=== PATIENT | male | born 1965 | race Caucasian/White ===

== ENCOUNTER 2019-08-24 14:36 | Emergency (ER) | payer BC, OTHER ==
--- NOTE | 2019-08-24 15:11 | ED ---
Chest Pain HPI - General Chief Complaint: Chest Pain Stated Complaint: Chest soreness Source: patient Mode of arrival: ambulatory Limitations: no limitations - History of Present Illness Initial Comments: The patient is a 54-year-old male with past medical history of diabetes who presents to the emergency room with reported chest congestion. He states that he has had a cough with mild shortness of breath which started around 3 AM. He states the cough is nonproductive. No associated chest pain. Denies fevers or chills. No sick contacts. No ripping or tearing sensation to his back. Denies a previous history of cardiac disease. Denies any abdominal pain. No recent travel. No history of DVT or PE. Denies having cardiac evaluation. No unilateral numbness or weakness. He has not taken any medications [id number] for his symptoms. There are no other alleviating, precipitating or modifying factors - Related Data Previous Rx's Medication Instructions Recorded Ibuprofen [Motrin] 800 mg PO Q8HR #30 tab 02/20/14 Sulfamethox-Tmp 800-160Mg [Bactrim 2 each PO Q12HR #56 tab 02/20/14 DS 800-160 mg] Albuterol Nebulized [Ventolin 2.5 mg INHALATION Q4H PRN #25 nebu 08/24/19 Nebulized] Albuterol Sulfate [Proair Hfa] 1 - 2 puff INHALATION Q4HR PRN #1 08/24/19 inhaler guaiFENesin-Coden 100-10MG/5ML 5 ml PO Q6H PRN 3 Days #60 ml 08/24/19 [Robitussin AC] predniSONE [Deltasone] 20 mg PO BID #10 tab 08/24/19 predniSONE [Deltasone] 20 mg PO BID #10 tab 08/24/19 Allergies Allergy/AdvReac Type Severity Reaction Status Date / Time No Known Allergies Allergy Verified 08/24/19 14:40 Review of Systems ROS Statement: Those systems with pertinent positive or pertinent negative responses have been documented in the HPI. ROS Other: All systems not noted in ROS Statement are negative. EKG Findings - EKG Comments: EKG Findings:: EKG demonstrates a sinus tachycardia with a ventricular rate of 122. [place] interval 148. QRS 82. QTC 458. No acute ST segment depressions concerning for ischemic changes Past Medical History Past Medical History: Diabetes Mellitus History of Any Multi-Drug Resistant Organisms: None Reported Past Surgical History: Appendectomy Past Psychological History: No Psychological Hx Reported Smoking Status: Never smoker Past Alcohol Use History: None Reported Past Drug Use History: None Reported General Exam Limitations: no limitations General appearance: alert, in no apparent distress Head exam: Present: atraumatic, normocephalic, normal inspection Eye exam: Present: normal appearance, PERRL, EOMI. Absent: scleral icterus, conjunctival injection, periorbital swelling ENT exam: Present: normal exam, mucous membranes moist Neck exam: Present: normal inspection. Absent: tenderness, meningismus, lymphadenopathy Respiratory exam: Present: normal lung sounds bilaterally. Absent: respiratory distress, wheezes, rales, rhonchi, stridor Cardiovascular Exam: Present: regular rate, tachycardia, normal heart sounds. Absent: systolic murmur, diastolic murmur, rubs, gallop, clicks GI/Abdominal exam: Present: soft, normal bowel sounds. Absent: distended, tenderness, guarding, rebound, rigid Extremities exam: Present: normal inspection, full ROM, normal capillary refill. Absent: tenderness, pedal edema, joint swelling, calf tenderness Back exam: Present: normal inspection Neurological exam: Present: alert, oriented X3, CN II-XII intact Psychiatric exam: Present: normal affect, normal mood Skin exam: Present: warm, dry, intact, normal color. Absent: rash Course Vital Signs 08/24/19 08/24/19 08/24/19 14:39 16:19 18:03 Temperature 99.1 F 98.9 F Pulse Rate 127 H 115 H 114 H Respiratory 22 20 18 Rate Blood Pressure 189/91 170/75 O2 Sat by Pulse 99 96 97 Oximetry Chest Pain MDM - MDM Upon arrival the patient is placed in room 10. A thorough history and physical exam was performed. The patient is markedly tachycardic. A 12-lead EKG was performed which demonstrates sinus tachycardia without ST depression or elevation. The patient is denying any chest pain at this time. Reports that he is concerned about his cough is he does take care of his elderly parents. I did recommend laboratory studies and a chest x-ray. Laboratory studies symmetry and an elevated glucose of 289. Anion gap is closed at 10. Influenza AB are not detected. Troponin is 0.012. Chest x-ray demonstrates no focal consolidation. Peribronchial cuffing. I discussed results with the patient. His heart rate has improved to 110. 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 A inform him that I am concerned about the elevation in his heart rate however he denies any chest pain and is refusing further workup. At this time the patient will be given a prescription for Robitussin-AC, a pro-air inhaler and steroids. He was given 60 mg in the emergency department. He is to follow up with his primary care doctor within 2- 4 days. I do inform the patient that he should have a cardiac workup completed because of his age. Return to emergency room for any new or worsening symptoms. The patient was in agreement treatment plan he is discharged home in stable condition Disposition Clinical Impression: Cough, Sinus tachycardia Disposition: HOME SELF-CARE Condition: Stable Instructions (If sedation given, give patient instructions): Upper Respiratory Infection (ED) Additional Instructions: Please follow-up with your primary care doctor in 2-4 days. I did recommend a cardiac workup. Return to the ER for any new or worsening symptoms Prescriptions: predniSONE [Deltasone] 20 mg PO BID #10 tab predniSONE [Deltasone] 20 mg PO BID #10 tab Albuterol Sulfate [Proair Hfa] 1 - 2 puff INHALATION Q4HR PRN #1 inhaler PRN Reason: difficulty in breathing guaiFENesin-Coden 100-10MG/5ML [Robitussin AC] 5 ml PO Q6H PRN 3 Days #60 ml PRN Reason: Cough Albuterol Nebulized [Ventolin Nebulized] 2.5 mg INHALATION Q4H PRN #25 nebu PRN Reason: difficulty in breathing Is patient prescribed a controlled substance at d/c from ED?: Yes When asked, does pt state using other controlled substances?: No If prescribed controlled substance>3 days was MAPS reviewed?: Prescribed <3 Days If opioid is for acute pain is fill amount 7 days or less?: Yes If Rx opioid, was Start Talking consent form obtained?: Yes Referrals: Markell Bond MD [Primary Care Provider] - 1-2 days Time of Disposition: 16:59
[2019-08-24 15:16] LABS: Basophils % (A) 1 %; Eosinophils # (A) 0.1 k/uL (0-0.7); Eosinophils % (A) 2 %; HCT 43.1 % (39.0-53.0); HGB 14.6 gm/dL (13.0-17.5); Lymphocytes # (A) 0.8 k/uL (1.0-4.8); Lymphocytes % (A) 15 %; MCH 28.6 pg (25.0-35.0); MCHC 33.9 g/dL (31.0-37.0); MCV 84.3 fL (80.0-100.0); Mean Platelet Volume 7.3; Monocytes # (A) 0.5 k/uL (0-1.0); Monocytes % (A) 9 %; Neutrophils # (A) 3.8 k/uL (1.3-7.7); Neutrophils % (A) 70 %; Platelet Count 205 k/uL (150-450); RBC 5.11 m/uL (4.30-5.90); RDW 12.9 % (11.5-15.5); WBC 5.5 k/uL (3.8-10.6)
--- NOTE | 2019-08-24 15:16 | XR ---
EXAMINATION TYPE: XR chest 2V DATE OF EXAM: 08/24/2019 COMPARISON: NONE HISTORY: Cough, congestion, and chest pressure TECHNIQUE: Frontal and lateral views of the chest are obtained. FINDINGS: There is no focal air space opacity, pleural effusion, or pneumothorax seen. Peribronchia l cuffing is seen, particularly surrounding the bronchus intermedius. The cardiac silhouette size is within normal limits. The osseous structures are intact. IMPRESSION: No focal consolidation to suggest pneumonia. Peribronchial cuffing. Correlate for bronch itis.
[2019-08-24 15:26] LABS: ALT 34 U/L (4-49); AST 34 U/L (17-59); African American GFR (CKD) >90 (>60 ml/min/1.73 sqM); Albumin 4.4 g/dL (3.5-5.0); Alkaline Phosphatase 91 U/L (38-126); Anion Gap 10 mmol/L; Blood Urea Nitrogen 11 mg/dL (9-20); Calcium 9.4 mg/dL (8.4-10.2); Carbon Dioxide 24 mmol/L (22-30); Chloride 99 mmol/L (98-107); Glucose 289 mg/dL (74-99); Magnesium 2.1 mg/dL (1.6-2.3); Non-African American GFR(CKD) >90 (>60 ml/min/1.73 sqM); Potassium 4.5 mmol/L (3.5-5.1); Sodium 133 mmol/L (137-145); Total Bilirubin 0.7 mg/dL (0.2-1.3)
[2019-08-24 15:39] LABS: D-Dimer 0.46 mg/L FEU (<0.60); INR 0.9 (<1.2); Partial Thromboplastin Time 22.7 sec (22.0-30.0); Prothrombin Time 9.6 sec (9.0-12.0)
[2019-08-24 16:20] VITALS: BP 170/75
[2019-08-24] MEDS ORDERED: predniSONE 20 MG TAB PO STA (16:56)
[2019-08-24 18:04] VITALS: PULSE 114; RESP 18; TEMP 98.9
== END 2019-08-24 18:05 | disposition home or self-care (01) ==
LOC: EC 14:36
DX: R05 Cough (principal); R00.0 Tachycardia, unspecified; E11.65 Type 2 diabetes mellitus with hyperglycemia
CPT/HCPCS: 36415; 85379; 80053; 83735; 84484; 85025; 85610; 85730; 87502; 71046; 99285; J7512

== ENCOUNTER 2020-02-14 10:52 | Emergency (ER) | payer OTHER ==
[2020-02-14] MEDS ORDERED: SODIUM CHLORIDE 0.9% 1,000 ML IV STA (11:39)
[2020-02-14] MEDS ORDERED: ACETAMINOPHEN TAB 500 MG TAB PO STA (11:48)
--- NOTE | 2020-02-14 11:48 | ED ---
Skin/Abscess/FB HPI <Maxime Rand - Last Filed: 02/14/20 13:20> - General Source: patient Mode of arrival: ambulatory Limitations: no limitations <Dilma Jeffries - Last Filed: 02/14/20 13:40> - General Chief complaint: Skin/Abscess/Foreign Body Stated complaint: Cyst, Male Time Seen by Provider: 02/14/20 11:23 - History of Present Illness Initial comments: Patient is a 55-year-old male presenting to the emergency Department with complaints of an abscess near his rectum has been going on for about one week. Patient states he has had this problem before proximally 3 years ago. Patient states he was started on Keflex and Bactrim about 3 days ago but symptoms have worsened. Patient states he felt like he had a fever yesterday. He has not been able to eat or drink much today. He denies any nausea or vomiting, diarrhea. He denies any abdominal pain. He has any chest pain or shortness of breath, cough. He has no further complaints at this time. Upon arrival to the ER, patient's temperature is 100.4, pulse is 113, respiratory 18, 97% on room air, 101/63 BP. (Dilma Jeffries) - Related Data Previous Rx's Medication Instructions Recorded Ibuprofen [Motrin] 800 mg PO Q8HR #30 tab 02/20/14 Sulfamethox-Tmp 800-160Mg [Bactrim 2 each PO Q12HR #56 tab 02/20/14 DS 800-160 mg] Albuterol Nebulized [Ventolin 2.5 mg INHALATION Q4H PRN #25 nebu 08/24/19 Nebulized] Albuterol Sulfate [Proair Hfa] 1 - 2 puff INHALATION Q4HR PRN #1 08/24/19 inhaler guaiFENesin-Coden 100-10MG/5ML 5 ml PO Q6H PRN 3 Days #60 ml 08/24/19 [Robitussin AC] predniSONE [Deltasone] 20 mg PO BID #10 tab 08/24/19 predniSONE [Deltasone] 20 mg PO BID #10 tab 08/24/19 Allergies Allergy/AdvReac Type Severity Reaction Status Date / Time No Known Allergies Allergy Verified 02/14/20 11:19 Review of Systems ROS Other: All systems not noted in ROS Statement are negative. <Maxime Rand - Last Filed: 02/14/20 13:20> ROS Other: All systems not noted in ROS Statement are negative. <NeshaDilma Thomas - Last Filed: 02/14/20 13:40> ROS Statement: Those systems with pertinent positive or pertinent negative responses have been documented in the HPI. Past Medical History Past Medical History: Diabetes Mellitus History of Any Multi-Drug Resistant Organisms: None Reported Past Surgical History: Appendectomy Past Psychological History: No Psychological Hx Reported Smoking Status: Never smoker Past Alcohol Use History: None Reported Past Drug Use History: None Reported <Dilma Jeffries - Last Filed: 02/14/20 13:40> General Exam Limitations: no limitations <NeshaDilma L - Last Filed: 02/14/20 13:40> - General Exam Comments Initial Comments: GENERAL: Patient is well-developed and well-nourished. Patient is nontoxic and in no acute distress. HEAD: Atraumatic, normocephalic. EYES: Pupils equal round and reactive to light, extraocular movements intact, sclera anicteric, conjunctiva are normal. Eyelids were unremarkable. ENT: TMs normal, nares patent, oropharynx clear without exudates. Moist mucous membranes. NECK: Normal range of motion, supple without lymphadenopathy or JVD. LUNGS: Unlabored respirations. Breath sounds clear to auscultation bilaterally and equal. No wheezes rales or rhonchi. HEART: Regular rate and rhythm without murmurs, rubs or gallops. ABDOMEN: Soft, nontender, normoactive bowel sounds. No guarding, no rebound. No masses appreciated. : Deferred MUSCULOSKELETAL: Normal extremities with adequate strength and normal range of motion, no pitting or edema. No clubbing or cyanosis. NEUROLOGICAL: Patient is alert and oriented x 3. Motor and sensory are also intact. Cranial nerves II through XII grossly intact. Symmetrical smile. Normal speech, normal gait. PSYCH: Normal mood, normal affect. SKIN: Warm, Dry, normal turgor, no rashes or lesions noted. (Dilma Jeffries) Course Vital Signs 02/14/20 02/14/20 11:17 12:35 Temperature 100.4 F H Pulse Rate 113 H 114 H Respiratory 18 16 Rate Blood Pressure 101/63 131/83 O2 Sat by Pulse 97 96 Oximetry Medical Decision Making - Lab Data Result diagrams: 02/14/20 11:41 02/14/20 11:41 <Maxime Rand - Last Filed: 02/14/20 13:20> - Lab Data Result diagrams: 02/14/20 11:41 02/14/20 11:41 <Dilma Jeffries - Last Filed: 02/14/20 13:40> - Medical Decision Making 55-year-old male with recurrent perianal abscess, patient has had this in the remote past. He is on antibiotics currently including Keflex and Bactrim. This is approximately 1 cm on external exam, CT is performed which shows this 1 cm small superficial abscess, no significant fat stranding or adjacent signs of infection. Discussed the case with general surgery, Dr. Villalta who recommends I&D in the emergency department and follow-up as an outpatient. This is extremely superficial and can be lanced in the emergency department. Continue antibiotics, follow-up with strict return parameters. (Maxime Rand) - Lab Data Lab Results 02/14/20 02/14/20 02/14/20 Range/Units 11:41 11:41 11:41 WBC 9.4 (3.8-10.6) k/uL RBC 4.60 (4.30-5.90) m/uL Hgb 13.3 (13.0-17.5) gm/dL Hct 39.2 (39.0-53.0) % MCV 85.1 (80.0-100.0) fL MCH 29.0 (25.0-35.0) pg MCHC 34.0 (31.0-37.0) g/dL RDW 13.1 (11.5-15.5) % Plt Count 209 (150-450) k/uL Neutrophils % 84 % Lymphocytes % 4 % Monocytes % 5 % Eosinophils % 4 % Basophils % 0 % Neutrophils # 7.9 H (1.3-7.7) k/uL Lymphocytes # 0.4 L (1.0-4.8) k/uL Monocytes # 0.5 (0-1.0) k/uL Eosinophils # 0.4 (0-0.7) k/uL Basophils # 0.0 (0-0.2) k/uL Sodium 127 L (137-145) mmol/L Potassium 4.2 (3.5-5.1) mmol/L Chloride 95 L (98-107) mmol/L Carbon Dioxide 21 L (22-30) mmol/L Anion Gap 11 mmol/L BUN 16 (9-20) mg/dL Creatinine 0.91 (0.66-1.25) mg/dL Est GFR (CKD-EPI)AfAm >90 (>60 ml/min/1.73 sqM) Est GFR (CKD-EPI)NonAf >90 (>60 ml/min/1.73 sqM) Glucose 252 H (74-99) mg/dL Plasma Lactic Acid Jose E 1.3 (0.7-2.0) mmol/L Calcium 8.2 L (8.4-10.2) mg/dL Total Bilirubin 0.9 (0.2-1.3) mg/dL AST 22 (17-59) U/L ALT 17 (4-49) U/L Alkaline Phosphatase 60 (38-126) U/L Total Protein 6.1 L (6.3-8.2) g/dL Albumin 3.6 (3.5-5.0) g/dL Disposition <Maxime Rand N - Last Filed: 02/14/20 13:20> Is patient prescribed a controlled substance at d/c from ED?: No <Dilma Jeffries - Last Filed: 02/14/20 13:40> Clinical Impression: Perianal abscess Disposition: HOME SELF-CARE Condition: Stable Instructions (If sedation given, give patient instructions): Abscess (ED) Additional Instructions: Please return to the Emergency Department if symptoms worsen or any other concerns. Continue with already prescribed Keflex and Bactrim for infection. Follow-up with Dr. Villalta's office tomorrow. Continue taking Tylenol for further fevers. Referrals: Markell Bond MD [Primary Care Provider] - 1-2 days Ry Villalta MD [STAFF PHYSICIAN] - 1-2 days
[2020-02-14 11:55] LABS: Basophils % (A) 0 %; Eosinophils # (A) 0.4 k/uL (0-0.7); Eosinophils % (A) 4 %; HCT 39.2 % (39.0-53.0); HGB 13.3 gm/dL (13.0-17.5); Lymphocytes # (A) 0.4 k/uL (1.0-4.8); Lymphocytes % (A) 4 %; MCV 85.1 fL (80.0-100.0); Mean Platelet Volume 7.9; Monocytes # (A) 0.5 k/uL (0-1.0); Monocytes % (A) 5 %; Neutrophils # (A) 7.9 k/uL (1.3-7.7); Neutrophils % (A) 84 %; Platelet Count 209 k/uL (150-450); RDW 13.1 % (11.5-15.5); WBC 9.4 k/uL (3.8-10.6)
[2020-02-14 12:05] LABS: ALT 17 U/L (4-49); AST 22 U/L (17-59); African American GFR (CKD) >90 (>60 ml/min/1.73 sqM); Albumin 3.6 g/dL (3.5-5.0); Alkaline Phosphatase 60 U/L (38-126); Anion Gap 11 mmol/L; Blood Urea Nitrogen 16 mg/dL (9-20); Calcium 8.2 mg/dL (8.4-10.2); Carbon Dioxide 21 mmol/L (22-30); Chloride 95 mmol/L (98-107); Glucose 252 mg/dL (74-99); Non-African American GFR(CKD) >90 (>60 ml/min/1.73 sqM); Potassium 4.2 mmol/L (3.5-5.1); Sodium 127 mmol/L (137-145); Total Bilirubin 0.9 mg/dL (0.2-1.3); Total Protein 6.1 g/dL (6.3-8.2)
[2020-02-14 12:36] VITALS: RESP 16
--- NOTE | 2020-02-14 12:40 | CT ---
EXAMINATION TYPE: CT pelvis w con DATE OF EXAM: 02/14/2020 COMPARISON: None. HISTORY: Perirectal abscess/cyst. Focal pain and swelling rectal region. CT DLP: 904.1 mGycm Automated exposure control for dose reduction was used. CONTRAST: Performed with IV Contrast, patient injected with 100 mL of Isovue 300. FINDINGS: Spleen is slightly enlarged at 14.3 cm long axis axial image 1. No suspicious bowel dilatation. No concerning pelvic fluid collection. Both kidneys, and visualized p ortion of pancreas and both adrenal glands are unremarkable. Prostate gland is normal in size. Visual ized osseous structures are intact. The perirectal and perianal fat is fairly well-preserved. Inferiorly there is rim enhancing thin-wall ed 2.1 x 1.1 x 1.3 cm fluid collection left aspect consistent with subcutaneous tiny abscess given pa tient history. Finding best visualized on axial image 81. This abuts skin surface. IMPRESSION: Small left perianal subcutaneous abscess confirmed as detailed above.
[2020-02-14] MEDS ORDERED: LIDOCAINE 1% INJ 10MG/ML (20 ML MDV) SQ ONE (13:19)
[2020-02-14] MEDS ORDERED: cefTRIAXone IN SWFI 1,000 MG/10 ML SYRINGE IVP STA (13:38)
[2020-02-14 13:50] VITALS: BP 118/71; PULSE 106; TEMP 101.1
== END 2020-02-14 14:15 | disposition home or self-care (01) ==
LOC: EC 10:52
DX: K61.0 Anal abscess (principal)
CPT/HCPCS: 36415; 80053; 83605; 85025; 72193; 99284; 96374; 96361; J2001; J0696; Q9967

== ENCOUNTER 2020-09-25 17:32 | Emergency (ER) | payer OTHER ==
[2020-09-25 17:36] VITALS: BP 131/84; PULSE 107; TEMP 98.2
[2020-09-25] MEDS ORDERED: guaiFENesin-DM 600/30MG 1 EACH TAB.ER.12H PO STA (19:05)
--- NOTE | 2020-09-25 19:48 | ED ---
URI HPI - General Source: patient Mode of arrival: ambulatory Limitations: no limitations <Soila Monzon - Last Filed: 09/25/20 20:28> <Sirena Ayala - Last Filed: 09/26/20 11:47> - General Chief Complaint: Upper Respiratory Infection Stated Complaint: Chest tightness/no taste/congestion Time Seen by Provider: 09/25/20 18:58 - History of Present Illness Initial Comments: 55-year-old male patient presents to the emergency department today for evaluation of nasal congestion and chest tightness. Patient states symptoms started last evening. States he has been exposed to his father who is currently hospitalized for COVID-19. He does have a history of asthma has been using albuterol inhaler which seems to be helping. Denies any fevers or chills. States his been using [place] but denies other medication use. Denies any nausea or vomiting. Denies constipation or diarrhea. Denies any rash. States he did lose his taste today. Patient denies any recent chest pain, abdominal pain, back pain, numbness, tingling, dizziness, weakness, hematuria, dysuria, urinary urgency, urinary frequency, headache, visual changes, or any other complaints. (Soila Monzon) - Related Data Previous Rx's Medication Instructions Recorded Ibuprofen [Motrin] 800 mg PO Q8HR #30 tab 02/20/14 Sulfamethox-Tmp 800-160Mg [Bactrim 2 each PO Q12HR #56 tab 02/20/14 DS 800-160 mg] Albuterol Nebulized [Ventolin 2.5 mg INHALATION Q4H PRN #25 nebu 08/24/19 Nebulized] Albuterol Sulfate [Proair Hfa] 1 - 2 puff INHALATION Q4HR PRN #1 08/24/19 inhaler guaiFENesin-Coden 100-10MG/5ML 5 ml PO Q6H PRN 3 Days #60 ml 08/24/19 [Robitussin AC] predniSONE [Deltasone] 20 mg PO BID #10 tab 08/24/19 predniSONE [Deltasone] 20 mg PO BID #10 tab 08/24/19 Allergies Allergy/AdvReac Type Severity Reaction Status Date / Time No Known Allergies Allergy Verified 09/25/20 17:33 Review of Systems ROS Other: All systems not noted in ROS Statement are negative. <Soila Monzon - Last Filed: 09/25/20 20:28> ROS Other: All systems not noted in ROS Statement are negative. <Sirena Ayala - Last Filed: 09/26/20 11:47> ROS Statement: Those systems with pertinent positive or pertinent negative responses have been documented in the HPI. Past Medical History Past Medical History: Diabetes Mellitus History of Any Multi-Drug Resistant Organisms: None Reported Past Surgical History: Appendectomy Past Psychological History: No Psychological Hx Reported Smoking Status: Never smoker Past Alcohol Use History: None Reported Past Drug Use History: None Reported <Soila Monzon - Last Filed: 09/25/20 20:28> General Exam Limitations: no limitations General appearance: alert, in no apparent distress, other (This is a well- developed, well-nourished adult male patient in no acute distress. Vital signs upon presentation are temperature 98.2F, pulse 107, respirations 18, blood pressure 131/84, pulse ox 99% on room air.) Eye exam: Present: normal appearance, PERRL, EOMI. Absent: scleral icterus, conjunctival injection, periorbital swelling ENT exam: Present: normal exam, normal oropharynx, mucous membranes moist Respiratory exam: Present: normal lung sounds bilaterally. Absent: respiratory distress, wheezes, rales, rhonchi, stridor Cardiovascular Exam: Present: regular rate, normal rhythm, normal heart sounds. Absent: systolic murmur, diastolic murmur, rubs, gallop, clicks GI/Abdominal exam: Present: soft, normal bowel sounds. Absent: distended, tenderness, guarding, rebound, rigid Neurological exam: Present: alert, oriented X3, CN II-XII intact Psychiatric exam: Present: normal affect, normal mood Skin exam: Present: warm, dry, intact, normal color. Absent: rash <Soila Monzon - Last Filed: 09/25/20 20:28> Course Vital Signs 09/25/20 09/25/20 17:34 19:45 Temperature 98.2 F Pulse Rate 107 H Respiratory 18 20 Rate Blood Pressure 131/84 O2 Sat by Pulse 99 Oximetry Medical Decision Making - Radiology Data Radiology results: report reviewed, image reviewed <Soila Monzon - Last Filed: 09/25/20 20:28> <Sirena Ayala - Last Filed: 09/26/20 11:47> - Medical Decision Making 55-year-old male patient presents to the emergency department today for evaluation of chest tightness and nasal congestion. Physical examination did reveal clear equal lung sounds. Vital signs within normal ranges. Chest x-ray is negative. He did test positive for COVID-19. He'll be discharged follow up with his primary care physician for recheck in 1-2 days. Does have albuterol inhaler at home is instructed to use this as directed. He is instructed to obtain [id number] vitamin such as vitamin C and zinc. Return parameters were discussed in detail. He verbalizes understanding and agrees with this plan. Case discussed with my attending Dr. Ayala. (Soila Monzon) I was available for consultation in the emergency department. The history and physical exam were done by the midlevel provider. I was consulted for this patients care. I reviewed the case with the midlevel provider and based on their presentation of the patient, I agree with the assessment, medical decision making and plan of care as documented. Chart was dictated using [employer] dictation software. Attempts were made to correct any dictation errors however some typographical errors may persist. Patient was seen during a national state of emergency due to the Covid-19 pandemic. (Sirena Ayala) - Lab Data Lab Results 09/25/20 Range/Units 19:07 Coronavirus (PCR) Detected A (Not Detectd) - Radiology Data One view x-ray of the chest is obtained. Report reviewed in its entirety. Impression by Dr. Patton shows no acute process. (Soila Monzon) Disposition Is patient prescribed a controlled substance at d/c from ED?: No Time of Disposition: 20:24 <Soila Monzon - Last Filed: 09/25/20 20:28> <Sirena Ayala - Last Filed: 09/26/20 11:47> Clinical Impression: COVID-19 Disposition: HOME SELF-CARE Condition: Good Instructions (If sedation given, give patient instructions): Coronavirus Disease 2019 (COVID-19) Additional Instructions: Increase fluids. Rest. Use inhaler as needed. Consider using [id number]-lnlzrof vitamins such as vitamin C and zinc. Follow-up with your primary care physician for recheck in 1-2 days. Return to the emergency room for any new, worsening, or concerning symptoms. Referrals: Markell Bond MD [Primary Care Provider] - 1-2 days
--- NOTE | 2020-09-25 20:11 | XR ---
EXAMINATION TYPE: XR chest 1V DATE OF EXAM: 09/25/2020 COMPARISON: 08/24/2019. HISTORY: Cough. TECHNIQUE: Single frontal view of the chest is obtained. FINDINGS: There is no focal air space opacity, pleural effusion, or pneumothorax seen. The cardiac silhouette size is within normal limits. The osseous structures are intact. IMPRESSION: No acute process.
[2020-09-25 20:29] VITALS: RESP 20
== END 2020-09-25 20:38 | disposition home or self-care (01) ==
LOC: EC 17:32
DX: U07.1 COVID-19 (principal); E11.9 Type 2 diabetes mellitus without complications
CPT/HCPCS: 71045; 87635; 93005; 99285

== ENCOUNTER 2021-09-14 14:40 | Emergency (ER) | payer OTHER ==
[2021-09-14 14:51] VITALS: TEMP 98.4
[2021-09-14] MEDS ORDERED: SODIUM CHLORIDE 0.9% 2,000 ML IV STA (18:05)
[2021-09-14] MEDS ORDERED: LIDOCAINE URO-JET JELLY 2% 5 ML KIT URETHRAL ONE (18:17)
--- NOTE | 2021-09-14 18:33 | XR ---
EXAMINATION TYPE: XR KUB DATE OF EXAM: 09/14/2021 COMPARISON: NONE HISTORY: Constipation TECHNIQUE: 2 view FINDINGS: There is no sign of intestinal obstruction or pneumoperitoneum. Fecal pattern is normal. No evidence of a mass. There are no pathologic calcifications. IMPRESSION: Nonacute abdomen.
[2021-09-14 18:44] LABS: Basophils % (A) 0 %; Eosinophils # (A) 0.1 k/uL (0-0.7); Eosinophils % (A) 2 %; HCT 43.3 % (39.0-53.0); HGB 14.9 gm/dL (13.0-17.5); Lymphocytes # (A) 2.1 k/uL (1.0-4.8); Lymphocytes % (A) 24 %; MCHC 34.3 g/dL (31.0-37.0); MCV 87.4 fL (80.0-100.0); Mean Platelet Volume 7.9; Monocytes # (A) 0.6 k/uL (0-1.0); Monocytes % (A) 6 %; Neutrophils # (A) 5.9 k/uL (1.3-7.7); Neutrophils % (A) 66 %; Platelet Count 309 k/uL (150-450); RBC 4.95 m/uL (4.30-5.90); RDW 13.3 % (11.5-15.5); WBC 8.9 k/uL (3.8-10.6)
[2021-09-14 19:04] LABS: ALT 33 U/L (4-49); AST 27 U/L (17-59); African American GFR (CKD) >90 (>60 ml/min/1.73 sqM); Albumin 4.8 g/dL (3.5-5.0); Alkaline Phosphatase 85 U/L (38-126); Anion Gap 9 mmol/L; Blood Urea Nitrogen 19 mg/dL (9-20); Calcium 9.5 mg/dL (8.4-10.2); Carbon Dioxide 28 mmol/L (22-30); Chloride 100 mmol/L (98-107); Glucose 296 mg/dL (74-99); Lipase 82 U/L (23-300); Non-African American GFR(CKD) >90 (>60 ml/min/1.73 sqM); Potassium 4.3 mmol/L (3.5-5.1); Sodium 137 mmol/L (137-145); Total Bilirubin 0.9 mg/dL (0.2-1.3); Total Protein 7.8 g/dL (6.3-8.2)
[2021-09-14 20:16] VITALS: BP 131/72; PULSE 71; RESP 18
--- NOTE | 2021-09-14 20:38 | ED ---
General Adult HPI - General Chief complaint: Abdominal Pain Stated complaint: Possible Bowel blockage Time Seen by Provider: 09/14/21 17:54 Source: patient Mode of arrival: ambulatory Limitations: no limitations - History of Present Illness Initial comments: Patient is a 56-year-old male who presents to the emergency department with a chief complaint constipation. Patient states he has been experiencing constipation once or twice a week for a month but has self treated successfully with enemas and laxatives. Patient states he has not been able to have a bowel movement since Tuesday. He has attempted self disimpaction, laxatives, and enemas with no relief. Patient states he drinks an adequate amount of water per day. Patient states his brother's emergency medicine attending and would like PSA value to be drawn. Patient does not have urinary symptoms including burning with urination, increased frequency, increased urgency, or urinary retention. Patient has no other concerns at this time including fever, chills, headache, shortness of breath, cough, chest pain, abdominal pain, nausea, and vomiting. - Related Data Previous Rx's Medication Instructions Recorded Ibuprofen [Motrin] 800 mg PO Q8HR #30 tab 02/20/14 Sulfamethox-Tmp 800-160Mg [Bactrim 2 each PO Q12HR #56 tab 02/20/14 DS 800-160 mg] Albuterol Nebulized [Ventolin 2.5 mg INHALATION Q4H PRN #25 nebu 08/24/19 Nebulized] Albuterol Sulfate [Proair Hfa] 1 - 2 puff INHALATION Q4HR PRN #1 08/24/19 inhaler guaiFENesin-Coden 100-10MG/5ML 5 ml PO Q6H PRN 3 Days #60 ml 08/24/19 [Robitussin AC] predniSONE [Deltasone] 20 mg PO BID #10 tab 08/24/19 predniSONE [Deltasone] 20 mg PO BID #10 tab 08/24/19 Allergies Allergy/AdvReac Type Severity Reaction Status Date / Time No Known Allergies Allergy Verified 09/14/21 14:51 Review of Systems ROS Statement: Those systems with pertinent positive or pertinent negative responses have been documented in the HPI. ROS Other: All systems not noted in ROS Statement are negative. Past Medical History Past Medical History: Diabetes Mellitus History of Any Multi-Drug Resistant Organisms: None Reported Past Surgical History: Appendectomy Past Psychological History: No Psychological Hx Reported Smoking Status: Never smoker Past Alcohol Use History: None Reported Past Drug Use History: None Reported General Exam Limitations: no limitations General appearance: alert, in no apparent distress Head exam: Present: atraumatic, normocephalic, normal inspection Eye exam: Present: normal appearance, PERRL, EOMI. Absent: scleral icterus, c onjunctival injection, periorbital swelling ENT exam: Present: normal oropharynx, mucous membranes moist Neck exam: Present: normal inspection, full ROM Cardiovascular Exam: Present: regular rate, normal rhythm, normal heart sounds. Absent: systolic murmur, diastolic murmur, rubs, gallop, clicks GI/Abdominal exam: Present: soft, normal bowel sounds. Absent: distended, tenderness, guarding, rebound, rigid Neurological exam: Present: alert, oriented X3, CN II-XII intact Psychiatric exam: Present: normal affect, normal mood Skin exam: Present: warm, dry, intact, normal color. Absent: rash Course Vital Signs 09/14/21 09/14/21 14:49 20:14 Temperature 98.4 F Pulse Rate 107 H 71 Respiratory 20 18 Rate Blood Pressure 126/79 131/72 O2 Sat by Pulse 99 95 Oximetry Medical Decision Making - Medical Decision Making This is a 56-year-old male who presents with 3 days of constipation. Thorough history and examination were performed. Abdomen is soft and nontender. Glucose is 296. Other laboratory studies are unremarkable. PSA was ordered per request and is pending. KUB x-ray was obtained which shows constipation. Patient given fluid bolus and soap suds enema. Patient has a large bowel movem ent in the emergency department states that he feels much better. Patient states he does not take diabetes medication or check his blood sugar routinely. He denies recent steroid use. Repeat blood sugar is 234. Patient declined hyperglycemic medication at this time he states he will follow-up with his primary care provider. Patient will be discharged and is highly encouraged to follow up with his primary care provider for diabetes management. Return parameters discussed. Patient verbalizes understanding and is agreeable to plan. Dr. Cotter is my attending. - Lab Data Result diagrams: 09/14/21 18:30 09/14/21 18:30 Lab Results 03/28/22 03/28/22 03/28/22 Range/Units 18:30 18:30 21:04 WBC 8.9 (3.8-10.6) k/uL RBC 4.95 (4.30-5.90) m/uL Hgb 14.9 (13.0-17.5) gm/dL Hct 43.3 (39.0-53.0) % MCV 87.4 (80.0-100.0) fL MCH 30.0 (25.0-35.0) pg MCHC 34.3 (31.0-37.0) g/dL RDW 13.3 (11.5-15.5) % Plt Count 309 (150-450) k/uL MPV 7.9 Neutrophils % 66 % Lymphocytes % 24 % Monocytes % 6 % Eosinophils % 2 % Basophils % 0 % Neutrophils # 5.9 (1.3-7.7) k/uL Lymphocytes # 2.1 (1.0-4.8) k/uL Monocytes # 0.6 (0-1.0) k/uL Eosinophils # 0.1 (0-0.7) k/uL Basophils # 0.0 (0-0.2) k/uL Sodium 137 (137-145) mmol/L Potassium 4.3 (3.5-5.1) mmol/L Chloride 100 (98-107) mmol/L Carbon Dioxide 28 (22-30) mmol/L Anion Gap 9 mmol/L BUN 19 (9-20) mg/dL Creatinine 0.73 (0.66-1.25) mg/dL Est GFR (CKD-EPI)AfAm >90 (>60 ml/min/1.73 sqM) Est GFR (CKD-EPI)NonAf >90 (>60 ml/min/1.73 sqM) Glucose 296 H (74-99) mg/dL POC Glucose (mg/dL) 234 H (75-99) mg/dL POC Glu Jewelry Facer ID Inderjit Whitman Calcium 9.5 (8.4-10.2) mg/dL Total Bilirubin 0.9 (0.2-1.3) mg/dL AST 27 (17-59) U/L ALT 33 (4-49) U/L Alkaline Phosphatase 85 (38-126) U/L Total Protein 7.8 (6.3-8.2) g/dL Albumin 4.8 (3.5-5.0) g/dL Lipase 82 (23-300) U/L Disposition Clinical Impression: Constipation, Hyperglycemia Disposition: HOME SELF-CARE Condition: Good Instructions (If sedation given, give patient instructions): Type 2 Diabetes Management for Adults (ED), Constipation (ED) Additional Instructions: Please follow up with your primary care provider in one to 2 days for diabetes management. Imhn-yif-inhjtmr soap floyd enema should be available at your local pharmacy. Return to the emergency department if you experience new, concerning, or worsening symptoms. Is patient prescribed a controlled substance at d/c from ED?: No Referrals: Markell Bond MD [Primary Care Provider] - 1-2 days Time of Disposition: 21:24
[2021-09-14 21:07] LABS: Glucose,Whole Blood 234 mg/dL (75-99)
[2021-09-14] MEDS ORDERED: INSULIN ASPART (NovoLOG) 100 UNIT/ML VIAL SQ ONE ×2 (21:08→21:38)
== END 2021-09-14 21:57 | disposition home or self-care (01) ==
LOC: EC 14:40
DX: K59.00 Constipation, unspecified (principal); E11.65 Type 2 diabetes mellitus with hyperglycemia
CPT/HCPCS: 36415; 74018; 80053; 83690; 84153; 85025; 96360; 96361; 99283

== ENCOUNTER 2021-12-07 17:03 | Inpatient (IN) | payer OTHER ==
[2021-12-07 17:12] LABS: Glucose,Whole Blood 206 mg/dL (70-110)
[2021-12-07] MEDS ORDERED: SODIUM CHLORIDE 0.9% 2,000 ML IV ONE (17:27)
[2021-12-07] MEDS ORDERED: ONDANSETRON 4 MG/2 ML VIAL IVP STA (17:29)
--- NOTE | 2021-12-07 17:36 | ED ---
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 Patient comes in today stating that over the last 2 days been extremely dizzy and it occurs when he goes to s tand up. Patient states he thinks she's been getting enough fluid and her sugars been okay. Patient states today at about noon he started vomiting and having diarrhea and now he is extremely dizzy especially when sitting up or standing. Patient denies any abdominal pain patient denies chest pain patient shortness breath or difficulty breathing. Patient states she has a mild headache. There is no numbness or weakness. She denies any recent fever chills or cough - Related Data Home Medications Medication Instructions Recorded Confirmed Albuterol Sulfate [Proair Hfa] 2 puff INHALATION RT-Q4H PRN 12/07/21 12/07/21 Atomoxetine HCl [Strattera] 25 mg PO DAILY 12/07/21 12/07/21 EPINEPHrine (Auto Inject) [Epipen] 0.3 mg IM ONCE PRN 12/07/21 12/07/21 Famotidine 20 mg PO DAILY 12/07/21 12/07/21 Finasteride [Proscar] 5 mg PO DAILY 12/07/21 12/07/21 Fluticasone Propionate [Flovent 2 puff INHALATION RT-BID PRN 12/07/21 12/07/21 Hfa 220 mcg] Levothyroxine Sodium [Synthroid] 150 mcg PO DAILY 12/07/21 12/07/21 Ondansetron Odt [Zofran Odt] 8 mg PO Q6H PRN 12/07/21 12/07/21 Pantoprazole Sodium 40 mg PO BID 12/07/21 12/07/21 metFORMIN HCL 1,000 mg PO BID-W/MEALS 12/07/21 12/07/21 Allergies Allergy/AdvReac Type Severity Reaction Status Date / Time No Known Allergies Allergy Verified 12/07/21 19:34 Review of Systems ROS Statement: Those systems with pertinent positive or pertinent negative responses have been documented in the HPI. ROS Other: All systems not noted in ROS Statement are negative. Past Medical History Past Medical History: Asthma, Diabetes Mellitus History of Any Multi-Drug Resistant Organisms: None Reported Past Surgical History: Appendectomy Past Psychological History: No Psychological Hx Reported Smoking Status: Never smoker Past Alcohol Use History: None Reported Past Drug Use History: None Reported General Exam - General Exam Comments Initial Comments: GENERAL: Patient is well-developed and well-nourished. Patient is nontoxic and well-hydrated and is in mild distress. Patient becomes very lightheaded when I sit him up in bed. ENT: Neck is soft and supple. No significant lymphadenopathy is noted. Oropharynx is clear. Moist mucous membranes. Neck has full range of motion without eliciting any pain. EYES: The sclera were anicteric and conjunctiva were pink and moist. There is no nystagmus. Extraocular movements were intact and pupils were equal round and reactive to light. Eyelids were unremarkable. PULMONARY: Unlabored respirations. Good breath sounds bilaterally. No audible rales rhonchi or wheezing was noted. CARDIOVASCULAR: There is a regular rate and rhythm without any murmurs gallops or rubs. ABDOMEN: Soft and nontender with normal bowel sounds. SKIN: Skin is clear with no lesions or rashes and otherwise unremarkable. NEUROLOGIC: Patient is alert and oriented x3. Cranial nerves II through XII are grossly intact. Motor and sensory are also intact. Normal speech, volume and content. Symmetrical smile. Finger to nose testing is normal bilaterally MUSCULOSKELETAL: Normal extremities with adequate strength and full range of motion. LYMPHATICS: No significant lymphadenopathy is noted PSYCHIATRIC: Normal psychiatric evaluation. Course Vital Signs 12/07/21 12/07/21 12/07/21 17:08 18:21 20:00 Temperature 98.1 F 99.2 F Pulse Rate 114 H 115 H 112 H Respiratory 18 18 22 Rate Blood Pressure 99/71 98/66 116/74 O2 Sat by Pulse 100 100 99 Oximetry Medical Decision Making - Medical Decision Making EKG shows sinus rhythm at 90 bpm MN interval is 135 QRS 96 QT interval 348 QTC is 44 per patient's EKG shows no ST segment elevation however there is slight ST segment depression in V4 V5 and V6. Patient's pain is resolving gave the patient 2 g of magnesium sulfate. Patient received Zofran and 2 L of fluid in the emergency department. And she received Lomotil. I spoke with Dr. Ziegler and he agreed to admit the patient admitted the patient wrote admitting orders. - Lab Data Result diagrams: 12/07/21 17:46 12/07/21 20:22 Lab Results 12/07/21 12/07/21 12/07/21 Range/Units 17:11 17:46 20:22 WBC 8.7 (3.8-10.6) k/uL RBC 5.05 (4.30-5.90) m/uL Hgb 15.2 (13.0-17.5) gm/dL Hct 44.3 (39.0-53.0) % MCV 87.7 (80.0-100.0) fL MCH 30.1 (25.0-35.0) pg MCHC 34.3 (31.0-37.0) g/dL RDW 13.3 (11.5-15.5) % Plt Count 281 (150-450) k/uL MPV 8.6 Neutrophils % 86 % Lymphocytes % 6 % Monocytes % 6 % Eosinophils % 1 % Basophils % 0 % Neutrophils # 7.5 (1.3-7.7) k/uL Lymphocytes # 0.5 L (1.0-4.8) k/uL Monocytes # 0.5 (0-1.0) k/uL Eosinophils # 0.1 (0-0.7) k/uL Basophils # 0.0 (0-0.2) k/uL Manual Slide Review Performed RBC Morphology Normal Sodium 135 L (137-145) mmol/L Potassium 4.1 (3.5-5.1) mmol/L Chloride 108 H (98-107) mmol/L Carbon Dioxide 22 (22-30) mmol/L Anion Gap 5 mmol/L BUN 20 (9-20) mg/dL Creatinine 0.71 (0.66-1.25) mg/dL Est GFR (CKD-EPI)AfAm >90 (>60 ml/min/1.73 sqM) Est GFR (CKD-EPI)NonAf >90 (>60 ml/min/1.73 sqM) Glucose 175 H (74-99) mg/dL POC Glucose (mg/dL) 206 H (70-110) mg/dL POC Glu Commercial Cleaner Jon Amaro Calcium 7.8 L (8.4-10.2) mg/dL Magnesium 1.4 L (1.6-2.3) mg/dL Total Bilirubin 0.4 (0.2-1.3) mg/dL AST 16 L (17-59) U/L ALT 13 (4-49) U/L Alkaline Phosphatase 41 (38-126) U/L Troponin I (0.000-0.034) ng/mL Total Protein 5.3 L (6.3-8.2) g/dL Albumin 3.1 L (3.5-5.0) g/dL 12/07/21 Range/Units 20:22 WBC (3.8-10.6) k/uL RBC (4.30-5.90) m/uL Hgb (13.0-17.5) gm/dL Hct (39.0-53.0) % MCV (80.0-100.0) fL MCH (25.0-35.0) pg MCHC (31.0-37.0) g/dL RDW (11.5-15.5) % Plt Count (150-450) k/uL MPV Neutrophils % % Lymphocytes % % Monocytes % % Eosinophils % % Basophils % % Neutrophils # (1.3-7.7) k/uL Lymphocytes # (1.0-4.8) k/uL Monocytes # (0-1.0) k/uL Eosinophils # (0-0.7) k/uL Basophils # (0-0.2) k/uL Manual Slide Review RBC Morphology Sodium (137-145) mmol/L Potassium (3.5-5.1) mmol/L Chloride (98-107) mmol/L Carbon Dioxide (22-30) mmol/L Anion Gap mmol/L BUN (9-20) mg/dL Creatinine (0.66-1.25) mg/dL Est GFR (CKD-EPI)AfAm (>60 ml/min/1.73 sqM) Est GFR (CKD-EPI)NonAf (>60 ml/min/1.73 sqM) Glucose (74-99) mg/dL POC Glucose (mg/dL) (70-110) mg/dL POC Glu Commercial Cleaner ID Calcium (8.4-10.2) mg/dL Magnesium (1.6-2.3) mg/dL Total Bilirubin (0.2-1.3) mg/dL AST (17-59) U/L ALT (4-49) U/L Alkaline Phosphatase (38-126) U/L Troponin I <0.012 (0.000-0.034) ng/mL Total Protein (6.3-8.2) g/dL Albumin (3.5-5.0) g/dL Disposition Clinical Impression: Diarrhea, Acute vomiting, Lightheaded, Dehydration Disposition: ADMITTED IP TO THIS HOSP Referrals: Markell Bond MD [Primary Care Provider] - 1-2 days Time of Disposition: 21:07
--- NOTE | 2021-12-07 19:13 | XR ---
EXAMINATION TYPE: XR chest 2V DATE OF EXAM: 12/07/2021 COMPARISON: 09/25/2020 HISTORY: Difficulty breathing TECHNIQUE: FINDINGS: Heart is normal. Lungs are clear of infiltrate. No heart failure. There are chest leads. Co stophrenic angles are clear. Bony thorax is intact. IMPRESSION: No active cardiopulmonary disease. No change.
[2021-12-07 19:26] LABS: Basophils % (A) 0 %; Eosinophils # (A) 0.1 k/uL (0-0.7); Eosinophils % (A) 1 %; HCT 44.3 % (39.0-53.0); HGB 15.2 gm/dL (13.0-17.5); Lymphocytes # (A) 0.5 k/uL (1.0-4.8); Lymphocytes % (A) 6 %; MCH 30.1 pg (25.0-35.0); MCHC 34.3 g/dL (31.0-37.0); MCV 87.7 fL (80.0-100.0); Mean Platelet Volume 8.6; Monocytes # (A) 0.5 k/uL (0-1.0); Monocytes % (A) 6 %; Neutrophils # (A) 7.5 k/uL (1.3-7.7); Neutrophils % (A) 86 %; Platelet Count 281 k/uL (150-450); RBC 5.05 m/uL (4.30-5.90); RDW 13.3 % (11.5-15.5); WBC 8.7 k/uL (3.8-10.6)
[2021-12-07 19:46] LABS: RBC Morphology Normal
[2021-12-07] MEDS ORDERED: DIPHENOX-ATROP 2.5-0.025 MG 1 EACH TAB PO STA (19:50)
[2021-12-07 20:40] LABS: ALT 13 U/L (4-49); AST 16 U/L (17-59); African American GFR (CKD) >90 (>60 ml/min/1.73 sqM); Albumin 3.1 g/dL (3.5-5.0); Alkaline Phosphatase 41 U/L (38-126); Anion Gap 5 mmol/L; Blood Urea Nitrogen 20 mg/dL (9-20); Calcium 7.8 mg/dL (8.4-10.2); Carbon Dioxide 22 mmol/L (22-30); Chloride 108 mmol/L (98-107); Glucose 175 mg/dL (74-99); Magnesium 1.4 mg/dL (1.6-2.3); Non-African American GFR(CKD) >90 (>60 ml/min/1.73 sqM); Potassium 4.1 mmol/L (3.5-5.1); Sodium 135 mmol/L (137-145); Total Bilirubin 0.4 mg/dL (0.2-1.3); Total Protein 5.3 g/dL (6.3-8.2)
[2021-12-07] MEDS ORDERED: SODIUM CHLORIDE 0.9% 1,000 ML IV ONE ×2 (21:07)
[2021-12-07] MEDS ORDERED: ONDANSETRON 4 MG/2 ML VIAL IVP PRN (21:08)
[2021-12-07] MEDS: MAGNESIUM SULFATE-D5W PMX 1 GM in DEXTROSE/WATER 1 100ML.BAG IVPB SCH ×2 (21:49→23:47)
[2021-12-08] MEDS ORDERED: SODIUM CHLORIDE 0.9% 1,000 ML IV ONE (00:02)
[2021-12-08] MEDS ORDERED: MAGNESIUM SULFATE-D5W PMX 1 GM in DEXTROSE/WATER 1 100ML.BAG IVPB SCH (00:15)
[2021-12-08] MEDS ORDERED: LIDOCAINE URO-JET JELLY 2% 5 ML KIT URETHRAL ONE (01:00)
[2021-12-08 01:20] LABS: HCT 33.2 % (39.0-53.0); HGB 11.5 gm/dL (13.0-17.5); MCH 30.2 pg (25.0-35.0); MCHC 34.7 g/dL (31.0-37.0); Mean Platelet Volume 9.4; Platelet Count 215 k/uL (150-450); RBC 3.82 m/uL (4.30-5.90); RDW 13.5 % (11.5-15.5); WBC 6.9 k/uL (3.8-10.6)
[2021-12-08 01:40] LABS: Appearance,Urine Clear (Clear); Bacteria,Urine Rare /hpf; Bilirubin,Urine Negative (Negative); Blood,Urine Negative (Negative); Color,Urine Yellow; Glucose,Urine (UA) 3+ (Negative); Hyaline Casts,Urine 8 /lpf (0-2); Ketones,Urine 1+ (Negative); Leukocyte Esterase,Urine Negative (Negative); Mucus,Urine Moderate /hpf; Nitrite,Urine Negative (Negative); Protein,Urine 1+ (Negative); RBC,Urine 1 /hpf (0-5); Specific Gravity,Urine 1.017 (1.001-1.035); Squamous Epithelial Cell,Urine <1 /hpf (0-4); Urobilinogen,Urine <2.0 mg/dL (<2.0); WBC,Urine 3 /hpf (0-5)
[2021-12-08 01:58] LABS: ALT 13 U/L (4-49); AST 16 U/L (17-59); African American GFR (CKD) >90 (>60 ml/min/1.73 sqM); Albumin/Globulin Ratio 1.4; Alkaline Phosphatase 40 U/L (38-126); Anion Gap 10 mmol/L; Blood Urea Nitrogen 24 mg/dL (9-20); Carbon Dioxide 18 mmol/L (22-30); Chloride 112 mmol/L (98-107); Globulin 2.1 g/dL; Glucose 194 mg/dL (74-99); Non-African American GFR(CKD) >90 (>60 ml/min/1.73 sqM); Potassium 4.2 mmol/L (3.5-5.1); Sodium 140 mmol/L (137-145); Total Bilirubin 0.6 mg/dL (0.2-1.3); Total Protein 5.1 g/dL (6.3-8.2)
[2021-12-08 02:07] LABS: Band Neutrophils % 13 %; Eosinophils # (M) 0.14 k/uL (0-0.7); Lymphocytes # (M) 0.41 k/uL (1.0-4.8); Monocytes # (M) 0.97 k/uL (0-1.0); Neutrophils % (M) 65 %; Nucleated Red Blood Cells 0 /100 WBC (0-0); Total Cells Counted 100
[2021-12-08] MEDS: LACTATED RINGERS 1,000 ML IV SCH ×3 (03:12→21:50)
[2021-12-08] MEDS ORDERED: HYDROCORTISONE SUCCINATE 100 MG/2 ML VIAL IV STA (03:24)
--- NOTE | 2021-12-08 07:46 | US ---
EXAMINATION TYPE: US renals and bladder DATE OF EXAM: 12/08/2021 COMPARISON: NONE CLINICAL HISTORY: oliguria. low blood pressure EXAM MEASUREMENTS: Right Kidney: 11.3 x 5.8 x 4.5 cm Left Kidney: 12.3 x 5.4 x 5.3 cm Right Kidney: No hydronephrosis, nephrolithiasis or masses seen Left Kidney: No hydronephrosis, nephrolithiasis or masses seen Bladder: Nondiagnostic due to Teague catheter. Bilateral Jets seen: No IMPRESSION: No hydronephrosis or nephrolithiasis
[2021-12-08 08:26] LABS: HCT 34.1 % (39.0-53.0); HGB 11.7 gm/dL (13.0-17.5); MCH 30.4 pg (25.0-35.0); MCHC 34.3 g/dL (31.0-37.0); MCV 88.5 fL (80.0-100.0); Mean Platelet Volume 8.2; Platelet Count 220 k/uL (150-450); RBC 3.85 m/uL (4.30-5.90); RDW 13.6 % (11.5-15.5); WBC 8.8 k/uL (3.8-10.6)
[2021-12-08 08:28] LABS: ALT 13 U/L (4-49); AST 14 U/L (17-59); African American GFR (CKD) >90 (>60 ml/min/1.73 sqM); Alkaline Phosphatase 44 U/L (38-126); Anion Gap 5 mmol/L; Blood Urea Nitrogen 22 mg/dL (9-20); Calcium 7.6 mg/dL (8.4-10.2); Carbon Dioxide 25 mmol/L (22-30); Chloride 106 mmol/L (98-107); Glucose 203 mg/dL (74-99); Magnesium 1.8 mg/dL (1.6-2.3); Non-African American GFR(CKD) >90 (>60 ml/min/1.73 sqM); Potassium 4.5 mmol/L (3.5-5.1); Sodium 136 mmol/L (137-145); Total Bilirubin 0.4 mg/dL (0.2-1.3); Total Protein 5.2 g/dL (6.3-8.2)
[2021-12-08] MEDS ORDERED: FLUTICASONE 110 MCG INHALER INHALATION PRN (08:47)
[2021-12-08] MEDS ORDERED: ONDANSETRON ODT 8 MG TAB.RAPDIS PO PRN (08:47)
[2021-12-08 08:51] LABS: Band Neutrophils % 5 %; Lymphocytes # (M) 1.14 k/uL (1.0-4.8); Monocytes # (M) 0.44 k/uL (0-1.0); Neutrophils % (M) 77 %; Nucleated Red Blood Cells 0 /100 WBC (0-0); Total Cells Counted 100
[2021-12-08 08:52] LABS: RBC Morphology Normal
[2021-12-08] MEDS ORDERED: LEVOTHYROXINE 75 MCG TAB PO SCH (09:00)
[2021-12-08] MEDS: INSULIN ASPART (NovoLOG) 100 UNIT/ML VIAL SQ SCH ×4 (09:46→21:49)
[2021-12-08] MEDS: FAMOTIDINE 20 MG TAB PO SCH (09:47)
[2021-12-08] MEDS: HYDROCORTISONE SUCCINATE 100 MG/2 ML VIAL IV SCH ×2 (09:47→21:49)
[2021-12-08] MEDS: PANTOPRAZOLE SODIUM 40 MG GRANULE PKT PO SCH ×2 (09:48→23:34)
[2021-12-08 12:27] LABS: Glucose,Whole Blood 194 mg/dL (70-110)
--- NOTE | 2021-12-08 15:20 | CA ---
Transthoracic Echo Report Name: Pino Rae Age: 56 Gender: M : 1965 Exam Date: 12/08/2021 13:17 Exam Location: [facility] Ht (in): 68 Wt (lb): 175 Ordering Physician: Markell Bond MD Attending/Referring Phys: Varun IR[employer] Imelda Rodriguez RDCS Procedure CPT: Indications: hypotention unexplained Cardiac Hx: Technical Quality: Fair Contrast 1: Total Dose (mL): Contrast 2: Total Dose (mL): MEASUREMENTS (Male / Female) Normal Values 2D ECHO LV Diastolic Diameter PLAX 4.5 cm 4.2 - 5.9 / 3.9 - 5.3 cm LV Systolic Diameter PLAX 3.2 cm IVS Diastolic Thickness 1.2 cm 0.6 - 1.0 / 0.6 - 0.9 cm LVPW Diastolic Thickness 1.2 cm 0.6 - 1.0 / 0.6 - 0.9 cm LV Relative Wall Thickness 0.5 RV Internal Dim ED PLAX 3.7 cm LA Volume 56.0 cm??? 18 - 58 / 22 - 52 cm??? M-MODE Aortic Root Diameter MM 2.4 cm LA Systolic Diameter MM 3.8 cm LA Ao Ratio MM 1.6 AV Cusp Separation MM 1.8 cm DOPPLER AV Peak Velocity 143.9 cm/s AV Peak Gradient 8.3 mmHg LVOT Peak Velocity 87.1 cm/s LVOT Peak Gradient 3.0 mmHg MV Area PHT 5.2 cm??? Mitral E Point Velocity 103.9 cm/s Mitral A Point Velocity 108.2 cm/s Mitral E to A Ratio 1.0 MV Deceleration Time 146.2 ms MV E' Velocity 8.7 cm/s Mitral E to MV E' Ratio 12.0 TR Peak Velocity 242.0 cm/s TR Peak Gradient 23.4 mmHg Right Ventricular Systolic Press 28.4 mmHg FINDINGS Left Ventricle Mildly increased left ventricular wall thickness. Normal left ventricular systolic function with no obvious regional wall motion abnormalities. Normal left ventricular diastolic filling pattern. Left ventricular ejection fraction is estimated at 55-60 %. Right Ventricle Mild right ventricular dilatation. Right ventricular systolic pressure within normal limits. Right Atrium Normal right atrial size. Left Atrium Normal left atrial size. No evidence for an atrial septal defect. Mitral Valve Structurally normal mitral valve. No mitral stenosis, regurgitation or prolapse. Aortic Valve Trileaflet aortic valve. No aortic valve stenosis or regurgitation. Mild aortic valve sclerosis. Tricuspid Valve Structurally normal tricuspid valve. Mild tricuspid regurgitation. No evidence of pulmonary hypertension. Pulmonic Valve Structurally normal pulmonic valve. Trace pulmonic regurgitation. Pericardium No pericardial effusion. Aorta Normal size aortic root and proximal ascending aorta. CONCLUSIONS Normal LV size and function Previewed by: Dr. Pascual Dobbins MD (Electronically Signed) Final Date: 08 December 2021 15:19
[2021-12-08 17:50] LABS: Glucose,Whole Blood 169 mg/dL (70-110)
--- NOTE | 2021-12-08 19:26 | HP ---
HISTORY AND PHYSICAL CHIEF COMPLAINT: Weakness, falling and dehydration. HISTORY OF PRESENT ILLNESS: This is the first known admissions for this 56-year-old white male who has apparently been in good health. He does take metformin for diabetes. He presented to the emergency room later in the day after he suddenly developed intense and intractable nausea, vomiting and diarrhea. He came to the emergency room, where he was hypotensive and very dehydrated. He underwent fluid resuscitation and continued to remain dizzy and hypotensive. He denied any sore throat, cough, chest pain, sputum production, sinusitis, urinary symptoms, etc. During the night his blood pressure went as low as 70s systolically and then hovered around 90. REVIEW OF SYSTEMS: He only complains of dizziness and nausea. He has no change in vision or hearing, chest pain, abdominal pain, hematemesis, coffee-ground emesis, melena, hematochezia, jaundice, history of pancreatitis, dysuria, frequency, urgency, renal disease, etc. Past medical history, family history, and personal and social histories are essentially unremarkable otherwise. He does not or drink. PHYSICAL EXAMINATION: Blood pressure 88/40 with a pulse of 83 and regular. Respirations were 32 and he is afebrile. In general he appeared to be pale and weak. He was complaining of his legs feeling extremely weak. He has had no neurologic problems in the past and no sensorimotor symptoms in the past. Head, ears, eyes, nose, mouth and throat were normal. Neck was supple. Chest is clear. Cardiac exam demonstrated sinus rhythm. The abdomen was soft and nontender without visceromegaly or masses. Bowel sounds are present. Extremities are normal. Neurologically, other than being dizzy and slightly lethargic, he is intact. He is admitted to the hospital with diagnoses: 1. Intractable nausea, vomiting and diarrhea, probably due to gastroenteritis. 2. Dehydration. 3. History of type 2 [id number] diabetes mellitus. PLAN: 1. Bedrest. 2. IV fluids. 3. Monitor blood sugars. 4. Monitor blood pressure. MMODL / IJN: [id number] /
--- NOTE | 2021-12-08 19:29 | PN ---
PROGRESS NOTE CHIEF COMPLAINT: Intractable nausea, vomiting and diarrhea with dehydration and hypotension. HISTORY OF PRESENT ILLNESS: During the night this gentleman's blood pressure dropped down into the 70s. He stayed in sinus rhythm. He did not have any complaints of chest pain, shortness of breath, abdominal pain, etc. At the present time he is still feeling weak and somewhat lethargic. PHYSICAL EXAMINATION: He is pale. Hemoglobin has dropped to around 11. Chest is clear. The cardiac exam is normal. The abdomen is soft and nontender. Bowel sounds are present. Extremities are normal. IMPRESSION: 1. Intractable nausea, vomiting and diarrhea. 2. Dehydration. 3. Lethargy. PLAN: 1. Continue with IV fluids. 2. Morning cortisol and ACTH. 3. Free T4. 4. Fecal occult blood. 5. Echocardiogram. 6. MAURA. MMODL / IJN: [id number] /
[2021-12-08 20:20] LABS: Glucose,Whole Blood 135 mg/dL (70-110)
[2021-12-09 02:13] LABS: Glucose,Whole Blood 212 mg/dL (70-110)
[2021-12-09] MEDS: LACTATED RINGERS 1,000 ML IV SCH ×3 (04:59→19:43)
[2021-12-09 07:36] LABS: Glucose,Whole Blood 176 mg/dL (70-110)
[2021-12-09] MEDS: FAMOTIDINE 20 MG TAB PO SCH (09:08)
[2021-12-09] MEDS: INSULIN ASPART (NovoLOG) 100 UNIT/ML VIAL SQ SCH ×4 (09:08→20:47)
[2021-12-09] MEDS: HYDROCORTISONE SUCCINATE 100 MG/2 ML VIAL IV SCH (09:08)
[2021-12-09] MEDS: PANTOPRAZOLE SODIUM 40 MG GRANULE PKT PO SCH ×2 (09:08→18:01)
[2021-12-09 11:36] LABS: Glucose,Whole Blood 221 mg/dL (70-110)
--- NOTE | 2021-12-09 13:08 | P.CNNES ---
History of Present Illness Consult date: 12/09/21 Requesting physician: Markell Bond Reason for Consult: generalized weakness History of Present Illness: This is a 56-year-old with medical history of diabetes, peripheral neuropathy, COVID-19 in September 2020 who presented to the emergency department on 12/07/2021 feeling light-headedness, vomiting and diarrhea. Neurology is consulted for generalized weakness. According to the patient since this past Tuesday he's been having lightheadedness episodes and happens when he is standing up. Also he's been having repeated episode of nausea, vomiting and diarrhea since this past Tuesday. He felt like he has a very low-grade fever but denies any rash. Denies any focal weakness, any new numbness. Denies any visual disturbance. Patient denies any cough recently. Currently he's feeling better compared to his ini tial presentation and his mother's at bedside and she agrees that he's doing better compared to his initial presentation. Some of the workup in our facility consisted of a during this hospital visit: On initial presentation her systolic blood pressure is 99 on a got to 84 diastolic on initial presentation was 71 and a got as low as 55. CBC with differential is unremarkable TSH is 1.150. MAURA is negative Review of Systems Review of system: The 12 point system was reviewed and apparent positive and negative per HPI. Past Medical History Past Medical History: Asthma, Diabetes Mellitus History of Any Multi-Drug Resistant Organisms: None Reported Past Surgical History: Appendectomy Past Psychological History: No Psychological Hx Reported Smoking Status: Former smoker Past Alcohol Use History: None Reported Past Drug Use History: None Reported Medications and Allergies Home Medications Medication Instructions Recorded Confirmed Type Albuterol Sulfate [Proair Hfa] 2 puff INHALATION RT-Q4H PRN 12/07/21 12/07/21 History Atomoxetine HCl [Strattera] 25 mg PO DAILY 12/07/21 12/07/21 History EPINEPHrine (Auto Inject) [Epipen] 0.3 mg IM ONCE PRN 12/07/21 12/07/21 History Famotidine 20 mg PO DAILY 12/07/21 12/07/21 History Finasteride [Proscar] 5 mg PO DAILY 12/07/21 12/07/21 History Fluticasone Propionate [Flovent 2 puff INHALATION RT-BID PRN 12/07/21 12/07/21 History Hfa 220 mcg] Levothyroxine Sodium [Synthroid] 150 mcg PO DAILY 12/07/21 12/07/21 History Ondansetron Odt [Zofran Odt] 8 mg PO Q6H PRN 12/07/21 12/07/21 History Pantoprazole Sodium 40 mg PO BID 12/07/21 12/07/21 History metFORMIN HCL 1,000 mg PO BID-W/MEALS 12/07/21 12/07/21 History Allergies Allergy/AdvReac Type Severity Reaction Status Date / Time tree nut Allergy Swelling Verified 12/08/21 09:57 Physical Examination - Vital Signs Vital Signs: Vital Signs Temp Pulse Resp BP Pulse Ox 12/09/21 11:35 98.2 F 97 16 153/87 98 12/09/21 05:00 97.8 F 99 16 148/89 97 12/08/21 20:15 98.9 F 104 H 16 121/76 96 12/08/21 17:30 98.4 F 102 H 18 128/77 98 12/08/21 15:03 97.5 F L 105 H 16 126/82 98 Intake and Output 12/08/21 12/09/21 12/09/21 22:59 06:59 14:59 Intake Total 250 Output Total 1000 Balance 250 -1000 Intake: Intake, IV Titration 250 Amount Lactated Ringers 1,000 ml 250 @ 125 mls/hr IV .Q8H [facility] Rx#:[id number] Output: Urine 1000 Other: Voiding Method Indwelling Catheter Weight 77 kg GENERAL: The patient is lying in bed and is not in acute distress. CHEST: The heart rate is regular rate rhythm. No murmurs to auscultation. LUNG: Clear to auscultation bilaterally no wheezing noted throughout. Not labored breathing. ABDOMEN/GI: Bowel sounds present in all 4 quadrants. No tenderness to palpation throughout. NEUROLOGICAL: Higher mental function: The patient is awake, alert, oriented to self, place and time. Patient is following commands. No aphasia and no neglect. Cranial nerves: The pupils are round, equal and reactive to light and accommodation. Visual warner are full to confrontation throughout. Extraocular movement is intact no nystagmus is noted. Facial sensation is normal to touch throughout. The facial strength is normal throughout. Hearing is normal bilaterally to hand rub. Tongue is midline and moved [id number] without any difficulty. No dysarthria is noted. Shoulder shrug is normal bilaterally. Motor: The strength is 5 over 5 throughout. Normal tone and bulk. Cerebellum: Normal finger to nose bilaterally. Sensation: Sensation is normal to touch throughout. Reflexes (right/left): 2+ throughout except ankles are 1+. Plantars are mute bilaterally. Results - Laboratory Findings CBC and BMP: 12/08/21 07:59 12/08/21 07:59 Abnormal Lab Findings: Abnormal Labs 12/07/21 12/07/21 12/07/21 17:11 17:46 20:22 RBC Hgb Hct Lymphocytes # 0.5 L Lymphocytes # (Manual) D-Dimer Sodium 135 L Chloride 108 H Carbon Dioxide BUN Glucose 175 H POC Glucose (mg/dL) 206 H Hemoglobin A1c Calcium 7.8 L Magnesium 1.4 L AST 16 L C-Reactive Protein Total Protein 5.3 L Albumin 3.1 L Procalcitonin Urine Protein Urine Glucose (UA) Urine Ketones Urine Bacteria Hyaline Casts Urine Mucus 12/08/21 12/08/21 12/08/21 00:09 00:09 00:09 RBC 3.82 L Hgb 11.5 L D Hct 33.2 L Lymphocytes # Lymphocytes # (Manual) 0.41 L D-Dimer 1.02 H Sodium Chloride Carbon Dioxide BUN Glucose POC Glucose (mg/dL) Hemoglobin A1c Calcium Magnesium AST C-Reactive Protein 2.6 H Total Protein Albumin Procalcitonin Urine Protein Urine Glucose (UA) Urine Ketones Urine Bacteria Hyaline Casts Urine Mucus 12/08/21 12/08/21 12/08/21 00:09 00:10 00:49 RBC Hgb Hct Lymphocytes # Lymphocytes # (Manual) D-Dimer Sodium Chloride 112 H Carbon Dioxide 18 L BUN 24 H Glucose 194 H POC Glucose (mg/dL) Hemoglobin A1c Calcium 8.0 L Magnesium AST 16 L C-Reactive Protein Total Protein 5.1 L Albumin 3.0 L Procalcitonin 3.57 H Urine Protein 1+ H Urine Glucose (UA) 3+ H Urine Ketones 1+ H Urine Bacteria Rare H Hyaline Casts 8 H Urine Mucus Moderate H 12/08/21 12/08/21 12/08/21 07:59 07:59 12:26 RBC 3.85 L Hgb 11.7 L Hct 34.1 L Lymphocytes # Lymphocytes # (Manual) D-Dimer Sodium 136 L Chloride Carbon Dioxide BUN 22 H Glucose 203 H POC Glucose (mg/dL) 194 H Hemoglobin A1c Calcium 7.6 L Magnesium AST 14 L C-Reactive Protein Total Protein 5.2 L Albumin 3.0 L Procalcitonin Urine Protein Urine Glucose (UA) Urine Ketones Urine Bacteria Hyaline Casts Urine Mucus 12/08/21 12/08/21 12/08/21 12:58 17:48 20:18 RBC Hgb Hct Lymphocytes # Lymphocytes # (Manual) D-Dimer Sodium Chloride Carbon Dioxide BUN Glucose POC Glucose (mg/dL) 169 H 135 H Hemoglobin A1c 8.1 H Calcium Magnesium AST C-Reactive Protein Total Protein Albumin Procalcitonin Urine Protein Urine Glucose (UA) Urine Ketones Urine Bacteria Hyaline Casts Urine Mucus 12/09/21 12/09/21 12/09/21 02:11 07:35 11:35 RBC Hgb Hct Lymphocytes # Lymphocytes # (Manual) D-Dimer Sodium Chloride Carbon Dioxide BUN Glucose POC Glucose (mg/dL) 212 H 176 H 221 H Hemoglobin A1c Calcium Magnesium AST C-Reactive Protein Total Protein Albumin Procalcitonin Urine Protein Urine Glucose (UA) Urine Ketones Urine Bacteria Hyaline Casts Urine Mucus Assessment and Plan Assessment: Lightheadedness, nausea vomiting and diarrhea due to volume depletion likely due to underlying recent viral infection (stated had low grade fever). Neurological exam is nonfocal. Generalized weakness due to above Diabetes mellitus COVID-19 in September 2020 Plan: I ordered a CT of the head to rule out any central cause. If CT of the head is negative and the patient continues to have symptoms can pursue MRI of the brain to rule outs any posterior circulation ischemia which I feel unlikely. Ordered orthostatic vitals Every 4 hours neuro checks C. diff, ACTH, blood culture are pending. Will defer the rest of medical management to primary team. The plan is discussed with the patient's and his mother was at bedside as well as as nurse. Noé Garcia M.D. Neuro-Hospitalist. Time with Patient: Greater than 30
--- NOTE | 2021-12-09 13:56 | CT ---
EXAMINATION TYPE: CT brain wo con DATE OF EXAM: 12/09/2021 COMPARISON: None available HISTORY: dizziness CT DLP: 1081.6 mGycm Automated exposure control for dose reduction was used. TECHNIQUE: CT scan of the brain is performed without IV contrast administration. FINDINGS: Bilateral cerebral white matter hypodensities, likely representing chronic microvascular ischemic radha nges. No acute intracranial hemorrhage. No gross acute cortical infarct. No midline shift, herniation or ventriculomegaly. Unremarkable kelly-white matter differentiation, basal cisterns, sella and CP angles. No gross space-o ccupying lesion, vasogenic edema or mass effect. Unremarkable orbits. Clear visualized paranasal sinuses. Minimal opacification of the left posterior mastoid air cells. Unremarkable calvarial bones. IMPRESSION: No acute intracranial abnormality or gross space-occupying lesion by this nonenhanced CT scan. Incide ntal findings as described above.
--- NOTE | 2021-12-09 16:16 | PN ---
PROGRESS NOTE CHIEF COMPLAINT: Gastroenteritis with dehydration and hypotension. HISTORY OF PRESENT ILLNESS: This gentleman is feeling a lot better. His strength is improving. Neurology has not been able to find any significant pathology including a normal CT today. His echocardiogram was normal. He is feeling much better and his blood sugar and blood pressure are rising. PHYSICAL EXAMINATION: Chest is clear. Cardiac exam is normal. Abdomen is soft, nontender. IMPRESSION AND PLAN: 1. Viral gastroenteritis with profound dehydration, hypokalemia and hypotension. 2. Type 2 noninsulin dependent diabetes mellitus. 3. Stop steroids. 4. Order was put in yesterday to remove the catheter and it is still in. This will be removed today. MMODL / IJN: [id number] /
[2021-12-09 17:29] LABS: Glucose,Whole Blood 198 mg/dL (70-110)
[2021-12-09 20:36] LABS: Glucose,Whole Blood 220 mg/dL (70-110)
[2021-12-10] MEDS: LACTATED RINGERS 1,000 ML IV SCH ×2 (02:04→12:52)
[2021-12-10 02:08] LABS: Glucose,Whole Blood 155 mg/dL (70-110)
[2021-12-10 07:13] LABS: Glucose,Whole Blood 176 mg/dL (70-110)
[2021-12-10] MEDS: INSULIN ASPART (NovoLOG) 100 UNIT/ML VIAL SQ SCH ×2 (08:29→12:50)
[2021-12-10] MEDS: PANTOPRAZOLE SODIUM 40 MG GRANULE PKT PO SCH (08:30)
[2021-12-10] MEDS: FAMOTIDINE 20 MG TAB PO SCH (08:30)
[2021-12-10] MEDS ORDERED: CALCIUM CARBONATE 500 MG CHEWABLE PO PRN (10:45)
[2021-12-10 12:42] LABS: Glucose,Whole Blood 185 mg/dL (70-110)
[2021-12-10 13:05] VITALS: BP 157/85; PULSE 95; RESP 18; TEMP 98.3
--- NOTE | 2021-12-10 15:39 | P.PN ---
Subjective Progress Note Date: 12/10/21 The patient is seen at bedside and he stated he is feeling drastically better. Denies any further light-headedness, nausea, vomiting or diarrhea. He has been walking without any issues. Objective - Vital Signs Vital signs: Vital Signs Temp 98.3 F 12/10/21 13:00 Pulse 95 12/10/21 13:00 Resp 18 12/10/21 13:00 BP 157/85 12/10/21 13:00 Pulse Ox 98 12/10/21 13:00 FiO2 Intake & Output 12/09/21 12/10/21 12/10/21 18:59 06:59 18:59 Intake Total 1500 2000 236 Balance 1500 1999 236 Intake: Intake, IV Titration 1500 1500 Amount Lactated Ringers 1,000 ml 1500 1500 @ 125 mls/hr IV .Q8H [facility] Rx#:[id number] Oral 500 236 Other: Voiding Method Indwelling Catheter Toilet Toilet Urinal Urinal # Voids 5 1 - Exam GENERAL: The patient is lying in bed and is not in acute distress. NEUROLOGICAL: Higher mental function: The patient is awake, alert, oriented to self, place and time. Patient is following commands. No aphasia and no neglect. Cranial nerves: The pupils are round, equal and reactive to light and accommodation. Visual warner are full to confrontation throughout. Extraocular movement is intact no nystagmus is noted. Facial sensation is normal to touch throughout. The facial strength is normal throughout. Hearing is normal bilaterally to hand rub. Tongue is midline and moved [id number] without any difficulty. No dysarthria is noted. Shoulder shrug is normal bilaterally. Motor: The strength is 5 over 5 throughout. Normal tone and bulk. Cerebellum: Normal finger to nose bilaterally. Sensation: Sensation is normal to touch throughout. Reflexes (right/left): 2+ throughout except ankles are 1+. Plantars are mute bilaterally. Some of the workup in our facility consisted of a during this hospital visit: TSH is 1.150. MAURA is negative Hemoglobin A1c is 8.1 CT of the head is reported as no acute intracranial abnormality or gross space-occupying lesion by this non-had a computed tomography scan. I personally reviewed the CT of the head and I agree with the report. - Labs CBC & Chem 7: 12/08/21 07:59 12/08/21 07:59 Labs: Abnormal Lab Results - Last 24 Hours (Table) 12/09/21 12/09/21 12/10/21 Range/Units 17:10 20:34 02:07 POC Glucose (mg/dL) 198 H 220 H 155 H (70-110) mg/dL 12/10/21 12/10/21 Range/Units 07:12 12:40 POC Glucose (mg/dL) 176 H 185 H (70-110) mg/dL Microbiology - Last 24 Hours (Table) 12/08/21 00:09 Blood Culture - Preliminary Blood No Growth after 48 hours 12/08/21 00:14 Blood Culture - Preliminary Blood No Growth after 48 hours Assessment and Plan Assessment: Lightheadedness, nausea vomiting and diarrhea due to volume depletion likely due to underlying recent viral infection (stated had low grade fever). Neurological exam is nonfocal---symptoms resolved. Generalized weakness due to above Diabetes mellitus COVID-19 in September 2020 Plan: I There is no further neurological work-up since patient feels back to baseline. He feels his symptoms has resolved. I will not pursue MRI Brain. If he has reoccurrence of his symptoms consider obtaining MRI Brain to rule out any central cause which seems unlikely. Will defer the rest of medical management to primary team. Neurology will sign off. Please reconsult if needed. Noé Garcia M.D. Neuro-Hospitalist. Time with Patient: Less than 30
--- NOTE | 2021-12-10 23:08 | DS ---
DISCHARGE SUMMARY CHIEF COMPLAINT: Dizziness and dehydration. HISTORY OF PRESENT ILLNESS AND PHYSICAL EXAMINATION: Details of this man's history and physical can be found in the initial workup. LABORATORY STUDIES: While he was in the hospital, he had laboratory studies, details of which can be found in the laboratory section of his chart. COURSE IN THE HOSPITAL: After admission, he was placed on bedrest and underwent fluid resuscitation with 3-4 L over short period of time. His magnesium was elevated, but it came down. Potassium was low and this was also corrected. However, he remained hypotensive and extremely weak. He was started on IV steroids and his blood pressure did respond. He continued to improve and he was able to start to move about and eat without any difficulty. His blood pressure and blood sugars continued to climb and the steroids were stopped. He was doing well and laboratory studies were returned to normal and blood pressure and blood sugars are coming down. It was felt he could go home on his usual activity, diet and medications. He will follow up in the office in several days. FINAL DIAGNOSES: 1. 15% dehydration. 2. Hypovolemia. 3. Hypotension. 4. Type 2 NIDDM. OPERATIONS: None. CONSULTATIONS: None. MMTRISTINL / IJN: [id number] /
== END 2021-12-10 15:28 | disposition home or self-care (01) | DRG 641 ==
LOC: EC 17:03 → 5NMEDONC 21:07 → 3SCARD 12-08 02:48 → 5NMEDONC 12-08 12:08
PROVIDERS: ADMIT Family Medicine; ATTEND Family Medicine
DX: E86.0 Dehydration (principal); E11.42 Type 2 diabetes mellitus with diabetic polyneuropathy; I95.9 Hypotension, unspecified; A08.4 Viral intestinal infection, unspecified; E86.1 Hypovolemia; J45.909 Unspecified asthma, uncomplicated; Z28.310 Unvaccinated for COVID-19; Z86.16 Personal history of COVID-19; Z87.19 Personal history of other diseases of the digestive system; Z90.49 Acquired absence of other specified parts of digestive tract; Z87.891 Personal history of nicotine dependence; Z98.890 Other specified postprocedural states; W19.XXXA Unspecified fall, initial encounter; Z79.890 Hormone replacement therapy; Z79.84 Long term (current) use of oral hypoglycemic drugs; Z79.899 Other long term (current) drug therapy; Z91.018 Allergy to other foods
CPT/HCPCS: 36415; 70450; 71046; 76770; 80053; 81001; 82024; 82533; 83036; 83605; 83690; 83735; 84145; 84443; 84484; 85025; 85379; 86038; 86140; 86850; 86900; 86901; 87040; 93005; 93306; 96360; 96361; 96365; 96366; 96375; 96376; 99285

== ENCOUNTER 2021-12-16 14:07 | Inpatient (IN) | payer OTHER ==
[2021-12-16] MEDS ORDERED: ONDANSETRON 4 MG/2 ML VIAL IVP STA (14:59)
[2021-12-16] MEDS ORDERED: SODIUM CHLORIDE 0.9% 2,000 ML IV STA (14:59)
[2021-12-16] MEDS ORDERED: PANTOPRAZOLE 40 MG/10 ML VIAL IVP STA (15:11)
[2021-12-16] MEDS ORDERED: FAMOTIDINE 20 MG/2 ML VIAL IV STA (15:13)
--- NOTE | 2021-12-16 15:30 | ED ---
General Adult HPI - General Chief complaint: Nausea/Vomiting/Diarrhea Stated complaint: dehydration/dizziness/weakness Time Seen by Provider: 12/16/21 14:55 Source: patient Mode of arrival: wheelchair Limitations: no limitations - History of Present Illness Initial comments: Patient is a 56-year-old male with a past medical history of type 2 non-insulin- dependent diabetes who presents to the emergency department with a chief complaint of nausea, vomiting, and diarrhea. Patient states his symptoms started at 12 PM today. Patient states he has had 3-5 episodes of vomiting and diarrhea, nonbloody. Patient states he feels very weak, dehydrated, and lightheaded. States he feels pressure in the middle of his stomach with burning. Denies fever, chills, upper respiratory symptoms, shortness of breath, and chest pain. Patient presented in the emergency department on 12/07/21 for similar concerns. At this time he was admitted to the hospital. He continued to remain hypotensive during his stay then which he was given IV steroids. Cortisol, ACTH, and TSH were within normal limits. Neurology did see the patient for generalized weakness and brain MRI was negative for acute process. Echocardiogram showed normal LV size and function. Patient states he did feel better at discharge and at home up until today. - Related Data Home Medications Medication Instructions Recorded Confirmed Albuterol Sulfate [Proair Hfa] 2 puff INHALATION RT-Q4H PRN 12/07/21 12/07/21 EPINEPHrine (Auto Inject) [Epipen] 0.3 mg IM ONCE PRN 12/07/21 12/07/21 metFORMIN HCL 1,000 mg PO BID-W/MEALS 12/07/21 12/07/21 Allergies Allergy/AdvReac Type Severity Reaction Status Date / Time tree nut Allergy Swelling Verified 12/16/21 17:16 Review of Systems ROS Statement: Those systems with pertinent positive or pertinent negative responses have been documented in the HPI. ROS Other: All systems not noted in ROS Statement are negative. Past Medical History Past Medical History: Asthma, Diabetes Mellitus History of Any Multi-Drug Resistant Organisms: None Reported Past Surgical History: Appendectomy Past Psychological History: No Psychological Hx Reported Smoking Status: Former smoker Past Alcohol Use History: None Reported Past Drug Use History: None Reported General Exam Limitations: no limitations General appearance: alert, in no apparent distress Head exam: Present: atraumatic, normocephalic, normal inspection Eye exam: Present: normal appearance, PERRL, EOMI. Absent: scleral icterus, conjunctival injection, periorbital swelling Respiratory exam: Present: normal lung sounds bilaterally. Absent: respiratory distress, wheezes, rales, rhonchi, stridor Cardiovascular Exam: Present: regular rate, normal rhythm, normal heart sounds. Absent: systolic murmur, diastolic murmur, rubs, gallop, clicks GI/Abdominal exam: Present: soft, tenderness (periumblical ), normal bowel sounds. Absent: distended, guarding, rebound, rigid Neurological exam: Present: alert, oriented X3, CN II-XII intact Psychiatric exam: Present: normal affect, normal mood Skin exam: Present: warm, dry, intact, normal color. Absent: rash Course Vital Signs 12/16/21 12/16/21 12/16/21 14:18 15:20 16:00 Temperature 98.2 F 99.3 F 99.2 F Pulse Rate 106 H 113 H 112 H Respiratory 15 22 Rate Blood Pressure 76/49 115/69 129/80 O2 Sat by Pulse 98 97 97 Oximetry Medical Decision Making - Medical Decision Making This is a 56-year-old male who presents with nausea, vomiting, and diarrhea since 12 PM today. Thorough history and examination were performed. Patient is hypotensive at 76/49 which is much lower than his normal pressure. Patient presented on 12/07/21 with similar presentation and was hypotensive at this time as well. He does describe an abdominal pressure with burning in the periumbilical region. There is tenderness here. Patient has not had imaging of his abdomen. I will obtain this as well as laboratory studies. Laboratory studies significant for elevated white count of 17.8. CT of the abdomen and pelvis with contrast is negative for acute process. Patient given fluid bolus, Zofran, Pepcid, and Protonix. On reevaluation patient states his symptoms have improved significantly. His blood pressure responded at 129/80. With patient's hypotension, elevated white countm and symptoms is concern for infection. With today being patient's second visit for this presentation it is necessary that he stays in the hospital. Blood cultures pending. Rocephin initiated. Case discussed with Dr. Correia. Patient will be admitted to his service for further evaluation and management. Results discussed patient and his mother. I also spoke with patient's uncle on the phone who is an EM physician. He requested T4 is drawn as he states this was not tested with TSH last time the patient was here. This was ordered. Patient admitted in stable condition. Dr. Rand is my attending. - Lab Data Result diagrams: 12/16/21 15:25 12/16/21 15:25 Lab Results 12/16/21 12/16/21 12/16/21 Range/Units 15:25 15:25 15:25 WBC 17.8 H (3.8-10.6) k/uL RBC 4.70 (4.30-5.90) m/uL Hgb 13.7 (13.0-17.5) gm/dL Hct 40.5 (39.0-53.0) % MCV 86.1 (80.0-100.0) fL MCH 29.2 (25.0-35.0) pg MCHC 33.9 (31.0-37.0) g/dL RDW 13.7 (11.5-15.5) % Plt Count 315 (150-450) k/uL MPV 8.6 Neutrophils % 86 % Lymphocytes % 5 % Monocytes % 8 % Eosinophils % 1 % Basophils % 0 % Neutrophils # 15.2 H (1.3-7.7) k/uL Lymphocytes # 0.8 L (1.0-4.8) k/uL Monocytes # 1.4 H (0-1.0) k/uL Eosinophils # 0.2 (0-0.7) k/uL Basophils # 0.1 (0-0.2) k/uL Manual Slide Review Performed Sodium 136 L (137-145) mmol/L Potassium 3.7 (3.5-5.1) mmol/L Chloride 101 (98-107) mmol/L Carbon Dioxide 28 (22-30) mmol/L Anion Gap 7 mmol/L BUN 17 (9-20) mg/dL Creatinine 0.91 (0.66-1.25) mg/dL Est GFR (CKD-EPI)AfAm >90 (>60 ml/min/1.73 sqM) Est GFR (CKD-EPI)NonAf >90 (>60 ml/min/1.73 sqM) Glucose 199 H (74-99) mg/dL Plasma Lactic Acid Jose E 1.4 (0.7-2.0) mmol/L Calcium 8.8 (8.4-10.2) mg/dL Magnesium 1.5 L (1.6-2.3) mg/dL Total Bilirubin 0.5 (0.2-1.3) mg/dL AST 18 (17-59) U/L ALT 19 (4-49) U/L Alkaline Phosphatase 54 (38-126) U/L Total Protein 6.4 (6.3-8.2) g/dL Albumin 3.9 (3.5-5.0) g/dL Lipase 112 (23-300) U/L Coronavirus (PCR) (Not Detectd) Influenza Type A RNA (Not Detectd) Influenza Type B (PCR) (Not Detectd) 12/16/21 12/16/21 Range/Units 15:25 15:25 WBC (3.8-10.6) k/uL RBC (4.30-5.90) m/uL Hgb (13.0-17.5) gm/dL Hct (39.0-53.0) % MCV (80.0-100.0) fL MCH (25.0-35.0) pg MCHC (31.0-37.0) g/dL RDW (11.5-15.5) % Plt Count (150-450) k/uL MPV Neutrophils % % Lymphocytes % % Monocytes % % Eosinophils % % Basophils % % Neutrophils # (1.3-7.7) k/uL Lymphocytes # (1.0-4.8) k/uL Monocytes # (0-1.0) k/uL Eosinophils # (0-0.7) k/uL Basophils # (0-0.2) k/uL Manual Slide Review Sodium (137-145) mmol/L Potassium (3.5-5.1) mmol/L Chloride (98-107) mmol/L Carbon Dioxide (22-30) mmol/L Anion Gap mmol/L BUN (9-20) mg/dL Creatinine (0.66-1.25) mg/dL Est GFR (CKD-EPI)AfAm (>60 ml/min/1.73 sqM) Est GFR (CKD-EPI)NonAf (>60 ml/min/1.73 sqM) Glucose (74-99) mg/dL Plasma Lactic Acid Jose E (0.7-2.0) mmol/L Calcium (8.4-10.2) mg/dL Magnesium (1.6-2.3) mg/dL Total Bilirubin (0.2-1.3) mg/dL AST (17-59) U/L ALT (4-49) U/L Alkaline Phosphatase (38-126) U/L Total Protein (6.3-8.2) g/dL Albumin (3.5-5.0) g/dL Lipase (23-300) U/L Coronavirus (PCR) Not Detected (Not Detectd) Influenza Type A RNA Not Detected (Not Detectd) Influenza Type B (PCR) Not Detected (Not Detectd) Disposition Clinical Impression: Hypotension, Nausea and vomiting, Leukocytosis Disposition: ADMITTED IP TO THIS [facility] Condition: Good Referrals: Markell Bond MD [Primary Care Provider] - 1-2 days
[2021-12-16 16:02] LABS: ALT 19 U/L (4-49); AST 18 U/L (17-59); African American GFR (CKD) >90 (>60 ml/min/1.73 sqM); Albumin 3.9 g/dL (3.5-5.0); Alkaline Phosphatase 54 U/L (38-126); Anion Gap 7 mmol/L; Blood Urea Nitrogen 17 mg/dL (9-20); Calcium 8.8 mg/dL (8.4-10.2); Carbon Dioxide 28 mmol/L (22-30); Chloride 101 mmol/L (98-107); Glucose 199 mg/dL (74-99); Lipase 112 U/L (23-300); Magnesium 1.5 mg/dL (1.6-2.3); Non-African American GFR(CKD) >90 (>60 ml/min/1.73 sqM); Potassium 3.7 mmol/L (3.5-5.1); Sodium 136 mmol/L (137-145); Total Bilirubin 0.5 mg/dL (0.2-1.3); Total Protein 6.4 g/dL (6.3-8.2)
[2021-12-16 16:09] LABS: Basophils # (A) 0.1 k/uL (0-0.2); Basophils % (A) 0 %; Eosinophils # (A) 0.2 k/uL (0-0.7); Eosinophils % (A) 1 %; HCT 40.5 % (39.0-53.0); HGB 13.7 gm/dL (13.0-17.5); Lymphocytes # (A) 0.8 k/uL (1.0-4.8); Lymphocytes % (A) 5 %; MCH 29.2 pg (25.0-35.0); MCHC 33.9 g/dL (31.0-37.0); MCV 86.1 fL (80.0-100.0); Mean Platelet Volume 8.6; Monocytes # (A) 1.4 k/uL (0-1.0); Monocytes % (A) 8 %; Neutrophils # (A) 15.2 k/uL (1.3-7.7); Neutrophils % (A) 86 %; Platelet Count 315 k/uL (150-450); RDW 13.7 % (11.5-15.5); WBC 17.8 k/uL (3.8-10.6)
--- NOTE | 2021-12-16 16:54 | CT ---
EXAMINATION TYPE: CT abdomen pelvis w con DATE OF EXAM: 12/16/2021 COMPARISON: CT dated 02/14/2020 HISTORY: Generalized abdominal pain, nausea and vomiting. CT DLP: 1029.8 mGycm Automated exposure control for dose reduction was used. TECHNIQUE: Helical acquisition of images was performed from the lung bases through the pelvis. CONTRAST: Performed without Oral Contrast and with IV Contrast, patient injected with 100ml mL of Isovue 300. FINDINGS: LUNG BASES: No significant abnormality is appreciated. LIVER/GB: No significant abnormality is appreciated. PANCREAS: No significant abnormality is seen. SPLEEN: No significant abnormality is seen. ADRENALS: No significant abnormality is seen. KIDNEYS: No significant abnormality is seen. FREE AIR: No free air is visualized. RETROPERITONEAL ADENOPATHY: None visualized REPRODUCTIVE ORGANS: No significant abnormality is seen URINARY BLADDER: Not completely distended. PELVIC ADENOPATHY: No pathologically enlarged pelvic lymph nodes. OSSEOUS STRUCTURES: No aggressive bone lesion. BOWEL: Gastric distention with fluid. Unremarkable duodenum and small bowel with no evidence of daphne l obstruction. Scattered colonic diverticulosis. Segments of nonspecific colonic wall thickening. No convincing evidence of acute diverticulitis. OTHER: Scattered arterial atherosclerotic calcification. Common origin of the celiac trunk and superi or mesenteric artery. No sizable ascites. IMPRESSION: No definite acute abnormality seen in the abdomen or the pelvis. Incidental findings as described abo ve.
[2021-12-16] MEDS ORDERED: MAGNESIUM OXIDE 400 MG TAB PO STA (16:58)
[2021-12-16] MEDS ORDERED: ONDANSETRON 4 MG/2 ML VIAL IVP PRN (17:20)
[2021-12-16] MEDS: SODIUM CHLORIDE 0.9% 1,000 ML IV SCH (18:28)
--- NOTE | 2021-12-16 20:28 | HP ---
HISTORY AND PHYSICAL CHIEF COMPLAINT: Lightheadedness, dizziness, nausea, vomiting, diarrhea. HISTORY OF PRESENT ILLNESS: This is another admission for this 56-year-old white male with type 2 and IDDM. He was just in the hospital a week or so ago with dehydration after developing acute onset of nausea, vomiting and diarrhea. At that time, his blood pressure was also low. He received at least 4 L of fluid and his blood pressure still remained low. He was then started on cortisone. His blood pressure came up. There were no studies done prior to the administration of the steroid. He was doing well, went home and was still doing well when he was seen in the office. Suddenly on the day of his readmission, he was under some stress going into court regarding an episode with a son when he suddenly developed lightheadedness, nausea, vomiting, diarrhea, again. He came to the emergency room where his blood pressure was 76/49 with a pulse of 106. He has some mild crampy pain, but he had no hematemesis, melena, hematochezia, etc. Review of systems is otherwise unremarkable. Laboratory studies other than an elevated white count and blood sugar were essentially normal. Review of systems was otherwise unremarkable. He has had no chills, fever, etc. He did have COVID several months ago. He has been feeling fatigued since then. PHYSICAL EXAMINATION: Blood pressure is 115/69 with a pulse of 97, respirations of 18, and he is afebrile. Head, ears, eyes, nose, mouth and throat are normal. Chest is clear. Cardiac exam is normal. Abdomen is soft, nontender. Extremities are normal. Neurologically he is intact. IMPRESSION: He is admitted to the hospital with diagnoses: Second episode of nausea, vomiting and diarrhea associated with hypotension. PLAN: 1. Bedrest. 2. IV fluids. 3. Antiemetics. 4. Antidiarrheals. 5. A.m. and p.m. cortisol as well as ACTH. 6. Start 10 mg cortisone once a day, again to see if he responds. He may actually have adrenal insufficiency. MMODL / IJN: [id number] /
[2021-12-16 20:50] LABS: Glucose,Whole Blood 261 mg/dL (70-110)
[2021-12-16] MEDS: metFORMIN 500 MG TAB PO SCH (20:55)
[2021-12-16 21:53] LABS: Appearance,Urine Clear (Clear); Bilirubin,Urine Negative (Negative); Blood,Urine Trace (Negative); Color,Urine Yellow; Glucose,Urine (UA) 4+ (Negative); Hyaline Casts,Urine 23 /lpf (0-2); Ketones,Urine 1+ (Negative); Leukocyte Esterase,Urine Negative (Negative); Mucus,Urine Few /hpf; Nitrite,Urine Negative (Negative); PH, Urine 5.5 (5.0-8.0); Protein,Urine 1+ (Negative); RBC,Urine 13 /hpf (0-5); Specific Gravity,Urine 1.044 (1.001-1.035); Squamous Epithelial Cell,Urine <1 /hpf (0-4); Urobilinogen,Urine <2.0 mg/dL (<2.0); WBC,Urine 2 /hpf (0-5)
[2021-12-17] MEDS: SODIUM CHLORIDE 0.9% 1,000 ML IV SCH ×3 (01:41→15:32)
[2021-12-17] MEDS ORDERED: metFORMIN 500 MG TAB PO SCH (07:30)
[2021-12-17 07:41] LABS: Glucose,Whole Blood 170 mg/dL (70-110)
[2021-12-17] MEDS: HYDROCORTISONE 10 MG TAB PO SCH (08:28)
[2021-12-17] MEDS: metFORMIN 500 MG TAB PO SCH ×2 (08:28→17:37)
[2021-12-17 10:28] LABS: Basophils % (A) 0 %; Eosinophils # (A) 0.3 k/uL (0-0.7); Eosinophils % (A) 3 %; HCT 33.2 % (39.0-53.0); HGB 11.3 gm/dL (13.0-17.5); Lymphocytes # (A) 1.7 k/uL (1.0-4.8); Lymphocytes % (A) 22 %; MCH 30.2 pg (25.0-35.0); MCV 88.8 fL (80.0-100.0); Mean Platelet Volume 7.8; Monocytes # (A) 0.4 k/uL (0-1.0); Monocytes % (A) 5 %; Neutrophils # (A) 5.5 k/uL (1.3-7.7); Neutrophils % (A) 68 %; Platelet Count 245 k/uL (150-450); RBC 3.73 m/uL (4.30-5.90); RDW 13.4 % (11.5-15.5)
[2021-12-17 10:43] LABS: African American GFR (CKD) >90 (>60 ml/min/1.73 sqM); Anion Gap 6 mmol/L; Blood Urea Nitrogen 12 mg/dL (9-20); Calcium 7.5 mg/dL (8.4-10.2); Carbon Dioxide 27 mmol/L (22-30); Chloride 104 mmol/L (98-107); Glucose 190 mg/dL (74-99); Magnesium 1.6 mg/dL (1.6-2.3); Non-African American GFR(CKD) >90 (>60 ml/min/1.73 sqM); Potassium 3.5 mmol/L (3.5-5.1); Sodium 137 mmol/L (137-145)
[2021-12-17 12:24] LABS: Glucose,Whole Blood 170 mg/dL (70-110)
--- NOTE | 2021-12-17 13:19 | P.HPIM ---
History of Present Illness This is a pleasant 56 years old male with past medical history of asthma and diabetes mellitus Patient states that he was in the hospital about 3 days -12/10 for similar problem, that time he had nausea vomiting and diarrhea with periumbilical abdominal pain and he developed hypotension 79/60, he was treated with IV fluids and symptomatically without antibiotics and he did well and discharged on 12/10 he was well for a few days but then for the last 2-3 days his symptoms records similarly with recurrent nausea vomiting and diarrhea and periumbilical abdominal pain, nonradiating, nonspecific about 6/10 in severity associated with 5) bowel movement and last one was watery and also he has hypotension with systolic blood pressure was 76 taken to the hospital again This morning patient states that pain has gone and no more bowel movement or vomiting, he still feels weak and it was tender hospital. He denies chest pain or abdominal pain now. No dyspnea or coughing. No headache or weakness or numbness. No urinary symptoms. This morning is complaining of from pain in his right arm without history of trauma, no neck pain or shoulder pain. No tenderness. The pain got worse with bending the elbow. On admission patient is afebrile, is tachycardic with heart rate 105. Blood pressure is 125/75. Leukocytosis with 17.8. Trace of CBC Is Unremarkable. Sodium 136, so BMP Is Unremarkable. Glucose Mildly Elevated. Liver Enzymes Not Elevated. Urine Analysis Showed Glucosuria and Ketonuria. No Evidence of Infection. Coronavirus and Influenza Virus Are Not Detected CT of the Abdomen and Pelvis with Contrast showing no different acute abnormality seen in the abdomen or the pelvis Bowel showing gastric distention with fluid. Unremarkable duodenum and small bowel with no evidence of bowel obstruction. Scattered colonic diverticulosis segments of nonspecific colonic wall thickening. No convincing evidence of acute diverticulitis On admission patient received ceftriaxone, antiacids and Zofran as well as nor mal saline Review of Systems Review of systems CONSTITUTIONAL: No fever, no malaise, no fatigue. HEENT: No recent visual problems or hearing problems. Denied any sore throat. CARDIOVASCULAR: No orthopnea, PND, no palpitations, no syncope. PULMONARY: No shortness of breath, no cough, no hemoptysis. GASTROINTESTINAL: No constipation, no heart murmur NEUROLOGICAL: No headaches, no weakness, no numbness. HEMATOLOGICAL: Denies any bleeding or petechiae. GENITOURINARY: Denies any burning micturition, frequency, or urgency. MUSCULOSKELETAL/RHEUMATOLOGICAL: Denies any joint pain, swelling, or any muscle pain. ENDOCRINE: Denies any polyuria or polydipsia. Past Medical History Past Medical History: Asthma, Diabetes Mellitus Additional Past Medical History / Comment(s): DM type 2, COVID 08/25/2020-09/25/20 History of Any Multi-Drug Resistant Organisms: None Reported Past Surgical History: Appendectomy Additional Past Surgical History / Comment(s): appe removed 2007 Past Anesthesia/Blood Transfusion Reactions: No Reported Reaction Past Psychological History: No Psychological Hx Reported Smoking Status: Former smoker Past Alcohol Use History: None Reported Past Drug Use History: None Reported Medications and Allergies Home Medications Medication Instructions Recorded Confirmed Type Albuterol Sulfate [Proair Hfa] 2 puff INHALATION RT-Q4H PRN 12/07/21 12/16/21 History EPINEPHrine (Auto Inject) [Epipen] 0.3 mg IM ONCE PRN 12/07/21 12/16/21 History metFORMIN HCL 1,000 mg PO BID-W/MEALS 12/07/21 12/16/21 History Allergies Allergy/AdvReac Type Severity Reaction Status Date / Time tree nut Allergy Swelling Verified 12/16/21 17:16 Physical Exam Vitals: Vital Signs Temp Pulse Pulse Resp BP BP BP 12/17/21 07:40 98.2 F 85 16 123/74 12/17/21 02:48 98.0 F 86 16 121/75 12/16/21 20:50 98.7 F 99 17 110/66 12/16/21 20:00 18 12/16/21 18:37 105 H 18 125/75 12/16/21 16:00 99.2 F 112 H 22 129/80 12/16/21 15:20 99.3 F 113 H 22 115/69 12/16/21 14:18 98.2 F 106 H 15 76/49 Pulse Ox 12/17/21 07:40 98 12/17/21 02:48 98 12/16/21 20:50 96 12/16/21 20:00 12/16/21 18:37 98 12/16/21 16:00 97 12/16/21 15:20 97 12/16/21 14:18 98 Intake and Output 12/16/21 12/17/21 12/17/21 22:59 06:59 14:59 Other: # Voids 1 1 540 Weight 78.018 kg GENERAL: The patient is alert and oriented x3, not in any acute distress. Well developed, well nourished. HEENT: Pupils are round and equally reacting to light. EOMI. No scleral icterus. No conjunctival pallor. Normocephalic, atraumatic. No pharyngeal erythema. No thyromegaly. CARDIOVASCULAR: S1 and S2 present. No murmurs, rubs, or gallops. PULMONARY: Chest is clear to auscultation, no wheezing or crackles. ABDOMEN: Soft, nontender, nondistended, normoactive bowel sounds. No palpable organomegaly. MUSCULOSKELETAL: No joint swelling or deformity. EXTREMITIES: No cyanosis, clubbing, or pedal edema. NEUROLOGICAL: Gross neurological examination did not reveal any focal deficits. SKIN: No rashes. no petechiae. Results CBC & Chem 7: 12/17/21 10:05 12/17/21 10:05 Labs: Abnormal Lab Results - Last 24 Hours (Table) 12/16/21 12/16/21 12/16/21 Range/Units 15:25 15:25 15:25 WBC 17.8 H (3.8-10.6) k/uL RBC (4.30-5.90) m/uL Hgb (13.0-17.5) gm/dL Hct (39.0-53.0) % Neutrophils # 15.2 H (1.3-7.7) k/uL Lymphocytes # 0.8 L (1.0-4.8) k/uL Monocytes # 1.4 H (0-1.0) k/uL Sodium 136 L (137-145) mmol/L Glucose 199 H (74-99) mg/dL POC Glucose (mg/dL) (70-110) mg/dL Calcium (8.4-10.2) mg/dL Magnesium 1.5 L (1.6-2.3) mg/dL ACTH 504.00 H (0.00-45.99) pg/mL Ur Specific [place] (1.001-1.035) Urine Protein (Negative) Urine Glucose (UA) (Negative) Urine Ketones (Negative) Urine Blood (Negative) Urine RBC (0-5) /hpf Hyaline Casts (0-2) /lpf Urine Mucus (None) /hpf 12/16/21 12/16/21 12/17/21 Range/Units 20:48 21:20 07:40 WBC (3.8-10.6) k/uL RBC (4.30-5.90) m/uL Hgb (13.0-17.5) gm/dL Hct (39.0-53.0) % Neutrophils # (1.3-7.7) k/uL Lymphocytes # (1.0-4.8) k/uL Monocytes # (0-1.0) k/uL Sodium (137-145) mmol/L Glucose (74-99) mg/dL POC Glucose (mg/dL) 261 H 170 H (70-110) mg/dL Calcium (8.4-10.2) mg/dL Magnesium (1.6-2.3) mg/dL ACTH (0.00-45.99) pg/mL Ur Specific [place] 1.044 H (1.001-1.035) Urine Protein 1+ H (Negative) Urine Glucose (UA) 4+ H (Negative) Urine Ketones 1+ H (Negative) Urine Blood Trace H (Negative) Urine RBC 13 H (0-5) /hpf Hyaline Casts 23 H (0-2) /lpf Urine Mucus Few H (None) /hpf 12/17/21 12/17/21 12/17/21 Range/Units 10:05 10:05 12:23 WBC (3.8-10.6) k/uL RBC 3.73 L (4.30-5.90) m/uL Hgb 11.3 L (13.0-17.5) gm/dL Hct 33.2 L (39.0-53.0) % Neutrophils # (1.3-7.7) k/uL Lymphocytes # (1.0-4.8) k/uL Monocytes # (0-1.0) k/uL Sodium (137-145) mmol/L Glucose 190 H (74-99) mg/dL POC Glucose (mg/dL) 170 H (70-110) mg/dL Calcium 7.5 L (8.4-10.2) mg/dL Magnesium (1.6-2.3) mg/dL ACTH (0.00-45.99) pg/mL Ur Specific [place] (1.001-1.035) Urine Protein (Negative) Urine Glucose (UA) (Negative) Urine Ketones (Negative) Urine Blood (Negative) Urine RBC (0-5) /hpf Hyaline Casts (0-2) /lpf Urine Mucus (None) /hpf Thrombosis Risk Factor Assmnt - Choose All That Apply Any of the Below Risk Factors Present?: Yes Each Factor Represents 1 point: Age 41-60 years, Obesity (BMI >25) Other Risk Factors: No Other congenital or acquired thrombophilia - If yes, enter type in comment: No Thrombosis Risk Factor Assessment Total Risk Factor Score: 2 Thrombosis Risk Factor Assessment Level: Low Risk Assessment and Plan Assessment: -segments of nonspecific colonic wall thickening, suspicious for colitis -Dehydration and hypovolemia secondary to above -Nausea vomiting suspicious for acute gastroenteritis -Right arm pain -Asthma, not an active issue -Type 2 diabetes mellitus Plan: This is a pleasant 56 years old male who presents with acute gastroenteritis with leukocytosis Continue with IV fluid Continue with ceftriaxone and Flagyl check stool studies Check ultrasound of the right upper extremity There is no GI coverage in this facility. Labs and medication were reviewed.. Continue same treatment. Continue with symptomatic treatment. Resume home medication. Monitor lytes and vitals. DVT and GI prophylaxis. Further recommendations as per clinical course of the patient DVT prophylaxis: Subcutaneous heparin GI Prophylaxis: Pepcid PT/OT: Pending Prognosis is guarded
[2021-12-17] MEDS: metroNIDAZOLE 500 MG TAB PO SCH ×2 (15:32→22:29)
--- NOTE | 2021-12-17 15:42 | US ---
EXAMINATION TYPE: US venous doppler duplex UE RT DATE OF EXAM: 12/17/2021 Exam done portable COMPARISON: NONE CLINICAL HISTORY: arm pain. Right arm pain SIDE PERFORMED: Right Right Arm: Appears positive for DVT in axillary vein IMPRESSION: 1. Exam is positive for DVT axillary vein.
[2021-12-17 17:14] LABS: Glucose,Whole Blood 177 mg/dL (70-110)
[2021-12-17] MEDS ORDERED: HEPARIN SODIUM 1,000 UN/ML (10ML VL) IV PRN (19:22)
[2021-12-17 19:49] LABS: Basophils % (A) 0 %; Eosinophils # (A) 0.3 k/uL (0-0.7); Eosinophils % (A) 3 %; HCT 35.3 % (39.0-53.0); HGB 11.7 gm/dL (13.0-17.5); Lymphocytes # (A) 1.9 k/uL (1.0-4.8); Lymphocytes % (A) 24 %; MCH 29.2 pg (25.0-35.0); MCHC 33.3 g/dL (31.0-37.0); MCV 87.7 fL (80.0-100.0); Mean Platelet Volume 7.8; Monocytes # (A) 0.5 k/uL (0-1.0); Monocytes % (A) 6 %; Neutrophils # (A) 5.1 k/uL (1.3-7.7); Neutrophils % (A) 65 %; Platelet Count 254 k/uL (150-450); RBC 4.02 m/uL (4.30-5.90); RDW 13.4 % (11.5-15.5); WBC 7.8 k/uL (3.8-10.6)
[2021-12-17 20:02] LABS: Partial Thromboplastin Time 24.3 sec (22.0-30.0); Prothrombin Time 10.5 sec (9.0-12.0)
[2021-12-17] MEDS: HEPARIN SOD,PORK IN 0.45% NACL 25,000 UNIT in 0.45% NACL 1 250ML.BAG IV SCH (20:50)
[2021-12-17 21:13] LABS: Glucose,Whole Blood 168 mg/dL (70-110)
[2021-12-17] MEDS: FAMOTIDINE 20 MG/2 ML VIAL IV SCH (22:29)
[2021-12-18 04:32] LABS: Basophils % (A) 0 %; Eosinophils # (A) 0.3 k/uL (0-0.7); Eosinophils % (A) 3 %; HCT 33.1 % (39.0-53.0); HGB 11.2 gm/dL (13.0-17.5); Lymphocytes # (A) 2.1 k/uL (1.0-4.8); Lymphocytes % (A) 27 %; MCH 29.3 pg (25.0-35.0); MCHC 33.9 g/dL (31.0-37.0); MCV 86.5 fL (80.0-100.0); Mean Platelet Volume 7.3; Monocytes # (A) 0.5 k/uL (0-1.0); Monocytes % (A) 7 %; Neutrophils # (A) 4.8 k/uL (1.3-7.7); Neutrophils % (A) 61 %; Platelet Count 239 k/uL (150-450); RBC 3.83 m/uL (4.30-5.90); RDW 13.3 % (11.5-15.5); WBC 7.8 k/uL (3.8-10.6)
[2021-12-18 04:42] LABS: Partial Thromboplastin Time 28.3 sec (22.0-30.0); Prothrombin Time 10.6 sec (9.0-12.0)
[2021-12-18] MEDS ORDERED: ALBUTEROL NEBULIZED 2.5 MG/3 ML INHALATION PRN (06:37)
[2021-12-18] MEDS: SODIUM CHLORIDE 0.9% 1,000 ML IV SCH ×3 (07:18→20:57)
[2021-12-18 07:27] LABS: Glucose,Whole Blood 144 mg/dL (70-110)
[2021-12-18] MEDS: metFORMIN 500 MG TAB PO SCH ×2 (08:11→16:36)
[2021-12-18] MEDS: metroNIDAZOLE 500 MG TAB PO SCH ×3 (08:12→20:58)
[2021-12-18] MEDS: FAMOTIDINE 20 MG/2 ML VIAL IV SCH (08:12)
[2021-12-18] MEDS: HYDROCORTISONE 10 MG TAB PO SCH (08:12)
[2021-12-18] MEDS ORDERED: ENOXAPARIN 40 MG/0.4 ML SYRINGE SQ SCH (09:00)
[2021-12-18 12:02] LABS: Glucose,Whole Blood 176 mg/dL (70-110)
[2021-12-18] MEDS ORDERED: HEPARIN SODIUM 1,000 UN/ML (10ML VL) IV ONE (13:39)
--- NOTE | 2021-12-18 16:53 | US ---
EXAMINATION TYPE: US venous doppler duplex LE DATE OF EXAM: 12/18/2021 4:36 PM COMPARISON: NONE CLINICAL HISTORY: pain and SOB. Pain and SOB. Hx DVT in right arm. SIDE PERFORMED: Bilateral TECHNIQUE: The lower extremity deep venous system is examined utilizing real time linear array sonog bernard with graded compression, doppler sonography and color-flow sonography. VESSELS IMAGED: Common Femoral Vein Deep Femoral Vein Greater Saphenous Vein * Femoral Vein Popliteal Vein Small Saphenous Vein * Proximal Calf Veins (* superficial vessels) Right Leg: No evidence of DVT in veins imaged. Left Leg: No evidence of DVT in veins imaged. IMPRESSION: No evidence of deep vein thrombosis of either lower extremity.
[2021-12-18 17:02] LABS: Glucose,Whole Blood 173 mg/dL (70-110)
--- NOTE | 2021-12-18 17:12 | US ---
EXAMINATION TYPE: US venous doppler duplex UE LT DATE OF EXAM: 12/18/2021 COMPARISON: US Right arm CLINICAL HISTORY: pain. Pain within left arm. Patient is on Heparin. SIDE PERFORMED: Left Left Arm: Questionable hypoechoic tubular structure that does not appear to compress seen within the mid upper arm near brachial artery and two brachial veins. Possible variation in anatomy-unable to ru le out DVT if this resembles additional third brachial vein versus other. Two other brachial vessels do show color flow and compression. No evidence of DVT in remaining veins imaged. IMPRESSION: Noncompressible tubular structure within the mid upper arm felt to represent anatomic variant venous structure. Given noncompressibility underlying deep vein thrombosis remains in the differential.
[2021-12-18] MEDS: HEPARIN SOD,PORK IN 0.45% NACL 25,000 UNIT in 0.45% NACL 1 250ML.BAG IV SCH (18:07)
--- NOTE | 2021-12-18 18:34 | CT ---
EXAMINATION TYPE: CT angio chest CT DLP: 281 mGycm, Automated exposure control for dose reduction was used. DATE OF EXAM: 12/18/2021 5:55 PM COMPARISON: CT chest 12/07/2021. CLINICAL INDICATION:Male, 56 years old with history of SOB dizziness; SOB dizziness TECHNIQUE/CONTRAST: CTA scan of the thorax is performed with IV Contrast, patient injected with 100 mL of Isovue 370, pul monary embolism protocol. MIP images are created and reviewed. FINDINGS: Pulmonary Artery: There is no evidence for a filling defect within the pulmonary vasculature to sugge st acute pulmonary embolism. The pulmonary artery is of normal size. Lungs/Pleura: No evidence of focal consolidation, pleural effusion or pneumothorax. Right middle lobe 2 mm nodule., Axial image 6. Airway: Large airways are patent. Heart: Heart is within normal limits for size.. Vasculature: No evidence of aortic aneurysm. Mild scattered atherosclerosis of the arterial vasculatu re. Mediastinum: No gross evidence of adenopathy. Musculoskeletal: No acute osseous abnormalities. Mild multilevel disc degeneration changes. Soft Tissues: Unremarkable. Lower neck: No significant findings. Upper Abdomen: No significant findings. IMPRESSION: No evidence of pulmonary embolism.
--- NOTE | 2021-12-18 19:06 | P.CONS ---
History of Present Illness - Reason for Consult Consult date: 12/18/21 DVT RUE - History of Present Illness Mr Rae was recently admitted to hospital and discharged over a three day period. He now represented with pain in RUE, Shortness of breath, hypotension and tachycardia. He was originally admitted previously and this admission for nausea, vomiting, dizzyness, and hypotension. Review of Systems All systems: negative Constitutional: Reports as per HPI Past Medical History Past Medical History: Asthma, Diabetes Mellitus Additional Past Medical History / Comment(s): DM type 2, COVID 08/25/2020-09/25/20 History of Any Multi-Drug Resistant Organisms: None Reported Past Surgical History: Appendectomy Additional Past Surgical History / Comment(s): appe removed 2007 Past Anesthesia/Blood Transfusion Reactions: No Reported Reaction Past Psychological History: No Psychological Hx Reported Smoking Status: Former smoker Past Alcohol Use History: None Reported Past Drug Use History: None Reported Medications and Allergies Home Medications Medication Instructions Recorded Confirmed Type Albuterol Sulfate [Proair Hfa] 2 puff INHALATION RT-Q4H PRN 12/07/21 12/16/21 History EPINEPHrine (Auto Inject) [Epipen] 0.3 mg IM ONCE PRN 12/07/21 12/16/21 History metFORMIN HCL 1,000 mg PO BID-W/MEALS 12/07/21 12/16/21 History Allergies Allergy/AdvReac Type Severity Reaction Status Date / Time tree nut Allergy Swelling Verified 12/16/21 17:16 Physical Exam Vitals: Vital Signs Temp Pulse Pulse Pulse Pulse Resp BP 12/18/21 08:40 90 98 99 96 16 12/18/21 07:00 98.3 F 90 16 12/18/21 01:10 98.1 F 96 17 12/17/21 20:04 98.3 F 100 19 158/88 12/17/21 15:00 97.9 F 98 99 96 16 BP BP BP BP Pulse Ox 12/18/21 08:40 12/18/21 07:00 138/86 98 12/18/21 01:10 122/79 94 L 12/17/21 20:04 99 12/17/21 15:00 139/83 146/79 147/91 97 Intake and Output 12/17/21 12/18/21 12/18/21 22:59 06:59 14:59 Intake Total 118 81.137 Output Total 460 Balance -342 81.137 Intake: Intake, IV Titration 81.137 Amount Heparin Sod,Pork in 0.45% 81.137 NaCl 25,000 unit In 0.45 % NaCl 1 250ml.bag @ 12 UNITS/KG/HR 9.362 mls/hr IV .Q24H [facility] Rx#: [id number] Oral 118 Output: Urine 460 Other: # Voids 2 1 - Constitutional General appearance: cooperative, no acute distress - EENT Eyes: EOMI ENT: NA/AT - Neck Neck: normal ROM - Respiratory Respiratory: bilateral: diminished - Cardiovascular Rhythm: regularly irregular foot Peripheral Edema: bilateral: Other (BUE Edema) - Gastrointestinal General gastrointestinal: soft - Integumentary Integumentary: pale - Neurologic Neurologic: CNII-XII intact - Musculoskeletal Musculoskeletal: generalized weakness - Psychiatric Psychiatric: A&O x's 3 Results CBC & Chem 7: 12/18/21 04:00 12/17/21 10:05 Labs: Abnormal Lab Results - Last 24 Hours (Table) 12/17/21 12/17/21 12/17/21 Range/Units 17:13 19:38 21:12 RBC 4.02 L (4.30-5.90) m/uL Hgb 11.7 L (13.0-17.5) gm/dL Hct 35.3 L (39.0-53.0) % POC Glucose (mg/dL) 177 H 168 H (70-110) mg/dL 12/18/21 12/18/21 12/18/21 Range/Units 04:00 07:26 11:59 RBC 3.83 L (4.30-5.90) m/uL Hgb 11.2 L (13.0-17.5) gm/dL Hct 33.1 L (39.0-53.0) % POC Glucose (mg/dL) 144 H 176 H (70-110) mg/dL Microbiology - Last 24 Hours (Table) 12/16/21 18:15 Blood Culture - Preliminary Blood No Growth after 24 hours 12/16/21 18:00 Blood Culture - Preliminary Blood No Growth after [address] scan - chest: report reviewed Assessment and Plan (1) Deep vein thrombosis (DVT) of right upper extremity Narrative/Plan: Provked RUE CLot, with symptoms of hypotension, dizzyness on admission CTA is needed to confirm no PE, will change length of recommended therapy. Current Visit: Yes Status: Acute Code(s): I82.621 - ACUTE EMBOLISM AND THROMBOSIS OF DEEP VEINS OF R UP EXTREM SNOMED Code(s): 771435116 Plan: If no other thrombolic events found then for line associated provoked DVT RUE 3 months would be recommended, DOAC at discharge. If any concern of hypercoagulable risks that he has not mentioned or that are unaware of at this time a hypercoagulable work-up can be performed as outpatient, at this time await LUE doppler (new pain and swelling) and CTA for recs.
--- NOTE | 2021-12-18 19:50 | P.PN ---
Subjective This is a pleasant 56 years old male with past medical history of asthma and diabetes mellitus Patient states that he was in the hospital about 3 days -12/10 for similar problem, that time he had nausea vomiting and diarrhea with periumbilical abdominal pain and he developed hypotension 79/60, he was treated with IV fluids and symptomatically without antibiotics and he did well and discharged on 12/10 he was well for a few days but then for the last 2-3 days his symptoms records similarly with recurrent nausea vomiting and diarrhea and periumbilical abdominal pain, nonradiating, nonspecific about 6/10 in severity associated with 5) bowel movement and last one was watery and also he has hypotension with systolic blood pressure was 76 taken to the hospital again This morning patient states that pain has gone and no more bowel movement or vomiting, he still feels weak and it was tender hospital. He denies chest pain or abdominal pain now. No dyspnea or coughing. No headache or weakness or numbness. No urinary symptoms. This morning is complaining of from pain in his right arm without history of trauma, no neck pain or shoulder pain. No tenderness. The pain got worse with bending the elbow. On admission patient is afebrile, is tachycardic with heart rate 105. Blood pressure is 125/75. Leukocytosis with 17.8. Trace of CBC Is Unremarkable. Sodium 136, so BMP Is Unremarkable. Glucose Mildly Elevated. Liver Enzymes Not Elevated. Urine Analysis Showed Glucosuria and Ketonuria. No Evidence of Infection. Coronavirus and Influenza Virus Are Not Detected CT of the Abdomen and Pelvis with Contrast showing no different acute abnormality seen in the abdomen or the pelvis Bowel showing gastric distention with fluid. Unremarkable duodenum and small bowel with no evidence of bowel obstruction. Scattered colonic diverticulosis segments of nonspecific colonic wall thickening. No convincing evidence of acute diverticulitis On admission patient received ceftriaxone, antiacids and Zofran as well as normal saline 12/18/2021 Patient remains alert awake, no abdominal pain. No bowel movement or diarrhea today. He tolerates diet well. Right upper extremity pain is minimal today. Insurance Account Representative input is appreciated and they saw the patient today. Patient had more studies showing negative CTA of the chest for PE, negative bilateral venous Doppler for DVT. Repeat venous Doppler of the right upper extremity:noncompressible tubular structure within the mid upper arm felt to represent an anatomic variant venous structure. Given noncompressibility underlying deep vein thrombosis remains in the differential Patient remains on ceftriaxone, Flagyl and normal saline. Blood pressure is slightly elevated we'll keep monitoring and adjust medication accordingly. I called the patient brother who is a physician upon patient request at [phone], discussed the case with him and all questions answered upon patient request Objective - Vital Signs Vital signs: Vital Signs Temp 98.3 F 12/18/21 07:00 Pulse 90 12/18/21 08:40 Resp 16 12/18/21 08:40 BP 138/86 12/18/21 07:00 Pulse Ox 98 12/18/21 07:00 FiO2 Intake & Output 12/17/21 12/18/21 12/18/21 18:59 06:59 18:59 Intake Total 118 81.137 Output Total 460 Balance -342 81.137 Intake: Intake, IV Titration 81.137 Amount Heparin Sod,Pork in 0.45% 81.137 NaCl 25,000 unit In 0.45 % NaCl 1 250ml.bag @ 12 UNITS/KG/HR 9.362 mls/hr IV .Q24H [facility] Rx#: [id number] Oral 118 Output: Urine 460 Other: # Voids 540 1 - Exam GENERAL: The patient is alert and oriented x3, not in any acute distress. Well developed, well nourished. HEENT: Pupils are round and equally reacting to light. EOMI. No scleral icterus. No conjunctival pallor. Normocephalic, atraumatic. No pharyngeal erythema. No thyromegaly. CARDIOVASCULAR: S1 and S2 present. No murmurs, rubs, or gallops. PULMONARY: Chest is clear to auscultation, no wheezing or crackles. ABDOMEN: Soft, nontender, nondistended, normoactive bowel sounds. No palpable organomegaly. MUSCULOSKELETAL: No joint swelling or deformity. EXTREMITIES: No cyanosis, clubbing, or pedal edema. NEUROLOGICAL: Gross neurological examination did not reveal any focal deficits. SKIN: No rashes. no petechiae. - Labs CBC & Chem 7: 12/18/21 04:00 12/17/21 10:05 Labs: Abnormal Lab Results - Last 24 Hours (Table) 12/17/21 12/17/21 12/17/21 Range/Units 12:23 17:13 19:38 RBC 4.02 L (4.30-5.90) m/uL Hgb 11.7 L (13.0-17.5) gm/dL Hct 35.3 L (39.0-53.0) % POC Glucose (mg/dL) 170 H 177 H (70-110) mg/dL 12/17/21 12/18/21 12/18/21 Range/Units 21:12 04:00 07:26 RBC 3.83 L (4.30-5.90) m/uL Hgb 11.2 L (13.0-17.5) gm/dL Hct 33.1 L (39.0-53.0) % POC Glucose (mg/dL) 168 H 144 H (70-110) mg/dL 12/18/21 Range/Units 11:59 RBC (4.30-5.90) m/uL Hgb (13.0-17.5) gm/dL Hct (39.0-53.0) % POC Glucose (mg/dL) 176 H (70-110) mg/dL Microbiology - Last 24 Hours (Table) 12/16/21 18:15 Blood Culture - Preliminary Blood No Growth after 24 hours 12/16/21 18:00 Blood Culture - Preliminary Blood No Growth after 24 hours Assessment and Plan Assessment: -segments of nonspecific colonic wall thickening, suspicious for colitis -Dehydration and hypovolemia secondary to above -Nausea vomiting suspicious for acute gastroenteritis -Right arm pain -Asthma, not an active issue -Type 2 diabetes mellitus Plan: This is a pleasant 56 years old male who presents with acute gastroenteritis with leukocytosis Continue with IV fluid Continue with ceftriaxone and Flagyl check stool studies Insurance Account Representative team on the case, patient currently remains on IV heparin drip Patient wants to see echo so oncologist or surgeon for possible scope as he never had colonoscopy before. Upon patient request surgery team has been consulted There is no GI coverage in this facility. Labs and medication were reviewed.. Continue same treatment. Continue with symptomatic treatment. Resume home medication. Monitor lytes and vitals. DVT and GI prophylaxis. Further recommendations as per clinical course of the patient DVT prophylaxis: heparin GI Prophylaxis: Pepcid Prognosis is guarded
[2021-12-18 20:42] LABS: Glucose,Whole Blood 177 mg/dL (70-110)
[2021-12-18] MEDS: FAMOTIDINE 20 MG TAB PO SCH (20:59)
[2021-12-19 07:07] LABS: Glucose,Whole Blood 138 mg/dL (70-110)
[2021-12-19] MEDS: HYDROCORTISONE 10 MG TAB PO SCH (08:34)
[2021-12-19] MEDS: metFORMIN 500 MG TAB PO SCH ×2 (08:34→17:06)
[2021-12-19] MEDS: metroNIDAZOLE 500 MG TAB PO SCH ×3 (08:34→21:02)
[2021-12-19] MEDS: FAMOTIDINE 20 MG TAB PO SCH ×2 (08:34→21:02)
[2021-12-19] MEDS: HEPARIN SOD,PORK IN 0.45% NACL 25,000 UNIT in 0.45% NACL 1 250ML.BAG IV SCH (10:21)
--- NOTE | 2021-12-19 11:41 | P.GSCN ---
History of Present Illness Consult date: 12/19/21 Reason for Consult: Abdominal pain nausea History of present illness: This 56-year-old male was visualized hospital complaints of abdominal pain nausea. The patient CAT scan shows some nonspecific thickening of the colon. Patient has never had endoscopy. On exam Past Medical History Past Medical History: Asthma, Diabetes Mellitus Additional Past Medical History / Comment(s): DM type 2, COVID 08/25/2020-09/25/20 History of Any Multi-Drug Resistant Organisms: None Reported Past Surgical History: Appendectomy Additional Past Surgical History / Comment(s): appe removed 2007 Past Anesthesia/Blood Transfusion Reactions: No Reported Reaction Past Psychological History: No Psychological Hx Reported Smoking Status: Former smoker Past Alcohol Use History: None Reported Past Drug Use History: None Reported Medications and Allergies Home Medications Medication Instructions Recorded Confirmed Type Albuterol Sulfate [Proair Hfa] 2 puff INHALATION RT-Q4H PRN 12/07/21 12/16/21 History EPINEPHrine (Auto Inject) [Epipen] 0.3 mg IM ONCE PRN 12/07/21 12/16/21 History metFORMIN HCL 1,000 mg PO BID-W/MEALS 12/07/21 12/16/21 History Allergies Allergy/AdvReac Type Severity Reaction Status Date / Time tree nut Allergy Swelling Verified 12/16/21 17:16 Surgical - Exam Vital Signs Temp Pulse Resp BP Pulse Ox 98.2 F 106 H 15 76/49 98 12/16/21 14:18 12/16/21 14:18 12/16/21 14:18 12/16/21 14:18 12/16/21 14:18 - General well developed, well nourished, no distress - Eyes PERRL - ENT normal pinna - Neck no masses - Respiratory normal expansion - Cardiovascular Rhythm: regular - Abdomen Abdomen: soft, non tender Results - Labs 12/18/21 04:00 12/17/21 10:05 Abnormal Lab Results - Last 24 Hours (Table) 12/18/21 12/18/21 12/18/21 Range/Units 11:59 12:10 17:00 APTT (22.0-30.0) sec POC Glucose (mg/dL) 176 H 173 H (70-110) mg/dL Stool Lactoferrin POSITIVE A (NEGATIVE) 12/18/21 12/18/21 12/19/21 Range/Units 19:39 20:40 06:39 APTT 64.8 H 55.8 H (22.0-30.0) sec POC Glucose (mg/dL) 177 H (70-110) mg/dL Stool Lactoferrin (NEGATIVE) 12/19/21 Range/Units 07:05 APTT (22.0-30.0) sec POC Glucose (mg/dL) 138 H (70-110) mg/dL Stool Lactoferrin (NEGATIVE) Microbiology - Last 24 Hours (Table) 12/16/21 18:15 Blood Culture - Preliminary Blood No Growth after 48 hours 12/16/21 18:00 Blood Culture - Preliminary Blood No Growth after 48 hours 12/18/21 12:10 Stool Culture - Preliminary Stool Pituitary panel 12/16/21 Range/Units 15:25 Total T4 9.6 (4.5 - 10.9) ug/dL Assessment and Plan Assessment: History of nausea and abdominal pain. Patient will undergo upper and lower endoscopy when medically stable.
[2021-12-19 12:05] LABS: Glucose,Whole Blood 179 mg/dL (70-110)
--- NOTE | 2021-12-19 15:54 | P.PN ---
Subjective Progress Note Date: 12/19/21 Principal diagnosis: Nausea and vomiting and abdominal pain Tolerating blood thinner well. CT/PE negative. Objective - Vital Signs Vital signs: Vital Signs Temp 97.9 F 12/19/21 07:00 Pulse 83 12/19/21 07:00 Resp 16 12/19/21 07:00 BP 120/75 12/19/21 07:00 Pulse Ox 97 12/19/21 07:00 FiO2 Intake & Output 12/18/21 12/19/21 12/19/21 18:59 06:59 18:59 Intake Total 518.378 39.788 306.176 Output Total 1200 Balance -681.622 39.788 306.176 Intake: Intake, IV Titration 158.378 39.788 188.176 Amount Heparin Sod,Pork in 0.45% 158.378 39.788 188.176 NaCl 25,000 unit In 0.45 % NaCl 1 250ml.bag @ 12 UNITS/KG/HR 9.362 mls/hr IV .Q24H [facility] Rx#: [id number] Oral 360 118 Output: Urine 1200 Other: Voiding Method Urinal # Voids 2 - Exam Gen.: No acute distress. HEENT: No conjunctival pallor or scleral icterus. Mucosa moist. Neck: Supple Lungs: No respiratory distress. Heart: Regular rate. Abdomen: Soft. MSK: Appropriate strength in all 4 extremities. Neuro: Alert and oriented 3. Psych: Appropriate affect. Skin: No jaundice. - Labs CBC & Chem 7: 12/18/21 04:00 12/17/21 10:05 Labs: Abnormal Lab Results - Last 24 Hours (Table) 12/18/21 12/18/21 12/18/21 Range/Units 12:10 17:00 19:39 APTT 64.8 H (22.0-30.0) sec POC Glucose (mg/dL) 173 H (70-110) mg/dL Stool Lactoferrin POSITIVE A (NEGATIVE) 12/18/21 12/19/21 12/19/21 Range/Units 20:40 06:39 07:05 APTT 55.8 H (22.0-30.0) sec POC Glucose (mg/dL) 177 H 138 H (70-110) mg/dL Stool Lactoferrin (NEGATIVE) 12/19/21 Range/Units 12:03 APTT (22.0-30.0) sec POC Glucose (mg/dL) 179 H (70-110) mg/dL Stool Lactoferrin (NEGATIVE) Microbiology - Last 24 Hours (Table) 12/16/21 18:15 Blood Culture - Preliminary Blood No Growth after 48 hours 12/16/21 18:00 Blood Culture - Preliminary Blood No Growth after 48 hours 12/18/21 12:10 Stool Culture - Preliminary Stool Assessment and Plan Assessment: 1. Provoked RUE DVT 2. Nausea and vomiting 3. Abdominal pain 4. Dehydration 5. Normocytic anemia Plan: Mr. Rae is a very pleasant 56-year-old gentleman with multiple comorbidities and recent admission for nausea and vomiting and dizziness, who is here for recurrent symptoms. Noted to have right upper extremity swelling, Doppler consistent with a DVT in the right axillary vein. Left upper extremity Doppler and bilateral lower extremity Doppler was negative. CT/PE negative for PE. This seems to be a provoked DVT from recent hospitalization and likely IV line placement as well. Since his upper extremity DVT agree with anticoagulation for 3 months. No signs of PE. No further hypercoagulable workup indicated at this point. No objections to DOAC when patient's testing completed. He has never had a colonoscopy in the past and is having persistent nausea and vomiting causing dehydration and dizziness. Agree with EGD and colonoscopy when able. We'll also check iron panel, B12, and folate due to mild normocytic anemia and persistent vomiting. Discussed with patient is agreeable to the plan. All discussions were answered.
[2021-12-19] MEDS: SODIUM CHLORIDE 0.9% 1,000 ML IV SCH (15:56)
[2021-12-19 17:03] LABS: Glucose,Whole Blood 168 mg/dL (70-110)
--- NOTE | 2021-12-19 18:52 | P.PN ---
Subjective This is a pleasant 56 years old male with past medical history of asthma and diabetes mellitus Patient states that he was in the hospital about 3 days -12/10 for similar problem, that time he had nausea vomiting and diarrhea with periumbilical abdominal pain and he developed hypotension 79/60, he was treated with IV fluids and symptomatically without antibiotics and he did well and discharged on 12/10 he was well for a few days but then for the last 2-3 days his symptoms records similarly with recurrent nausea vomiting and diarrhea and periumbilical abdominal pain, nonradiating, nonspecific about 6/10 in severity associated with 5) bowel movement and last one was watery and also he has hypotension with systolic blood pressure was 76 taken to the hospital again This morning patient states that pain has gone and no more bowel movement or vomiting, he still feels weak and it was tender hospital. He denies chest pain or abdominal pain now. No dyspnea or coughing. No headache or weakness or numbness. No urinary symptoms. This morning is complaining of from pain in his right arm without history of trauma, no neck pain or shoulder pain. No tenderness. The pain got worse with bending the elbow. On admission patient is afebrile, is tachycardic with heart rate 105. Blood pressure is 125/75. Leukocytosis with 17.8. Trace of CBC Is Unremarkable. Sodium 136, so BMP Is Unremarkable. Glucose Mildly Elevated. Liver Enzymes Not Elevated. Urine Analysis Showed Glucosuria and Ketonuria. No Evidence of Infection. Coronavirus and Influenza Virus Are Not Detected CT of the Abdomen and Pelvis with Contrast showing no different acute abnormality seen in the abdomen or the pelvis Bowel showing gastric distention with fluid. Unremarkable duodenum and small bowel with no evidence of bowel obstruction. Scattered colonic diverticulosis segments of nonspecific colonic wall thickening. No convincing evidence of acute diverticulitis On admission patient received ceftriaxone, antiacids and Zofran as well as normal saline 12/18/2021 Patient remains alert awake, no abdominal pain. No bowel movement or diarrhea today. He tolerates diet well. Right upper extremity pain is minimal today. [employer] input is appreciated and they saw the patient today. Patient had more studies showing negative CTA of the chest for PE, negative bilateral venous Doppler for DVT. Repeat venous Doppler of the right upper extremity:noncompressible tubular structure within the mid upper arm felt to represent an anatomic variant venous structure. Given noncompressibility underlying deep vein thrombosis remains in the differential Patient remains on ceftriaxone, Flagyl and normal saline. Blood pressure is slightly elevated we'll keep monitoring and adjust medication accordingly. I called the patient brother who is a physician upon patient request at [phone], discussed the case with him and all questions answered upon patient request 12/19/2021 Patient is improving clinically with this abdominal pain, nausea vomiting. He tolerates diet. Right upper extremity. Improvement but not completely resolved. He is still on heparin drip with plan for anticoagulation for 3 months No need for further workup. Surgery and hematology input is appreciated Patient will need EGD/colonoscopy when stable Objective - Vital Signs Vital signs: Vital Signs Temp 97.9 F 12/19/21 07:00 Pulse 83 12/19/21 07:00 Resp 16 12/19/21 07:00 BP 120/75 12/19/21 07:00 Pulse Ox 97 12/19/21 07:00 FiO2 Intake & Output 12/18/21 12/19/21 12/19/21 18:59 06:59 18:59 Intake Total 518.378 39.788 306.176 Output Total 1200 Balance -681.622 39.788 306.176 Intake: Intake, IV Titration 158.378 39.788 188.176 Amount Heparin Sod,Pork in 0.45% 158.378 39.788 188.176 NaCl 25,000 unit In 0.45 % NaCl 1 250ml.bag @ 12 UNITS/KG/HR 9.362 mls/hr IV .Q24H [facility] Rx#: [id number] Oral 360 118 Output: Urine 1200 Other: Voiding Method Urinal # Voids 2 - Exam GENERAL: The patient is alert and oriented x3, not in any acute distress. Well developed, well nourished. HEENT: Pupils are round and equally reacting to light. EOMI. No scleral icterus. No conjunctival pallor. Normocephalic, atraumatic. No pharyngeal erythema. No thyromegaly. CARDIOVASCULAR: S1 and S2 present. No murmurs, rubs, or gallops. PULMONARY: Chest is clear to auscultation, no wheezing or crackles. ABDOMEN: Soft, nontender, nondistended, normoactive bowel sounds. No palpable organomegaly. MUSCULOSKELETAL: No joint swelling or deformity. EXTREMITIES: No cyanosis, clubbing, or pedal edema. NEUROLOGICAL: Gross neurological examination did not reveal any focal deficits. SKIN: No rashes. no petechiae. - Labs CBC & Chem 7: 12/18/21 04:00 12/17/21 10:05 Labs: Abnormal Lab Results - Last 24 Hours (Table) 12/18/21 12/18/21 12/18/21 Range/Units 12:10 17:00 19:39 APTT 64.8 H (22.0-30.0) sec POC Glucose (mg/dL) 173 H (70-110) mg/dL Stool Lactoferrin POSITIVE A (NEGATIVE) 12/18/21 12/19/21 12/19/21 Range/Units 20:40 06:39 07:05 APTT 55.8 H (22.0-30.0) sec POC Glucose (mg/dL) 177 H 138 H (70-110) mg/dL Stool Lactoferrin (NEGATIVE) 12/19/21 Range/Units 12:03 APTT (22.0-30.0) sec POC Glucose (mg/dL) 179 H (70-110) mg/dL Stool Lactoferrin (NEGATIVE) Microbiology - Last 24 Hours (Table) 12/16/21 18:15 Blood Culture - Preliminary Blood No Growth after 48 hours 12/16/21 18:00 Blood Culture - Preliminary Blood No Growth after 48 hours 12/18/21 12:10 Stool Culture - Preliminary Stool Assessment and Plan Assessment: -segments of nonspecific colonic wall thickening, suspicious for colitis -Dehydration and hypovolemia secondary to above -Nausea vomiting suspicious for acute gastroenteritis -Right arm pain -Asthma, not an active issue -Type 2 diabetes mellitus Plan: This is a pleasant 56 years old male who presents with acute gastroenteritis with leukocytosis Continue with IV fluid Continue with ceftriaxone and Flagyl check stool studies [employer] team on the case, patient currently remains on IV heparin drip, he can switch to oral anticoagulants when appropriate. Patient will need anticoagulation for 3 months surgery team has been consulted for EGD and colonoscopy when medically stable There is no GI coverage in this facility. Labs and medication were reviewed.. Continue same treatment. Continue with symptomatic treatment. Resume home medication. Monitor lytes and vitals. DVT and GI prophylaxis. Further recommendations as per clinical course of the patient DVT prophylaxis: heparin GI Prophylaxis: Pepcid Prognosis is guarded
[2021-12-19 20:14] LABS: Glucose,Whole Blood 142 mg/dL (70-110)
[2021-12-20] MEDS: SODIUM CHLORIDE 0.9% 1,000 ML IV SCH ×2 (02:04→13:27)
[2021-12-20] MEDS: HEPARIN SOD,PORK IN 0.45% NACL 25,000 UNIT in 0.45% NACL 1 250ML.BAG IV SCH ×2 (04:46→20:16)
[2021-12-20 06:54] LABS: Glucose,Whole Blood 126 mg/dL (70-110)
[2021-12-20] MEDS ORDERED: HEPARIN SODIUM 1,000 UN/ML (10ML VL) IVP ONE (07:06)
[2021-12-20] MEDS: HYDROCORTISONE 10 MG TAB PO SCH (07:39)
[2021-12-20] MEDS: metFORMIN 500 MG TAB PO SCH ×2 (07:40→16:37)
[2021-12-20] MEDS: metroNIDAZOLE 500 MG TAB PO SCH ×3 (07:40→21:45)
[2021-12-20] MEDS: FAMOTIDINE 20 MG TAB PO SCH ×2 (07:40→20:15)
[2021-12-20 10:08] LABS: Reticulocyte % 1.39 % (0.10-1.80)
--- NOTE | 2021-12-20 10:24 | P.PN ---
Progress Note - Text Progress Note Date: 12/20/21 Patient Alejandra stable. He states his abdominal pain is improved. On exam vital signs are stable. Abdomen soft. Patient be scheduled for upper and lower endoscopy when stable. This can be done during this hospitalization on Tuesday or he can be done as an outpatient
[2021-12-20 11:40] LABS: Glucose,Whole Blood 178 mg/dL (70-110)
[2021-12-20 11:56] LABS: % Iron Saturation 40.06 (15.00-50.00)
[2021-12-20 17:06] LABS: Glucose,Whole Blood 164 mg/dL (70-110)
[2021-12-20 20:14] LABS: Glucose,Whole Blood 164 mg/dL (70-110)
--- NOTE | 2021-12-21 00:10 | P.PN ---
Subjective This is a pleasant 56 years old male with past medical history of asthma and diabetes mellitus Patient states that he was in the hospital about 3 days -12/10 for similar problem, that time he had nausea vomiting and diarrhea with periumbilical abdominal pain and he developed hypotension 79/60, he was treated with IV fluids and symptomatically without antibiotics and he did well and discharged on 12/10 he was well for a few days but then for the last 2-3 days his symptoms records similarly with recurrent nausea vomiting and diarrhea and periumbilical abdominal pain, nonradiating, nonspecific about 6/10 in severity associated with 5) bowel movement and last one was watery and also he has hypotension with systolic blood pressure was 76 taken to the hospital again This morning patient states that pain has gone and no more bowel movement or vomiting, he still feels weak and it was tender hospital. He denies chest pain or abdominal pain now. No dyspnea or coughing. No headache or weakness or numbness. No urinary symptoms. This morning is complaining of from pain in his right arm without history of trauma, no neck pain or shoulder pain. No tenderness. The pain got worse with bending the elbow. On admission patient is afebrile, is tachycardic with heart rate 105. Blood pressure is 125/75. Leukocytosis with 17.8. Trace of CBC Is Unremarkable. Sodium 136, so BMP Is Unremarkable. Glucose Mildly Elevated. Liver Enzymes Not Elevated. Urine Analysis Showed Glucosuria and Ketonuria. No Evidence of Infection. Coronavirus and Influenza Virus Are Not Detected CT of the Abdomen and Pelvis with Contrast showing no different acute abnormality seen in the abdomen or the pelvis Bowel showing gastric distention with fluid. Unremarkable duodenum and small bowel with no evidence of bowel obstruction. Scattered colonic diverticulosis segments of nonspecific colonic wall thickening. No convincing evidence of acute diverticulitis On admission patient received ceftriaxone, antiacids and Zofran as well as normal saline 12/18/2021 Patient remains alert awake, no abdominal pain. No bowel movement or diarrhea today. He tolerates diet well. Right upper extremity pain is minimal today. [employer] input is appreciated and they saw the patient today. Patient had more studies showing negative CTA of the chest for PE, negative bilateral venous Doppler for DVT. Repeat venous Doppler of the right upper extremity:noncompressible tubular structure within the mid upper arm felt to represent an anatomic variant venous structure. Given noncompressibility underlying deep vein thrombosis remains in the differential Patient remains on ceftriaxone, Flagyl and normal saline. Blood pressure is slightly elevated we'll keep monitoring and adjust medication accordingly. I called the patient brother who is a physician upon patient request at [phone], discussed the case with him and all questions answered upon patient request 12/19/2021 Patient is improving clinically with this abdominal pain, nausea vomiting. He tolerates diet. Right upper extremity. Improvement but not completely resolved. He is still on heparin drip with plan for anticoagulation for 3 months No need for further workup. Surgery and hematology input is appreciated Patient will need EGD/colonoscopy when stable 12/20/2021 Patient has an episode of lightheadedness and abdominal pain while he was in the shower No vomiting. Tolerates diet well Arm pain improving Hemodynamically stable, actually he is developing high blood pressure 145/82 and 152/92, rather than was started on antihypertensive medication I would hold hydrocortisone we'll keep monitoring the patient closely. Also I will lower his normal saline to 50 mL per hour with a close monitoring Check labs tomorrow morning Objective - Vital Signs Vital signs: Vital Signs Temp 97.4 F L 12/20/21 07:00 Pulse 86 12/20/21 07:00 Resp 17 12/20/21 07:00 BP 128/73 12/20/21 07:00 Pulse Ox 99 12/20/21 07:00 FiO2 Intake & Output 12/19/21 12/20/21 12/20/21 18:59 06:59 18:59 Intake Total 824.176 280.192 320 Balance 824.176 280.192 320 Intake: Intake, IV Titration 188.176 280.192 Amount Heparin Sod,Pork in 0.45% 188.176 280.192 NaCl 25,000 unit In 0.45 % NaCl 1 250ml.bag @ 12 UNITS/KG/HR 9.362 mls/hr IV .Q24H [facility] Rx#: [id number] Oral 636 320 Other: Voiding Method Urinal Urinal # Voids 1 2 - Exam GENERAL: The patient is alert and oriented x3, not in any acute distress. Well developed, well nourished. HEENT: Pupils are round and equally reacting to light. EOMI. No scleral icterus. No conjunctival pallor. Normocephalic, atraumatic. No pharyngeal erythema. No thyromegaly. CARDIOVASCULAR: S1 and S2 present. No murmurs, rubs, or gallops. PULMONARY: Chest is clear to auscultation, no wheezing or crackles. ABDOMEN: Soft, nontender, nondistended, normoactive bowel sounds. No palpable organomegaly. MUSCULOSKELETAL: No joint swelling or deformity. EXTREMITIES: No cyanosis, clubbing, or pedal edema. NEUROLOGICAL: Gross neurological examination did not reveal any focal deficits. SKIN: No rashes. no petechiae. - Labs CBC & Chem 7: 12/18/21 04:00 12/17/21 10:05 Labs: Abnormal Lab Results - Last 24 Hours (Table) 12/19/21 12/19/21 12/19/21 Range/Units 12:03 17:01 20:13 APTT (22.0-30.0) sec POC Glucose (mg/dL) 179 H 168 H 142 H (70-110) mg/dL 12/20/21 12/20/21 Range/Units 06:11 06:52 APTT 42.1 H (22.0-30.0) sec POC Glucose (mg/dL) 126 H (70-110) mg/dL Microbiology - Last 24 Hours (Table) 12/16/21 18:15 Blood Culture - Preliminary Blood No Growth after 72 hours 12/16/21 18:00 Blood Culture - Preliminary Blood No Growth after 72 hours Assessment and Plan Assessment: -segments of nonspecific colonic wall thickening, suspicious for colitis -Dehydration and hypovolemia secondary to above -Nausea vomiting suspicious for acute gastroenteritis -Right arm pain -Asthma, not an active issue -Type 2 diabetes mellitus Plan: This is a pleasant 56 years old male who presents with acute gastroenteritis with leukocytosis Continue with IV fluid Continue with ceftriaxone and Flagyl Follow-up stool culture [employer] team on the case, patient currently remains on IV heparin drip, he can switch to oral anticoagulants when appropriate. Patient will need anticoagulation for 3 months, patient informed and he agrees surgery team has been consulted.. Patient will need EGD/colonoscopy, possibly later on this week or outpatient Hold hydrocortisone 10 mg while keeping monitoring blood pressure Labs and medication were reviewed.. Continue same treatment. Continue with symptomatic treatment. Resume home medication. Monitor lytes and vitals. DVT and GI prophylaxis. Further recommendations as per clinical course of the patient DVT prophylaxis: heparin GI Prophylaxis: Pepcid Prognosis is guarded
[2021-12-21] MEDS: SODIUM CHLORIDE 0.9% 1,000 ML IV SCH ×2 (01:01→20:31)
[2021-12-21 07:07] LABS: Glucose,Whole Blood 153 mg/dL (70-110)
[2021-12-21] MEDS: metFORMIN 500 MG TAB PO SCH ×2 (08:58→16:48)
[2021-12-21] MEDS: FAMOTIDINE 20 MG TAB PO SCH ×2 (08:59→20:32)
[2021-12-21] MEDS: metroNIDAZOLE 500 MG TAB PO SCH ×3 (09:05→21:56)
[2021-12-21 09:26] LABS: Basophils # (A) 0.04 X 10*3/uL (0.00-0.10); Basophils % (A) 0.6 %; Eosinophils # (A) 0.33 X 10*3/uL (0.04-0.35); Eosinophils % (A) 5.2 %; HCT 36.1 % (39.6-50.0); HGB 11.9 g/dL (13.0-17.0); Immature Grans, Automated 0.3 %; Lymphocytes % (A) 39.2 %; MCH 27.9 pg (27.0-32.0); MCV 84.5 fL (80.0-97.0); Mean Platelet Volume 10.9 fL (9.5-12.2); Monocytes # (A) 0.57 X 10*3/uL (0.20-1.00); Monocytes % (A) 8.9 %; NRBC Per 100 WBC 0 /100 WBCS (0.0-0.0); Neutrophils # (A) 2.92 X 10*3/uL (1.80-7.70); Neutrophils % (A) 45.8 %; Platelet Count 280 X 10*3/uL (140-440); RBC 4.27 X 10*6/uL (4.40-5.60); RDW 13.4 % (11.5-14.5); WBC 6.38 X 10*3/uL (4.50-10.00)
[2021-12-21 09:53] LABS: Magnesium 1.8 mg/dL (1.5-2.4)
--- NOTE | 2021-12-21 10:25 | P.PN ---
Progress Note - Text Progress Note Date: 12/21/21 Patient remains stable. We will plan for upper and lower endoscopy tomorrow.
[2021-12-21 10:26] LABS: ALT 28 U/L (10-49); AST 30 U/L (14-35); African American GFR (CKD) 131.2 (60.0-200.0); Albumin 3.6 g/dL (3.8-4.9); Alkaline Phosphatase 45 U/L (41-126); BUN/Creat Ratio 7.67 Ratio (12.00-20.00); Bilirubin, Conjugated <0.20 mg/dL (0.20-0.40); Blood Urea Nitrogen 4.6 mg/dL (9.0-27.0); Calcium 8.7 mg/dL (8.7-10.3); Carbon Dioxide 27.7 mmol/L (20.0-27.5); Chloride 104 mmol/L (96-109); Globulin 1.8 g/dL (1.6-3.3); Glucose 161 mg/dL (70-110); Non-African American GFR(CKD) 113.2 (60.0-200.0); Potassium 3.5 mmol/L (3.5-5.5); Sodium 140 mmol/L (135-145); Total Protein 5.4 g/dL (6.2-8.2)
[2021-12-21] MEDS ORDERED: PEG 3350-NA SULF,BICARB,CL/KCL 4,000 ML BOTTLE PO ONE (11:00)
[2021-12-21 12:30] LABS: Glucose,Whole Blood 179 mg/dL (70-110)
[2021-12-21] MEDS: HEPARIN SOD,PORK IN 0.45% NACL 25,000 UNIT in 0.45% NACL 1 250ML.BAG IV SCH (14:34)
[2021-12-21 17:12] LABS: Glucose,Whole Blood 176 mg/dL (70-110)
--- NOTE | 2021-12-21 18:18 | P.PN ---
Subjective This is a pleasant 56 years old male with past medical history of asthma and diabetes mellitus Patient states that he was in the hospital about 3 days -12/10 for similar problem, that time he had nausea vomiting and diarrhea with periumbilical abdominal pain and he developed hypotension 79/60, he was treated with IV fluids and symptomatically without antibiotics and he did well and discharged on 12/10 he was well for a few days but then for the last 2-3 days his symptoms records similarly with recurrent nausea vomiting and diarrhea and periumbilical abdominal pain, nonradiating, nonspecific about 6/10 in severity associated with 5) bowel movement and last one was watery and also he has hypotension with systolic blood pressure was 76 taken to the hospital again This morning patient states that pain has gone and no more bowel movement or vomiting, he still feels weak and it was tender hospital. He denies chest pain or abdominal pain now. No dyspnea or coughing. No headache or weakness or numbness. No urinary symptoms. This morning is complaining of from pain in his right arm without history of trauma, no neck pain or shoulder pain. No tenderness. The pain got worse with bending the elbow. On admission patient is afebrile, is tachycardic with heart rate 105. Blood pressure is 125/75. Leukocytosis with 17.8. Trace of CBC Is Unremarkable. Sodium 136, so BMP Is Unremarkable. Glucose Mildly Elevated. Liver Enzymes Not Elevated. Urine Analysis Showed Glucosuria and Ketonuria. No Evidence of Infection. Coronavirus and Influenza Virus Are Not Detected CT of the Abdomen and Pelvis with Contrast showing no different acute abnormality seen in the abdomen or the pelvis Bowel showing gastric distention with fluid. Unremarkable duodenum and small bowel with no evidence of bowel obstruction. Scattered colonic diverticulosis segments of nonspecific colonic wall thickening. No convincing evidence of acute diverticulitis On admission patient received ceftriaxone, antiacids and Zofran as well as normal saline 12/18/2021 Patient remains alert awake, no abdominal pain. No bowel movement or diarrhea today. He tolerates diet well. Right upper extremity pain is minimal today. Catal[employer] input is appreciated and they saw the patient today. Patient had more studies showing negative CTA of the chest for PE, negative bilateral venous Doppler for DVT. Repeat venous Doppler of the right upper extremity:noncompressible tubular structure within the mid upper arm felt to represent an anatomic variant venous structure. Given noncompressibility underlying deep vein thrombosis remains in the differential Patient remains on ceftriaxone, Flagyl and normal saline. Blood pressure is slightly elevated we'll keep monitoring and adjust medication accordingly. I called the patient brother who is a physician upon patient request at [phone], discussed the case with him and all questions answered upon patient request 12/19/2021 Patient is improving clinically with this abdominal pain, nausea vomiting. He tolerates diet. Right upper extremity. Improvement but not completely resolved. He is still on heparin drip with plan for anticoagulation for 3 months No need for further workup. Surgery and hematology input is appreciated Patient will need EGD/colonoscopy when stable 12/20/2021 Patient has an episode of lightheadedness and abdominal pain while he was in the shower No vomiting. Tolerates diet well Arm pain improving Hemodynamically stable, actually he is developing high blood pressure 145/82 and 152/92, rather than was started on antihypertensive medication I would hold hydrocortisone we'll keep monitoring the patient closely. Also I will lower his normal saline to 50 mL per hour with a close monitoring Check labs tomorrow morning 12/21/2021 Patient improving clinically He has minimal abdominal pain but he tolerates diet well No diarrhea. No nausea vomiting. His blood pressure is stable after we stopped his hydrocortisone. However we keep the patient on normal saline at 50 mL per hour he remains on Flagyl and ceftriaxone Plan for colonoscopy tomorrow with surgery team. Patient is eager to have colonoscopy done in the hospital Objective - Vital Signs Vital signs: Vital Signs Temp 97.6 F 12/21/21 07:00 Pulse 78 12/21/21 07:00 Resp 17 12/21/21 07:00 BP 116/74 12/21/21 07:00 Pulse Ox 99 12/21/21 07:00 FiO2 Intake & Output 12/20/21 12/21/21 12/21/21 18:59 06:59 18:59 Intake Total 412.844 275.151 118 Output Total 500 700 Balance -87.156 275.151 -582 Intake: Intake, IV Titration 92.844 275.151 Amount Heparin Sod,Pork in 0.45% 92.844 275.151 NaCl 25,000 unit In 0.45 % NaCl 1 250ml.bag @ 12 UNITS/KG/HR 9.362 mls/hr IV .Q24H [facility] Rx#: [id number] Oral 320 118 Output: Urine 500 700 Other: # Voids 1 1 - Exam GENERAL: The patient is alert and oriented x3, not in any acute distress. Well developed, well nourished. HEENT: Pupils are round and equally reacting to light. EOMI. No scleral icterus. No conjunctival pallor. Normocephalic, atraumatic. No pharyngeal erythema. No thyromegaly. CARDIOVASCULAR: S1 and S2 present. No murmurs, rubs, or gallops. PULMONARY: Chest is clear to auscultation, no wheezing or crackles. ABDOMEN: Soft, nontender, nondistended, normoactive bowel sounds. No palpable organomegaly. MUSCULOSKELETAL: No joint swelling or deformity. EXTREMITIES: No cyanosis, clubbing, or pedal edema. NEUROLOGICAL: Gross neurological examination did not reveal any focal deficits. SKIN: No rashes. no petechiae. - Labs CBC & Chem 7: 12/21/21 05:55 12/21/21 05:55 Labs: Abnormal Lab Results - Last 24 Hours (Table) 12/20/21 12/20/21 12/20/21 Range/Units 06:11 11:39 11:49 RBC (4.40-5.60) X 10*6/uL Hgb (13.0-17.0) g/dL Hct (39.6-50.0) % APTT 60.2 H (22.0-30.0) sec Carbon Dioxide (20.0-27.5) mmol/L Anion Gap (10.00-18.00) mmol/L BUN (9.0-27.0) mg/dL BUN/Creatinine Ratio (12.00-20.00) Ratio Glucose (70-110) mg/dL POC Glucose (mg/dL) 178 H (70-110) mg/dL Transferrin 189.0 L (204.0-354.0) mg/dL Total Bilirubin (0.30-1.20) mg/dL Conjugated Bilirubin (0.20-0.40) mg/dL Total Protein (6.2-8.2) g/dL Albumin (3.8-4.9) g/dL 12/20/21 12/20/21 12/21/21 Range/Units 17:05 20:12 05:55 RBC (4.40-5.60) X 10*6/uL Hgb (13.0-17.0) g/dL Hct (39.6-50.0) % APTT 54.3 H (22.0-30.0) sec Carbon Dioxide (20.0-27.5) mmol/L Anion Gap (10.00-18.00) mmol/L BUN (9.0-27.0) mg/dL BUN/Creatinine Ratio (12.00-20.00) Ratio Glucose (70-110) mg/dL POC Glucose (mg/dL) 164 H 164 H (70-110) mg/dL Transferrin (204.0-354.0) mg/dL Total Bilirubin (0.30-1.20) mg/dL Conjugated Bilirubin (0.20-0.40) mg/dL Total Protein (6.2-8.2) g/dL Albumin (3.8-4.9) g/dL 12/21/21 12/21/21 12/21/21 Range/Units 05:55 05:55 07:05 RBC 4.27 L (4.40-5.60) X 10*6/uL Hgb 11.9 L (13.0-17.0) g/dL Hct 36.1 L (39.6-50.0) % APTT (22.0-30.0) sec Carbon Dioxide 27.7 H (20.0-27.5) mmol/L Anion Gap 8.30 L (10.00-18.00) mmol/L BUN 4.6 L (9.0-27.0) mg/dL BUN/Creatinine Ratio 7.67 L (12.00-20.00) Ratio Glucose 161 H (70-110) mg/dL POC Glucose (mg/dL) 153 H (70-110) mg/dL Transferrin (204.0-354.0) mg/dL Total Bilirubin 0.20 L (0.30-1.20) mg/dL Conjugated Bilirubin <0.20 L (0.20-0.40) mg/dL Total Protein 5.4 L (6.2-8.2) g/dL Albumin 3.6 L (3.8-4.9) g/dL Microbiology - Last 24 Hours (Table) 12/16/21 18:15 Blood Culture - Preliminary Blood No Growth after 96 hours 12/16/21 18:00 Blood Culture - Preliminary Blood No Growth after 96 hours 12/18/21 12:10 Stool Culture - Preliminary Stool Assessment and Plan Assessment: -segments of nonspecific colonic wall thickening, suspicious for colitis -Dehydration and hypovolemia secondary to above -Nausea vomiting suspicious for acute gastroenteritis -Right arm pain -Asthma, not an active issue -Type 2 diabetes mellitus Plan: This is a pleasant 56 years old male who presents with acute gastroenteritis with leukocytosis Continue with IV fluid Continue with ceftriaxone and Flagyl Follow-up stool culture [employer] team on the case, patient currently remains on IV heparin drip, he can switch to oral anticoagulants when appropriate. Patient will need anticoagulation for 3 months, patient informed and he agrees surgery team has been consulted.. Patient will need colonoscopy tomorrow Hold hydrocortisone 10 mg while keeping monitoring blood pressure Labs and medication were reviewed.. Continue same treatment. Continue with symptomatic treatment. Resume home medication. Monitor lytes and vitals. DVT and GI prophylaxis. Further recommendations as per clinical course of the patient DVT prophylaxis: heparin GI Prophylaxis: Pepcid Prognosis is guarded Dr. Bond will resume the care of the patient,
[2021-12-21 20:14] LABS: Glucose,Whole Blood 142 mg/dL (70-110)
[2021-12-22 07:25] LABS: Glucose,Whole Blood 123 mg/dL (70-110)
[2021-12-22] MEDS: HEPARIN SOD,PORK IN 0.45% NACL 25,000 UNIT in 0.45% NACL 1 250ML.BAG IV SCH (07:38)
[2021-12-22] MEDS: FAMOTIDINE 20 MG TAB PO SCH ×2 (07:54→21:36)
[2021-12-22] MEDS: metroNIDAZOLE 500 MG TAB PO SCH ×3 (07:55→21:36)
[2021-12-22 11:53] LABS: Glucose,Whole Blood 125 mg/dL (70-110)
[2021-12-22] MEDS ORDERED: IV FLUID CONTINUATION 1,000 ML IV ONE (12:14)
[2021-12-22] MEDS ORDERED: LIDOCAINE 2% INJ 20 MG/ML (2 ML VIAL) ONE (12:15)
[2021-12-22] MEDS ORDERED: PROPOFOL 10 MG/ML 20 ML VIAL IV ONE (12:15)
[2021-12-22] MEDS: metFORMIN 500 MG TAB PO SCH ×2 (12:15→17:50)
--- NOTE | 2021-12-22 13:45 | P.PN ---
Objective - Vital Signs Vital signs: Vital Signs Temp 97.9 F 12/22/21 13:08 Pulse 91 12/22/21 13:08 Resp 18 12/22/21 13:08 BP 111/73 12/22/21 13:08 Pulse Ox 95 12/22/21 13:08 FiO2 Intake & Output 12/21/21 12/22/21 12/22/21 18:59 06:59 18:59 Intake Total 326.319 360.143 Output Total 700 Balance -373.681 360.143 Intake: IV 100 Intake, IV Titration 90.319 260.143 Amount Heparin Sod,Pork in 0.45% 90.319 260.143 NaCl 25,000 unit In 0.45 % NaCl 1 250ml.bag @ 12 UNITS/KG/HR 9.362 mls/hr IV .Q24H [facility] Rx#: [id number] Oral 236 Output: Urine 700 Other: Voiding Method Urinal # Voids 1 1 # Bowel Movements 4 - Exam Gen.: No acute distress. HEENT: No conjunctival pallor or scleral icterus. Mucosa moist. Neck: Supple Lungs: No respiratory distress. Heart: Regular rate. Abdomen: Soft. MSK: Appropriate strength in all 4 extremities. Neuro: Alert and oriented 3. Psych: Appropriate affect. Skin: No jaundice. - Labs CBC & Chem 7: 12/21/21 05:55 12/21/21 05:55 Labs: Abnormal Lab Results - Last 24 Hours (Table) 12/21/21 12/21/21 12/22/21 Range/Units 17:10 20:12 06:47 APTT 64.6 H (22.0-30.0) sec POC Glucose (mg/dL) 176 H 142 H (70-110) mg/dL 12/22/21 12/22/21 Range/Units 07:23 11:52 APTT (22.0-30.0) sec POC Glucose (mg/dL) 123 H 125 H (70-110) mg/dL Microbiology - Last 24 Hours (Table) 12/18/21 12:10 Stool Culture - Final Stool 12/16/21 18:15 Blood Culture - Preliminary Blood No Growth after 120 hours 12/16/21 18:00 Blood Culture - Preliminary Blood No Growth after 120 hours Assessment and Plan (1) Deep vein thrombosis (DVT) of right upper extremity Narrative/Plan: Provked RUE CLot, with symptoms of hypotension, dizzyness on admission CTA NEG Current Visit: Yes Status: Acute Code(s): I82.621 - ACUTE EMBOLISM AND THROM BOSIS OF DEEP VEINS OF R UP EXTREM SNOMED Code(s): 878634758 Plan: If no other thrombolic events found then for line associated provoked DVT RUE 3 months would be recommended, DOAC at discharge. If any concern of hypercoagulable risks that he has not mentioned or that are unaware of at this time a hypercoagulable work-up can be performed as outpatient, at this time await LUE doppler (new pain and swelling) and CTA for recs. OK to convert to therapeutic dosage of Anticoagulation PO on return from GI evaluation as long as no active bleeding, no further procedures planned, and GI cleared
[2021-12-22 16:51] LABS: Glucose,Whole Blood 123 mg/dL (70-110)
--- NOTE | 2021-12-22 17:36 | P.OP ---
Date of Procedure: 12/22/21 Preoperative Diagnosis: Nausea, vomiting, epigastric pain Screening colonoscopy Postoperative Diagnosis: Antral gastritis Normal colon Procedure(s) Performed: EGD Colonoscopy Anesthesia: MAC Surgeon: Ry Villalta Pathology: other (Antrum) Condition: stable Disposition: PACU Description of Procedure: Patient's placed on the endoscopy table in the lateral position. He received IV sedation. The gastroscope placed oropharynx passed in the esophagus and stomach. Scope then placed through the pylorus. The first and second portion of the duodenum appeared normal. Scope was then brought back the antrum and this appeared mildly inflamed. A biopsies performed. Scope was unretroflexed and remainder stomach appeared normal. The GE junction was at 40 cm. There is no significant hiatal hernia. The distal esophagus appeared normal. The proximal esophagus appeared normal. Scope withdrawn for patient. Next digital rectal exam was performed. This revealed no ebonized. The flexible colonoscope was then placed patient anus passed throughout the entire colon. The ileocecal valve was visually is. The cecum, ascending and transverse colon appeared normal. The descending; appeared normal. Scope withdrawn from patient the rectum was normal. Scope withdrawn.
[2021-12-22] MEDS: SODIUM CHLORIDE 0.9% 1,000 ML IV SCH (17:51)
[2021-12-22] MEDS ORDERED: HYDROCORTISONE 10 MG TAB PO SCH (18:30)
--- NOTE | 2021-12-22 19:07 | PN ---
PROGRESS NOTE DATE OF SERVICE: 12/21/2021. CHIEF COMPLAINT: Hypotension and abdominal discomfort. HISTORY OF PRESENT ILLNESS: This gentleman is doing fairly well. His ACTH has come back quite elevated. His cortisol was stopped over the weekend. He is going for endoscopies today. PHYSICAL EXAMINATION: His vital signs are normal. Chest is clear. Cardiac exam is normal. The abdomen is soft and nontender. Bowel sounds are present. IMPRESSION: 1. Adrenal insufficiency. 2. Hypotension. 3. Crampy abdominal pain. PLAN: 1. Endoscopies today. 2. Resume cortisol. 3. TSH with to free T4. MMODL / IJN: [id number] /
[2021-12-22 20:13] LABS: Glucose,Whole Blood 169 mg/dL (70-110)
[2021-12-23 06:55] LABS: Glucose,Whole Blood 138 mg/dL (70-110)
[2021-12-23] MEDS: SODIUM CHLORIDE 0.9% 1,000 ML IV SCH (07:24)
[2021-12-23] MEDS: metFORMIN 500 MG TAB PO SCH (07:42)
[2021-12-23] MEDS: FAMOTIDINE 20 MG TAB PO SCH (09:37)
[2021-12-23] MEDS: metroNIDAZOLE 500 MG TAB PO SCH ×2 (09:37→16:14)
[2021-12-23 11:28] LABS: Glucose,Whole Blood 160 mg/dL (70-110)
[2021-12-23] MEDS ORDERED: APIXABAN 5 MG TAB PO SCH (11:45)
[2021-12-23 12:04] LABS: Basophils % (A) 0 %; Eosinophils # (A) 0.3 k/uL (0-0.7); Eosinophils % (A) 5 %; HCT 37.1 % (39.0-53.0); HGB 12.7 gm/dL (13.0-17.5); Lymphocytes % (A) 34 %; MCH 29.8 pg (25.0-35.0); MCHC 34.2 g/dL (31.0-37.0); MCV 87.1 fL (80.0-100.0); Mean Platelet Volume 7.5; Monocytes # (A) 0.5 k/uL (0-1.0); Monocytes % (A) 8 %; Neutrophils % (A) 51 %; Platelet Count 276 k/uL (150-450); RBC 4.26 m/uL (4.30-5.90); RDW 13.8 % (11.5-15.5); WBC 5.9 k/uL (3.8-10.6)
[2021-12-23 12:20] LABS: ALT 47 U/L (4-49); AST 44 U/L (17-59); African American GFR (CKD) >90 (>60 ml/min/1.73 sqM); Albumin 3.6 g/dL (3.5-5.0); Albumin/Globulin Ratio 1.6; Alkaline Phosphatase 45 U/L (38-126); Anion Gap 6 mmol/L; Blood Urea Nitrogen 6 mg/dL (9-20); Calcium 8.5 mg/dL (8.4-10.2); Carbon Dioxide 29 mmol/L (22-30); Chloride 103 mmol/L (98-107); Globulin 2.3 g/dL; Glucose 168 mg/dL (74-99); Magnesium 1.7 mg/dL (1.6-2.3); Non-African American GFR(CKD) >90 (>60 ml/min/1.73 sqM); Potassium 3.8 mmol/L (3.5-5.1); Sodium 138 mmol/L (137-145); Total Bilirubin 0.3 mg/dL (0.2-1.3); Total Protein 5.9 g/dL (6.3-8.2)
--- NOTE | 2021-12-23 12:32 | P.PN ---
Subjective Progress Note Date: 12/23/21 CHIEF COMPLAINT: Nausea, vomiting and epigastric pain HISTORY OF PRESENT ILLNESS: Patient status post EGD and colonoscopy revealing antral gastritis and normal colon. Patient denies any abdominal pain. He is tolerating regular diet. Denies any further nausea and vomiting. Afebrile. WBC 5.9 hgb 12.7 platelets 276 Patient seen and examined with Dr. Villalta PHYSICAL EXAM: VITAL SIGNS: Reviewed. GENERAL: Well-developed in no acute distress. HEENT: No sclera icterus. Extraocular movements grossly intact. Moist buccal mucosa. Head is atraumatic, normocephalic. ABDOMEN: Soft. Nondistended. Nontender. NEUROLOGIC: Alert and oriented. Cranial nerves II through XII grossly intact. ASSESSMENT: 1. Status post EGD and colonoscopy revealing antral gastritis and normal colon PLAN: -Patient is stable from surgical standpoint for discharge -Continue PPI for gastritis Physician Voice Writing Reporter note has been reviewed by physician. Signing provider agrees with the documented findings, assessment, and plan of care. Objective - Vital Signs Vital signs: Vital Signs Temp 98 F 12/23/21 07:15 Pulse 81 12/23/21 07:15 Resp 18 12/23/21 07:15 BP 117/70 12/23/21 07:15 Pulse Ox 96 12/23/21 07:15 FiO2 Intake & Output 12/22/21 12/23/21 12/23/21 18:59 06:59 18:59 Intake Total 434.782 500 Balance 434.782 500 Intake: IV 100 Intake, IV Titration 334.782 Amount Heparin Sod,Pork in 0.45% 334.782 NaCl 25,000 unit In 0.45 % NaCl 1 250ml.bag @ 12 UNITS/KG/HR 9.362 mls/hr IV .Q24H [facility] Rx#: [id number] Oral 500 Other: Voiding Method Urinal # Voids 1 - Labs CBC & Chem 7: 12/23/21 11:46 12/23/21 11:46 Labs: Abnormal Lab Results - Last 24 Hours (Table) 12/22/21 12/22/21 12/23/21 Range/Units 16:49 20:12 06:53 RBC (4.30-5.90) m/uL Hgb (13.0-17.5) gm/dL Hct (39.0-53.0) % BUN (9-20) mg/dL Glucose (74-99) mg/dL POC Glucose (mg/dL) 123 H 169 H 138 H (70-110) mg/dL Total Protein (6.3-8.2) g/dL 12/23/21 12/23/21 12/23/21 Range/Units 11:28 11:46 11:46 RBC 4.26 L (4.30-5.90) m/uL Hgb 12.7 L (13.0-17.5) gm/dL Hct 37.1 L (39.0-53.0) % BUN 6 L (9-20) mg/dL Glucose 168 H (74-99) mg/dL POC Glucose (mg/dL) 160 H (70-110) mg/dL Total Protein 5.9 L (6.3-8.2) g/dL Microbiology - Last 24 Hours (Table) 12/16/21 18:15 Blood Culture - Final Blood No Growth after 144 hours 12/16/21 18:00 Blood Culture - Final Blood No Growth after 144 hours 12/18/21 12:10 Stool Culture - Final Stool
[2021-12-23 13:59] VITALS: BP 158/92; PULSE 90; RESP 16; TEMP 97.5
--- NOTE | 2021-12-23 16:17 | P.PN ---
Subjective Progress Note Date: 12/23/21 Spoke with nursing yesterday and plan to start PO DOAC when returns from colonoscopy as long as ok from surgery. Sebastián therapeutic dosage, therapeutic treatment 5mg BID x3 months for picc provoked upper extremity thrombus is the guideline for treatment and this is the recommendation. Primary team has decided against, will defer to them. Objective - Vital Signs Vital signs: Vital Signs Temp 98 F 12/23/21 07:15 Pulse 81 12/23/21 07:15 Resp 18 12/23/21 07:15 BP 117/70 12/23/21 07:15 Pulse Ox 96 12/23/21 07:15 FiO2 Intake & Output 12/22/21 12/23/21 12/23/21 18:59 06:59 18:59 Intake Total 434.782 500 Balance 434.782 500 Intake: IV 100 Intake, IV Titration 334.782 Amount Heparin Sod,Pork in 0.45% 334.782 NaCl 25,000 unit In 0.45 % NaCl 1 250ml.bag @ 12 UNITS/KG/HR 9.362 mls/hr IV .Q24H [facility] Rx#: [id number] Oral 500 Other: Voiding Method Urinal # Voids 1 - Exam Gen.: No acute distress. HEENT: No conjunctival pallor or scleral icterus. Mucosa moist. Neck: Supple Lungs: No respiratory distress. Heart: Regular rate. Abdomen: Soft. MSK: Appropriate strength in all 4 extremities. Neuro: Alert and oriented 3. Psych: Appropriate affect. Skin: No jaundice. - Labs CBC & Chem 7: 12/23/21 11:46 12/23/21 11:46 Labs: Abnormal Lab Results - Last 24 Hours (Table) 12/22/21 12/22/21 12/22/21 Range/Units 11:52 16:49 20:12 POC Glucose (mg/dL) 125 H 123 H 169 H (70-110) mg/dL 12/23/21 12/23/21 Range/Units 06:53 11:28 POC Glucose (mg/dL) 138 H 160 H (70-110) mg/dL Microbiology - Last 24 Hours (Table) 12/16/21 18:15 Blood Culture - Final Blood No Growth after 144 hours 12/16/21 18:00 Blood Culture - Final Blood No Growth after 144 hours 12/18/21 12:10 Stool Culture - Final Stool Assessment and Plan (1) Deep vein thrombosis (DVT) of right upper extremity Narrative/Plan: Provked RUE CLot, with symptoms of hypotension, dizzyness on admission CTA NEG Current Visit: Yes Status: Acute Code(s): I82.621 - ACUTE EMBOLISM AND THROMBOSIS OF DEEP VEINS OF R UP EXTREM SNOMED Code(s): 024695835 Plan: If no other thrombolic events found then for line associated provoked DVT RUE 3 months would be recommended, DOAC at discharge. If any concern of hypercoagulable risks that he has not mentioned or that are unaware of at this time a hypercoagulable work-up can be performed as outpatient, at this time await LUE doppler (new pain and swelling) and CTA for recs. THree months of therapeutic dosage for picc provoked upper extremity DVT is recommended per guidelines. Primary team has decided against at this time. Would ask them to reconsider and discussed with nursing.
--- NOTE | 2021-12-23 19:17 | DS ---
DISCHARGE SUMMARY CHIEF COMPLAINT: Uncontrolled nausea, vomiting, diarrhea, and hypotension. HISTORY OF PRESENT ILLNESS AND PHYSICAL EXAMINATION: Details of this man's history and physical can be found in the initial workup. LABORATORY STUDIES: While he was in the hospital, he had laboratory studies, details of which can be found in the laboratory section of chart. COURSE IN THE HOSPITAL: After admission, he was placed on bedrest, started intravenous fluids and he was rehydrated. While he was in the hospital, he developed some abdominal discomfort and then pain in the left arm and pain in the right arm. Ultrasound of the arms was ordered. The left arm is normal. Right arm suggests that he might have had an axillary clot. There was no D-dimer, however, and his symptoms were not typical for axillary vein obstruction. He was doing well. Vital signs were stable and it was felt that he could be discharged on the sixth. He will go home on his usual activity, diet, medication, and Cortisol 10 mg once a day will be order and he will go home on apixaban 10 mg twice a day for 10 days. The ultrasound of the axilla will be repeated in a week or so. At which time, his anticoagulant will probably be stopped. His symptoms and physical findings are not at all compatible with axillary venous obstruction and there would be no reason for the this to occur. He will subsequently undergo MRI of the pituitary gland because his ACTH is quite high while his cortisol levels have been normal. He has been having some headaches. FINAL DIAGNOSES: 1. Intractable nausea, vomiting, diarrhea. 2. Dehydration. 3. Leukocytosis. 4. Poorly controlled type 2 NIDDM. 5. Gastritis. 6. Possible right axillary venous thrombosis. 7. Unexplained elevated ACTH. 8. Hypotension. 9. Depression. OPERATIONS: Upper GI endoscopy. CONSULTATIONS: Gastroenterology. He is improved. MMODL / IJN: [id number] /
--- NOTE | 2021-12-25 19:34 | PN ---
PROGRESS NOTE DATE OF SERVICE: 12/22/2021 CHIEF COMPLAINT: Hypotension, dehydration and electrolyte imbalance. HISTORY OF PRESENT ILLNESS: This gentleman is feeling much better. We await the results of his ACTH and cortisol levels. Thyroid functions will also be ordered. He can probably go home in the next day or so. PHYSICAL EXAMINATION: Vital signs are normal. Chest is clear. Cardiac exam is normal. Abdomen is soft and non-tender and bowel sounds are normal. IMPRESSION: 1. Hypotension. 2. Intractable nausea and vomiting. 3. Adrenal insufficiency. PLAN: Await the balance of his laboratory studies and then probably discharge tomorrow. MMODL / IJN: [id number] /
== END 2021-12-23 17:32 | disposition home or self-care (01) | DRG 392 ==
LOC: EC 14:07 → 6NMEDSUR 17:06 → OBSVTOIN 12-22 09:03
PROVIDERS: ADMIT Family Medicine; ATTEND Family Medicine
PROC: 0DB78ZX Excision of Stomach, Pylorus, Via Natural or Artificial Opening Endoscopic, Diagnostic (ICD-10-PCS; principal; 2021-12-22 07:30)
PROC: 0DJD8ZZ Inspection of Lower Intestinal Tract, Via Natural or Artificial Opening Endoscopic (ICD-10-PCS; 2021-12-22 07:30)
DX: K52.9 Noninfective gastroenteritis and colitis, unspecified (principal); E27.40 Unspecified adrenocortical insufficiency; I82.A11 Acute embolism and thrombosis of right axillary vein; T82.868A Thrombosis due to vascular prosthetic devices, implants and grafts, initial encounter; E11.9 Type 2 diabetes mellitus without complications; F32.A Depression, unspecified; J45.909 Unspecified asthma, uncomplicated; E87.8 Other disorders of electrolyte and fluid balance, not elsewhere classified; I95.9 Hypotension, unspecified; D64.9 Anemia, unspecified; E86.0 Dehydration; K29.50 Unspecified chronic gastritis without bleeding; R00.0 Tachycardia, unspecified; R81 Glycosuria; R82.4 Acetonuria; R94.7 Abnormal results of other endocrine function studies; K57.30 Diverticulosis of large intestine without perforation or abscess without bleeding; E86.1 Hypovolemia; R03.0 Elevated blood-pressure reading, without diagnosis of hypertension; Y71.1 Therapeutic (nonsurgical) and rehabilitative cardiovascular devices associated with adverse incidents; Z20.822 Contact with and (suspected) exposure to COVID-19; Z79.84 Long term (current) use of oral hypoglycemic drugs; Z87.891 Personal history of nicotine dependence; Z90.89 Acquired absence of other organs; Z86.16 Personal history of COVID-19; Z91.018 Allergy to other foods
CPT/HCPCS: 36415; 43239; 71275; 74177; 80048; 80053; 80076; 81001; 82024; 82272; 82533; 82607; 82728; 82746; 83540; 83550; 83605; 83630; 83690; 83735; 84436; 84443; 85025; 85045; 85379; 85610; 85730; 87040; 87045; 87046; 87502; 87635; 88305; 93005; 93970

== ENCOUNTER 2021-12-28 04:57 | Emergency (ER) | payer OTHER ==
[2021-12-28] MEDS ORDERED: methylPREDNISolone SOD SUCCI 125 MG/2 ML VIAL IV STA (05:00)
[2021-12-28] MEDS ORDERED: SODIUM CHLORIDE 0.9% 1,000 ML IV STA ×2 (05:00)
[2021-12-28] MEDS ORDERED: ONDANSETRON 4 MG/2 ML VIAL IVP STA (05:00)
[2021-12-28] MEDS ORDERED: SODIUM CHLORIDE 0.9% 500 ML 500 ML IV STA (05:00)
[2021-12-28] MEDS ORDERED: PANTOPRAZOLE 40 MG/10 ML VIAL IVP STA (05:02)
--- NOTE | 2021-12-28 05:08 | ED ---
Nausea/Vomiting/Diarrhea HPI - General Chief complaint: Abdominal Pain Stated complaint: Hypotension Time Seen by Provider: 12/28/21 04:59 Source: patient, EMS, RN notes reviewed, old records reviewed Mode of arrival: EMS Limitations: no limitations - History of Present Illness Initial comments: This is a 57-year-old male to the emergency department for evaluation. Patient coming in for persistent nausea vomiting. Occasional diarrhea although that is slowed down. Family thinks he may be having some issues with his steroid hormones. He is without fever. Without other complaint. He gets nausea vomiting significant amount and more frequently recently even requiring hospitalization. MD complaint: nausea, vomiting -: days(s) Description of Vomiting: watery Description of Diarrhea: water, mucous Associated Abdominal Pain: Yes Location: diffuse Radiation: none Severity: moderate Severity scale (1-10): 7 Quality: cramping Consistency: constant Improves with: none Worsens with: none Context: other Associated Symptoms: denies other symptoms - Related Data Home Medications Medication Instructions Recorded Confirmed Albuterol Sulfate [Proair Hfa] 2 puff INHALATION RT-Q4H PRN 12/07/21 12/28/21 EPINEPHrine (Auto Inject) [Epipen] 0.3 mg IM ONCE PRN 12/07/21 12/28/21 metFORMIN HCL 1,000 mg PO BID-W/MEALS 12/07/21 12/28/21 Previous Rx's Medication Instructions Recorded Apixaban [Eliquis] 10 mg PO BID #14 tab 12/23/21 Famotidine [Pepcid] 20 mg PO BID #30 tab 12/23/21 Hydrocortisone [Cortef] 10 mg PO Q24H #30 tab 12/23/21 Allergies Allergy/AdvReac Type Severity Reaction Status Date / Time tree nut Allergy Swelling Verified 12/28/21 10:15 Review of Systems ROS Statement: Those systems with pertinent positive or pertinent negative responses have been documented in the HPI. ROS Other: All systems not noted in ROS Statement are negative. Past Medical History Past Medical History: Asthma, Diabetes Mellitus Additional Past Medical History / Comment(s): DM type 2, COVID 08/25/2020-09/25/20 History of Any Multi-Drug Resistant Organisms: None Reported Past Surgical History: Appendectomy Additional Past Surgical History / Comment(s): appe removed 2007 Past Anesthesia/Blood Transfusion Reactions: No Reported Reaction Past Psychological History: No Psychological Hx Reported Smoking Status: Former smoker Past Alcohol Use History: None Reported Past Drug Use History: None Reported General Exam Limitations: no limitations General appearance: alert, in no apparent distress Head exam: Present: atraumatic, normocephalic, normal inspection Eye exam: Present: normal appearance, PERRL, EOMI. Absent: scleral icterus, conjunctival injection, periorbital swelling ENT exam: Present: normal exam, mucous membranes moist Neck exam: Present: normal inspection. Absent: tenderness, meningismus, lymphadenopathy Respiratory exam: Present: normal lung sounds bilaterally. Absent: respiratory distress, wheezes, rales, rhonchi, stridor Cardiovascular Exam: Present: regular rate, normal rhythm, normal heart sounds. Absent: systolic murmur, diastolic murmur, rubs, gallop, clicks GI/Abdominal exam: Present: soft, normal bowel sounds. Absent: distended, tenderness, guarding, rebound, rigid Extremities exam: Present: normal inspection, full ROM, normal capillary refill. Absent: tenderness, pedal edema, joint swelling, calf tenderness Back exam: Present: normal inspection Neurological exam: Present: alert, oriented X3, CN II-XII intact Psychiatric exam: Present: normal affect, normal mood Skin exam: Present: warm, dry, intact, normal color. Absent: rash Course Vital Signs 12/28/21 12/28/21 12/28/21 05:00 05:36 06:33 Temperature 98 F Pulse Rate 113 H 78 104 H Respiratory 18 16 16 Rate Blood Pressure 142/84 133/91 138/80 O2 Sat by Pulse 99 100 98 Oximetry 12/28/21 12/28/21 12/28/21 07:54 08:53 10:35 Temperature 98.7 F Pulse Rate 100 98 67 Respiratory 16 16 18 Rate Blood Pressure 136/86 127/76 133/86 O2 Sat by Pulse 95 98 98 Oximetry - Reevaluation(s) Reevaluation #1: 12/28/21 06:28 medical record is reviewed Reevaluation #2: 12/28/21 Patient is feeling much improved here in the emergency department Reevaluation #3: 12/28/21 Spoke with patient who again continues to feel improved, informed results and he feels good for discharge home Medical Decision Making - Medical Decision Making 57 male to the emergency department for evaluation of nausea vomiting weakness and dehydration. No travel history or sick contacts. No other complaints. - Lab Data Result diagrams: 12/28/21 05:04 12/28/21 05:04 Lab Results 12/28/21 12/28/21 12/28/21 Range/Units 05:04 05:04 05:04 WBC 11.4 H (3.8-10.6) k/uL RBC 4.45 (4.30-5.90) m/uL Hgb 13.3 (13.0-17.5) gm/dL Hct 38.8 L (39.0-53.0) % MCV 87.3 (80.0-100.0) fL MCH 29.9 (25.0-35.0) pg MCHC 34.3 (31.0-37.0) g/dL RDW 14.6 (11.5-15.5) % Plt Count 321 (150-450) k/uL MPV 8.0 Neutrophils % (Manual) 54 % Band Neuts % (Manual) 17 % Lymphocytes % (Manual) 16 % Monocytes % (Manual) 12 % Eosinophils % (Manual) 1 % Neutrophils # (Manual) 8.00 H (1.3-7.7) k/uL Lymphocytes # (Manual) 1.82 (1.0-4.8) k/uL Monocytes # (Manual) 1.37 H (0-1.0) k/uL Eosinophils # (Manual) 0.11 (0-0.7) k/uL Nucleated RBCs 0 (0-0) /100 WBC Manual Slide Review Performed Toxic Granulation Present PT 10.6 (9.0-12.0) sec INR 1.0 (<1.2) APTT 24.9 (22.0-30.0) sec Sodium 134 L (137-145) mmol/L Potassium 3.6 (3.5-5.1) mmol/L Chloride 102 (98-107) mmol/L Carbon Dioxide 24 (22-30) mmol/L Anion Gap 8 mmol/L BUN 10 (9-20) mg/dL Creatinine 0.67 (0.66-1.25) mg/dL Est GFR (CKD-EPI)AfAm >90 (>60 ml/min/1.73 sqM) Est GFR (CKD-EPI)NonAf >90 (>60 ml/min/1.73 sqM) Glucose 194 H (74-99) mg/dL Lactic Ac Sepsis Rflx Plasma Lactic Acid Jose E (0.7-2.0) mmol/L Calcium 9.0 (8.4-10.2) mg/dL Phosphorus 3.0 (2.5-4.5) mg/dL Magnesium 1.5 L (1.6-2.3) mg/dL Total Bilirubin 0.5 (0.2-1.3) mg/dL AST 22 (17-59) U/L ALT 27 (4-49) U/L Alkaline Phosphatase 34 L (38-126) U/L Troponin I (0.000-0.034) ng/mL Total Protein 6.3 (6.3-8.2) g/dL Albumin 3.9 (3.5-5.0) g/dL Urine Color Urine Appearance (Clear) Urine pH (5.0-8.0) Ur Specific [place] (1.001-1.035) Urine Protein (Negative) Urine Glucose (UA) (Negative) Urine Ketones (Negative) Urine Blood (Negative) Urine Nitrite (Negative) Urine Bilirubin (Negative) Urine Urobilinogen (<2.0) mg/dL Ur Leukocyte Esterase (Negative) Urine RBC (0-5) /hpf Urine WBC (0-5) /hpf Hyaline Casts (0-2) /lpf Urine Mucus (None) /hpf 12/28/21 12/28/21 12/28/21 Range/Units 05:04 05:04 06:05 WBC (3.8-10.6) k/uL RBC (4.30-5.90) m/uL Hgb (13.0-17.5) gm/dL Hct (39.0-53.0) % MCV (80.0-100.0) fL MCH (25.0-35.0) pg MCHC (31.0-37.0) g/dL RDW (11.5-15.5) % Plt Count (150-450) k/uL MPV Neutrophils % (Manual) % Band Neuts % (Manual) % Lymphocytes % (Manual) % Monocytes % (Manual) % Eosinophils % (Manual) % Neutrophils # (Manual) (1.3-7.7) k/uL Lymphocytes # (Manual) (1.0-4.8) k/uL Monocytes # (Manual) (0-1.0) k/uL Eosinophils # (Manual) (0-0.7) k/uL Nucleated RBCs (0-0) /100 WBC Manual Slide Review Toxic Granulation PT (9.0-12.0) sec INR (<1.2) APTT (22.0-30.0) sec Sodium (137-145) mmol/L Potassium (3.5-5.1) mmol/L Chloride (98-107) mmol/L Carbon Dioxide (22-30) mmol/L Anion Gap mmol/L BUN (9-20) mg/dL Creatinine (0.66-1.25) mg/dL Est GFR (CKD-EPI)AfAm (>60 ml/min/1.73 sqM) Est GFR (CKD-EPI)NonAf (>60 ml/min/1.73 sqM) Glucose (74-99) mg/dL Lactic Ac Sepsis Rflx Y Plasma Lactic Acid Jose E 2.2 H* (0.7-2.0) mmol/L Calcium (8.4-10.2) mg/dL Phosphorus (2.5-4.5) mg/dL Magnesium (1.6-2.3) mg/dL Total Bilirubin (0.2-1.3) mg/dL AST (17-59) U/L ALT (4-49) U/L Alkaline Phosphatase (38-126) U/L Troponin I <0.012 (0.000-0.034) ng/mL Total Protein (6.3-8.2) g/dL Albumin (3.5-5.0) g/dL Urine Color Urine Appearance (Clear) Urine pH (5.0-8.0) Ur Specific [place] (1.001-1.035) Urine Protein (Negative) Urine Glucose (UA) (Negative) Urine Ketones (Negative) Urine Blood (Negative) Urine Nitrite (Negative) Urine Bilirubin (Negative) Urine Urobilinogen (<2.0) mg/dL Ur Leukocyte Esterase (Negative) Urine RBC (0-5) /hpf Urine WBC (0-5) /hpf Hyaline Casts (0-2) /lpf Urine Mucus (None) /hpf 12/28/21 12/28/21 Range/Units 09:05 09:05 WBC (3.8-10.6) k/uL RBC (4.30-5.90) m/uL Hgb (13.0-17.5) gm/dL Hct (39.0-53.0) % MCV (80.0-100.0) fL MCH (25.0-35.0) pg MCHC (31.0-37.0) g/dL RDW (11.5-15.5) % Plt Count (150-450) k/uL MPV Neutrophils % (Manual) % Band Neuts % (Manual) % Lymphocytes % (Manual) % Monocytes % (Manual) % Eosinophils % (Manual) % Neutrophils # (Manual) (1.3-7.7) k/uL Lymphocytes # (Manual) (1.0-4.8) k/uL Monocytes # (Manual) (0-1.0) k/uL Eosinophils # (Manual) (0-0.7) k/uL Nucleated RBCs (0-0) /100 WBC Manual Slide Review Toxic Granulation PT (9.0-12.0) sec INR (<1.2) APTT (22.0-30.0) sec Sodium (137-145) mmol/L Potassium (3.5-5.1) mmol/L Chloride (98-107) mmol/L Carbon Dioxide (22-30) mmol/L Anion Gap mmol/L BUN (9-20) mg/dL Creatinine (0.66-1.25) mg/dL Est GFR (CKD-EPI)AfAm (>60 ml/min/1.73 sqM) Est GFR (CKD-EPI)NonAf (>60 ml/min/1.73 sqM) Glucose (74-99) mg/dL Lactic Ac Sepsis Rflx Plasma Lactic Acid Jose E 1.0 (0.7-2.0) mmol/L Calcium (8.4-10.2) mg/dL Phosphorus (2.5-4.5) mg/dL Magnesium (1.6-2.3) mg/dL Total Bilirubin (0.2-1.3) mg/dL AST (17-59) U/L ALT (4-49) U/L Alkaline Phosphatase (38-126) U/L Troponin I (0.000-0.034) ng/mL Total Protein (6.3-8.2) g/dL Albumin (3.5-5.0) g/dL Urine Color Light Yellow Urine Appearance Cloudy (Clear) Urine pH 5.5 (5.0-8.0) Ur Specific [place] 1.009 (1.001-1.035) Urine Protein Trace H (Negative) Urine Glucose (UA) 4+ H (Negative) Urine Ketones 1+ H (Negative) Urine Blood Negative (Negative) Urine Nitrite Negative (Negative) Urine Bilirubin Negative (Negative) Urine Urobilinogen <2.0 (<2.0) mg/dL Ur Leukocyte Esterase Negative (Negative) Urine RBC <1 (0-5) /hpf Urine WBC 1 (0-5) /hpf Hyaline Casts 3 H (0-2) /lpf Urine Mucus Rare H (None) /hpf - EKG Data -: EKG Interpreted by Me (KJ shows atrial tachycardia 112, DE 232, QRS 104, QTc 4:30) Disposition Clinical Impression: Nausea and vomiting, Weakness, Dehydration Disposition: HOME SELF-CARE Condition: Fair Instructions (If sedation given, give patient instructions): Acute Nausea and Vomiting (ED) Is patient prescribed a controlled substance at d/c from ED?: No Referrals: Markell Bond MD [Primary Care Provider] - 1-2 days Time of Disposition: 06:50
[2021-12-28 05:21] LABS: HCT 38.8 % (39.0-53.0); HGB 13.3 gm/dL (13.0-17.5); MCH 29.9 pg (25.0-35.0); MCHC 34.3 g/dL (31.0-37.0); MCV 87.3 fL (80.0-100.0); Platelet Count 321 k/uL (150-450); RBC 4.45 m/uL (4.30-5.90); RDW 14.6 % (11.5-15.5); WBC 11.4 k/uL (3.8-10.6)
[2021-12-28 05:27] LABS: Partial Thromboplastin Time 24.9 sec (22.0-30.0); Prothrombin Time 10.6 sec (9.0-12.0)
[2021-12-28 05:41] LABS: Band Neutrophils % 17 %; Eosinophils # (M) 0.11 k/uL (0-0.7); Lymphocytes # (M) 1.82 k/uL (1.0-4.8); Monocytes # (M) 1.37 k/uL (0-1.0); Neutrophils % (M) 54 %; Nucleated Red Blood Cells 0 /100 WBC (0-0); Total Cells Counted 200
[2021-12-28 05:42] LABS: Toxic Granulation Present
[2021-12-28 05:59] LABS: ALT 27 U/L (4-49); African American GFR (CKD) >90 (>60 ml/min/1.73 sqM); Albumin 3.9 g/dL (3.5-5.0); Anion Gap 8 mmol/L; Blood Urea Nitrogen 10 mg/dL (9-20); Carbon Dioxide 24 mmol/L (22-30); Chloride 102 mmol/L (98-107); Glucose 194 mg/dL (74-99); Non-African American GFR(CKD) >90 (>60 ml/min/1.73 sqM); Sodium 134 mmol/L (137-145); Total Bilirubin 0.5 mg/dL (0.2-1.3); Total Protein 6.3 g/dL (6.3-8.2)
[2021-12-28 06:05] LABS: AST 22 U/L (17-59); Alkaline Phosphatase 34 U/L (38-126); Magnesium 1.5 mg/dL (1.6-2.3); Potassium 3.6 mmol/L (3.5-5.1)
[2021-12-28] MEDS ORDERED: HYDROCORTISONE SUCCINATE 100 MG/2 ML VIAL IV STA (06:17)
[2021-12-28] MEDS: MAGNESIUM SULFATE-D5W PMX 1 GM in DEXTROSE/WATER 1 100ML.BAG IVPB SCH ×2 (06:31→07:49)
[2021-12-28 10:03] LABS: Appearance,Urine Cloudy (Clear); Bilirubin,Urine Negative (Negative); Blood,Urine Negative (Negative); Color,Urine Light Yellow; Glucose,Urine (UA) 4+ (Negative); Hyaline Casts,Urine 3 /lpf (0-2); Ketones,Urine 1+ (Negative); Leukocyte Esterase,Urine Negative (Negative); Mucus,Urine Rare /hpf; Nitrite,Urine Negative (Negative); PH, Urine 5.5 (5.0-8.0); Protein,Urine Trace (Negative); RBC,Urine <1 /hpf (0-5); Specific Gravity,Urine 1.009 (1.001-1.035); Urobilinogen,Urine <2.0 mg/dL (<2.0); WBC,Urine 1 /hpf (0-5)
[2021-12-28 10:52] VITALS: BP 133/86; PULSE 67; RESP 18; TEMP 98.7
== END 2021-12-28 10:35 | disposition home or self-care (01) ==
LOC: EC 04:57
DX: R11.2 Nausea with vomiting, unspecified (principal); E86.0 Dehydration; R53.1 Weakness; J45.909 Unspecified asthma, uncomplicated; E11.9 Type 2 diabetes mellitus without complications; Z87.891 Personal history of nicotine dependence; Z91.09 Other allergy status, other than to drugs and biological substances; Z79.84 Long term (current) use of oral hypoglycemic drugs
CPT/HCPCS: 36415; 93005; 80053; 83605; 83735; 84100; 84484; 85025; 85610; 85730; 81001; 99284; 96365; 96366; 96375; 96361; J1720; J2930; J3360; J2405; J3475; C9113

== ENCOUNTER → 2021-12-28 | Outpatient (CLI) | payer OTHER ==
--- NOTE | 2021-12-28 11:38 | US ---
EXAMINATION TYPE: US venous doppler duplex UE RT DATE OF EXAM: 12/28/2021 COMPARISON: US right upper extremity December 17, 2021 CLINICAL HISTORY: I74.2 blot clot artery right upper arm. Follow up SIDE PERFORMED: Right Right Arm: Appears negative for DVT Grayscale, color doppler, spectral doppler imaging performed of the deep veins of the right upper ext remity. There is normal flow, compressibility and vascular waveforms on current study. Interval comp lete clearance of thrombus in the right axillary vein is noted. IMPRESSION: No ultrasound evidence for acute deep or superficial venous thrombosis in the right upper extremity.
== END | disposition home or self-care (01) ==
LOC: RADUSWWP 10:44
PROVIDERS: ATTEND Family Medicine
DX: I74.2 Embolism and thrombosis of arteries of the upper extremities (principal)

== ENCOUNTER → 2022-01-22 | Outpatient (CLI) | payer OTHER ==
--- NOTE | 2022-01-23 05:35 | MR ---
EXAMINATION TYPE: MR pituitary wo/w con DATE OF EXAM: 01/22/2022 COMPARISON: None HISTORY: ACTH elevation, adrenal insufficiency CONTRAST: Standard multiplanar, multisequence MRI departmental protocol images were obtained without contrast a nd with 8 mL intravenous Gadavist gadolinium contrast. Optic chiasm appears normal. There is no evidence of sellar mass. The pituitary stalk is in the midli ne. There is symmetric appearance of the pituitary gland. No evidence of a pituitary mass. There is n ormal symmetric enhancement of the pituitary gland. There is no evidence of orbital mass. Ventricles have normal size. No evidence of intracranial mass. There is normal enhancement of the venous sinuses . IMPRESSION: Normal MRI scan of the pituitary gland.
== END | disposition home or self-care (01) ==
LOC: RADMRIMAIN 17:35
PROVIDERS: ATTEND Family Medicine
DX: E27.0 Other adrenocortical overactivity (principal); E27.40 Unspecified adrenocortical insufficiency
CPT/HCPCS: 70553; A9585

== ENCOUNTER → 2022-11-03 | Outpatient (CLI) | payer OTHER ==
--- NOTE | 2022-11-05 12:46 | MR ---
EXAMINATION TYPE: MR lumbar spine wo con DATE OF EXAM: 11/03/2022 COMPARISON: NONE HISTORY: Lumbago, bilateral leg weakness for 2 years. TECHNIQUE: Multiplanar, multisequence imaging of the lumbar spine is performed without IV contrast. FINDINGS: Sagittal images of the lumbar spine show vertebral body heights and alignment to appear sat isfactory. Disc desiccation L4-L5 level otherwise the intervertebral discs demonstrate normal heights and hydration. The conus medullaris is normal in position and signal ending at L1-L2 disc space lev el. The bone marrow signal intensity is within normal limits. Axial images show mild facet arthropathy L4-L5 level and posterior increased signal consistent with a nnular tear. There is minimal effacement of the anterior thecal sac. No large lumbar disc herniation is seen. Spinal canal is grossly preserved. Bilateral neural foramina appear patent at all lumbar lev els. Paraspinal muscle bulk is maintained. IMPRESSION: Mild degenerative changes L4-L5 level.
== END | disposition home or self-care (01) ==
LOC: RADMRIMAIN 07:31
PROVIDERS: ATTEND Psychiatry & Neurology Neurology
DX: M47.816 Spondylosis without myelopathy or radiculopathy, lumbar region (principal); R53.1 Weakness
CPT/HCPCS: 72148

== ENCOUNTER 2022-12-15 11:07 | Inpatient (IN) | payer OTHER ==
--- NOTE | 2022-12-15 11:50 | ED ---
Dizziness HPI - General Chief Complaint: Dizziness Stated Complaint: Low BP Time Seen by Provider: 12/15/22 11:30 Source: patient, RN notes reviewed Mode of arrival: ambulatory - History of Present Illness Initial Comments: Patient is a 57 year old male presenting to the ER with a chief complaint of lightheadedness. 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 Patient states he usually wakes up lightheaded after standing but after he eats his breakfast he feels better. Today, after breakfast he continued to feel lightheaded more than normal. The patient checked his BP which he states was 86/60, prompting his ER visit. Patient states while laying down he does not feel lightheaded. Patient states his fludrocortisone dose was recently changed to twice daily but he states his symptoms were present before that change. He is trying to see an fish packer at [facility]. Denies headaches, visual changes, cough, congestion, chest pain, shortness of breath, abdominal pain, constipation/diarrhea, or peripheral edema. - Related Data Home Medications Medication Instructions Recorded Confirmed Albuterol Sulfate [Proair Hfa] 2 puff INHALATION RT-Q4H PRN 12/07/21 12/15/22 EPINEPHrine (Auto Inject) [Epipen] 0.3 mg IM ONCE PRN 12/07/21 12/15/22 metFORMIN HCL 1,000 mg PO BID 12/07/21 12/15/22 Atorvastatin Calcium [Lipitor] 40 mg PO DAILY 12/15/22 12/15/22 Dulaglutide [Trulicity] 3 mg SQ Q7D 12/15/22 12/15/22 Hydrocortisone [Cortef] 10 mg PO TID 12/15/22 12/15/22 Previous Rx's Medication Instructions Recorded Famotidine [Pepcid] 20 mg PO BID #30 tab 12/23/21 Allergies Allergy/AdvReac Type Severity Reaction Status Date / Time tree nut Allergy Swelling Verified 12/15/22 11:38 Review of Systems ROS Statement: Those systems with pertinent positive or pertinent negative responses have been documented in the HPI. ROS Other: All systems not noted in ROS Statement are negative. Past Medical History Past Medical History: Asthma, Diabetes Mellitus Additional Past Medical History / Comment(s): DM type 2, COVID 08/25/2020-09/25/20, addisons disease History of Any Multi-Drug Resistant Organisms: None Reported Past Surgical History: Appendectomy Additional Past Surgical History / Comment(s): appe removed 2007 Past Anesthesia/Blood Transfusion Reactions: No Reported Reaction Past Psychological History: No Psychological Hx Reported Smoking Status: Never smoker General Exam Limitations: no limitations General appearance: alert, in no apparent distress Head exam: Present: atraumatic, normocephalic, normal inspection ENT exam: Present: normal exam, mucous membranes moist Neck exam: Present: normal inspection, full ROM. Absent: tenderness, meningismus, lymphadenopathy Respiratory exam: Present: normal lung sounds bilaterally. Absent: respiratory distress, wheezes, rales, rhonchi, stridor Cardiovascular Exam: Present: regular rate, normal rhythm, normal heart sounds. Absent: systolic murmur, diastolic murmur, rubs, gallop, clicks GI/Abdominal exam: Present: soft, normal bowel sounds. Absent: distended, tenderness, guarding, rebound, rigid Neurological exam: Present: alert, oriented X3, CN II-XII intact Psychiatric exam: Present: normal affect, normal mood Skin exam: Present: warm, dry, intact, normal color. Absent: rash Course Vital Signs 12/15/22 12/15/22 12/15/22 11:12 11:30 11:53 Temperature 97.7 F Pulse Rate 100 98 Respiratory 16 18 Rate Blood Pressure 110/67 140/88 Blood Pressure 158/95 [Right Arm Sitting] Blood Pressure 155/92 [Right Arm Standing] Blood Pressure 163/98 [Right Arm Supine] O2 Sat by Pulse 99 99 Oximetry 12/15/22 12/15/22 12:00 12:30 Temperature Pulse Rate 92 100 Respiratory 18 5 L Rate Blood Pressure 155/92 165/99 Blood Pressure [Right Arm Sitting] Blood Pressure [Right Arm Standing] Blood Pressure [Right Arm Supine] O2 Sat by Pulse 99 99 Oximetry EKG Findings - EKG Comments: EKG Findings:: EKG performed at 11:49 sinus rhythm rate of 99 CA 150 QRS 106 QT/QTC 398/454 - EKG Results: EKG: interpreted by JIL Medical Decision Making - Medical Decision Making Was pt. sent in by a medical professional or institution (, PA, RESIDENT SERVICES DIRECTOR, urgent care, hospital, or fdc...) When possible be specific @ -None Did you speak to anyone other than the patient for history (EMS, parent, family, police, friend...)? What history was obtained from this source @ -No Did you review nursing and triage notes (agree or disagree)? Why? @ -I reviewed and agree with nursing and triage notes Were old charts reviewed (outside hosp., previous admission, EMS record, old EKG, old radiological studies, urgent care reports/EKG's, fdc records)? Report findings @ -No old charts were reviewed Differential Diagnosis (chest pain, altered mental status, abdominal pain women, abdominal pain men, vaginal bleeding, weakness, fever, dyspnea, syncope, headache, dizziness, GI bleed, back pain, seizure, CVA, palpatations, mental health, musculoskeletal)? @ -Differential Dizziness: Benign paroxysmal positional Vertigo, Menieres disease, otitis media, acoustic neuroma, vertebrobasilar insufficiency, cerebellar stroke, encephalitis, hypovolemic, arrhythmia, coronary artery syndrome, anemia, this is not meant to be an all-inclusive listle EKG interpreted by me (3pts min.). @ -As above X-rays interpreted by me (1pt min.). @ -None done CT interpreted by me (1pt min.). @ -None done U/S interpreted by me (1pt. min.). @ -None done What testing was considered but not performed or refused? (CT, X-rays, U/S, la bs)? Why? @ -None What meds were considered but not given or refused? Why? @ -None Did you discuss the management of the patient with other professionals (professionals i.e. , PA, RESIDENT SERVICES DIRECTOR, lab, RT, psych nurse, social media senior associate, door tender, teacher, light armored reconnaissance officer, returned case inspector)? Give summary @ -Dr. Bond for admission Was smoking cessation discussed for >3mins.? @ -No Was critical care preformed (if so, how long)? @ -35 minutes of critical care Were there social determinants of health that impacted care today? How? (Homelessness, low income, unemployed, alcoholism, drug addiction, transportation, low edu. Level, literacy, decrease access to med. care, penitentiary, rehab)? @ -No Was there de-escalation of care discussed even if they declined (Discuss DNR or withdrawal of care, Hospice)? DNR status @ -No What co-morbidities impacted this encounter? (DM, HTN, Smoking, COPD, CAD, Cancer, CVA, ARF, Chemo, Hep., AIDS, mental health diagnosis, sleep apnea, morbid obesity)? @ -Neo's Was patient admitted / discharged? Hospital course, mention meds given and route, prescriptions, significant lab abnormalities, going to OR and other pertinent info. @ -Admitted patient's found to have significant hypokalemia, hypomagnesemia. Patient started and replacement protocol. Patient's case discussed with Dr. Bond for admission. Undiagnosed new problem with uncertain prognosis? @ -No Drug Therapy requiring intensive monitoring for toxicity (Heparin, Nitro, Insulin, Cardizem)? @ -No Were any procedures done? @ -No Diagnosis/symptom? @ -Hypomagnesemia, hypokalemia Acute, or Chronic, or Acute on Chronic? @ -Acute Uncomplicated (without systemic symptoms) or Complicated (systemic symptoms)? @ -Complicated Side effects of treatment? @ -No Exacerbation, Progression, or Severe Exacerbation? @ -No Poses a threat to life or bodily function? How? (Chest pain, [place], [place], pneumonia, PE, COPD, DKA, ARF, appy, cholecystitis, CVA, Diverticulitis, Homicidal, Suic idal, threat to staff... and all critical care pts) @ -Yes patients at risk for cardiac dysrhythmia - Lab Data Result diagrams: 12/15/22 11:52 12/15/22 11:52 Lab Results 12/15/22 12/15/22 Range/Units 11:52 11:52 WBC 8.9 (3.8-10.6) k/uL RBC 4.33 (4.30-5.90) m/uL Hgb 12.8 L (13.0-17.5) gm/dL Hct 36.1 L (39.0-53.0) % MCV 83.4 (80.0-100.0) fL MCH 29.6 (25.0-35.0) pg MCHC 35.5 (31.0-37.0) g/dL RDW 13.5 (11.5-15.5) % Plt Count 226 (150-450) k/uL MPV 8.9 Neutrophils % 64 % Lymphocytes % 25 % Monocytes % 8 % Eosinophils % 2 % Basophils % 1 % Neutrophils # 5.7 (1.3-7.7) k/uL Lymphocytes # 2.2 (1.0-4.8) k/uL Monocytes # 0.7 (0-1.0) k/uL Eosinophils # 0.2 (0-0.7) k/uL Basophils # 0.1 (0-0.2) k/uL Sodium 140 (137-145) mmol/L Potassium 2.6 L* (3.5-5.1) mmol/L Chloride 95 L (98-107) mmol/L Carbon Dioxide 36 H (22-30) mmol/L Anion Gap 9 mmol/L BUN 13 (9-20) mg/dL Creatinine 0.65 L (0.66-1.25) mg/dL Est GFR (CKD-EPI)AfAm >90 (>60 ml/min/1.73 sqM) Est GFR (CKD-EPI)NonAf >90 (>60 ml/min/1.73 sqM) Glucose 192 H (74-99) mg/dL Calcium 8.6 (8.4-10.2) mg/dL Magnesium 1.2 L (1.6-2.3) mg/dL Total Bilirubin 0.7 (0.2-1.3) mg/dL AST 23 (17-59) U/L ALT 24 (4-49) U/L Alkaline Phosphatase 54 (38-126) U/L Total Protein 6.2 L (6.3-8.2) g/dL Albumin 3.8 (3.5-5.0) g/dL Disposition Clinical Impression: Hypokalemia, Hypomagnesemia, Lightheadedness Disposition: ADMITTED IP TO THIS HOSP Condition: Fair Referrals: Markell Bond MD [Primary Care Provider] - 1-2 days Time of Disposition: 13:16
[2022-12-15 12:19] LABS: Basophils # (A) 0.1 k/uL (0-0.2); Basophils % (A) 1 %; Eosinophils # (A) 0.2 k/uL (0-0.7); Eosinophils % (A) 2 %; HCT 36.1 % (39.0-53.0); HGB 12.8 gm/dL (13.0-17.5); Lymphocytes # (A) 2.2 k/uL (1.0-4.8); Lymphocytes % (A) 25 %; MCH 29.6 pg (25.0-35.0); MCHC 35.5 g/dL (31.0-37.0); MCV 83.4 fL (80.0-100.0); Mean Platelet Volume 8.9; Monocytes # (A) 0.7 k/uL (0-1.0); Monocytes % (A) 8 %; Neutrophils # (A) 5.7 k/uL (1.3-7.7); Neutrophils % (A) 64 %; Platelet Count 226 k/uL (150-450); RBC 4.33 m/uL (4.30-5.90); RDW 13.5 % (11.5-15.5); WBC 8.9 k/uL (3.8-10.6)
[2022-12-15 12:28] LABS: ALT 24 U/L (4-49); AST 23 U/L (17-59); African American GFR (CKD) >90 (>60 ml/min/1.73 sqM); Albumin 3.8 g/dL (3.5-5.0); Alkaline Phosphatase 54 U/L (38-126); Anion Gap 9 mmol/L; Blood Urea Nitrogen 13 mg/dL (9-20); Calcium 8.6 mg/dL (8.4-10.2); Carbon Dioxide 36 mmol/L (22-30); Chloride 95 mmol/L (98-107); Glucose 192 mg/dL (74-99); Magnesium 1.2 mg/dL (1.6-2.3); Non-African American GFR(CKD) >90 (>60 ml/min/1.73 sqM); Sodium 140 mmol/L (137-145); Total Bilirubin 0.7 mg/dL (0.2-1.3); Total Protein 6.2 g/dL (6.3-8.2)
[2022-12-15 12:33] LABS: Potassium 2.6 mmol/L (3.5-5.1)
[2022-12-15] MEDS ORDERED: Potassium Replacement Protocol 1 EACH MISC MISCELLANE PRN (13:13)
[2022-12-15] MEDS ORDERED: Magnesium Replacement Protocol 1 EACH MISC MISCELLANE PRN (13:15)
[2022-12-15] MEDS ORDERED: NALOXONE 0.4 MG/ML 1 ML VIAL IV PRN (13:17)
[2022-12-15] MEDS ORDERED: ALBUTEROL NEBULIZED 2.5 MG/3 ML INHALATION PRN (13:17)
[2022-12-15] MEDS ORDERED: ACETAMINOPHEN TAB 325 MG TAB PO PRN (13:17)
[2022-12-15] MEDS: POTASSIUM CHLORIDE ER 20 MEQ TAB.ER PO SCH ×3 (13:43→17:17)
[2022-12-15] MEDS: MAGNESIUM SULFATE-D5W PMX 1 GM in DEXTROSE/WATER 1 100ML.BAG IVPB SCH ×4 (13:45→18:09)
[2022-12-15] MEDS: POTASSIUM CHLORIDE 10 MEQ in WATER FOR INJECTION 1 100ML.BAG IVPB SCH ×6 (13:52→22:30)
[2022-12-15 16:45] LABS: Glucose,Whole Blood 143 mg/dL (70-110)
[2022-12-15] MEDS: metFORMIN 500 MG TAB PO SCH (17:17)
[2022-12-15] MEDS: HYDROCORTISONE 10 MG TAB PO SCH ×2 (17:17→21:33)
[2022-12-15] MEDS: FAMOTIDINE 20 MG TAB PO SCH (21:33)
[2022-12-16] MEDS ORDERED: POTASSIUM CHLORIDE ER 20 MEQ TAB.ER PO ONE (02:47)
[2022-12-16] MEDS ORDERED: Potassium Replacement Protocol 1 EACH MISC MISCELLANE PRN ×3 (02:47→16:16)
[2022-12-16] MEDS: POTASSIUM CHLORIDE 10 MEQ in WATER FOR INJECTION 1 100ML.BAG IVPB SCH ×2 (03:03→04:39)
[2022-12-16 06:50] LABS: Magnesium 1.8 mg/dL (1.6-2.3); Potassium 2.9 mmol/L (3.5-5.1)
[2022-12-16] MEDS: ATORVASTATIN 40 MG TAB PO SCH (07:33)
[2022-12-16] MEDS: metFORMIN 500 MG TAB PO SCH ×2 (07:33→21:31)
[2022-12-16] MEDS: FAMOTIDINE 20 MG TAB PO SCH ×2 (07:33→21:31)
[2022-12-16] MEDS ORDERED: NON FORMULARY DRUG (Dulaglutide [Trulicity] 3 MG/0.5 ML Each) SQ SCH (09:00)
[2022-12-16] MEDS: HYDROCORTISONE 10 MG TAB PO SCH ×3 (09:18→21:31)
[2022-12-16] MEDS: POTASSIUM CHLORIDE ER 20 MEQ TAB.ER PO SCH ×5 (09:18→18:43)
[2022-12-16 17:06] LABS: Glucose,Whole Blood 142 mg/dL (70-110)
[2022-12-16 21:08] LABS: Glucose,Whole Blood 184 mg/dL (70-110)
[2022-12-17 07:24] LABS: Glucose,Whole Blood 134 mg/dL (70-110)
[2022-12-17] MEDS: FAMOTIDINE 20 MG TAB PO SCH ×2 (09:43→22:06)
[2022-12-17] MEDS: ATORVASTATIN 40 MG TAB PO SCH (09:43)
[2022-12-17] MEDS: metFORMIN 500 MG TAB PO SCH ×2 (09:44→22:06)
[2022-12-17] MEDS: HYDROCORTISONE 10 MG TAB PO SCH ×3 (09:44→22:06)
--- NOTE | 2022-12-17 09:53 | P.CNNES ---
History of Present Illness Consult date: 12/16/22 Requesting physician: Markell Bond Reason for Consult: Muscle weakness, adrenal insufficiency History of Present Illness: Patient is a 57-year-old male with history of diabetes came to the hospital yesterday at 11:07 AM for dizziness and low blood pressure. Neurology was consulted for numbness and tingling and leg weakness. Patient states that he suffered from Covid on 09/25/2020. About a month after Covid, he started noticing feeling very tired, sleepy. One day he noticed that he was having difficulty getting out of bed. He notices ties were hurting. It never went away after that. His anterior thighs are always hurting. He also noticed that he developed numbness of the fingers of both hands including all 10 digits but not involving the palm. His strength is good however in the hands. He denies any numbness or tingling of the feet. Patient states that he has noticed that if he walks too long or when he is getting up, his legs and thighs hurt and he loses balance. His calves also hurt a little. His symptoms got particularly worse in the last 3 weeks when he cannot stand too long, cannot go to [employer], gets dizzy and has to sit down. He gets lightheaded and has to sit down. In the last 4 weeks he wakes up with lightheadedness. Patient states that if he stands too long, his blood pressure drops. He denies any neck or low back pain. He admits to decreased appetite, and does not taste or smell since he had Covid. Patient follows up with Dr. Alavrez, underwent EMG and nerve conductions of the arms. He is scheduled for EMG of lower extremities in 12/22/2022. Vital signs on arrival blood pressure 110/67, pulse rate 100, temperature 97.7. Blood test shows normal WBC, hemoglobin 12.8, sodium normal potassium 2.6, renal functions, hepatic panel normal. Magnesium 1.8. MAURA negative. Hemoglobin A1c 8.1. EKG shows sinus rhythm. Patient had a normal MRI of the pituitary gland previously on 01/23/2022. Patient's B12 was normal 456 on 12/20/2021, folate 12.7. TSH normal. Patient has history of diabetes since 2007, states that his diabetes is much better controlled in the last 3 months since he was started on Trulicity and now his last hemoglobin A1c is 6.9. Review of Systems Constitutional: Reports weight loss, Denies chills, Denies fever Eyes: denies blurred vision, denies decreased vision, denies pain Ears: deny: decreased hearing, ear discharge Ears, nose, mouth and throat: Reports headache, Denies sore throat, Denies vertigo Cardiovascular: Reports lightheadedness, Denies chest pain, Denies shortness of breath Respiratory: Denies cough, Denies excessive sputum Gastrointestinal: Reports diarrhea, Denies abdominal pain, Denies nausea, Denies vomiting Musculoskeletal: Reports myalgias, Denies fractures, Denies low back pain, Denies neck pain Integumentary: Denies pruritus, Denies rash Neurological: Reports as per HPI Psychiatric: Denies anxiety, Denies depression Endocrine: Reports weight change, Denies fatigue Hematologic/Lymphatic: Denies easy bleeding, Denies easy bruising Past Medical History Past Medical History: Asthma, Diabetes Mellitus Additional Past Medical History / Comment(s): DM type 2, COVID 08/25/2020-09/25/20, addisons disease History of Any Multi-Drug Resistant Organisms: None Reported Past Surgical History: Appendectomy Additional Past Surgical History / Comment(s): appe removed 2007 Past Anesthesia/Blood Transfusion Reactions: No Reported Reaction Past Psychological History: No Psychological Hx Reported Smoking Status: Never smoker Past Alcohol Use History: None Reported Past Drug Use History: None Reported Medications and Allergies Home Medications Medication Instructions Recorded Confirmed Type Albuterol Sulfate [Proair Hfa] 2 puff INHALATION RT-Q4H PRN 12/07/21 12/15/22 History EPINEPHrine (Auto Inject) [Epipen] 0.3 mg IM ONCE PRN 12/07/21 12/15/22 History metFORMIN HCL 1,000 mg PO BID 12/07/21 12/15/22 History Famotidine [Pepcid] 20 mg PO BID #30 tab 12/23/21 12/15/22 Rx Atorvastatin Calcium [Lipitor] 40 mg PO DAILY 12/15/22 12/15/22 History Dulaglutide [Trulicity] 3 mg SQ Q7D 12/15/22 12/15/22 History Hydrocortisone [Cortef] 10 mg PO TID 06/28/23 06/28/23 History Allergies Allergy/AdvReac Type Severity Reaction Status Date / Time tree nut Allergy Swelling Verified 12/15/22 11:38 Physical Examination - Vital Signs Vital Signs: Vital Signs Temp Pulse Pulse Resp BP BP BP 12/16/22 13:24 97.5 F L 99 18 174/94 12/16/22 08:40 89 16 12/16/22 07:06 98.5 F 89 16 135/78 12/16/22 02:00 98.2 F 90 16 150/83 12/15/22 20:49 97.3 F L 94 16 162/93 12/15/22 19:28 97.8 F 96 17 168/99 Pulse Ox 12/16/22 13:24 96 12/16/22 08:40 12/16/22 07:06 97 12/16/22 02:00 98 12/15/22 20:49 98 12/15/22 19:28 100 Intake and Output 12/16/22 12/16/22 12/16/22 06:59 14:59 22:59 Intake Total 590 Balance 590 Intake: Oral 590 Other: Voiding Method Toilet # Voids 2 Patient is a middle aged male, in no acute distress. Patient is alert awake oriented to time place and person. Speech and language functions are normal. Patient can name and repeat very well. No aphasia or dysarthria. Attention, concentration and fund of knowledge is adequate. On cranial nerve examination, pupils are equal, round and reacting to light, visual warner are full on confrontation, with no neglect on double simultaneous stimulation. Extraocular muscles are intact with no nystagmus. Face is sym metric, tongue protrudes to the midline. Palatal elevation and sensation normal, hearing and shoulder shrug normal, facial sensation normal. On muscle strength testing, there is no pronator drift and the strength is normal in arms including deltoid, biceps, triceps, failure analysis technician, but interossei are 4 on the right, 3+ left. In the lower limbs, his hip flexion is 4+5-bilaterally, and toe extension is 4-right, 4 left. Deep tendon reflexes are symmetric 1 at the biceps, trace brachioradialis, 1+ knee 0 ankles and plantars are downgoing bilaterally. Sensory to touch is equal with no neglect on double simultaneous stimulation. Cerebellar function showed no ataxia for [id number] testing. No d ysdiadochokinesia. No ataxia for [id number] testing on either side. Tone and bulk of muscles normal. Gait deferred.. On general examination, there is no carotid bruit or murmur, S1-S2 audible. Chest is clear on consultation. Abdomen is soft nontender. No organomegaly, bowel sounds present. Peripheral pulses are present. No edema. Results - Laboratory Findings CBC and BMP: 12/15/22 11:52 12/16/22 14:16 Abnormal Lab Findings: Abnormal Labs 12/15/22 12/15/22 12/15/22 11:52 11:52 16:43 Hgb 12.8 L Hct 36.1 L Potassium 2.6 L* Chloride 95 L Carbon Dioxide 36 H Creatinine 0.65 L Glucose 192 H POC Glucose (mg/dL) 143 H Magnesium 1.2 L Total Protein 6.2 L 12/15/22 12/16/22 12/16/22 18:19 01:47 06:13 Hgb Hct Potassium 2.4 L* 2.4 L* 2.9 L Chloride Carbon Dioxide Creatinine Glucose POC Glucose (mg/dL) Magnesium Total Protein 12/16/22 12/16/22 14:16 17:05 Hgb Hct Potassium 3.2 L Chloride Carbon Dioxide Creatinine Glucose POC Glucose (mg/dL) 142 H Magnesium Total Protein Assessment and Plan Assessment: * Probable diabetic neuropathy. Rule out CIDP, although somewhat less likely because of preserved reflexes. * Rule out other causes of neuropathy. * Worsening of symptoms may be related to hypokalemia, hypomagnesemia. * Asthma * Neo's disease * Dizziness, likely due to Neo's. Plan: * Detailed blood tests including MAURA, folate, hemoglobin A1c, immune fixation left are 46, quantitative immunoglobulins, MMA, serum protein electrophoresis, Sjogren's antibodies, B12, B6. * We will obtain EMG report from his outside neurologist office. * Patient may need lumbar puncture as an outpatient to evaluate for CSF proteins, rule out CIDP. * Treatment of adrenal insufficiency including hypokalemia and hypomagnesemia as per IM. * Neurology will follow. Thank you for the consult.
[2022-12-17 11:11] LABS: Basophils # (A) 0.04 X 10*3/uL (0.00-0.10); Basophils % (A) 0.6 %; Eosinophils # (A) 0.19 X 10*3/uL (0.04-0.35); Eosinophils % (A) 2.9 %; HCT 31.7 % (39.6-50.0); Lymphocytes # (A) 2.31 X 10*3/uL (0.90-5.00); Lymphocytes % (A) 35.3 %; MCH 29.2 pg (27.0-32.0); MCHC 34.7 d/dL (32.0-37.0); MCV 84.1 FL (80.0-97.0); Mean Platelet Volume 11.3 FL (9.5-12.2); Monocytes # (A) 0.59 X 10*3/uL (0.20-1.00); NRBC Per 100 WBC 0 X 10*3/uL (0.00-0.01); Platelet Count 221 X 10*3/uL (140-440); RBC 3.77 X 10*6/uL (4.40-5.60); RDW 13.4 % (11.5-14.5); WBC 6.54 X 10*3/uL (4.50-10.00)
[2022-12-17 11:19] LABS: ALT 19 U/L (10-49); AST 12 U/L (14-35); Albumin 3.6 d/dL (3.8-4.9); Albumin/Globulin Ratio 2.12 Ratio (1.60-3.17); Alkaline Phosphatase 52 U/L (41-126); Blood Urea Nitrogen 9.8 mg/dL (9.0-27.0); Calcium 8.8 mg/dL (8.7-10.3); Carbon Dioxide 32.4 mmol/L (21.6-31.8); Chloride 101 mmol/L (96-109); Globulin 1.7 d/dL (1.6-3.3); Glucose 138 mg/dL (70-110); Sodium 142 mmol/L (135-145); Total Bilirubin 0.4 mg/dL (0.3-1.2); Total Protein 5.3 d/dL (6.2-8.2)
[2022-12-17 12:02] LABS: Glucose,Whole Blood 142 mg/dL (70-110)
[2022-12-17] MEDS ORDERED: Potassium Replacement Protocol 1 EACH MISC MISCELLANE PRN (12:23)
[2022-12-17] MEDS ORDERED: POTASSIUM CHLORIDE ER 20 MEQ TAB.ER PO SCH (13:00)
[2022-12-17] MEDS ORDERED: HYDROcodone/APAP 5-325MG 1 EACH TAB PO PRN (14:28)
[2022-12-17 16:38] LABS: Immunoglobulin M 69.1 mg/dL (40.0-280.0)
[2022-12-17 17:19] LABS: Glucose,Whole Blood 158 mg/dL (70-110)
[2022-12-17] MEDS ORDERED: KETOROLAC 15 MG/ML 1 ML VIAL IVP STA (18:20)
[2022-12-17 20:17] LABS: Glucose,Whole Blood 158 mg/dL (70-110)
--- NOTE | 2022-12-17 21:12 | HP ---
HISTORY AND PHYSICAL CHIEF COMPLAINT: Weakness and electrolyte imbalance. HISTORY OF PRESENT ILLNESS: This is another admission for this 57-year-old white male, who has adrenal insufficiency. He also has type 2 diabetes. The morning of admission, he could not get out of bed. He describes this as weakness due to weakness in the legs. After he is up for a while, he seems to do better. He came to the emergency room, where he was hypotensive and dizzy. Potassium was 2.6, and magnesium was 1.2. REVIEW OF SYSTEMS: He has had no headaches, focal neurologic deficits, chest pain, fever, chills, abdominal pain, nausea, vomiting, diarrhea, urinary complaints, etc. Past medical history, family history, and personal and social histories are all otherwise unremarkable and unchanged from his recent admitting and discharge summaries. MEDICATIONS: He is on: 1. Hydrocortisone 10 mg 3 times a day. 2. Fludrocortisone 0.1 mg once a day. 3. Ventolin HFA for asthma. 4. Trulicity. 5. Metformin. 6. Lipitor. 7. Pepcid. 8. Vitamin D3. He does not smoke or drink. PHYSICAL EXAMINATION: VITAL SIGNS: Blood pressure was 80/50. HEAD, EARS, EYES, NOSE, MOUTH, AND THROAT: Normal. CHEST: Clear. CARDIAC: Normal sinus rhythm. ABDOMEN: Soft and nontender. EXTREMITIES: Normal. NEUROLOGIC: He is intact. He had no detectable weakness. IMPRESSION: 1. Hypotension. 2. Dehydration. 3. Hypokalemia. 4. Hypomagnesemia. 5. [place]'s disease. 6. Depression. PLAN: 1. Bed rest. 2. IV fluids. 3. Correct magnesium and potassium while rehydrating and restoring his blood pressure. MMODL / IJN: [id number] /
--- NOTE | 2022-12-17 21:50 | PN ---
PROGRESS NOTE DATE OF SERVICE: 12/17/2022 CHIEF COMPLAINT: Generalized weakness and electrolyte imbalance. HISTORY OF PRESENT ILLNESS: This gentleman has been doing fairly well, and he feels his legs were a little bit stronger. He is being evaluated by Neurology. He is complaining of some left scapular pain, but no shortness of breath. PHYSICAL EXAMINATION: CHEST: Clear. CARDIAC: Normal. ABDOMEN: Soft and nontender. IMPRESSION: 1. Weakness in the lower extremities. 2. Hypotension. 3. Electrolyte imbalance. 4. Atrial insufficiency. 5. Diabetes mellitus. 6. Left scapular pain. PLAN: Continue to try to increase activity and wait for any further neurologic recommendations. MMODL / IJN: [id number] /
[2022-12-17] MEDS: CYANOCOBALAMIN 1,000 MCG/ML 1 ML VIAL IM SCH (22:06)
[2022-12-18 07:49] LABS: Glucose,Whole Blood 107 mg/dL (70-110)
[2022-12-18] MEDS: CYANOCOBALAMIN 1,000 MCG/ML 1 ML VIAL IM SCH (10:23)
[2022-12-18] MEDS: HYDROCORTISONE 10 MG TAB PO SCH ×3 (10:24→20:12)
[2022-12-18] MEDS: ATORVASTATIN 40 MG TAB PO SCH (10:24)
[2022-12-18] MEDS: FAMOTIDINE 20 MG TAB PO SCH ×2 (10:24→20:12)
[2022-12-18] MEDS: metFORMIN 500 MG TAB PO SCH (10:24)
--- NOTE | 2022-12-18 10:24 | P.PN ---
Subjective Progress Note Date: 12/17/22 Patient was seen for a follow-up. Patient denies any changes in his condition. Patient is laying comfortably in the bed. Objective - Vital Signs Vital signs: Vital Signs Temp 97.6 F 12/17/22 14:33 Pulse 79 12/17/22 14:33 Resp 17 12/17/22 14:33 BP 164/90 12/17/22 14:33 Pulse Ox 96 12/17/22 14:33 FiO2 Intake & Output 12/17/22 12/17/22 12/18/22 06:59 18:59 06:59 Intake Total 180 Balance 180 Intake: Oral 180 Other: Voiding Method Toilet - Exam Examination remains unchanged. - Labs CBC & Chem 7: 12/17/22 06:51 12/17/22 06:51 Labs: Abnormal Lab Results - Last 24 Hours (Table) 12/16/22 12/17/22 12/17/22 Range/Units 21:07 06:51 06:51 RBC 3.77 L (4.40-5.60) X 10*6/uL Hgb 11.0 L (12.0-15.0) d/dL Hct 31.7 L (39.6-50.0) % Carbon Dioxide 32.4 H (21.6-31.8) mmol/L Glucose 138 H (70-110) mg/dL POC Glucose (mg/dL) 184 H (70-110) mg/dL Hemoglobin A1c (<=6.0) % AST 12 L (14-35) U/L Total Protein 5.3 L (6.2-8.2) d/dL Albumin 3.6 L (3.8-4.9) d/dL 12/17/22 12/17/22 12/17/22 Range/Units 07:22 10:11 12:01 RBC (4.40-5.60) X 10*6/uL Hgb (12.0-15.0) d/dL Hct (39.6-50.0) % Carbon Dioxide (21.6-31.8) mmol/L Glucose (70-110) mg/dL POC Glucose (mg/dL) 134 H 142 H (70-110) mg/dL Hemoglobin A1c 7.5 H (<=6.0) % AST (14-35) U/L Total Protein (6.2-8.2) d/dL Albumin (3.8-4.9) d/dL 12/17/22 Range/Units 17:17 RBC (4.40-5.60) X 10*6/uL Hgb (12.0-15.0) d/dL Hct (39.6-50.0) % Carbon Dioxide (21.6-31.8) mmol/L Glucose (70-110) mg/dL POC Glucose (mg/dL) 158 H (70-110) mg/dL Hemoglobin A1c (<=6.0) % AST (14-35) U/L Total Protein (6.2-8.2) d/dL Albumin (3.8-4.9) d/dL Assessment and Plan Assessment: * Probable diabetic neuropathy. Rule out CIDP, or nutritional deficiency. * Rule out other causes of neuropathy. * Worsening of symptoms may be related to hypokalemia, hypomagnesemia. * Asthma * [place]'s disease * Dizziness, likely due to [place]'s. * History of Covid September 2020 with subsequent loss of taste and smell sensation and decreased appetite. * Weight loss due to above. Plan: * MAURA negative, folate 11.6, hemoglobin A1c 7.5, quantitative immunoglobulins all normal. Sjogren's antibodies negative. Vitamin B12 is borderline 328. We will give vitamin B12 1000 g IM daily 2 doses. Thereafter he can take vitamin B12 1000 g sublingually daily. Immune fixation electrophoresis, SP EP, MMA, B6 still pending. * EMG report from his outside neurologist office unavailable at this time. * Patient may need lumbar puncture as an outpatient to evaluate for CSF proteins, rule out CIDP. * Treatment of adrenal insufficiency including hypokalemia and hypomagnesemia as per IM. * Neurologically otherwise clear for discharge to follow-up with his neurologist.
[2022-12-18 12:11] LABS: Glucose,Whole Blood 118 mg/dL (70-110)
[2022-12-18 13:06] LABS: Basophils % (A) 0 %; Eosinophils # (A) 0.3 k/uL (0-0.7); Eosinophils % (A) 3 %; HCT 35.6 % (39.0-53.0); HGB 12.4 gm/dL (13.0-17.5); Lymphocytes # (A) 2.2 k/uL (1.0-4.8); Lymphocytes % (A) 28 %; MCHC 34.7 g/dL (31.0-37.0); MCV 83.5 fL (80.0-100.0); Mean Platelet Volume 8.1; Monocytes # (A) 0.5 k/uL (0-1.0); Monocytes % (A) 6 %; Neutrophils # (A) 4.6 k/uL (1.3-7.7); Neutrophils % (A) 60 %; Platelet Count 229 k/uL (150-450); RBC 4.26 m/uL (4.30-5.90); RDW 13.9 % (11.5-15.5); WBC 7.8 k/uL (3.8-10.6)
[2022-12-18 13:11] LABS: ALT 22 U/L (4-49); AST 22 U/L (17-59); African American GFR (CKD) >90 (>60 ml/min/1.73 sqM); Albumin 3.6 g/dL (3.5-5.0); Albumin/Globulin Ratio 1.6; Alkaline Phosphatase 56 U/L (38-126); Anion Gap 3 mmol/L; Blood Urea Nitrogen 10 mg/dL (9-20); Calcium 8.8 mg/dL (8.4-10.2); Carbon Dioxide 34 mmol/L (22-30); Chloride 100 mmol/L (98-107); Globulin 2.3 g/dL; Glucose 118 mg/dL (74-99); Non-African American GFR(CKD) >90 (>60 ml/min/1.73 sqM); Potassium 4.3 mmol/L (3.5-5.1); Sodium 137 mmol/L (137-145); Total Bilirubin 0.7 mg/dL (0.2-1.3); Total Protein 5.9 g/dL (6.3-8.2)
[2022-12-18] MEDS: KETOROLAC 15 MG/ML 1 ML VIAL IVP SCH ×2 (13:44→20:12)
--- NOTE | 2022-12-18 14:30 | CT ---
EXAMINATION TYPE: CT chest angio for PE DATE OF EXAM: 12/18/2022 COMPARISON: 12/18/2021 HISTORY: Sharp pain in back and SOB CT DLP: 252.80 mGycm Automated exposure control for dose reduction was used. CONTRAST: CT Chest for pulmonary embolism performed with with IV Contrast, patient injected with 100 mL of Isov ue 370. 3-D postprocessing was performed FINDINGS: LUNGS: The lungs are grossly clear, there is no concerning parenchymal mass. There is no airspace con solidation or abnormal interstitial density. There is no pleural effusion or pneumothorax seen. The tracheobronchial tree is patent. MEDIASTINUM: There is satisfactory enhancement of the pulmonary artery and its branches, there is no CT evidence for pulmonary embolism. There are no greater than 1 cm hilar or mediastinal lymph nodes. No pericardial effusion is seen. OTHER: No additional significant abnormality is seen. IMPRESSION: 1. No evidence of pulmonary embolism. 2. No acute cardiopulmonary disease.
[2022-12-18] MEDS ORDERED: CYCLOBENZAPRINE 5 MG TAB PO PRN (14:50)
--- NOTE | 2022-12-18 14:51 | P.PN ---
Subjective Progress Note Date: 12/18/22 Patient is a 57-year-old male with history of diabetes came to the hospital yesterday at 11:07 AM for dizziness and low blood pressure. Neurology was consulted for numbness and tingling and leg weakness. Patient states that he suffered from Covid on 09/25/2020. About a month after Covid, he started noti cing feeling very tired, sleepy. One day he noticed that he was having difficulty getting out of bed. He notices ties were hurting. It never went away after that. His anterior thighs are always hurting. He also noticed that he developed numbness of the fingers of both hands including all 10 digits but not involving the palm. His strength is good however in the hands. He denies any numbness or tingling of the feet. Patient states that he has noticed that if he walks too long or when he is getting up, his legs and thighs hurt and he loses balance. His calves also hurt a little. His symptoms got particularly worse in the last 3 weeks when he cannot stand too long, cannot go to [employer], gets dizzy and has to sit down. He gets lightheaded and has to sit down. In the last 4 weeks he wakes up with lightheadedness. Patient states that if he stands too long, his blood pressure drops. He denies any neck or low back pain. He admits to decreased appetite, and does not taste or smell since he had Covid. Patient follows up with Dr. Alvarez, underwent EMG and nerve conductions of the arms. He is scheduled for EMG of lower extremities in 12/22/2022. Vital signs on arrival blood pressure 110/67, pulse rate 100, temperature 97.7. Blood test shows normal WBC, hemoglobin 12.8, sodium normal potassium 2.6, renal functions, hepatic panel normal. Magnesium 1.8. MAURA negative. Hemoglobin A1c 8.1. EKG shows sinus rhythm. Patient had a normal MRI of the pituitary gland previously on 01/23/2022. Patient's B12 was normal 456 on 12/20/2021, folate 12.7. TSH normal. 12/18. Patient seen and examined. Complaining of left-sided back pain, states it is aggravated by taking deep breaths REVIEW OF SYSTEMS: CONSTITUTIONAL: No fever, no malaise,. CARDIOVASCULAR: No chest pain, no palpitations, no syncope. PULMONARY: No shortness of breath, no cough, GASTROINTESTINAL: No diarrhea, no nausea, no vomiting, no abdominal pain. NEUROLOGICAL: No headaches, no weakness, PHYSICAL EXAMINATION: GENERAL: The patient is alert and oriented x3, not in any acute distress. Well developed, well nourished. HEENT: Pupils are round and equally reacting to light. EOMI. No scleral icterus. No conjunctival pallor. Normocephalic, atraumatic. No pharyngeal erythema. No thyromegaly. CARDIOVASCULAR: S1 and S2 present. No murmurs, rubs, or gallops. PULMONARY: Chest is clear to auscultation, no wheezing or crackles. ABDOMEN: Soft, nontender, nondistended, normoactive bowel sounds. No palpable organomegaly. MUSCULOSKELETAL: No joint swelling or deformity. EXTREMITIES: No cyanosis, clubbing, or pedal edema. NEUROLOGICAL: Gross neurological examination did not reveal any focal deficits. SKIN: No rashes. Assessment and plan Dizziness Diabetic neuropathy Hypokalemia Hypomagnesemia Asthma Armstrong disease Monitor vital signs Monitor CBC Monitor CMP Continue telemetry monitoring MAURA negative, folate 11.6, hemoglobin A1c 7.5, quantitative immunoglobulins all normal. Sjogren's antibodies negative. CT chest ordered to rule out PE Continue rest of treatment for now Objective - Vital Signs Vital signs: Vital Signs Temp 98.3 F 12/18/22 08:00 Pulse 94 12/18/22 08:00 Resp 16 12/18/22 08:00 BP 155/98 12/18/22 08:00 Pulse Ox 96 12/18/22 08:00 FiO2 Intake & Output 12/17/22 12/18/22 12/18/22 18:59 06:59 18:59 Intake Total 180 118 Balance 180 118 Intake: Oral 180 118 Other: Voiding Method Toilet # Voids 1 - Labs CBC & Chem 7: 12/18/22 12:38 12/18/22 12:38 Labs: Abnormal Lab Results - Last 24 Hours (Table) 12/17/22 12/17/22 12/17/22 Range/Units 06:51 06:51 10:11 RBC 3.77 L (4.40-5.60) X 10*6/uL Hgb 11.0 L (12.0-15.0) d/dL Hct 31.7 L (39.6-50.0) % Carbon Dioxide 32.4 H (21.6-31.8) mmol/L Glucose 138 H (70-110) mg/dL POC Glucose (mg/dL) (70-110) mg/dL Hemoglobin A1c 7.5 H (<=6.0) % AST 12 L (14-35) U/L Total Protein 5.3 L (6.2-8.2) d/dL Albumin 3.6 L (3.8-4.9) d/dL 12/17/22 12/17/22 12/17/22 Range/Units 12:01 17:17 20:15 RBC (4.40-5.60) X 10*6/uL Hgb (12.0-15.0) d/dL Hct (39.6-50.0) % Carbon Dioxide (21.6-31.8) mmol/L Glucose (70-110) mg/dL POC Glucose (mg/dL) 142 H 158 H 158 H (70-110) mg/dL Hemoglobin A1c (<=6.0) % AST (14-35) U/L Total Protein (6.2-8.2) d/dL Albumin (3.8-4.9) d/dL
[2022-12-18 17:31] LABS: Glucose,Whole Blood 162 mg/dL (70-110)
[2022-12-18 20:30] LABS: Glucose,Whole Blood 176 mg/dL (70-110)
--- NOTE | 2022-12-18 21:15 | P.PN ---
Subjective Progress Note Date: 12/18/22 Patient was seen for a follow-up. Patient denies any changes in his condition. Patient is sitting in the recliner. Patient's mother was also present today. I had spoken to patient's brother Dr. Melvin Rae yesterday, informed him about the results of the blood tests, and recommendations as per plan. Objective - Vital Signs Vital signs: Vital Signs Temp 98.3 F 12/18/22 14:00 Pulse 97 12/18/22 14:00 Resp 16 12/18/22 14:00 BP 149/88 12/18/22 14:00 Pulse Ox 98 12/18/22 14:00 FiO2 Intake & Output 12/18/22 12/18/22 12/19/22 06:59 18:59 06:59 Intake Total 236 Balance 236 Intake: Oral 236 Other: Voiding Method Toilet Toilet # Voids 1 5 - Exam Examination remains unchanged. - Labs CBC & Chem 7: 12/18/22 12:38 12/18/22 12:38 Labs: Abnormal Lab Results - Last 24 Hours (Table) 12/17/22 12/18/22 12/18/22 Range/Units 20:15 12:10 12:38 RBC 4.26 L (4.30-5.90) m/uL Hgb 12.4 L (13.0-17.5) gm/dL Hct 35.6 L (39.0-53.0) % Carbon Dioxide (22-30) mmol/L Creatinine (0.66-1.25) mg/dL Glucose (74-99) mg/dL POC Glucose (mg/dL) 158 H 118 H (70-110) mg/dL Total Protein (6.3-8.2) g/dL 12/18/22 12/18/22 Range/Units 12:38 17:29 RBC (4.30-5.90) m/uL Hgb (13.0-17.5) gm/dL Hct (39.0-53.0) % Carbon Dioxide 34 H (22-30) mmol/L Creatinine 0.61 L (0.66-1.25) mg/dL Glucose 118 H (74-99) mg/dL POC Glucose (mg/dL) 162 H (70-110) mg/dL Total Protein 5.9 L (6.3-8.2) g/dL Assessment and Plan Assessment: * Probable diabetic neuropathy. Rule out CIDP, or nutritional deficiency. * Rule out other causes of neuropathy. * Worsening of symptoms may be related to hypokalemia, hypomagnesemia. * Asthma * [place]'s disease * Dizziness, likely due to [place]'s. * History of Covid September 2020 with subsequent loss of taste and smell sensation and decreased appetite. * Weight loss due to above. Plan: * MAURA negative, folate 11.6, hemoglobin A1c 7.5, quantitative immunoglobulins all normal. Sjogren's antibodies negative. Vitamin B12 is borderline 328. We will give vitamin B12 1000 g IM daily 2 doses. Thereafter he can take vitamin B12 1000 g sublingually daily. Immune fixation electrophoresis, SPEP, MMA, B6 still pending. * EMG report from his outside neurologist office unavailable at this time. * MRI of the lumbar spine without contrast from 11/03/2022 showed mild degenerative changes L4-L5 level. * CTA chest 12/18/2022 negative for pulmonary embolism. No acute cardiopulmonary disease. * Patient may need lumbar puncture as an outpatient to evaluate for CSF proteins, rule out CIDP. * Treatment of adrenal insufficiency including hypokalemia and hypomagnesemia as per IM. * Neurologically otherwise clear for discharge to follow-up with his neurologist.
[2022-12-19] MEDS: KETOROLAC 15 MG/ML 1 ML VIAL IVP SCH ×2 (02:11→10:42)
[2022-12-19 07:24] LABS: Glucose,Whole Blood 141 mg/dL (70-110)
[2022-12-19] MEDS: CYANOCOBALAMIN 1,000 MCG/ML 1 ML VIAL IM SCH (10:42)
[2022-12-19] MEDS: FAMOTIDINE 20 MG TAB PO SCH (10:43)
[2022-12-19] MEDS: HYDROCORTISONE 10 MG TAB PO SCH (10:43)
[2022-12-19] MEDS: ATORVASTATIN 40 MG TAB PO SCH (10:43)
[2022-12-19 12:10] LABS: Glucose,Whole Blood 162 mg/dL (70-110)
--- NOTE | 2022-12-19 13:13 | P.DS ---
Providers Date of admission: 12/15/22 13:42 Expected date of discharge: 12/19/22 Attending physician: Markell Bond Consults: 12/16/22 11:34 Consult Physician Routine Consulting Provider: Noé Garcia Consult Reason/Comments: muscle weakness. Addrenal insuff. Do you want consulting provider notified?: Yes Primary care physician: Markell Bond Hospital Course: Discharge diagnoses; Dizziness resolved Diabetic neuropathy Hypokalemia resolved Hypomagnesemia resolved Asthma Neo disease Hospital course; Patient is a 57-year-old male with history of diabetes came to the hospital yesterday at 11:07 AM for dizziness and low blood pressure. Neurology was consulted for numbness and tingling and leg weakness. Patient states that he suffered from Covid on 09/25/2020. About a month after Covid, he started noticing feeling very tired, sleepy. One day he noticed that he was having difficulty getting out of bed. He notices ties were hurting. It never went away after that. His anterior thighs are always hurting. He also noticed that he developed numbness of the fingers of both hands including all 10 digits but not involving the palm. His strength is good however in the hands. He denies any numbness or tingling of the feet. Patient states that he has noticed that if he walks too long or when he is getting up, his legs and thighs hurt and he loses balance. His calves also hurt a little. His symptoms got particularly worse in the last 3 weeks when he cannot stand too long, cannot go to [employer], gets dizzy and has to sit down. He gets lightheaded and has to sit down. In the last 4 weeks he wakes up with lightheadedness. Patient states that if he stands too long, his blood pressure drops. He denies any neck or low back pain. He admits to decreased appetite, and does not taste or smell since he had Covid. Patient follows up with Dr. Alvarez, underwent EMG and nerve conductions of the arms. He is scheduled for EMG of lower extremities in 12/22/2022. Vital signs on arrival blood pressure 110/67, pulse rate 100, temperature 97.7. Blood test shows normal WBC, hemoglobin 12.8, sodium normal potassium 2.6, renal functions, hepatic panel normal. Magnesium 1.8. MAURA negative. Hemoglobin A1c 8.1. EKG shows sinus rhythm. Patient had a normal MRI of the pituitary gland previously on 01/23/2022. Patient's B12 was normal 456 on 12/20/2021, folate 12.7. TSH normal. 12/18. Patient seen and examined. Complaining of left-sided back pain, states it is aggravated by taking deep breaths 12/19. Patient seen and examined. Patient's CT chest with contrast done, negative for PE. States back pain improved with muscle relaxer. Being discharged to follow-up outpatient with PCP PHYSICAL EXAMINATION: GENERAL: The patient is alert and oriented x3, not in any acute distress. Well developed, well nourished. HEENT: Pupils are round and equally reacting to light. EOMI. No scleral icterus. No conjunctival pallor. Normocephalic, atraumatic. No pharyngeal erythema. No thyromegaly. CARDIOVASCULAR: S1 and S2 present. No murmurs, rubs, or gallops. PULMONARY: Chest is clear to auscultation, no wheezing or crackles. ABDOMEN: Soft, nontender, nondistended, normoactive bowel sounds. No palpable organomegaly. MUSCULOSKELETAL: No joint swelling or deformity. EXTREMITIES: No cyanosis, clubbing, or pedal edema. NEUROLOGICAL: Gross neurological examination did not reveal any focal deficits. SKIN: No rashes. Patient Condition at Discharge: Fair Plan - Discharge Summary New Discharge Prescriptions: New Cyclobenzaprine [Flexeril] 5 mg PO TID PRN #30 tab PRN Reason: Muscle Spasm Cyanocobalamin [Vitamin B-12 Injection] 1,000 mcg IM DAILY #30 each Continue metFORMIN HCL 1,000 mg PO BID EPINEPHrine (Auto Inject) [Epipen] 0.3 mg IM ONCE PRN PRN Reason: Anaphylaxis Famotidine [Pepcid] 20 mg PO BID #30 tab Atorvastatin Calcium [Lipitor] 40 mg PO DAILY Albuterol Sulfate [Proair Hfa] 2 puff INHALATION RT-Q4H PRN PRN Reason: Shortness Of Breath Hydrocortisone [Cortef] 10 mg PO TID Dulaglutide [Trulicity] 3 mg SQ Q7D Discharge Medication List Albuterol Sulfate [Proair Hfa] 2 puff INHALATION RT-Q4H PRN 12/07/21 [History] EPINEPHrine (Auto Inject) [Epipen] 0.3 mg IM ONCE PRN 12/07/21 [History] metFORMIN HCL 1,000 mg PO BID 12/07/21 [History] Famotidine [Pepcid] 20 mg PO BID #30 tab 12/23/21 [Rx] Atorvastatin Calcium [Lipitor] 40 mg PO DAILY 12/15/22 [History] Dulaglutide [Trulicity] 3 mg SQ Q7D 12/15/22 [History] Hydrocortisone [Cortef] 10 mg PO TID 12/15/22 [History] Cyanocobalamin [Vitamin B-12 Injection] 1,000 mcg IM DAILY #30 each 12/19/22 [Rx] Cyclobenzaprine [Flexeril] 5 mg PO TID PRN #30 tab 12/19/22 [Rx] Follow up Appointment(s)/Referral(s): Markell Bond MD [Primary Care Provider] - 1-2 days Activity/Diet/Wound Care/Special Instructions: Resume metformin from 12/21 as patient recently got IV contrast, needs to be off metformin for 48-72 hours
[2022-12-19 14:07] VITALS: BP 157/88; PULSE 91; RESP 18; TEMP 98.4
--- NOTE | 2022-12-20 07:39 | PN ---
PROGRESS NOTE CHIEF COMPLAINT: Weakness in the legs and adrenal insufficiency. HISTORY OF PRESENT ILLNESS: This gentleman is doing a little bit better, but he still has weakness in the legs. Electrolytes are being corrected. PHYSICAL EXAMINATION: CHEST: Clear. CARDIAC: Normal. IMPRESSION: 1. Generalized weakness. 2. Adrenal insufficiency. 3. Hypokalemia. 4. Hypomagnesemia. PLAN: 1. Progress activity. 2. Neurology consult. His case would not be typical, but myasthenia gravis is something that could be considered if he continues to have the muscle weakness. MMODL / IJN: [id number] /
[2022-12-20 08:56] LABS: Albumin 4.1 d/dL (3.8-4.9); Protein, Total 6.1 d/dL (6.2-8.2)
[2022-12-20 15:33] LABS: Gamma Globulin 0.68 d/dL (0.70-1.50)
== END 2022-12-19 16:06 | disposition home or self-care (01) | DRG 424 ==
LOC: EC 11:07 → 5NMEDONC 13:42
PROVIDERS: ADMIT Family Medicine; ATTEND Family Medicine
DX: E27.1 Primary adrenocortical insufficiency (principal); E11.40 Type 2 diabetes mellitus with diabetic neuropathy, unspecified; E83.42 Hypomagnesemia; E86.0 Dehydration; E86.1 Hypovolemia; F32.A Depression, unspecified; Z79.84 Long term (current) use of oral hypoglycemic drugs; Z79.899 Other long term (current) drug therapy; Z86.16 Personal history of COVID-19; Z28.310 Unvaccinated for COVID-19
CPT/HCPCS: 36415; 71275; 80053; 82607; 82746; 82784; 83036; 83735; 83921; 84132; 84165; 84207; 84484; 85025; 86038; 86235; 86334; 93005; 96365; 96366; 96367; 96368; 99285

== ENCOUNTER 2023-04-06 09:56 | Inpatient (IN) | payer OTHER ==
[2023-04-06] MEDS ORDERED: ACETAMINOPHEN TAB 325 MG TAB PO STA (10:18)
[2023-04-06] MEDS ORDERED: HYDROCORTISONE SUCCINATE 100 MG/2 ML VIAL IV STA (10:18)
[2023-04-06] MEDS ORDERED: IPRATROPIUM-ALBUTEROL 3 ML NEB INHALATION STA (10:18)
[2023-04-06 11:07] LABS: Basophils % (A) 0 %; Eosinophils # (A) 0.4 k/uL (0-0.7); Eosinophils % (A) 4 %; HCT 33.6 % (39.0-53.0); HGB 11.6 gm/dL (13.0-17.5); Lymphocytes # (A) 1.1 k/uL (1.0-4.8); Lymphocytes % (A) 11 %; MCH 30.7 pg (25.0-35.0); MCHC 34.5 g/dL (31.0-37.0); MCV 88.9 fL (80.0-100.0); Mean Platelet Volume 9.3; Monocytes # (A) 0.7 k/uL (0-1.0); Monocytes % (A) 7 %; Neutrophils % (A) 78 %; Platelet Count 185 k/uL (150-450); RBC 3.78 m/uL (4.30-5.90); RDW 13.5 % (11.5-15.5); WBC 10.4 k/uL (3.8-10.6)
[2023-04-06 11:15] LABS: Prothrombin Time 10.9 sec (10.0-12.5)
[2023-04-06 11:19] LABS: ALT 111 U/L (4-49); AST 65 U/L (17-59); African American GFR (CKD) >90 (>60 ml/min/1.73 sqM); Albumin 3.2 g/dL (3.5-5.0); Alkaline Phosphatase 90 U/L (38-126); Anion Gap 7 mmol/L; Blood Urea Nitrogen 14 mg/dL (9-20); Calcium 8.6 mg/dL (8.4-10.2); Carbon Dioxide 27 mmol/L (22-30); Chloride 100 mmol/L (98-107); Glucose 158 mg/dL (74-99); Magnesium 1.6 mg/dL (1.6-2.3); Non-African American GFR(CKD) >90 (>60 ml/min/1.73 sqM); Potassium 3.9 mmol/L (3.5-5.1); Sodium 134 mmol/L (137-145); Total Bilirubin 1.2 mg/dL (0.2-1.3); Total Protein 5.6 g/dL (6.3-8.2)
--- NOTE | 2023-04-06 11:30 | ED ---
General Adult HPI - General Chief complaint: Shortness of Breath Stated complaint: breathing issues Time Seen by Provider: 04/06/23 10:11 Source: patient, RN notes reviewed Mode of arrival: ambulatory Limitations: no limitations - History of Present Illness Initial comments: 58-year-old male presents emergency Department with chief complaint of shortness of breath. Patient states he has a history of asthma, [place]ag[place]'s disease. Patient states he is having increasing shortness of breath. Patient states he's been using his inhaler. Patient does admit to fever, chills. Patient denies any nausea vomiting no sick contacts. No recent Tylenol. Patient did not double up on his steroids. Patient denies any chest pain or palpitations. Denies complaints of neck pain or neck stiffness - Related Data Home Medications Medication Instructions Recorded Confirmed metFORMIN HCL 1,000 mg PO BID 12/07/21 04/06/23 Atorvastatin Calcium [Lipitor] 40 mg PO DAILY 12/15/22 04/06/23 Dulaglutide [Trulicity] 3 mg SQ TU 12/15/22 04/06/23 Hydrocortisone [Cortef] 10 mg PO TID 12/15/22 04/06/23 Albuterol Nebulized [Ventolin 2.5 mg INHALATION RT-QID PRN 04/06/23 04/06/23 Nebulized] Albuterol Sulfate [Ventolin HFA] 2 puff INHALATION RT-Q4H PRN 04/06/23 04/06/23 Cholecalciferol (Vitamin D3) 1,250 mcg PO Q28D 04/06/23 04/06/23 [Vitamin D3] Fludrocortisone [Florinef] 0.1 mg PO BID 04/06/23 04/06/23 Potassium Chloride ER [K-Dur 20] 20 meq PO BID 04/06/23 04/06/23 Sildenafil [Revatio] 20 - 100 mg PO DIRECTED PRN 04/06/23 04/06/23 Triamcinolone Acetonide [Nasacort] 1 spr EA NOSTRIL DAILY 04/06/23 04/06/23 Previous Rx's Medication Instructions Recorded Famotidine [Pepcid] 20 mg PO BID #30 tab 12/23/21 Cyclobenzaprine [Flexeril] 5 mg PO TID PRN #30 tab 12/19/22 Allergies Allergy/AdvReac Type Severity Reaction Status Date / Time tree nut Allergy Anaphylaxis Verified 04/06/23 14:31 Review of Systems ROS Statement: Those systems with pertinent positive or pertinent negative responses have been documented in the HPI. ROS Other: All systems not noted in ROS Statement are negative. Past Medical History Past Medical History: Asthma, Diabetes Mellitus Additional Past Medical History / Comment(s): DM type 2, COVID 08/25/2020-09/25/20, addisons disease History of Any Multi-Drug Resistant Organisms: None Reported Past Surgical History: Appendectomy Additional Past Surgical History / Comment(s): appe removed 2007 Past Anesthesia/Blood Transfusion Reactions: No Reported Reaction Past Psychological History: No Psychological Hx Reported Smoking Status: Never smoker Past Alcohol Use History: None Reported Past Drug Use History: None Reported General Exam Limitations: no limitations General appearance: alert, in no apparent distress Head exam: Present: atraumatic, normocephalic, normal inspection Eye exam: Present: normal appearance, PERRL, EOMI. Absent: scleral icterus, conjunctival injection, periorbital swelling ENT exam: Present: normal exam, mucous membranes moist Neck exam: Present: normal inspection, full ROM. Absent: tenderness, meningismus, lymphadenopathy Respiratory exam: Present: wheezes. Absent: normal lung sounds bilaterally, respiratory distress, rales, rhonchi, stridor Cardiovascular Exam: Present: normal rhythm, tachycardia, normal heart sounds. Absent: systolic murmur, diastolic murmur, rubs, gallop, clicks GI/Abdominal exam: Present: soft, normal bowel sounds. Absent: distended, tenderness, guarding, rebound, rigid Course Vital Signs 04/06/23 04/06/23 04/06/23 09:58 10:52 10:59 Temperature 99.3 F Pulse Rate 115 H 115 H 109 H Respiratory 16 18 18 Rate Blood Pressure 159/97 O2 Sat by Pulse 89 L Oximetry EKG Findings - EKG Comments: EKG Findings:: EKG performed at 11:14 sinus tachycardia rate of 1:15 ID 136 QRS 97 QT/QTC 328/396 - EKG Results: EKG: interpreted by JIL Medical Decision Making - Medical Decision Making Was pt. sent in by a medical professional or institution (, PA, [employer], urgent care, hospital, or custodial...) When possible be specific @ -No Did you speak to anyone other than the patient for history (EMS, parent, family, police, friend...)? What history was obtained from this source @ -No Did you review nursing and triage notes (agree or disagree)? Why? @ -I reviewed and agree with nursing and triage notes Were old charts reviewed (outside hosp., previous admission, EMS record, old EKG, old radiological studies, urgent care reports/EKG's, custodial records)? Report findings @ -No old charts were reviewed Differential Diagnosis (chest pain, altered mental status, abdominal pain women, abdominal pain men, vaginal bleeding, weakness, fever, dyspnea, syncope, headache, dizziness, GI bleed, back pain, seizure, CVA, palpatations, mental health, musculoskeletal)? @ -Differential Dyspnea: Coronary syndrome, arrhythmia, tamponade, asthma, COPD, pulmonary embolism, pneumonia, pneumothorax, pulmonary effusion, anaphylaxis, diabetic ketoacidosis, flailed chest, pulmonary contusion, diaphragmatic rupture, anemia, neuromuscular, this is not meant to be an all-inclusive list. e EKG interpreted by me (3pts min.). @ -As above X-rays interpreted by me (1pt min.). @ -Chest x-ray shows mild edema changes CT interpreted by me (1pt min.). @ -CT PE shows no evidence of PE, pulmonary edema, possible infiltrate U/S interpreted by me (1pt. min.). @ -None done What testing was considered but not performed or refused? (CT, X-rays, U/S, labs)? Why? @ -None What meds were considered but not given or refused? Why? @ -None Did you discuss the management of the patient with other professionals (professionals i.e. , PA, [employer], lab, RT, psych nurse, 7th grade social studies teacher, inspector penetrant, teacher, mail officer, keycase assembler)? Give summary @ -Dr. Bond for admission secondary to alleged foreign, pulmonary edema Was smoking cessation discussed for >3mins.? @ -No Was critical care preformed (if so, how long)? @ -35 minutes Were there social determinants of health that impacted care today? How? (Homelessness, low income, unemployed, alcoholism, drug addiction, transportation, low edu. Level, literacy, decrease access to med. care, [place] [facility], rehab)? @ -No Was there de-escalation of care discussed even if they declined (Discuss DNR or withdrawal of care, Hospice)? DNR status @ -No What co-morbidities impacted this encounter? (DM, HTN, Smoking, COPD, CAD, Cancer, CVA, ARF, Chemo, Hep., AIDS, mental health diagnosis, sleep apnea, morbid obesity)? @ -Neo's Was patient admitted / discharged? Hospital course, mention meds given and route, prescriptions, significant lab abnormalities, going to OR and other pertinent info. @ -Admitted patient be admitted for NSTEMI, patient's troponin 0.899 with pulmonary edema changes. Patient was given Lasix, started on heparin, aspirin. Patient of course will infiltrate was given antibiotics. Patient will be admitted for further evaluation, echocardiogram, cardiology evaluation. Patient was given Solu-Cortef 100 mg secondary to history of [place]arrag[place]'s with possible Infection Undiagnosed new problem with uncertain prognosis? @ -No Drug Therapy requiring intensive monitoring for toxicity (Heparin, Nitro, Insulin, Cardizem)? @ -Heparin Were any procedures done? @ -No Diagnosis/symptom? @ -NSTEMI, CHF, pneumonia Acute, or Chronic, or Acute on Chronic? @ -Acute Uncomplicated (without systemic symptoms) or Complicated (systemic symptoms)? @ -complicated Side effects of treatment? @ -No Exacerbation, Progression, or Severe Exacerbation? @ -No Poses a threat to life or bodily function? How? (Chest pain, [place], [place], pneumonia, PE, COPD, DKA, ARF, appy, cholecystitis, CVA, Diverticulitis, Homicidal, Suicidal, threat to staff... and all critical care pts) @ -Yes ACS - Lab Data Result diagrams: 04/06/23 10:44 04/06/23 10:44 Lab Results 04/06/23 04/06/23 04/06/23 Range/Units 10:44 10:44 10:44 WBC 10.4 (3.8-10.6) k/uL RBC 3.78 L (4.30-5.90) m/uL Hgb 11.6 L (13.0-17.5) gm/dL Hct 33.6 L (39.0-53.0) % MCV 88.9 (80.0-100.0) fL MCH 30.7 (25.0-35.0) pg MCHC 34.5 (31.0-37.0) g/dL RDW 13.5 (11.5-15.5) % Plt Count 185 (150-450) k/uL MPV 9.3 Neutrophils % 78 % Lymphocytes % 11 % Monocytes % 7 % Eosinophils % 4 % Basophils % 0 % Neutrophils # 8.0 H (1.3-7.7) k/uL Lymphocytes # 1.1 (1.0-4.8) k/uL Monocytes # 0.7 (0-1.0) k/uL Eosinophils # 0.4 (0-0.7) k/uL Basophils # 0.0 (0-0.2) k/uL PT 10.9 (10.0-12.5) sec INR 1.0 (<1.2) APTT 24.0 (22.0-30.0) sec D-Dimer (<0.60) mg/L FEU Sodium 134 L (137-145) mmol/L Potassium 3.9 (3.5-5.1) mmol/L Chloride 100 (98-107) mmol/L Carbon Dioxide 27 (22-30) mmol/L Anion Gap 7 mmol/L BUN 14 (9-20) mg/dL Creatinine 0.61 L (0.66-1.25) mg/dL Est GFR (CKD-EPI)AfAm >90 (>60 ml/min/1.73 sqM) Est GFR (CKD-EPI)NonAf >90 (>60 ml/min/1.73 sqM) Glucose 158 H (74-99) mg/dL Plasma Lactic Acid Jos Ee (0.7-2.0) mmol/L Calcium 8.6 (8.4-10.2) mg/dL Magnesium 1.6 (1.6-2.3) mg/dL Total Bilirubin 1.2 (0.2-1.3) mg/dL AST 65 H (17-59) U/L ALT 111 H (4-49) U/L Alkaline Phosphatase 90 (38-126) U/L Troponin I (0.000-0.034) ng/mL NT-Pro-B Natriuret Pep pg/mL Total Protein 5.6 L (6.3-8.2) g/dL Albumin 3.2 L (3.5-5.0) g/dL Influenza Type A (PCR) (Not Detectd) Influenza Type B (PCR) (Not Detectd) RSV (PCR) (Not Detectd) SARS-CoV-2 (PCR) (Not Detectd) 04/06/23 04/06/23 04/06/23 Range/Units 10:44 10:44 10:44 WBC (3.8-10.6) k/uL RBC (4.30-5.90) m/uL Hgb (13.0-17.5) gm/dL Hct (39.0-53.0) % MCV (80.0-100.0) fL MCH (25.0-35.0) pg MCHC (31.0-37.0) g/dL RDW (11.5-15.5) % Plt Count (150-450) k/uL MPV Neutrophils % % Lymphocytes % % Monocytes % % Eosinophils % % Basophils % % Neutrophils # (1.3-7.7) k/uL Lymphocytes # (1.0-4.8) k/uL Monocytes # (0-1.0) k/uL Eosinophils # (0-0.7) k/uL Basophils # (0-0.2) k/uL PT (10.0-12.5) sec INR (<1.2) APTT (22.0-30.0) sec D-Dimer 0.86 H (<0.60) mg/L FEU Sodium (137-145) mmol/L Potassium (3.5-5.1) mmol/L Chloride (98-107) mmol/L Carbon Dioxide (22-30) mmol/L Anion Gap mmol/L BUN (9-20) mg/dL Creatinine (0.66-1.25) mg/dL Est GFR (CKD-EPI)AfAm (>60 ml/min/1.73 sqM) Est GFR (CKD-EPI)NonAf (>60 ml/min/1.73 sqM) Glucose (74-99) mg/dL Plasma Lactic Acid Jose E 1.2 (0.7-2.0) mmol/L Calcium (8.4-10.2) mg/dL Magnesium (1.6-2.3) mg/dL Total Bilirubin (0.2-1.3) mg/dL AST (17-59) U/L ALT (4-49) U/L Alkaline Phosphatase (38-126) U/L Troponin I 0.899 H* (0.000-0.034) ng/mL NT-Pro-B Natriuret Pep pg/mL Total Protein (6.3-8.2) g/dL Albumin (3.5-5.0) g/dL Influenza Type A (PCR) (Not Detectd) Influenza Type B (PCR) (Not Detectd) RSV (PCR) (Not Detectd) SARS-CoV-2 (PCR) (Not Detectd) 04/06/23 04/06/23 Range/Units 10:44 10:54 WBC (3.8-10.6) k/uL RBC (4.30-5.90) m/uL Hgb (13.0-17.5) gm/dL Hct (39.0-53.0) % MCV (80.0-100.0) fL MCH (25.0-35.0) pg MCHC (31.0-37.0) g/dL RDW (11.5-15.5) % Plt Count (150-450) k/uL MPV Neutrophils % % Lymphocytes % % Monocytes % % Eosinophils % % Basophils % % Neutrophils # (1.3-7.7) k/uL Lymphocytes # (1.0-4.8) k/uL Monocytes # (0-1.0) k/uL Eosinophils # (0-0.7) k/uL Basophils # (0-0.2) k/uL PT (10.0-12.5) sec INR (<1.2) APTT (22.0-30.0) sec D-Dimer (<0.60) mg/L FEU Sodium (137-145) mmol/L Potassium (3.5-5.1) mmol/L Chloride (98-107) mmol/L Carbon Dioxide (22-30) mmol/L Anion Gap mmol/L BUN (9-20) mg/dL Creatinine (0.66-1.25) mg/dL Est GFR (CKD-EPI)AfAm (>60 ml/min/1.73 sqM) Est GFR (CKD-EPI)NonAf (>60 ml/min/1.73 sqM) Glucose (74-99) mg/dL Plasma Lactic Acid Jose E (0.7-2.0) mmol/L Calcium (8.4-10.2) mg/dL Magnesium (1.6-2.3) mg/dL Total Bilirubin (0.2-1.3) mg/dL AST (17-59) U/L ALT (4-49) U/L Alkaline Phosphatase (38-126) U/L Troponin I (0.000-0.034) ng/mL NT-Pro-B Natriuret Pep 1460 pg/mL Total Protein (6.3-8.2) g/dL Albumin (3.5-5.0) g/dL Influenza Type A (PCR) Not Detected (Not Detectd) Influenza Type B (PCR) Not Detected (Not Detectd) RSV (PCR) Not Detected (Not Detectd) SARS-CoV-2 (PCR) Not Detected (Not Detectd) Critical Care Time Critical Care Time: Yes Total Critical Care Time: 35 Disposition Clinical Impression: NSTEMI (non-ST elevated myocardial infarction), CHF (congestive heart failure), Pneumonia Disposition: ADMITTED IP TO THIS HOSP Condition: Poor Referrals: Markell Bond MD [Primary Care Provider] - 1-2 days Time of Disposition: 14:28
--- NOTE | 2023-04-06 11:35 | XR ---
EXAMINATION TYPE: XR chest 2V DATE OF EXAM: 04/06/2023 HISTORY: Shortness of breath. COMPARISON: 12/07/2021 TECHNIQUE: Views of the chest is submitted. FINDINGS: Demonstrated are scattered senescent parenchymal change. Mixed interstitial and alveolar type infiltrates about the perihilar regions and lower lobes. There a re trace effusions suggested. The heart is stable. Hilar and mediastinal structures are within normal limits. Degenerative changes are seen of the dorsal spine. IMPRESSION: 1. Tiny nonspecific and could reflect underlying atypical pneumonia. Congestive failure is an additi onal possibility. Correlate with BNP
[2023-04-06] MEDS ORDERED: SODIUM CHLORIDE 0.9% 500 ML 500 ML IV ONE (12:36)
--- NOTE | 2023-04-06 13:13 | CT ---
EXAMINATION TYPE: CT chest angio for PE DATE OF EXAM: 04/06/2023 COMPARISON: 12/18/2022 HISTORY: 58-year-old male chest pressure, pain, shortness of breath TECHNIQUE: Contiguous axial scanning of the chest performed with IV Contrast, patient injected with 7 0 mL of Isovue 370. Coronal/sagittal MIP reconstructions performed. CT DLP: 372.8 mGycm Automated exposure control for dose reduction was used. FINDINGS: Marked generalized anasarca change, worsened from prior exam. Heart upper limits of normal in size. New trace pericardial effusion measuring 8 mm thick. No reflux of contrast into the hepatic veins. Aorta normal caliber with conventional arch vessel branching anatomy. Mediastinal lymph nodes measuring up to 8 mm. Subcarinal adenopathy measuring up to 1.8 cm is new, li rachana reactive. There is suboptimal contrast bolus left base. However, no definite pulmonary embolus is seen. There are small bilateral pleural effusions which appear to have increased from the very recent radio graph., Patchy bibasilar airspace disease Visualized upper abdomen shows borderline splenomegaly at 13.6 cm. Bones: No osseous destructive process. IMPRESSION: 1. CORRELATE FOR CHF WITH DEVELOPING PATCHY PULMONARY EDEMA GIVEN MARKED ANASARCA CHANGE, WORSENING S MALL BILATERAL PLEURAL EFFUSIONS, AND SEPTAL LINES THROUGHOUT THE LUNGS. 2. A FEW SCATTERED AREAS OF GROUNDGLASS AND MORE CONFLUENT PATCHY AIRSPACE DISEASE IN THE LOWER LUNGS PROBABLY AREAS OF DEVELOPING PULMONARY EDEMA. CORRELATE TO EXCLUDE PNEUMONIA. 3. SUBOPTIMAL CONTRAST BOLUS. FURTHER LIMITATION DUE TO BREATHING MOTION ARTIFACT. NO DEFINITE PULMON PHYLLIS EMBOLUS.
[2023-04-06] MEDS ORDERED: ASPIRIN 81 MG PO STA (13:23)
[2023-04-06] MEDS ORDERED: HEPARIN SODIUM 1,000 UN/ML (10ML VL) IV PRN (13:23)
[2023-04-06] MEDS ORDERED: NITROGLYCERIN SL TABS 0.4 MG TAB SUBLINGUAL PRN (13:23)
[2023-04-06] MEDS ORDERED: HEPARIN SODIUM 1,000 UN/ML (10ML VL) IV ONE (13:23)
[2023-04-06] MEDS ORDERED: AZITHROMYCIN 500 MG in SODIUM CHLORIDE 0.9% 250 ML IVPB STA (13:25)
[2023-04-06] MEDS ORDERED: FUROSEMIDE 10 MG/ML 4 ML VIAL IV STA (13:25)
[2023-04-06] MEDS: HEPARIN SOD,PORK IN 0.45% NACL 25,000 UNIT in 0.45% NACL 1 250ML.BAG IV SCH (14:03)
--- NOTE | 2023-04-06 15:32 | P.CRDCN ---
History of Present Illness History of present illness: HISTORY OF PRESENT ILLNESS: This is a 58-year-old male with a past medical history significant for asthma and [place]'s disease. Patient does not follow with a auto appraiser. We have been asked to see the patient in consultation for non-STEMI. Patient examined at the bedside in the emergency room. Patient states on Tuesday he began having shortness of breath. 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 He states that he used his inhaler and did not get any relief which is unusual for him. He states on Tuesday he called his PCP and was prescribed a nebulizer. He states he took for treatments but his shortness of breath persisted. He also reports he has been having a dry cough. He reports a fullness in his chest but denies chest pain. Patient was found to have an elevated troponin of 0.899 and he was started on IV heparin in the emergency room. * EKG reveals sinus tachycardia with nonspecific ST-T wave changes * Chest xray tiny nonspecific and could reflect underlying atypical pneumonia. Congestive heart failure as an additional possibility. * Current home cardiac medications include none * Most recent echocardiogram obtained in November 2021 revealing normal LV size and systolic function, mild tricuspid regurgitation * Cardiac catheterization history: Patient denies REVIEW OF SYSTEMS: At the time of my exam: CONSTITUTIONAL: Denies fever or chills. HEENT: Denies blurred vision, vision changes, or eye pain. Denies hemoptysis CARDIOVASCULAR: Denies chest pain. Denies orthopnea. Denies PND. Denies palpitations RESPIRATORY: Reports shortness of breath. GASTROINTESTINAL: Denies abdominal pain. Denies nausea or vomiting. HEMATOLOGIC: Denies bleeding disorders. GENITOURINARY: Denies any blood in urine. SKIN: Denies pruitis. Denies rash. PHYSICAL EXAM: VITAL SIGNS: Reviewed. GENERAL: Well-developed in no acute distress. HEENT: Head is normocephalic. Pupils are equal, round. Sclerae anicteric. Mucous membranes of the mouth are moist. Neck supple. No JVD or thyromegaly LUNGS: Respirations even and unlabored. Lungs essentially clear to auscultation bilaterally. HEART: Regular rate and rhythm. S1 and S2 heard. ABDOMEN: Soft. Nondistended. Nontender. EXTREMITIES: Normal range of motion. No clubbing or cyanosis. Peripheral pulses intact. 2+ bilateral lower extremity edema NEUROLOGIC: Awake and alert. Oriented x 3. ASSESSMENT: Shortness of breath Acute heart failure, patient previously with normal EF in 2021, repeat echo pend ing Abnormal troponin, may be secondary to oxygen supply and demand mismatch, cannot rule out non-STEMI History of asthma History of Neo's disease PLAN: Obtain 2-D echo to assess cardiac structure and function Continue IV heparin Begin IV Lasix 40 mg every 8 hours. Repeat kidney function in a.m. Trend troponins Begin aspirin 81 mg daily and metoprolol tartrate 12.5 mg twice a day Resume home dose of atorvastatin. Obtain lipid panel Nothing by mouth at midnight. Possible cardiac catheterization tomorrow pending trend of troponins and echocardiogram results Further recommendations pending patient's course Nurse practitioner note has been reviewed by physician. Signing provider agrees with the documented findings, assessment, and plan of care. Past Medical History Past Medical History: Asthma, Diabetes Mellitus Additional Past Medical History / Comment(s): DM type 2, COVID 08/25/2020-09/25/20, addisons disease History of Any Multi-Drug Resistant Organisms: None Reported Past Surgical History: Appendectomy Additional Past Surgical History / Comment(s): appe removed 2007 Past Anesthesia/Blood Transfusion Reactions: No Reported Reaction Past Psychological History: No Psychological Hx Reported Smoking Status: Never smoker Past Alcohol Use History: None Reported Past Drug Use History: None Reported Medications and Allergies Home Medications Medication Instructions Recorded Confirmed Type metFORMIN HCL 1,000 mg PO BID 12/07/21 04/06/23 History Famotidine [Pepcid] 20 mg PO BID #30 tab 12/23/21 04/06/23 Rx Atorvastatin Calcium [Lipitor] 40 mg PO DAILY 12/15/22 04/06/23 History Dulaglutide [Trulicity] 3 mg SQ TU 12/15/22 04/06/23 History Hydrocortisone [Cortef] 10 mg PO TID 12/15/22 04/06/23 History Cyclobenzaprine [Flexeril] 5 mg PO TID PRN #30 tab 12/19/22 04/06/23 Rx Albuterol Nebulized [Ventolin 2.5 mg INHALATION RT-QID PRN 04/06/23 04/06/23 History Nebulized] Albuterol Sulfate [Ventolin HFA] 2 puff INHALATION RT-Q4H PRN 04/06/23 04/06/23 History Cholecalciferol (Vitamin D3) 1,250 mcg PO Q28D 04/06/23 04/06/23 History [Vitamin D3] Fludrocortisone [Florinef] 0.1 mg PO BID 04/06/23 04/06/23 History Potassium Chloride ER [K-Dur 20] 20 meq PO BID 04/06/23 04/06/23 History Sildenafil [Revatio] 20 - 100 mg PO DIRECTED PRN 04/06/23 04/06/23 History Triamcinolone Acetonide [Nasacort] 1 spr EA NOSTRIL DAILY 04/06/23 04/06/23 History Allergies Allergy/AdvReac Type Severity Reaction Status Date / Time tree nut Allergy Anaphylaxis Verified 04/06/23 14:31 Physical Exam Vitals: Vital Signs Temp Pulse Resp BP Pulse Ox 04/06/23 10:59 109 H 18 04/06/23 10:52 115 H 18 04/06/23 09:58 99.3 F 115 H 16 159/97 89 L Intake and Output 04/06/23 04/06/23 04/06/23 06:59 14:59 22:59 Other: Weight 74.843 kg Results 04/06/23 10:44 04/06/23 10:44 Cardiac Enzymes 04/06/23 04/06/23 Range/Units 10:44 10:44 AST 65 H (17-59) U/L Troponin I 0.899 H* (0.000-0.034) ng/mL Coagulation 04/06/23 Range/Units 10:44 PT 10.9 (10.0-12.5) sec APTT 24.0 (22.0-30.0) sec CBC 04/06/23 Range/Units 10:44 WBC 10.4 (3.8-10.6) k/uL RBC 3.78 L (4.30-5.90) m/uL Hgb 11.6 L (13.0-17.5) gm/dL Hct 33.6 L (39.0-53.0) % Plt Count 185 (150-450) k/uL Comprehensive Metabolic Panel 10/18/23 Range/Units 10:44 Sodium 134 L (137-145) mmol/L Potassium 3.9 (3.5-5.1) mmol/L Chloride 100 (98-107) mmol/L Carbon Dioxide 27 (22-30) mmol/L BUN 14 (9-20) mg/dL Creatinine 0.61 L (0.66-1.25) mg/dL Glucose 158 H (74-99) mg/dL Calcium 8.6 (8.4-10.2) mg/dL AST 65 H (17-59) U/L ALT 111 H (4-49) U/L Alkaline Phosphatase 90 (38-126) U/L Total Protein 5.6 L (6.3-8.2) g/dL Albumin 3.2 L (3.5-5.0) g/dL Current Medications Generic Name Dose Route Start Last Admin Trade Name Freq PRN Reason Stop Dose Admin Aspirin 81 mg 04/07/23 09:00 Aspirin 81 Mg PO DAILY [facility] Atorvastatin Calcium 40 mg 04/07/23 09:00 Atorvastatin 40 Mg Tab PO DAILY [facility] Furosemide 40 mg 04/06/23 16:00 Furosemide 10 Mg/Ml 4 Ml Vial IV Q8HR [facility] Heparin Sodium (Porcine) 0 unit 04/06/23 13:23 Heparin Sodium 1,000 Un/Ml (10ml Vl) IV Q6HR PRN Low PTT Protocol Heparin Sodium/Sodium Chloride 250 mls @ 8.981 mls/hr 04/06/23 13:30 04/06/23 14:03 25,000 unit/ Sodium Chloride IV 12 units/kg/hr .Q24H [facility] 8.981 mls/hr Administration Protocol 12 UNITS/KG/HR Metoprolol Tartrate 12.5 mg 04/06/23 21:00 Metoprolol Tartrate 12.5 Mg Tab PO BID [facility] Nitroglycerin 0.4 mg 04/06/23 13:23 Nitroglycerin Sl Tabs 0.4 Mg Tab SUBLINGUAL Q5M PRN Chest Pain Intake and Output 04/06/23 04/06/23 04/06/23 06:59 14:59 22:59 Other: Weight 74.843 kg Patient Weight 04/07/23 06:59 Weight 74.843 kg 04/06/23 10:44 04/06/23 10:44
[2023-04-06] MEDS: FUROSEMIDE 10 MG/ML 4 ML VIAL IV SCH ×2 (15:41→21:35)
[2023-04-06] MEDS ORDERED: FUROSEMIDE 10 MG/ML 4 ML VIAL IV SCH (21:00)
[2023-04-06] MEDS: METOPROLOL TARTRATE 12.5 MG TAB PO SCH (21:35)
--- NOTE | 2023-04-07 05:39 | HP ---
HISTORY AND PHYSICAL CHIEF COMPLAINT: Shortness of breath and chest tightness for several days. HISTORY OF PRESENT ILLNESS: Another admission for this gentleman who has asthma, obese. Doing fairly well. He also has diabetes. Several days ago, he felt that he was having an asthma attack. He began to treat it, but became more and more short of breath. He came to the emergency room. He had been experiencing slight tightness in the chest as well. He had no fever, chills, hemoptysis, orthopnea, PND, etc. The patient never had heart trouble. In the emergency room, his troponin was elevated as was the D-dimer, but his CTA was negative. REVIEW OF SYSTEMS: He has no other symptoms. Does not have any radiation of discomfort in the arms or aching in the jaw. He had no diaphoresis. PHYSICAL EXAMINATION: VITAL SIGNS: Blood pressure is 116/68 with a pulse of 80, respirations 32, and he is afebrile. GENERAL: He appeared to be well developed, well nourished, no acute distress. SKIN: Color is normal. HEENT: Head, ears, eyes, nose, mouth, and throat were normal. CHEST: Clear. CARDIAC: Normal. ABDOMEN: Soft and nontender. EXTREMITIES: Normal. NEUROLOGIC: Intact. DIAGNOSES: He was admitted to the hospital with diagnoses: 1. Acute coronary syndrome. 2. Asthmatic bronchitis. 3. [place]'s disease. 4. Type 2 diabetes mellitus. PLAN: 1. Bed rest. 2. IV fluids. 3. Serial EKGs and enzymes. 4. Cardiology consult. MMODL / IJN: [id number] /
[2023-04-07] MEDS ORDERED: NITROGLYCERIN SL TABS 0.4 MG TAB SUBLINGUAL PRN ×2 (08:07→13:49)
[2023-04-07] MEDS ORDERED: ATORVASTATIN 80 MG TAB PO STA (08:07)
[2023-04-07] MEDS ORDERED: ALPRAZolam 0.5 MG TAB PO PRN (08:07)
[2023-04-07] MEDS ORDERED: ASPIRIN 325 MG TAB PO STA (08:07)
[2023-04-07 08:15] LABS: Mean Platelet Volume 9.7; Platelet Count 185 k/uL (150-450)
[2023-04-07] MEDS: ATORVASTATIN 40 MG TAB PO SCH (08:28)
[2023-04-07] MEDS: ASPIRIN 81 MG PO SCH (08:28)
[2023-04-07] MEDS ORDERED: DEXTROSE 50% SYRINGE 50 ML IVP PRN ×2 (08:42)
[2023-04-07] MEDS: FUROSEMIDE 10 MG/ML 4 ML VIAL IV SCH (08:43)
[2023-04-07] MEDS: HEPARIN SOD,PORK IN 0.45% NACL 25,000 UNIT in 0.45% NACL 1 250ML.BAG IV SCH (08:44)
[2023-04-07] MEDS: METOPROLOL TARTRATE 12.5 MG TAB PO SCH (08:44)
[2023-04-07] MEDS: SODIUM CHLORIDE 0.9% 1,000 ML in EMPTY BAG 1 BAG IV SCH ×2 (08:44→14:04)
[2023-04-07] MEDS ORDERED: ASPIRIN 325 MG TAB PO SCH (09:00)
--- NOTE | 2023-04-07 10:23 | P.PN ---
Subjective HISTORY OF PRESENT ILLNESS: This is a 58-year-old male with a past medical history significant for asthma and [place]'s disease. Patient does not follow with a presales senior specialist. We have been asked to see the patient in consultation for non-STEMI. Patient examined at the bedside in the emergency room. Patient states on Tuesday he began having shortness of breath. 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 He states that he used his inhaler and did not get any relief which is unusual for him. He states on Tuesday he called his PCP and was prescribed a nebulizer. He states he took for treatments but his shortness of breath persisted. He also reports he has been having a dry cough. He reports a fullness in his chest but denies chest pain. Patient was found to have an elevated troponin of 0.899 and he was started on IV heparin in the emergency room. * EKG reveals sinus tachycardia with nonspecific ST-T wave changes * Chest xray tiny nonspecific and could reflect underlying atypical pneumonia. Congestive heart failure as an additional possibility. * Current home cardiac medications include none * Most recent echocardiogram obtained in November 2021 revealing normal LV size and systolic function, mild tricuspid regurgitation * Cardiac catheterization history: Patient denies 04/07/2023 Patient examined this morning at the bedside. Patient continues to report shortness of breath and fullness in his chest. Troponins resulted 0.899 and 0.795. Preliminary echocardiogram obtained revealing reduced LV systolic function with segmental wall motion abnormalities. PHYSICAL EXAM: VITAL SIGNS: Reviewed. GENERAL: Well-developed in no acute distress. HEENT: Head is normocephalic. Pupils are equal, round. Sclerae anicteric. Mucous membranes of the mouth are moist. Neck supple. No JVD or thyromegaly LUNGS: Respirations even and unlabored. Lungs essentially clear to auscultation bilaterally. HEART: Regular rate and rhythm. S1 and S2 heard. ABDOMEN: Soft. Nondistended. Nontender. EXTREMITIES: Normal range of motion. No clubbing or cyanosis. Peripheral pulses intact. 2+ bilateral lower extremity edema NEUROLOGIC: Awake and alert. Oriented x 3. ASSESSMENT: Shortness of breath Acute heart failure with reduced ejection fraction Non-STEMI New onset cardiomyopathy, ischemic versus nonischemic History of asthma History of Neo's disease Diabetes PLAN: Continue current cardiac medications Continue IV Lasix 40 mg every 8 hours Daily weights, accurate I&O, monitoring of kidney function Increase metoprolol to 25 mg twice a day Repeat BMP in AM. Will likely add SHANNAN/ARB tomorrow. Patient to undergo cardiac catheterization today with Dr. Persaud Further recommendations pending patient's course Nurse practitioner note has been reviewed by physician. Signing provider agrees with the documented findings, assessment, and plan of care. Objective - Vital Signs Vital signs: Vital Signs Temp 98.1 F 04/07/23 08:00 Pulse 102 H 04/07/23 08:00 Resp 20 04/07/23 08:00 BP 154/92 04/07/23 08:00 Pulse Ox 91 L 04/07/23 08:00 FiO2 Intake & Output 04/06/23 04/07/23 04/07/23 18:59 06:59 18:59 Intake Total 521.394 159.069 Output Total 1725 850 Balance -1203.606 -690.931 Weight 74.843 kg 71.5 kg Intake: Intake, IV Titration 161.394 39.069 Amount Heparin Sod,Pork in 0.45% 161.394 39.069 NaCl 25,000 unit In 0.45 % NaCl 1 250ml.bag @ 12 UNITS/KG/HR 8.981 mls/hr IV .Q24H [facility] Rx#: [id number] Oral 360 120 Output: Urine 1725 850 Other: # Voids 1 - Labs CBC & Chem 7: 04/07/23 07:07 04/06/23 10:44 Labs: Abnormal Lab Results - Last 24 Hours (Table) 04/06/23 04/06/23 04/06/23 Range/Units 10:44 10:44 10:44 RBC 3.78 L (4.30-5.90) m/uL Hgb 11.6 L (13.0-17.5) gm/dL Hct 33.6 L (39.0-53.0) % Neutrophils # 8.0 H (1.3-7.7) k/uL APTT (22.0-30.0) sec D-Dimer (<0.60) mg/L FEU Sodium 134 L (137-145) mmol/L Creatinine 0.61 L (0.66-1.25) mg/dL Glucose 158 H (74-99) mg/dL AST 65 H (17-59) U/L ALT 111 H (4-49) U/L Troponin I 0.899 H* (0.000-0.034) ng/mL Total Protein 5.6 L (6.3-8.2) g/dL Albumin 3.2 L (3.5-5.0) g/dL 04/06/23 04/06/23 04/06/23 Range/Units 10:44 16:10 16:10 RBC (4.30-5.90) m/uL Hgb (13.0-17.5) gm/dL Hct (39.0-53.0) % Neutrophils # (1.3-7.7) k/uL APTT 32.6 H (22.0-30.0) sec D-Dimer 0.86 H (<0.60) mg/L FEU Sodium (137-145) mmol/L Creatinine (0.66-1.25) mg/dL Glucose (74-99) mg/dL AST (17-59) U/L ALT (4-49) U/L Troponin I 0.795 H* (0.000-0.034) ng/mL Total Protein (6.3-8.2) g/dL Albumin (3.5-5.0) g/dL 04/07/23 Range/Units 07:07 RBC (4.30-5.90) m/uL Hgb (13.0-17.5) gm/dL Hct (39.0-53.0) % Neutrophils # (1.3-7.7) k/uL APTT 30.4 H (22.0-30.0) sec D-Dimer (<0.60) mg/L FEU Sodium (137-145) mmol/L Creatinine (0.66-1.25) mg/dL Glucose (74-99) mg/dL AST (17-59) U/L ALT (4-49) U/L Troponin I (0.000-0.034) ng/mL Total Protein (6.3-8.2) g/dL Albumin (3.5-5.0) g/dL
[2023-04-07] MEDS ORDERED: HEPARIN SODIUM 1,000 UN/ML (10ML VL) ONE ×2 (11:06→12:21)
[2023-04-07] MEDS ORDERED: fentaNYL (PF) 50 MCG/ML 2 ML AMP ONE (11:06)
[2023-04-07] MEDS ORDERED: VERAPAMIL 2.5 MG/ML 2 ML AMP ONE (11:06)
[2023-04-07 11:12] LABS: Chol/HDL Ratio 2.28 Ratio; LDL Cholesterol,Calculated 45.1 mg/dL (0.0-131.0); VLDL Calculation 14.96 mg/dL (5.00-40.00)
[2023-04-07] MEDS ORDERED: SODIUM CHLORIDE 0.9% 1,000 ML IV ONE (11:24)
[2023-04-07] MEDS ORDERED: fentaNYL (PF) 50 MCG/ML 2 ML AMP IVP ONE (11:38)
[2023-04-07] MEDS ORDERED: MIDAZOLAM 2 MG/2 ML VIAL IVP ONE (11:41)
[2023-04-07] MEDS ORDERED: LIDOCAINE 1% INJ 10MG/ML (5 ML VIAL-PF) SQ ONE (11:41)
[2023-04-07] MEDS ORDERED: VERAPAMIL SYRINGE (5 MG/10 ML) INTRAARTER ONE (12:00)
[2023-04-07] MEDS: HEPARIN SODIUM 1,000 UN/ML (10ML VL) IVP ONE ×7 (12:02→13:22)
[2023-04-07] MEDS ORDERED: PRASUGREL 10 MG TAB ONE (12:11)
[2023-04-07] MEDS ORDERED: PRASUGREL 10 MG TAB PO ONE (12:13)
[2023-04-07] MEDS ORDERED: IOPAMIDOL-370 100ML BTL INJ ONE ×3 (12:20→13:38)
[2023-04-07] MEDS: NITROGLYCERIN 1000MCG/10ML SYRINGE INTRAARTER ONE ×2 (12:38→13:05)
[2023-04-07] MEDS ORDERED: ZOLPIDEM 5 MG TAB PO PRN (13:49)
[2023-04-07] MEDS ORDERED: MAG HYDROX/AL HYDROX/SIMETH 30 ML CUP PO PRN (13:49)
[2023-04-07] MEDS ORDERED: ATROPINE SULFATE 0.1 MG/ML 10ML SYRINGE IV PRN (13:49)
[2023-04-07] MEDS ORDERED: RX INFO: IV CONTRAST WAS GIVEN 1 EACH MISC MISCELLANE PRN (13:49)
--- NOTE | 2023-04-07 13:54 | CA ---
Transthoracic Echo Report Name: Pino Rae Age: 58 Gender: M : 1965 Exam Date: 04/07/2023 08:50 Exam Location: [facility] Ht (in): 68 Wt (lb): 165 Ordering Physician: Yaron Oliver Attending/Referring Phys: [id number], Melody Entry Clerk Michel Orr Procedure CPT: Indications: nstemi Cardiac Hx: Technical Quality: Fair Contrast 1: Total Dose (mL): Contrast 2: Total Dose (mL): MEASUREMENTS (Male / Female) Normal Values 2D ECHO LV Diastolic Diameter PLAX 5.1 cm 4.2 - 5.9 / 3.9 - 5.3 cm IVS Diastolic Thickness 1.2 cm 0.6 - 1.0 / 0.6 - 0.9 cm LVPW Diastolic Thickness 1.0 cm 0.6 - 1.0 / 0.6 - 0.9 cm LV Relative Wall Thickness 0.4 RV Internal Dim ED PLAX 2.9 cm LVOT Diameter 2.1 cm Aortic Root Diameter 2.9 cm LA Systolic Diameter LX 2.9 cm 3.0 - 4.0 / 2.7 - 3.8 cm LV Diastolic Volume MOD BP 112.9 cm??? 67 - 155 / 56 - 104 cm??? LV Systolic Volume MOD BP 70.3 cm??? - 58 / 19 - 49 cm??? LV Ejection Fraction MOD BP 37.8 % >= 55 % LV Cardiac Index MOD BP 2285.1 cm???/min???m??? LV Diastolic Volume MOD 4C 107.9 cm??? LV Systolic Volume MOD 4C 67.8 cm??? LV Ejection Fraction MOD 4C 37.2 % LV Cardiac Index MOD 4C 2149.9 cm???/min???m??? LV Diastolic Length 4C 7.5 cm LV Systolic Length 4C 6.7 cm LV Diastolic Volume MOD 2C 113.9 cm??? LV Systolic Volume MOD 2C 68.2 cm??? LV Ejection Fraction MOD 2C 40.1 % LV Cardiac Index MOD 2C 2447.3 cm???/min???m??? LV Diastolic Length 2C 7.8 cm LV Systolic Length 2C 7.2 cm LA Volume 63.8 cm??? 18 - 58 / 22 - 52 cm??? LA Volume Index 33.5 cm???/m??? 16 - 28 cm???/m??? Ascending Aorta Diameter 3.1 cm DOPPLER AV Peak Velocity 112.4 cm/s AV Peak Gradient 5.1 mmHg LVOT Peak Velocity 71.3 cm/s LVOT Peak Gradient 2.0 mmHg LVOT Velocity Time Integral 12.3 cm LVOT Stroke Volume 43.9 cm??? LVOT Stroke Volume Index 23.3 ml/m??? LVOT Cardiac Index 2350.4 cm???/min???m??? AV Area Cont Eq pk 2.3 cm??? MV Peak Velocity 121.5 cm/s MV Peak Gradient 5.9 mmHg MV Mean Velocity 60.3 cm/s MV Mean Gradient 2.0 mmHg MV Velocity Time Integral 25.3 cm MR Peak Velocity 425.3 cm/s MR Peak Gradient 72.4 mmHg Mitral E Point Velocity 102.6 cm/s Mitral A Point Velocity 26.0 cm/s Mitral E to A Ratio 3.9 MV Deceleration Time 212.3 ms MV E' Velocity 6.4 cm/s Mitral E to MV E' Ratio 16.1 TR Peak Velocity 225.0 cm/s TR Peak Gradient 20.3 mmHg Right Ventricular Systolic Press 25.3 mmHg FINDINGS Left Ventricle Normal LV size and wall thickness. Left ventricular ejection fraction is estimated at35-40 %. Right Ventricle Normal right ventricular size. Right Atrium Normal right atrial size. Left Atrium Mild left atrial dilatation. LA volume index= 34ml/m2 Mitral Valve Structurally normal mitral valve. Moderate MR. Aortic Valve Trileaflet aortic valve. Mild AV calcification/sclerosis. No aortic valve stenosis or regurgitation. Tricuspid Valve Structurally normal tricuspid valve. Trace TR. Pulmonic Valve Structurally normal pulmonic valve. No pulmonic regurgitation. Pericardium Normal pericardium. Aorta Normal size aortic root. CONCLUSIONS Reduced LV systolic function ejection fraction 35-40% with inferior and inferoseptal hypokinesis Previewed by: Dr. Pascual Dobbins MD (Electronically Signed) Final Date: 07 April 2023 13:54
[2023-04-07 13:57] LABS: Glucose,Whole Blood 119 mg/dL (70-110)
[2023-04-07] MEDS ORDERED: SODIUM CHLORIDE 0.9% 1,000 ML in EMPTY BAG 1 BAG IV SCH (14:00)
[2023-04-07] MEDS: INSULIN ASPART (NovoLOG) 100 UNIT/ML VIAL SQ SCH ×3 (14:04→20:06)
--- NOTE | 2023-04-07 14:07 | P.PN ---
Subjective Progress Note Date: 04/07/23 Cardiac Catheterization: The patient is a 58-year-old male with a history of hyperlipidemia, long-standing history of diabetes who presented with symptoms of dyspnea and chest fullness and evidence of non-STEMI and CHF. Recommendations were made regarding cardiac catheterization, the risks and the complications were discussed with the patient who is in full understanding and agreement. Procedure Description: Patient was brought to custodial laborer in fasting semi-sedated state after receiving Fentanyl and Benadryl achieiving moderate conscious sedated state. Using Xylocaine Anesthesia and modified Seldinger technique, a 6-Mongolian sheath was introduced in the right radial artery . Subsequently, selective coronary angiography was performed using a 5-Mongolian 3.5 bend Janna catheter. Multiple views of the coronary artery including hemiaxial views were obtained. The right Janna catheter was used to cross the aortic valve and LVEDP was calculated. PCI: After removing the catheters a 6-Mongolian EBU 3.75 guiding catheter was introduced and the system. After cannulating the left main a 0.014 BMW J-wire was advanced and positioned in the distal OM1. Subsequently a 2.5 x 12 mm NC Treck was advanced into inflation at 8 elmo were done. Subsequently a Ui Link kalispel eye IVUS catheter was introduced and imaging were obtained. After removing the catheter attempt to advance the 0.014 BMW J-wire into the mid left circumflex was unsuccessful, that wire was removed and a 0.014 whisper J-wire with the help of a fine cross catheter was positioned in the distal left circumflex subsequently the wire was exchanged through the fine cross to a 0.014 BMW J-wire and the fine cross was removed. A 2.0 x 12 mm Treck was advanced and multiple inflation at 8 elmo were done. Subsequently repeat IVUS imaging was performed. After removing the catheter he 3.0 x 18 mm Xience nunu point stent was deployed in the OM1, repeat intravascular ultrasound imaging was performed and a 3.0 x 15 mm NC Treck balloon was advanced and one inflation at 10 elmo was done. After removing the balloon a 2.5 x 38 mm Xience nunu point was positioned in the mid left circumflex and dilated at 16 elmo. Subsequently the wires were removed and images were obtained and revealed stable successful stenting. Following that an Omni wire was advanced into the LAD and IFR was measured at 0.83, a 2.5 x 12 mm NC Treck was advanced and inflation at 8 elmo were done. Intravascular ultrasound imaging was performed and subsequently a 2.75 x 38 mm Xience nunu point stent was deployed at 16 elmo. Repeat intravascular ultrasound imaging was performed and after that 3.5 x 20 mm NC Treck was advanced and dilatation of the midsegment of the stent was done at 10 elmo. The proximal segment of the stent was postdilated at 4.0 x 8 mm NC Treck balloon. After the last inflation images were obtained and revealed successful stenting. Following that, catheter and sheath were removed. Hemostasis was obtained with deployment of vascular band . There was no immediate complication. Patient was returned to room in stable condition. Of note, the patient received a total of 20,000 units of intravenous heparin as well as intra-arterial verapamil. His ACT was monitored. He received a loading dose of Effient. He had mild EKG changes with the LAD inflation but no significant chest discomfort. Findings: Left main: This is a large size vessel, bifurcating into LAD and left circumflex, left main has no obstructive disease LAD: This is a large size vessel, reaching to the apex giving rise to 2 diagonal branch. The mid LAD has diffuse intimal disease up to 70%. The distal LAD is small in caliber and has diffuse intimal disease up to 99%. Left circumflex: This is a nondominant large size vessel giving rise to a large first obtuse marginal branch that has a 90% stenosis in the proximal segment distally has diffuse intimal disease up to 99%. The mid left circumflex has diffuse intimal disease up to 95%. It has slow flow in the distal vessel. RCA: This is a dominant vessel moderate in caliber subtotally occluded distally at the bifurcation of the PDA and PLV. The flow in the PDA and PLB is slow and the vessel appears to be small in caliber. There is collaterals from the left consistent toward the right PDA Left Ventriculogram: Not performed Hemodynamics: There was no gradient across the aortic valve , LVEDP was 24-30 mmHg Conclusion: 1. Severe triple-vessel disease 2. Successful stenting of the OM1 with reduction of stenosis from 90 % to 0% with intravascular ultrasound imaging 3. Successful stenting of the mid left circumflex with reduction of stenosis 99-0% with intravascular ultrasound imaging 4. Successful stenting of the mid LAD with abnormal IFR with reduction of stenosis from 70% to 0% with intravascular ultrasound imaging 5. 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 Elevated LVEDP Recommendations: I have recommended to continue on aspirin and Effient for 1 year without any interruption. The patient will be monitored regarding the need to undergo revascularization of the RCA. The distal LAD will be treated medically because of diffuse pattern and small vessel size. Aggressive coronary risks modification will be continued and his LDL will be maintained less than 70 mg per distally.. The findings and the recommendations were discussed with the patient and the family and they were in full understanding and agreement. Duration of sedation is 117 minutes. Objective - Vital Signs Vital signs: Vital Signs Temp 98.1 F 04/07/23 08:00 Pulse 102 H 04/07/23 08:00 Resp 20 04/07/23 08:00 BP 154/92 04/07/23 08:00 Pulse Ox 91 L 04/07/23 08:00 FiO2 Intake & Output 04/06/23 04/07/23 04/07/23 18:59 06:59 18:59 Intake Total 521.394 609.069 Output Total 1725 850 Balance -1203.606 -240.931 Weight 74.843 kg 71.5 kg Intake: IV 450 Intake, IV Titration 161.394 39.069 Amount Heparin Sod,Pork in 0.45% 161.394 39.069 NaCl 25,000 unit In 0.45 % NaCl 1 250ml.bag @ 12 UNITS/KG/HR 8.981 mls/hr IV .Q24H [facility] Rx#: [id number] Oral 360 120 Output: Urine 1725 850 Other: # Voids 1 - Labs CBC & Chem 7: 04/07/23 07:07 04/06/23 10:44 Labs: Abnormal Lab Results - Last 24 Hours (Table) 04/06/23 04/06/23 04/07/23 Range/Units 16:10 16:10 07:07 APTT 32.6 H 30.4 H (22.0-30.0) sec Troponin I 0.795 H* (0.000-0.034) ng/mL
[2023-04-07] MEDS: HYDROCORTISONE 10 MG TAB PO SCH ×2 (15:54→20:06)
[2023-04-07] MEDS ORDERED: IPRATROPIUM-ALBUTEROL 3 ML NEB INHALATION STA (15:57)
[2023-04-07 16:48] LABS: Glucose,Whole Blood 185 mg/dL (70-110)
[2023-04-07 19:41] LABS: Glucose,Whole Blood 213 mg/dL (70-110)
[2023-04-07] MEDS: FUROSEMIDE 20 MG TAB PO SCH (20:05)
[2023-04-07] MEDS: FAMOTIDINE 20 MG TAB PO SCH (20:05)
[2023-04-07] MEDS: lisinopriL 5 MG TAB PO SCH (20:05)
[2023-04-07] MEDS: METOPROLOL TARTRATE 25 MG TAB PO SCH (20:06)
[2023-04-07] MEDS: FLUDROCORTISONE 0.1 MG TAB PO SCH (20:06)
[2023-04-07] MEDS ORDERED: POTASSIUM CHLORIDE ER 20 MEQ TAB.ER PO SCH (21:00)
[2023-04-07] MEDS: IPRATROPIUM-ALBUTEROL 3 ML NEB INHALATION PRN (21:32)
[2023-04-08 06:03] LABS: Glucose,Whole Blood 174 mg/dL (70-110)
[2023-04-08] MEDS: INSULIN ASPART (NovoLOG) 100 UNIT/ML VIAL SQ SCH ×4 (06:25→20:36)
[2023-04-08] MEDS ORDERED: HEPARIN SODIUM,PORCINE 10,000 UNIT in SODIUM CHLORIDE 0.9% 1,000 ML IRRIGATION PRN (07:00)
[2023-04-08] MEDS ORDERED: HEPARIN SODIUM,PORCINE (1 ML) 2,500 UNIT in SODIUM CHLORIDE 0.9% 250 ML IRRIGATION PRN (07:00)
[2023-04-08 07:53] LABS: Mean Platelet Volume 8.5; Platelet Count 212 k/uL (150-450)
[2023-04-08 08:03] LABS: African American GFR (CKD) >90 (>60 ml/min/1.73 sqM); Anion Gap 5 mmol/L; Blood Urea Nitrogen 13 mg/dL (9-20); Calcium 7.9 mg/dL (8.4-10.2); Carbon Dioxide 28 mmol/L (22-30); Chloride 103 mmol/L (98-107); Glucose 124 mg/dL (74-99); Non-African American GFR(CKD) >90 (>60 ml/min/1.73 sqM); Sodium 136 mmol/L (137-145)
[2023-04-08] MEDS: FUROSEMIDE 20 MG TAB PO SCH ×2 (08:36→20:36)
[2023-04-08] MEDS: ATORVASTATIN 40 MG TAB PO SCH (08:36)
[2023-04-08] MEDS: HYDROCORTISONE 10 MG TAB PO SCH ×3 (08:36→20:35)
[2023-04-08] MEDS: ASPIRIN 81 MG PO SCH (08:36)
[2023-04-08] MEDS: METOPROLOL TARTRATE 25 MG TAB PO SCH ×2 (08:37→20:35)
[2023-04-08] MEDS: FAMOTIDINE 20 MG TAB PO SCH ×2 (08:37→20:35)
[2023-04-08] MEDS: SPIRONOLACTONE 25 MG TAB PO SCH (08:37)
[2023-04-08] MEDS: CLOPIDOGREL 75 MG TAB PO SCH (08:37)
[2023-04-08] MEDS: FLUDROCORTISONE 0.1 MG TAB PO SCH ×2 (08:37→20:36)
[2023-04-08] MEDS: SODIUM CHLORIDE 0.9% 1,000 ML in EMPTY BAG 1 BAG IV SCH (09:00)
[2023-04-08] MEDS: lisinopriL 5 MG TAB PO SCH ×2 (10:29→20:35)
[2023-04-08] MEDS: POTASSIUM CHLORIDE ER 20 MEQ TAB.ER PO SCH ×3 (10:31→12:12)
--- NOTE | 2023-04-08 10:56 | P.PN ---
Subjective HISTORY OF PRESENT ILLNESS: This is a 58-year-old male with a past medical history significant for asthma and [place]'s disease. Patient does not follow with a community health education coordinator. We have been asked to see the patient in consultation for non-STEMI. Patient examined at the bedside in the emergency room. Patient states on Tuesday he began having shortness of breath. 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 He states that he used his inhaler and did not get any relief which is unusual for him. He states on Tuesday he called his PCP and was prescribed a nebulizer. He states he took for treatments but his shortness of breath persisted. He also reports he has been having a dry cough. He reports a fullness in his chest but denies chest pain. Patient was found to have an elevated troponin of 0.899 and he was started on IV heparin in the emergency room. * EKG reveals sinus tachycardia with nonspecific ST-T wave changes * Chest xray tiny nonspecific and could reflect underlying atypical pneumonia. Congestive heart failure as an additional possibility. * Current home cardiac medications include none * Most recent echocardiogram obtained in November 2021 revealing normal LV size and systolic function, mild tricuspid regurgitation * Cardiac catheterization history: Patient denies 04/07/2023 Patient examined this morning at the bedside. Patient continues to report shortness of breath and fullness in his chest. Troponins resulted 0.899 and 0.795. Preliminary echocardiogram obtained revealing reduced LV systolic function with segmental wall motion abnormalities. 04/08/2023 Patient is status post cardiac catheterization revealing severe triple vessel disease. Patient underwent stenting of the OM1, mid left circumflex, and mid LAD. Patient was also found to have chronic subtotal occlusion of the distal RCA and elevated LVEDP. Patient examined this morning at the bedside. Patient reports mild shortness of breath. He denies any chest pain or pressure. Vital signs are stable. Blood pressure 155/89. Echocardiogram completed revealing ejection fraction 35-40%, moderate MR, trace TR PHYSICAL EXAM: VITAL SIGNS: Reviewed. GENERAL: Well-developed in no acute distress. HEENT: Head is normocephalic. Pupils are equal, round. Sclerae anicteric. Mucous membranes of the mouth are moist. Neck supple. No JVD or thyromegaly LUNGS: Respirations even and unlabored. Lungs essentially clear to auscultation bilaterally. HEART: Regular rate and rhythm. S1 and S2 heard. ABDOMEN: Soft. Nondistended. Nontender. EXTREMITIES: Normal range of motion. No clubbing or cyanosis. Peripheral pulses intact. Minimal bilateral lower extremity edema NEUROLOGIC: Awake and alert. Oriented x 3. ASSESSMENT: Shortness of breath Acute heart failure with reduced ejection fraction Non-STEMI, s/p stenting as above Ischemic cardiomyopathy History of asthma History of Neo's disease Diabetes Moderate mitral regurgitation PLAN: Continue current cardiac medications Continue dual antiplatelet therapy with aspirin and Plavix Continue high-intensity statin Patient is stable for discharge home today from a cardiac standpoint He is to follow-up post discharge in the office in one week Nurse practitioner note has been reviewed by physician. Signing provider agrees with the documented findings, assessment, and plan of care. Objective - Vital Signs Vital signs: Vital Signs Temp 97.9 F 04/08/23 08:27 Pulse 91 04/08/23 10:24 Resp 18 04/08/23 10:24 BP 127/76 04/08/23 10:24 Pulse Ox 99 04/08/23 10:24 FiO2 Intake & Output 04/07/23 04/08/23 04/08/23 18:59 06:59 18:59 Intake Total 1306.470 3502 250 Output Total 1550 1825 Balance -340.931 -493 250 Weight 83.2 kg Intake: IV 450 10 Invasive Line 1 10 Intake, IV Titration 39.069 852 Amount Heparin Sod,Pork in 0.45% 39.069 NaCl 25,000 unit In 0.45 % NaCl 1 250ml.bag @ 12 UNITS/KG/HR 8.981 mls/hr IV .Q24H EDGARDO Rx#: [id number] Sodium Chloride 0.9% 1, 852 000 ml In Empty Bag 1 bag @ 1 ML/KG/HR 71.5 mls/hr IV .Q14H EDGARDO Rx#: [id number] Oral 720 480 240 Output: Urine 1550 1825 Other: Voiding Method Urinal Urinal # Voids 1 1 - Labs CBC & Chem 7: 04/08/23 07:13 04/08/23 07:13 Labs: Abnormal Lab Results - Last 24 Hours (Table) 04/07/23 04/07/2323 Range/Units 13:56 16:35 19:39 Sodium (137-145) mmol/L Potassium (3.5-5.1) mmol/L Creatinine (0.66-1.25) mg/dL Glucose (74-99) mg/dL POC Glucose (mg/dL) 119 H 185 H 213 H (70-110) mg/dL Calcium (8.4-10.2) mg/dL 04/08/23 04/08/23 Range/Units 06:01 07:13 Sodium 136 L (137-145) mmol/L Potassium 3.0 L (3.5-5.1) mmol/L Creatinine 0.59 L (0.66-1.25) mg/dL Glucose 124 H (74-99) mg/dL POC Glucose (mg/dL) 174 H (70-110) mg/dL Calcium 7.9 L (8.4-10.2) mg/dL Microbiology - Last 24 Hours (Table) 04/06/23 10:44 Blood Culture - Preliminary Blood 04/06/23 10:30 Blood Culture - Preliminary Blood
[2023-04-08 11:46] LABS: Glucose,Whole Blood 143 mg/dL (70-110)
[2023-04-08 11:50] VITALS: BMI 27.8
[2023-04-08] MEDS: ALPRAZolam 0.25 MG TAB PO PRN (12:12)
[2023-04-08] MEDS: IPRATROPIUM-ALBUTEROL 3 ML NEB INHALATION PRN ×4 (12:42→23:59)
[2023-04-08 16:56] LABS: Glucose,Whole Blood 163 mg/dL (70-110)
[2023-04-08 19:33] LABS: Glucose,Whole Blood 204 mg/dL (70-110)
[2023-04-09] MEDS: SODIUM CHLORIDE 0.9% 1,000 ML in EMPTY BAG 1 BAG IV SCH ×2 (03:39→12:22)
--- NOTE | 2023-04-09 03:41 | PN ---
PROGRESS NOTE DATE OF SERVICE: 04/07/2023 CHIEF COMPLAINT: Chest pain and shortness of breath. HISTORY OF PRESENT ILLNESS: This gentleman is going to the laboratory sample carrier today. He still has a tight feeling in his chest. PHYSICAL EXAMINATION: CARDIAC: Normal. CHEST: Quite clear. IMPRESSION: 1. Shortness of breath and chest pain. 2. Elevated troponin. 3. [place]'s disease. PLAN: Cardiac cath today. MMODL / IJN: [id number] /
--- NOTE | 2023-04-09 03:56 | PN ---
PROGRESS NOTE DATE OF SERVICE: 04/08/2023 CHIEF COMPLAINT: Chest pain and shortness of breath. HISTORY OF PRESENT ILLNESS: This gentleman is doing fairly well. Cardiac cath yesterday surprisingly revealed 3 significant lesions. I believe 1 was in the LAD, the other in the circumflex, then 1 in the RCA. He is still a little bit short of breath today and congested. PHYSICAL EXAMINATION: CHEST: Clear. CARDIAC: Demonstrates sinus rhythm. ABDOMEN: Soft, nontender. IMPRESSION: 1. Zax-JE-gbvbxwfta myocardial infarction. 2. Coronary artery disease. 3. Neo's disease. PLAN: Progress activity and follow with Cardiology. MMODL / IJN: [id number] /
[2023-04-09 06:08] LABS: Glucose,Whole Blood 179 mg/dL (70-110)
[2023-04-09] MEDS: INSULIN ASPART (NovoLOG) 100 UNIT/ML VIAL SQ SCH ×4 (06:24→21:24)
[2023-04-09] MEDS: SPIRONOLACTONE 25 MG TAB PO SCH (08:39)
[2023-04-09] MEDS: FLUDROCORTISONE 0.1 MG TAB PO SCH ×2 (08:39→21:23)
[2023-04-09] MEDS: METOPROLOL TARTRATE 25 MG TAB PO SCH ×2 (08:39→21:23)
[2023-04-09] MEDS: CLOPIDOGREL 75 MG TAB PO SCH (08:39)
[2023-04-09] MEDS: ASPIRIN 81 MG PO SCH (08:39)
[2023-04-09] MEDS: FUROSEMIDE 20 MG TAB PO SCH ×2 (08:39→16:51)
[2023-04-09] MEDS: ATORVASTATIN 40 MG TAB PO SCH (08:39)
[2023-04-09] MEDS: FAMOTIDINE 20 MG TAB PO SCH ×2 (08:39→21:23)
[2023-04-09] MEDS: HYDROCORTISONE 10 MG TAB PO SCH ×3 (08:39→21:23)
[2023-04-09] MEDS: lisinopriL 5 MG TAB PO SCH (08:39)
[2023-04-09] MEDS: IPRATROPIUM-ALBUTEROL 3 ML NEB INHALATION PRN ×4 (09:49→23:44)
[2023-04-09 10:46] LABS: Mean Platelet Volume 8.2; Platelet Count 243 k/uL (150-450)
[2023-04-09 10:49] LABS: HCT 30.2 % (39.0-53.0); MCH 30.2 pg (25.0-35.0); MCHC 33.2 g/dL (31.0-37.0); MCV 91.1 fL (80.0-100.0); Mean Platelet Volume 8.5; Platelet Count 248 k/uL (150-450); RBC 3.31 m/uL (4.30-5.90); RDW 13.4 % (11.5-15.5); WBC 5.1 k/uL (3.8-10.6)
[2023-04-09 11:27] LABS: Glucose,Whole Blood 193 mg/dL (70-110)
[2023-04-09 16:11] LABS: Glucose,Whole Blood 229 mg/dL (70-110)
[2023-04-09] MEDS ORDERED: DOCUSATE 100 MG CAP PO PRN (16:18)
[2023-04-09] MEDS ORDERED: SENNOSIDES 8.6 MG TAB PO PRN (16:18)
[2023-04-09] MEDS ORDERED: SENNOSIDES 8.6 MG TAB PO STA (16:18)
[2023-04-09] MEDS ORDERED: DOCUSATE 100 MG CAP PO STA (16:18)
--- NOTE | 2023-04-09 16:44 | P.PN ---
Subjective Progress Note Date: 04/09/23 SUBJECTIVE: History of type 2 diabetes asthma, Neo's disease not seen by java web application developer recently. He presented to the hospital with concerns of NSTEMI. Underwent cath yesterday with Dr. Persaud. Diffuse disease, PCI to LAD and mid LCx. Totally occluded RCA Right radial approach. Radial artery appears intact and healthy with no signs of hematoma or bleeding. Good distal pulses Hemodynamics stable, hemoglobin 10 Echo showed an EF of 35-40%, inferolateral hypokinesia PHYSICAL EXAMINATION Vital signs reviewed. Head: Normocephalic. Eyes: Sclerae nonicteric. Neck: Brisk carotid upstroke, no jugular venous distention. Lungs: Clear to auscultation. Heart: Regular rate and rhythm, S1-S2, no S3, no murmur or rub. Abdomen: Soft nontender, positive bowel sounds no organomegaly. Extremities: No edema, intact distal pulses. ASSESSMENT CAD status post PCI to LAD and LCx. 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 Start Entresto 24/26 mg 2 times daily from tomorrow Start Farxiga 10 mg daily Discontinue Aldactone due to prior history of Neo's disease Continue Lasix 20 mg twice a day today From tomorrow change it to torsemide 20 mg daily to go home with Objective - Vital Signs Vital signs: Vital Signs Temp 97.6 F 04/09/23 15:16 Pulse 83 04/09/23 15:16 Resp 18 04/09/23 15:16 BP 146/83 04/09/23 15:16 Pulse Ox 94 L 04/09/23 15:16 FiO2 Intake & Output 04/08/23 04/09/23 04/09/23 18:59 06:59 18:59 Intake Total 1214 360 368 Output Total 3373 684 0391 Balance -461 -390 -832 Weight 83.2 kg 83.4 kg Intake: IV 20 10 Invasive Line 1 20 10 Oral 1194 360 358 Output: Urine 0570 994 7238 Other: Voiding Method Urinal Toilet Toilet Urinal Urinal # Voids 2 1 - Labs CBC & Chem 7: 04/09/23 10:15 04/08/23 07:13 Labs: Abnormal Lab Results - Last 24 Hours (Table) 04/08/23 04/08/23 04/09/23 Range/Units 16:54 19:31 06:06 RBC (4.30-5.90) m/uL Hgb (13.0-17.5) gm/dL Hct (39.0-53.0) % POC Glucose (mg/dL) 163 H 204 H 179 H (70-110) mg/dL 04/09/23 04/09/23 04/09/23 Range/Units 10:15 11:26 16:09 RBC 3.31 L (4.30-5.90) m/uL Hgb 10.0 L D (13.0-17.5) gm/dL Hct 30.2 L (39.0-53.0) % POC Glucose (mg/dL) 193 H 229 H (70-110) mg/dL Microbiology - Last 24 Hours (Table) 04/06/23 10:44 Blood Culture - Preliminary Blood 04/06/23 10:30 Blood Culture - Preliminary Blood
[2023-04-09] MEDS: DAPAGLIFLOZIN PROPANEDIOL 10 MG TABLET PO SCH (17:18)
[2023-04-09 20:13] LABS: Glucose,Whole Blood 152 mg/dL (70-110)
[2023-04-09] MEDS: SYMBICORT 160-4.5 MCG INHALER INHALATION SCH (21:11)
[2023-04-09] MEDS: ALPRAZolam 0.25 MG TAB PO PRN (21:24)
[2023-04-10 05:44] LABS: Glucose,Whole Blood 141 mg/dL (70-110)
[2023-04-10] MEDS: INSULIN ASPART (NovoLOG) 100 UNIT/ML VIAL SQ SCH ×4 (05:46→21:57)
[2023-04-10] MEDS ORDERED: INSULIN DETEMIR (LEVEMIR) 100 UNIT/ML SYR SQ SCH (07:00)
[2023-04-10] MEDS: ASPIRIN 81 MG PO SCH (08:58)
[2023-04-10] MEDS: FLUDROCORTISONE 0.1 MG TAB PO SCH ×2 (08:59→22:07)
[2023-04-10] MEDS: FAMOTIDINE 20 MG TAB PO SCH ×2 (08:59→22:06)
[2023-04-10] MEDS: ATORVASTATIN 40 MG TAB PO SCH (08:59)
[2023-04-10] MEDS: FUROSEMIDE 20 MG TAB PO SCH (08:59)
[2023-04-10] MEDS: HYDROCORTISONE 10 MG TAB PO SCH ×3 (08:59→22:07)
[2023-04-10] MEDS: CLOPIDOGREL 75 MG TAB PO SCH (08:59)
[2023-04-10] MEDS: METOPROLOL TARTRATE 25 MG TAB PO SCH ×2 (08:59→22:06)
[2023-04-10] MEDS: DAPAGLIFLOZIN PROPANEDIOL 10 MG TABLET PO SCH (09:00)
[2023-04-10] MEDS ORDERED: SACUBITRIL/VALSARTAN 49 MG-51 MG TABLET PO SCH (09:00)
[2023-04-10] MEDS: IPRATROPIUM-ALBUTEROL 3 ML NEB INHALATION PRN ×2 (09:11→12:27)
[2023-04-10] MEDS: SYMBICORT 160-4.5 MCG INHALER INHALATION SCH ×2 (09:11→20:10)
[2023-04-10 11:52] LABS: Glucose,Whole Blood 165 mg/dL (70-110)
[2023-04-10] MEDS: IPRATROPIUM-ALBUTEROL 3 ML NEB INHALATION SCH ×2 (16:05→20:10)
[2023-04-10 17:01] LABS: Glucose,Whole Blood 170 mg/dL (70-110)
[2023-04-10] MEDS: bisacodyL 5 MG TABLET.DR PO PRN (18:49)
--- NOTE | 2023-04-10 19:58 | P.PN ---
Subjective Progress Note Date: 04/10/23 SUBJECTIVE: History of type 2 diabetes asthma, Neo's disease not seen by resistor winder recently. He presented to the hospital with concerns of NSTEMI. Underwent cath yesterday with Dr. Persaud. Diffuse disease, PCI to LAD and mid LCx. Totally occluded RCA Right radial approach. Radial artery appears intact and healthy with no signs of hematoma or bleeding. Good distal pulses Hemodynamics stable, hemoglobin 10 Echo showed an EF of 35-40%, inferolateral hypokinesia PHYSICAL EXAMINATION Vital signs reviewed. Head: Normocephalic. Eyes: Sclerae nonicteric. Neck: Brisk carotid upstroke, no jugular venous distention. Lungs: Clear to auscultation. Heart: Regular rate and rhythm, S1-S2, no S3, no murmur or rub. Abdomen: Soft nontender, positive bowel sounds no organomegaly. Extremities: No edema, intact distal pulses. ASSESSMENT CAD status post PCI to LAD and LCx. 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 Ischemic cardiac myopathy HFrEF 35-40%, mild exacerbation Essential hypertension Dyslipidemia Prior history of [place]'s disease Diabetes PLAN Continue dual antiplatelet therapy & high-intensity statin Continue Entresto 24/26 mg 2 times daily from tomorrow Continue Farxiga 10 mg daily Discontinue Aldactone due to prior history of [place]'s disease Start torsemide 20 mg daily from tomorrow Obtain orthostatic vital signs before going home If orthostatic vital signs are negative, okay to be discharged from Cardec standpoint Objective - Vital Signs Vital signs: Vital Signs Temp 97.3 F L 04/10/23 18:27 Pulse 98 04/10/23 18:27 Resp 16 04/10/23 18:27 BP 143/74 04/10/23 18:27 Pulse Ox 94 L 04/10/23 18:27 FiO2 Intake & Output 04/10/23 04/10/23 04/11/23 06:59 18:59 06:59 Intake Total 550 Output Total 1475 1500 Balance -1475 -950 Weight 84.4 kg Intake: IV 10 Invasive Line 1 10 Oral 540 Output: Urine 1475 1500 Other: Voiding Method Toilet Toilet Urinal Urinal # Voids 1 1 - Labs CBC & Chem 7: 04/09/23 10:15 04/08/23 07:13 Labs: Abnormal Lab Results - Last 24 Hours (Table) 04/09/23 04/10/23 04/10/23 Range/Units 20:11 05:43 11:51 POC Glucose (mg/dL) 152 H 141 H 165 H (70-110) mg/dL 04/10/23 Range/Units 16:57 POC Glucose (mg/dL) 170 H (70-110) mg/dL Microbiology - Last 24 Hours (Table) 04/06/23 10:44 Blood Culture - Preliminary Blood 04/06/23 10:30 Blood Culture - Preliminary Blood
[2023-04-10 20:51] LABS: Glucose,Whole Blood 144 mg/dL (70-110)
[2023-04-10] MEDS ORDERED: SACUBITRIL/VALSARTAN 24 MG-26 MG TABLET PO SCH (21:00)
[2023-04-10] MEDS: ATORVASTATIN 80 MG TAB PO SCH (22:06)
[2023-04-10] MEDS: SACUBITRIL/VALSARTAN 24 MG-26 MG TABLET PO SCH (22:07)
[2023-04-10] MEDS: INSULIN DETEMIR (LEVEMIR) 100 UNIT/ML SYR SQ SCH (22:08)
[2023-04-10] MEDS: ALPRAZolam 0.25 MG TAB PO PRN (23:30)
--- NOTE | 2023-04-11 01:41 | PN ---
PROGRESS NOTE DATE OF SERVICE: 04/10/2023 CHIEF COMPLAINT: Acute NSTEMI. HISTORY OF PRESENT ILLNESS: This gentleman is feeling a little bit better. His breathing is improved a little bit. He does not have as much tightness in his chest. Blood sugars are still slightly elevated and his Lantus will be increased. PHYSICAL EXAMINATION: VITAL SIGNS: Good. GENERAL: He is alert. He is a little less anxious than yesterday. CHEST: Clear. CARDIAC: Normal. IMPRESSION: 1. Ett-SP-lkwtyol elevation myocardial infarction. 2. [place]'s disease. 3. Elevated blood sugars. 4. Anxiety. PLAN: Increase activity and insulin. Hopefully, he can hopefully come in and go home tomorrow or soon. MMODL / IJN: [id number] /
--- NOTE | 2023-04-11 01:50 | PN ---
PROGRESS NOTE DATE OF SERVICE: 04/09/2023 CHIEF COMPLAINT: NSTEMI with anxiety. HISTORY OF PRESENT ILLNESS: This gentleman is quite anxious. He is still complaining of some discomfort in the anterior chest. He is still slightly wheezy with his aspirin. He is on updrafts. His blood sugar is slightly elevated and his blood pressures were adequate and not low. PHYSICAL EXAMINATION: CHEST: Less wheezy. There are fewer rales and less wheezing on inspiration and expiration. CARDIAC: Normal. ABDOMEN: Soft, nontender. IMPRESSION: 1. Acute wdk-VR-secgueo elevation myocardial infarction. 2. [place]'s disease. 3. Reactive airway disease. 4. Anxiety. PLAN: Continue with current medications and advised him to use Xanax that is ordered. MMODL / IJN: [id number] /
[2023-04-11 06:24] LABS: Glucose,Whole Blood 110 mg/dL (70-110)
[2023-04-11] MEDS: INSULIN ASPART (NovoLOG) 100 UNIT/ML VIAL SQ SCH ×4 (06:37→20:38)
[2023-04-11] MEDS: IPRATROPIUM-ALBUTEROL 3 ML NEB INHALATION SCH ×4 (08:14→21:48)
[2023-04-11] MEDS: SYMBICORT 160-4.5 MCG INHALER INHALATION SCH ×2 (08:14→21:48)
[2023-04-11] MEDS: DAPAGLIFLOZIN PROPANEDIOL 10 MG TABLET PO SCH (08:23)
[2023-04-11] MEDS: FLUDROCORTISONE 0.1 MG TAB PO SCH ×2 (08:23→20:40)
[2023-04-11] MEDS: HYDROCORTISONE 10 MG TAB PO SCH ×3 (08:23→20:41)
[2023-04-11] MEDS: METOPROLOL TARTRATE 25 MG TAB PO SCH ×2 (08:24→20:41)
[2023-04-11] MEDS: FAMOTIDINE 20 MG TAB PO SCH ×2 (08:24→20:40)
[2023-04-11] MEDS: SACUBITRIL/VALSARTAN 24 MG-26 MG TABLET PO SCH ×2 (08:24→20:42)
[2023-04-11] MEDS: TORSEMIDE 20 MG TAB PO SCH (08:24)
[2023-04-11] MEDS: CLOPIDOGREL 75 MG TAB PO SCH (08:24)
[2023-04-11] MEDS: ASPIRIN 81 MG PO SCH (08:24)
[2023-04-11 08:39] LABS: African American GFR (CKD) >90 (>60 ml/min/1.73 sqM); Anion Gap 5 mmol/L; Blood Urea Nitrogen 10 mg/dL (9-20); Calcium 8.7 mg/dL (8.4-10.2); Carbon Dioxide 29 mmol/L (22-30); Chloride 104 mmol/L (98-107); Glucose 101 mg/dL (74-99); Magnesium 2.2 mg/dL (1.6-2.3); Non-African American GFR(CKD) >90 (>60 ml/min/1.73 sqM); Potassium 3.8 mmol/L (3.5-5.1); Sodium 138 mmol/L (137-145)
[2023-04-11] MEDS: ALPRAZolam 0.25 MG TAB PO PRN ×2 (10:46→23:58)
[2023-04-11] MEDS: bisacodyL 5 MG TABLET.DR PO PRN (10:46)
[2023-04-11 11:27] LABS: Glucose,Whole Blood 157 mg/dL (70-110)
--- NOTE | 2023-04-11 14:10 | P.PN ---
Subjective Progress Note Date: 04/11/23 SUBJECTIVE: History of type 2 diabetes asthma, Neo's disease not seen by product marketing intern recently. He presented to the hospital with concerns of NSTEMI. Underwent cath yesterday with Dr. Persaud. Diffuse disease, PCI to LAD and mid LCx. Totally occluded RCA Right radial approach. Radial artery appears intact and healthy with no signs of hematoma or bleeding. Good distal pulses Hemodynamics stable, hemoglobin 10 Echo showed an EF of 35-40%, inferolateral hypokinesia 04/11 Patient is seen today in follow-up. He states his chest still feeling heavy which she thinks is related to asthma. He states is hard to take a deep breath he feels better after breathing treatment. Heart rate has been in the 70s to 90s, blood pressure 146/85. Orthostatic vital signs are negative. Pulse ox 94% on room air. Repeat blood work reveals sodium 138, potassium 3.8, creatinine 0.73. PHYSICAL EXAMINATION Vital signs reviewed. Head: Normocephalic. Eyes: Sclerae nonicteric. Neck: Brisk carotid upstroke, no jugular venous distention. Lungs: Clear to auscultation. Heart: Regular rate and rhythm, S1-S2, no S3, no murmur or rub. Abdomen: Soft nontender, positive bowel sounds no organomegaly. Extremities: No edema, intact distal pulses. ASSESSMENT CAD status post PCI to LAD and LCx. EXECUTIVE SALES ASSISTANT of RCA Ischemic cardiac myopathy HFrEF 35-40%, mild exacerbation Essential hypertension Dyslipidemia Prior history of [place]'s disease Diabetes PLAN Continue dual antiplatelet therapy & high-intensity statin Continue Entresto 24/26 mg 2 times daily from tomorrow Continue Farxiga 10 mg daily Discontinue Aldactone due to prior history of [place]'s disease Start torsemide 20 mg daily from tomorrow Obtain orthostatic vital signs before going home Patient is cleared for discharge home and may follow-up with Dr. Persaud in 1-2 weeks. Nurse practitioner note has been reviewed, I agree with the documented findings and plan of care. Patient was seen and examined. Objective - Vital Signs Vital signs: Vital Signs Temp 97.8 F 04/11/23 10:49 Pulse 99 04/11/23 10:49 Resp 14 04/11/23 10:49 BP 146/85 04/11/23 10:49 Pulse Ox 94 L 04/11/23 10:49 FiO2 Intake & Output 04/10/23 04/11/23 04/11/23 18:59 06:59 18:59 Intake Total 550 800 Output Total 1500 1475 1425 Balance -838 -0091 -670 Weight 83.5 kg Intake: IV 10 Invasive Line 1 10 Oral 540 800 Output: Urine 1500 1475 1425 Other: Voiding Method Toilet Toilet Toilet Urinal Urinal Urinal # Voids 1 1 - Labs CBC & Chem 7: 04/09/23 10:15 04/11/23 07:30 Labs: Abnormal Lab Results - Last 24 Hours (Table) 04/10/23 04/10/23 04/10/23 Range/Units 11:51 16:57 20:50 Glucose (74-99) mg/dL POC Glucose (mg/dL) 165 H 170 H 144 H (70-110) mg/dL 04/11/23 04/11/23 Range/Units 07:30 11:26 Glucose 101 H (74-99) mg/dL POC Glucose (mg/dL) 157 H (70-110) mg/dL
[2023-04-11 16:57] LABS: Glucose,Whole Blood 125 mg/dL (70-110)
[2023-04-11 20:15] LABS: Glucose,Whole Blood 156 mg/dL (70-110)
[2023-04-11] MEDS: INSULIN DETEMIR (LEVEMIR) 100 UNIT/ML SYR SQ SCH (20:38)
[2023-04-11] MEDS: ATORVASTATIN 80 MG TAB PO SCH (20:41)
[2023-04-12 04:00] VITALS: RESP 16
[2023-04-12 06:12] LABS: Glucose,Whole Blood 95 mg/dL (70-110)
[2023-04-12] MEDS: INSULIN ASPART (NovoLOG) 100 UNIT/ML VIAL SQ SCH ×2 (06:18→11:52)
[2023-04-12] MEDS: SYMBICORT 160-4.5 MCG INHALER INHALATION SCH (07:41)
[2023-04-12] MEDS: IPRATROPIUM-ALBUTEROL 3 ML NEB INHALATION SCH ×3 (07:41→15:54)
[2023-04-12] MEDS: CLOPIDOGREL 75 MG TAB PO SCH (09:06)
[2023-04-12] MEDS: FLUDROCORTISONE 0.1 MG TAB PO SCH (09:06)
[2023-04-12] MEDS: ASPIRIN 81 MG PO SCH (09:06)
[2023-04-12] MEDS: FAMOTIDINE 20 MG TAB PO SCH (09:06)
[2023-04-12] MEDS: TORSEMIDE 20 MG TAB PO SCH (09:07)
[2023-04-12] MEDS: DAPAGLIFLOZIN PROPANEDIOL 10 MG TABLET PO SCH (09:07)
[2023-04-12] MEDS: METOPROLOL TARTRATE 25 MG TAB PO SCH (09:07)
[2023-04-12] MEDS: SACUBITRIL/VALSARTAN 24 MG-26 MG TABLET PO SCH (09:07)
[2023-04-12] MEDS: HYDROCORTISONE 10 MG TAB PO SCH (09:08)
[2023-04-12 10:16] VITALS: TEMP 97.4
[2023-04-12 11:37] LABS: Glucose,Whole Blood 128 mg/dL (70-110)
[2023-04-12 11:57] VITALS: BP 151/83
--- NOTE | 2023-04-12 13:46 | P.PN ---
Subjective Progress Note Date: 04/12/23 SUBJECTIVE: History of type 2 diabetes asthma, Neo's disease not seen by field adjuster recently. He presented to the hospital with concerns of NSTEMI. Underwent cath yesterday with Dr. Persaud. Diffuse disease, PCI to LAD and mid LCx. Totally occluded RCA Right radial approach. Radial artery appears intact and healthy with no signs of hematoma or bleeding. Good distal pulses Hemodynamics stable, hemoglobin 10 Echo showed an EF of 35-40%, inferolateral hypokinesia 04/11 Patient is seen today in follow-up. He states his chest still feeling heavy which she thinks is related to asthma. He states is hard to take a deep breath he feels better after breathing treatment. Heart rate has been in the 70s to 90s, blood pressure 146/85. Orthostatic vital signs are negative. Pulse ox 94% on room air. Repeat blood work reveals sodium 138, potassium 3.8, creatinine 0.73. 04/12 The patient states that he had an episode where he was standing up and after about 15-20 minutes he was feeling lightheaded. His blood pressure was checked and he was concerned that his blood pressure was low. He is very concerned about starting new medications including Entresto. Systolic blood pressure running between 100 2451, heart rate is in the 90s. Pulse ox is 100% on room air. PHYSICAL EXAMINATION Vital signs reviewed. Head: Normocephalic. Eyes: Sclerae nonicteric. Neck: Brisk carotid upstroke, no jugular venous distention. Lungs: Clear to auscultation. Heart: Regular rate and rhythm, S1-S2, no S3, no murmur or rub. Abdomen: Soft nontender, positive bowel sounds no organomegaly. Extremities: No edema, intact distal pulses. ASSESSMENT CAD status post PCI to LAD and LCx. 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 Persaud in 1-2 weeks. Nurse practitioner note has been reviewed, I agree with the documented findings and plan of care. Patient was seen and examined. Objective - Vital Signs Vital signs: Vital Signs Temp 97.4 F L 04/12/23 07:50 Pulse 90 04/12/23 07:50 Resp 16 04/12/23 07:50 BP 124/68 04/12/23 07:50 Pulse Ox 95 04/12/23 07:50 FiO2 Intake & Output 04/11/23 04/12/23 04/12/23 18:59 06:59 18:59 Intake Total 1460 236 Output Total 2924 1974 1724 Balance -1464 Weight 79.5 kg Intake: Oral 1460 236 Output: Urine 2924 1974 1724 Other: Voiding Method Toilet Toilet Urinal Urinal # Voids 1 - Labs CBC & Chem 7: 04/09/23 10:15 04/11/23 07:30 Labs: Abnormal Lab Results - Last 24 Hours (Table) 04/10/23 04/11/23 04/11/23 Range/Units 18:55 16:55 20:13 POC Glucose (mg/dL) 125 H 156 H (70-110) mg/dL Lipoprotein (a) 109 H (0-30) mg/dL Microbiology - Last 24 Hours (Table) 04/06/23 10:44 Blood Culture - Final Blood 04/06/23 10:30 Blood Culture - Final Blood
[2023-04-12 16:01] VITALS: PULSE 88
--- NOTE | 2023-04-14 06:29 | PN ---
PROGRESS NOTE DATE OF SERVICE: 04/11/2023 CHIEF COMPLAINT: Acute NSTEMI and difficulty breathing. HISTORY OF PRESENT ILLNESS: This gentleman is doing fairly well, but is extremely anxious. He is still having slight anterior chest congestion, but he is doing slightly better with an addition of Symbicort. PHYSICAL EXAMINATION: CHEST: Less congested and less wheezy. CARDIAC: Normal. ABDOMEN: Soft, nontender. IMPRESSION: 1. Acute pss-PO-vfxqmdi elevation myocardial infarction. 2. Asthmatic bronchitis. PLAN: Increase activity and hopefully home soon. MMODL / IJN: [id number] /
--- NOTE | 2023-04-14 07:11 | DS ---
DISCHARGE SUMMARY CHIEF COMPLAINT: Chest pain and shortness of breath. HISTORY OF PRESENT ILLNESS AND PHYSICAL EXAM: Details of this man's history and physical can be found in the initial workup. LABORATORY STUDIES: While he is in a hospital he had laboratory studies, details of which can be found in the laboratory section of his chart. COURSE IN HOSPITAL: After admission, he was placed on bedrest and seen by Cardiology and taken for cardiac cath where he was identified as having critical coronary artery stenoses of the LAD, circumflex and RCA. These were stented. Postoperatively, he had a little trouble with shortness of breath, probably related to reactive airway disease. He was started on long-acting beta agonist with steroids and was doing better. It was felt that he could go home on the . While in the hospital, a lipoprotein level A was obtained and was elevated, which is likely related to this issues since he has no other risk factors or family history. FINAL DIAGNOSES: 1. Acute Yxz-AF-gpgniaspi myocardial infarction. 2. Asthmatic bronchitis. 3. [place] disease. 4. Type 2 diabetes mellitus. 5. Elevated lipoprotein level A. 6. Depression. OPERATIONS: Cardiac cath with stenting. CONSULTATIONS: Cardiology. He is improved. MMODL / IJN: [id number] /
== END 2023-04-12 16:54 | disposition home or self-care (01) | DRG 174 ==
LOC: EC 09:56 → 3SCARD 13:23
PROVIDERS: ADMIT Family Medicine; ATTEND Family Medicine
PROC: B2111ZZ Fluoroscopy of Multiple Coronary Arteries using Low Osmolar Contrast (ICD-10-PCS; principal; 2023-04-07 09:25)
PROC: 4A033BC Measurement of Arterial Pressure, Coronary, Percutaneous Approach (ICD-10-PCS; principal; 2023-04-07 09:25)
PROC: 4A023N7 Measurement of Cardiac Sampling and Pressure, Left Heart, Percutaneous Approach (ICD-10-PCS; principal; 2023-04-07 09:25)
PROC: 027236Z Dilation of Coronary Artery, Three Arteries with Three Drug-eluting Intraluminal Devices, Percutaneous Approach (ICD-10-PCS; principal; 2023-04-07 09:25)
DX: I21.4 Non-ST elevation (NSTEMI) myocardial infarction (principal); I50.21 Acute systolic (congestive) heart failure; E27.1 Primary adrenocortical insufficiency; I11.0 Hypertensive heart disease with heart failure; E11.9 Type 2 diabetes mellitus without complications; Z11.52 Encounter for screening for COVID-19; Z28.310 Unvaccinated for COVID-19; I25.10 Atherosclerotic heart disease of native coronary artery without angina pectoris; I25.5 Ischemic cardiomyopathy; I34.0 Nonrheumatic mitral (valve) insufficiency; J45.909 Unspecified asthma, uncomplicated; F41.9 Anxiety disorder, unspecified; E78.5 Hyperlipidemia, unspecified; Z79.84 Long term (current) use of oral hypoglycemic drugs; Z79.85 Long-term (current) use of injectable non-insulin antidiabetic drugs; Z79.52 Long term (current) use of systemic steroids; Z79.899 Other long term (current) drug therapy; Z86.16 Personal history of COVID-19
CPT/HCPCS: 36415; 71046; 71275; 80048; 80053; 80061; 83036; 83605; 83695; 83735; 83880; 84484; 85025; 85027; 85049; 85379; 85610; 85730; 87040; 87636; 92978; 92979; 93005; 93306; 93458; 93799; 94640; 94760; 96365; 96366; 96367; 96368; 96375; 99291

== ENCOUNTER → 2023-07-18 | Outpatient (CLI) | payer OTHER ==
--- NOTE | 2023-07-18 08:08 | US ---
EXAMINATION TYPE: US liver DATE OF EXAM: 07/18/2023 COMPARISON: NONE CLINICAL INDICATION: Male, 58 years old with history of R18.8 ASCITES; TECHNIQUE: Multiple sonographic images of the right upper quadrant are obtained. FINDINGS: EXAM MEASUREMENTS: Liver Length: 16.3 cm Gallbladder Wall: 0.15 cm CBD: 0.35 cm Right Kidney: 12.1 x 5.4 x 5.4 cm WINDOWS APPLICATION PACKAGER NOTES: Pancreas: wnl Liver: wnl Gallbladder: wnl Evidence for sonographic Abernathy's sign: No CBD: wnl Right Kidney: wnl IMPRESSION: No distinct abnormality seen.
== END | disposition home or self-care (01) ==
LOC: RADUSWWP 07:44
PROVIDERS: ATTEND Family Medicine
DX: R18.8 Other ascites (principal)
CPT/HCPCS: 76705

== ENCOUNTER → 2023-08-18 | Outpatient (CLI) | payer MEDICARE, OTHER ==
[2023-08-18 10:40] LABS: African American GFR (CKD) >90 (>60 ml/min/1.73 sqM); Blood Urea Nitrogen 19 mg/dL (9-20); Non-African American GFR(CKD) >90 (>60 ml/min/1.73 sqM)
--- NOTE | 2023-08-18 12:34 | CT ---
EXAMINATION TYPE: CT abdomen pelvis w con DATE OF EXAM: 08/18/2023 COMPARISON: 12/16/2021 INDICATION: Abnormal weight gain, fluid retention abdomen down through feet, diabetes. DLP: 1711 mGycm, Automated exposure control for dose reduction was used. CONTRAST: 100 mL of Isovue 300. Study performed with Oral Contrast TECHNIQUE: Axial images were obtained from above the diaphragm to the pubic rami in the axial plane a t 5 mm thick sections. Reconstructed images are reviewed on the computer in the coronal plane. FINDINGS: Limited CT sections are obtained the lung bases. The lung bases are clear. CT ABDOMEN: Liver: Normal Spleen: Normal Pancreas: Normal Adrenal glands: The adrenal glands are normal. Gallbladder: Normal Kidneys: No masses are evident. No hydronephrosis is present. No cysts are present. Delayed images were obtained through the kidneys, which remain unremarkable. Aorta: Normal Inferior vena cava: Normal. CT PELVIS: Loops of bowel within the abdomen and pelvis are normal. There are loops of bowel which are incom pletely distended or lack oral contrast limiting their evaluation. Appendix: Not identified. No dilated tubular structure or inflammatory changes are evident. Urinary bladder: Normal. Genitourinary structures: Prostate appears within normal limits Osseous structures: No suspicious lytic or sclerotic lesions. There appears to be diffuse edema throughout the visualized subcutaneous tissues. IMPRESSION: 1. Mild diffuse edema present 2. No acute intra-abdominal changes identified.
== END | disposition home or self-care (01) ==
LOC: RADCTMAIN 09:41
PROVIDERS: ATTEND Family Medicine
DX: R60.9 Edema, unspecified (principal); E11.65 Type 2 diabetes mellitus with hyperglycemia; R63.5 Abnormal weight gain
CPT/HCPCS: 82565; 84520; 74177; 36415; Q9967

== ENCOUNTER → 2023-12-12 | Outpatient (CLI) | payer MEDICARE ==
--- NOTE | 2023-12-12 16:01 | CA ---
Transthoracic Echo Report Name: Pino Rae Age: 58 Gender: M : 1965 Exam Date: 12/12/2023 14:04 Exam Location: [place] Echo Ht (in): 68 Wt (lb): 153 Ordering Physician: Markell Bond MD Attending/Referring Phys: Markell Bond MD Forest Economist Althea Wong, [facility] Procedure CPT: Indications: I95.9 HYPOTENSION, UNSPECIFIED Cardiac Hx: Technical Quality: Good Contrast 1: Total Dose (mL): Contrast 2: Total Dose (mL): MEASUREMENTS (Male / Female) Normal Values 2D ECHO LV Diastolic Diameter PLAX 4.4 cm 4.2 - 5.9 / 3.9 - 5.3 cm LV Systolic Diameter PLAX 3.5 cm IVS Diastolic Thickness 1.4 cm 0.6 - 1.0 / 0.6 - 0.9 cm LVPW Diastolic Thickness 1.4 cm 0.6 - 1.0 / 0.6 - 0.9 cm LV Relative Wall Thickness 0.6 RV Internal Dim ED PLAX 3.4 cm LA Systolic Diameter LX 3.7 cm 3.0 - 4.0 / 2.7 - 3.8 cm LV Diastolic Volume MOD BP 130.8 cm??? 67 - 155 / 56 - 104 cm??? LV Systolic Volume MOD BP 69.2 cm??? - 58 / 19 - 49 cm??? LV Ejection Fraction MOD BP 47.1 % >= 55 % LV Cardiac Index MOD BP 3029.3 cm???/min???m??? LV Diastolic Volume MOD 4C 143.4 cm??? LV Systolic Volume MOD 4C 77.1 cm??? LV Ejection Fraction MOD 4C 46.2 % LV Cardiac Index MOD 4C 3260.5 cm???/min???m??? LV Diastolic Length 4C 8.9 cm LV Systolic Length 4C 7.5 cm LV Diastolic Volume MOD 2C 117.6 cm??? LV Systolic Volume MOD 2C 69.5 cm??? LV Ejection Fraction MOD 2C 40.9 % LV Cardiac Index MOD 2C 2370.1 cm???/min???m??? LV Diastolic Length 2C 8.3 cm LV Systolic Length 2C 7.5 cm LA Volume 69.3 cm??? 18 - 58 / 22 - 52 cm??? LA Volume Index 37.9 cm???/m??? 16 - 28 cm???/m??? M-MODE Aortic Root Diameter MM 3.4 cm AV Cusp Separation MM 2.0 cm DOPPLER AV Peak Velocity 141.0 cm/s AV Peak Gradient 8.0 mmHg MV Area PHT 3.1 cm??? Mitral E Point Velocity 82.0 cm/s Mitral A Point Velocity 88.5 cm/s Mitral E to A Ratio 0.9 MV Deceleration Time 243.2 ms FINDINGS Left Ventricle Left ventricular ejection fraction is estimated at 45-50 %. Mildly decreased left ventricular ejection fraction. Left ventricular cavity size normal. Moderate concentric left ventricular hypertrophy. Right Ventricle Normal RV size. Unable to estimate the right ventricular systolic pressure. Right Atrium Normal right atrial size. No right atrial thrombus or mass seen. Left Atrium Mildly increased left atrial volume. No left atrial thrombus or mass present. Mitral Valve Mitral valve thickened. Mild mitral regurgitation. No evidence for mitral valve prolapse. No mitral stenosis. Aortic Valve Trileaflet aortic valve. Thickened aortic valve without stenosis. Tricuspid Valve Structurally normal tricuspid valve. No tricuspid stenosis, regurgitation or prolapse. Pulmonic Valve Structurally normal pulmonic valve. No pulmonic regurgitation. Pericardium No pericardial effusion. No pleural effusion. Aorta Normal size aortic root and proximal ascending aorta. CONCLUSIONS Left ventricular ejection fraction is estimated at 45-50 %. Mildly reduced LV systolic function No obvious regional wall motion abnormality Moderate concentric LVH No significant valvular dysfunction Mild left atrial dilatation Previewed by: Dr Kevin Levin (Electronically Signed) Final Date: 12 December 2023 16:00
== END | disposition home or self-care (01) ==
LOC: RADECHMAIN 13:35
PROVIDERS: ATTEND Family Medicine
DX: I51.7 Cardiomegaly (principal); I95.9 Hypotension, unspecified
CPT/HCPCS: 93306

== ENCOUNTER 2024-01-04 19:18 | Emergency (ER) | payer MEDICARE ==
[2024-01-04 19:31] VITALS: TEMP 97.9
--- NOTE | 2024-01-04 19:46 | ED ---
Nausea/Vomiting/Diarrhea HPI - General Source: patient, RN notes reviewed Mode of arrival: ambulatory Limitations: no limitations <Sofiya Newman - Last Filed: 01/04/24 19:47> - General Source: patient, RN notes reviewed, old records reviewed Mode of arrival: ambulatory Limitations: no limitations - History of Present Illness MD complaint: nausea, vomiting, abdominal pain -: days(s) Location: periumbilical Radiation: none Severity: moderate Severity scale (1-10): 5 Quality: stabbing Consistency: intermittent Improves with: none Worsens with: none Context: other (0) Associated Symptoms: loss of appetite, nausea/vomiting <Ramirez Pitts - Last Filed: 01/10/24 03:08> - General Chief complaint: Nausea/Vomiting/Diarrhea Stated complaint: vomiting Time Seen by Provider: 01/04/24 19:43 - History of Present Illness Initial comments: Quick [id number] male presenting with vomiting x 2 days. States he has been vomiting after every meal. He has had similar symptoms in the past however states this is worse than usual. Denies chest pain, shortness of breath, fevers, chills. (Sofiya Newman) This is a 59-year-old male with nausea vomiting for a few days no symptoms are worse with prior symptoms of similar pain reflux type pain with nausea vomiting (Ramirez Pitts) - Related Data Home Medications Medication Instructions Recorded Confirmed Dulaglutide [Trulicity] 3 mg SQ MO 12/15/22 01/05/24 Hydrocortisone [Cortef] 10 mg PO BID 12/15/22 01/05/24 Albuterol Sulfate [Ventolin HFA] 2 puff INHALATION RT-Q4H PRN 04/06/23 01/05/24 Cholecalciferol (Vitamin D3) 1,250 mcg PO QMONTHLY 04/06/23 01/05/24 [Vitamin D3 (1250 Mcg = 50,000 Iu)] Fludrocortisone [Florinef] 0.1 mg PO BID 04/06/23 01/05/24 Potassium Chloride ER [K-Dur 20] 20 meq PO BID 04/06/23 01/05/24 Triamcinolone Acetonide [Nasacort] 1 spr EA NOSTRIL HS 04/06/23 01/05/24 Bumetanide [BUMEX] 0.5 mg PO DAILY 01/05/24 01/05/24 Insulin Glargine [Lantus Vial] 10 unit SQ HS 01/05/24 01/05/24 Ondansetron Odt [Zofran Odt] 4 mg PO Q6H 01/05/24 01/05/24 metFORMIN HCL [Glucophage] 1,000 mg PO BID 01/05/24 01/05/24 Previous Rx's Medication Instructions Recorded Famotidine [Pepcid] 20 mg PO BID #30 tab 12/23/21 Cyclobenzaprine [Flexeril] 5 mg PO TID PRN #30 tab 12/19/22 Aspirin 81 mg PO DAILY #90 tab 04/08/23 Clopidogrel [Plavix] 75 mg PO DAILY #90 tab 04/08/23 Metoprolol Tartrate [Lopressor] 25 mg PO BID #180 tab 04/08/23 Nitroglycerin Sl Tabs [Nitrostat] 0.4 mg SUBLINGUAL Q5M PRN #100 tab 04/08/23 Atorvastatin [Lipitor] 80 mg PO HS #90 tab 04/11/23 Dapagliflozin Propanediol [Farxiga] 10 mg PO DAILY #30 tab 04/12/23 Allergies Allergy/AdvReac Type Severity Reaction Status Date / Time tree nut Allergy Anaphylaxis Verified 01/05/24 17:28 Review of Systems ROS Other: All systems not noted in ROS Statement are negative. <Sofiya Newman - Last Filed: 01/04/24 19:47> ROS Other: All systems not noted in ROS Statement are negative. <Ramirez Pitts - Last Filed: 01/10/24 03:08> ROS Statement: Those systems with pertinent positive or pertinent negative responses have been documented in the HPI. Past Medical History Past Medical History: Asthma, Diabetes Mellitus Additional Past Medical History / Comment(s): DM type 2, COVID 08/25/2020-09/25/20, addisons disease History of Any Multi-Drug Resistant Organisms: None Reported Past Surgical History: Appendectomy Additional Past Surgical History / Comment(s): appe removed 2007 Past Anesthesia/Blood Transfusion Reactions: No Reported Reaction Past Psychological History: No Psychological Hx Reported Smoking Status: Never smoker Past Alcohol Use History: None Reported Past Drug Use History: None Reported <Sofiya Newman - Last Filed: 01/04/24 19:47> General Exam Limitations: no limitations <Sofiya Newman - Last Filed: 01/04/24 19:47> General appearance: alert, in no apparent distress Head exam: Present: atraumatic, normocephalic, normal inspection Eye exam: Present: normal appearance, PERRL, EOMI. Absent: scleral icterus, conjunctival injection, periorbital swelling ENT exam: Present: normal exam, mucous membranes moist Neck exam: Present: normal inspection. Absent: tenderness, meningismus, lymphadenopathy Respiratory exam: Present: normal lung sounds bilaterally. Absent: respiratory distress, wheezes, rales, rhonchi, stridor Cardiovascular Exam: Present: regular rate, normal rhythm, normal heart sounds. Absent: systolic murmur, diastolic murmur, rubs, gallop, clicks GI/Abdominal exam: Present: soft, normal bowel sounds. Absent: distended, tenderness, guarding, rebound, rigid Extremities exam: Present: normal inspection, full ROM, normal capillary refill. Absent: tenderness, pedal edema, joint swelling, calf tenderness Back exam: Present: normal inspection Neurological exam: Present: alert, oriented X3, CN II-XII intact Psychiatric exam: Present: normal affect, normal mood Skin exam: Present: warm, dry, intact, normal color. Absent: rash <Ramirez Pitts - Last Filed: 01/10/24 03:08> - General Exam Comments Initial Comments: Visual Physical Exam Vital signs reviewed General: Well-appearing, nontoxic, no acute distress. Head: Normocephalic, atraumatic Eyes: PERRLA, EOMI ENT: Airway patent Chest: Nonlabored breathing Skin: No visual rash, normal skin tone Neuro: Alert and oriented 3 Musculoskeletal: No gross abnormalities (Isabel Newmanna) Course <Ramirez Pitts - Last Filed: 01/10/24 03:08> Vital Signs 01/04/24 01/04/24 01/04/24 19:28 19:56 22:08 Temperature 97.9 F Pulse Rate 96 90 98 Respiratory 18 17 18 Rate Blood Pressure 94/62 105/74 165/92 O2 Sat by Pulse 99 99 98 Oximetry - Reevaluation(s) Reevaluation #1: Medical records reviewed (Ramirez Pitts) Reevaluation #2: Patient symptoms improved (Ramirez Pitts) Reevaluation #3: Patient informed of results questions answered (Ramirez Pitts) Reevaluation #4: Was pt. sent in by a medical professional or institution ([facility], [facility]OL [facility]ER, urgent care, hospital, or group home...) When possible be specific @ -no Did you speak to anyone other than the patient for history (EMS, parent, family, police, friend...)? What history was obtained from this source @ -no Did you review nursing and triage notes (agree or disagree)? Why? @ -agree Are old charts reviewed (outside hosp., previous admission, EMS record, old EKG, old radiological studies, urgent care reports/EKG's, group home records)? Report findings @ -yes Differential Diagnosis (chest pain, altered mental status, abdominal pain women, abdominal pain men, vaginal bleeding, weakness, fever, dyspnea, syncope, headache, dizziness, GI bleed, back pain, seizure, CVA, palpatations, mental health, musculoskeletal)? @ -prior EKG interpreted by me (3pts min.). @ -no X-rays interpreted by me (1pt min.). @ -no CT interpreted by me (1pt min.). @ -no U/S interpreted by me (1pt. min.). @ -no What testing was considered but not performed or refused? (CT, X-rays, U/S, labs)? Why? @ -none What meds were considered but not given or refused? Why? @ -none Did you discuss the management of the patient with other professionals (professionals i.e. [facility], [facility] W[facility], lab, RT, psych nurse, delinquency prevention social worker, land acquisition manager, teacher, chief development officer, bottle caser)? Give summary @ -no Was smoking cessation discussed for >3mins.? @ -no Was critical care preformed (if so, how long)? @ -no Were there social determinants of health that impacted care today? How? (Ho melessness, low income, unemployed, alcoholism, drug addiction, transportation, low edu. Level, literacy, decrease access to med. care, mcc, rehab)? @ -none Was there de-escalation of care discussed even if they declined (Discuss DNR or withdrawal of care, Hospice)? DNR status @ -no What co-morbidities impacted this encounter? (DM, HTN, Smoking, COPD, CAD, Cancer, CVA, ARF, Chemo, Hep., AIDS, mental health diagnosis, sleep apnea, morbid obesity)? @ -none Was patient admitted / discharged? Hospital course, mention meds given and route, prescriptions, significant lab abnormalities, going to OR and other pertinent info. @ - 59 male with nausea vomiting no acute cause found here in the ER patient feels well can be discharged home Discharge Undiagnosed new problem with uncertain prognosis? @ -no Drug Therapy requiring intensive monitoring for toxicity (Heparin, Nitro, Insulin, Cardizem)? @ -no Were any procedures done? @ -no Diagnosis/symptom? @ -Vomiting Acute, or Chronic, or Acute on Chronic? @ -Acute Uncomplicated (without systemic symptoms) or Complicated (systemic symptoms)? @ -Complicated Side effects of treatment? @ -no Exacerbation, Progression, or Severe Exacerbation? @ -exacerbation Poses a threat to life or bodily function? How? (Chest pain, [place], [place], pneumonia, PE, COPD, DKA, ARF, appy, cholecystitis, CVA, Diverticulitis, Homicidal, Suicidal, threat to staff... and all critical care pts) @ -no (Ramirez Pitts) Reevaluation #5: Differential Abdominal Pain Men: Appendicitis, cholecystitis, diverticulosis, ischemic bowel, pancreatitis, hepatitis, UTI, gastroenteritis, AAA, incarcerated hernia, bowel obstruction, constipation, inflammatory bowel, hepatitis, peptic ulcer disease, splenic infarction, perforated viscus, testicular torsion, this is not meant to be an all-inclusive list (Ramirez Pitts) Medical Decision Making <Sofiya eNwman - Last Filed: 01/04/24 19:47> - Lab Data Result diagrams: 01/04/24 20:25 01/04/24 20:25 <Ramirez Pitts - Last Filed: 01/10/24 03:08> - Medical Decision Making I completed the quick note portion of this chart signed Sofiya Newman PA-C (Sofiya Newman) 59 male with nausea vomiting no acute cause found here in the ER patient feels well can be discharged home (Ramirez Pitts) - Lab Data Lab Results 01/04/24 01/04/24 01/04/24 Range/Units 20:25 20:25 20:25 WBC 7.3 (3.8-10.6) k/uL RBC 4.43 (4.30-5.90) m/uL Hgb 13.3 (13.0-17.5) gm/dL Hct 40.6 (39.0-53.0) % MCV 91.5 (80.0-100.0) fL MCH 29.9 (25.0-35.0) pg MCHC 32.7 (31.0-37.0) g/dL RDW 13.8 (11.5-15.5) % Plt Count 257 (150-450) k/uL MPV 8.0 Neutrophils % 61 % Lymphocytes % 23 % Monocytes % 7 % Eosinophils % 7 % Basophils % 1 % Neutrophils # 4.5 (1.3-7.7) k/uL Lymphocytes # 1.7 (1.0-4.8) k/uL Monocytes # 0.5 (0-1.0) k/uL Eosinophils # 0.5 (0-0.7) k/uL Basophils # 0.0 (0-0.2) k/uL Sodium 138 (137-145) mmol/L Potassium 4.7 (3.5-5.1) mmol/L Chloride 101 (98-107) mmol/L Carbon Dioxide 30 (22-30) mmol/L Anion Gap 7 mmol/L BUN 16 (9-20) mg/dL Creatinine 0.75 (0.66-1.25) mg/dL Est GFR (CKD-EPI)AfAm >90 (>60 ml/min/1.73 sqM) Est GFR (CKD-EPI)NonAf >90 (>60 ml/min/1.73 sqM) Glucose 102 H (74-99) mg/dL Plasma Lactic Acid Jose E (0.7-2.0) mmol/L Calcium 9.7 (8.4-10.2) mg/dL Phosphorus 3.9 (2.5-4.5) mg/dL Magnesium 1.9 (1.6-2.3) mg/dL Total Bilirubin 0.7 (0.2-1.3) mg/dL AST 28 (17-59) U/L ALT 28 (4-49) U/L Alkaline Phosphatase 64 (38-126) U/L Total Protein 7.2 (6.3-8.2) g/dL Albumin 4.7 (3.5-5.0) g/dL Lipase 136 (23-300) U/L Urine Color Colorless Urine Appearance Clear (Clear) Urine pH 6.0 (5.0-8.0) Ur Specific [place] 1.015 (1.001-1.035) Urine Protein 1+ H (Negative) Urine Glucose (UA) 4+ H (Negative) Urine Ketones Negative (Negative) Urine Blood Negative (Negative) Urine Nitrite Negative (Negative) Urine Bilirubin Negative (Negative) Urine Urobilinogen <2.0 (<2.0) mg/dL Ur Leukocyte Esterase Negative (Negative) Urine RBC 3 (0-5) /hpf Urine WBC <1 (0-5) /hpf Hyaline Casts 3 H (0-2) /lpf Urine Mucus Occasional H (None) /hpf 01/04/24 Range/Units 20:25 WBC (3.8-10.6) k/uL RBC (4.30-5.90) m/uL Hgb (13.0-17.5) gm/dL Hct (39.0-53.0) % MCV (80.0-100.0) fL MCH (25.0-35.0) pg MCHC (31.0-37.0) g/dL RDW (11.5-15.5) % Plt Count (150-450) k/uL MPV Neutrophils % % Lymphocytes % % Monocytes % % Eosinophils % % Basophils % % Neutrophils # (1.3-7.7) k/uL Lymphocytes # (1.0-4.8) k/uL Monocytes # (0-1.0) k/uL Eosinophils # (0-0.7) k/uL Basophils # (0-0.2) k/uL Sodium (137-145) mmol/L Potassium (3.5-5.1) mmol/L Chloride (98-107) mmol/L Carbon Dioxide (22-30) mmol/L Anion Gap mmol/L BUN (9-20) mg/dL Creatinine (0.66-1.25) mg/dL Est GFR (CKD-EPI)AfAm (>60 ml/min/1.73 sqM) Est GFR (CKD-EPI)NonAf (>60 ml/min/1.73 sqM) Glucose (74-99) mg/dL Plasma Lactic Acid Jose E 1.4 (0.7-2.0) mmol/L Calcium (8.4-10.2) mg/dL Phosphorus (2.5-4.5) mg/dL Magnesium (1.6-2.3) mg/dL Total Bilirubin (0.2-1.3) mg/dL AST (17-59) U/L ALT (4-49) U/L Alkaline Phosphatase (38-126) U/L Total Protein (6.3-8.2) g/dL Albumin (3.5-5.0) g/dL Lipase (23-300) U/L Urine Color Urine Appearance (Clear) Urine pH (5.0-8.0) Ur Specific [place] (1.001-1.035) Urine Protein (Negative) Urine Glucose (UA) (Negative) Urine Ketones (Negative) Urine Blood (Negative) Urine Nitrite (Negative) Urine Bilirubin (Negative) Urine Urobilinogen (<2.0) mg/dL Ur Leukocyte Esterase (Negative) Urine RBC (0-5) /hpf Urine WBC (0-5) /hpf Hyaline Casts (0-2) /lpf Urine Mucus (None) /hpf Disposition <Sofiya Newman - Last Filed: 01/04/24 19:47> Is patient prescribed a controlled substance at d/c from ED?: No Time of Disposition: 21:45 <Ramirez Pitts - Last Filed: 01/10/24 03:08> Clinical Impression: Nausea and vomiting Disposition: HOME SELF-CARE Condition: Fair Instructions (If sedation given, give patient instructions): Acute Nausea and Vomiting (ED) Referrals: Markell Bond MD [Primary Care Provider] - 1-2 days
[2024-01-04] MEDS: PANTOPRAZOLE 40 MG/10 ML VIAL IVP STA (20:45)
[2024-01-04] MEDS: SODIUM CHLORIDE 0.9% 1,000 ML IV STA ×2 (20:45→21:04)
[2024-01-04] MEDS: ONDANSETRON 4 MG/2 ML VIAL IVP STA (20:45)
[2024-01-04 20:57] LABS: Basophils % (A) 1 %; Eosinophils # (A) 0.5 k/uL (0-0.7); Eosinophils % (A) 7 %; HCT 40.6 % (39.0-53.0); HGB 13.3 gm/dL (13.0-17.5); Lymphocytes # (A) 1.7 k/uL (1.0-4.8); Lymphocytes % (A) 23 %; MCH 29.9 pg (25.0-35.0); MCHC 32.7 g/dL (31.0-37.0); MCV 91.5 fL (80.0-100.0); Monocytes # (A) 0.5 k/uL (0-1.0); Monocytes % (A) 7 %; Neutrophils # (A) 4.5 k/uL (1.3-7.7); Neutrophils % (A) 61 %; Platelet Count 257 k/uL (150-450); RBC 4.43 m/uL (4.30-5.90); RDW 13.8 % (11.5-15.5); WBC 7.3 k/uL (3.8-10.6)
[2024-01-04 21:10] LABS: ALT 28 U/L (4-49); AST 28 U/L (17-59); African American GFR (CKD) >90 (>60 ml/min/1.73 sqM); Albumin 4.7 g/dL (3.5-5.0); Alkaline Phosphatase 64 U/L (38-126); Anion Gap 7 mmol/L; Blood Urea Nitrogen 16 mg/dL (9-20); Calcium 9.7 mg/dL (8.4-10.2); Carbon Dioxide 30 mmol/L (22-30); Chloride 101 mmol/L (98-107); Glucose 102 mg/dL (74-99); Lipase 136 U/L (23-300); Magnesium 1.9 mg/dL (1.6-2.3); Non-African American GFR(CKD) >90 (>60 ml/min/1.73 sqM); Phosphorus 3.9 mg/dL (2.5-4.5); Potassium 4.7 mmol/L (3.5-5.1); Sodium 138 mmol/L (137-145); Total Bilirubin 0.7 mg/dL (0.2-1.3); Total Protein 7.2 g/dL (6.3-8.2)
[2024-01-04 21:11] LABS: Appearance,Urine Clear (Clear); Bilirubin,Urine Negative (Negative); Blood,Urine Negative (Negative); Color,Urine Colorless; Glucose,Urine (UA) 4+ (Negative); Hyaline Casts,Urine 3 /lpf (0-2); Ketones,Urine Negative (Negative); Leukocyte Esterase,Urine Negative (Negative); Mucus,Urine Occasional /hpf; Nitrite,Urine Negative (Negative); Protein,Urine 1+ (Negative); RBC,Urine 3 /hpf (0-5); Specific Gravity,Urine 1.015 (1.001-1.035); Urobilinogen,Urine <2.0 mg/dL (<2.0); WBC,Urine <1 /hpf (0-5)
[2024-01-04] MEDS: SODIUM CHLORIDE 0.9% 500 ML 500 ML IV STA (21:27)
[2024-01-04 22:13] VITALS: BP 165/92; PULSE 98; RESP 18
== END 2024-01-04 22:18 | disposition home or self-care (01) ==
LOC: EC 19:18
DX: R11.2 Nausea with vomiting, unspecified (principal); Z86.16 Personal history of COVID-19; Z91.018 Allergy to other foods
CPT/HCPCS: 36415; 80053; 83605; 83690; 83735; 84100; 85025; 81001; 99284; 96374; 96375; 96361 ×2; J2405; J2470

== ENCOUNTER 2024-01-05 16:01 | Emergency (ER) | payer MEDICARE ==
[2024-01-05 16:06] VITALS: TEMP 98.1
--- NOTE | 2024-01-05 16:35 | ED ---
General Adult HPI - General Chief complaint: Nausea/Vomiting/Diarrhea Stated complaint: vomiting Time Seen by Provider: 01/05/24 16:07 Source: patient Mode of arrival: ambulatory Limitations: no limitations - History of Present Illness Initial comments: Dictation was produced using [employer] dictation software. please excuse any grammatical, word or spelling errors. Chief Complaint: 59-year-old male presents to the emergency department with nausea vomiting and abdominal pain History of Present Illness: Patient is a 51-year-old male presents emergency department 1 to 2 days of nausea vomiting abdominal pain. Patient states that the pain is epigastric and supraumbilical. States that he had 3 bouts of nausea and vomiting. States that his emesis is nonbilious nonbloody. Patient has a history of long COVID and recent diagnosis of adrenal insufficiency. He takes large doses of daily steroids. Over the last week and a half he stopped taking his hydrocortisone because it did not seem to be making any sort of improvement with his blood pressure. Patient denies any fever, chills or night sweats. Patient denies any history of abdominal surgery. The ROS documented in this emergency department record has been reviewed and confirmed by me. Those systems with pertinent positive or negative responses have been documented in the HPI. All other systems are other negative and/or noncontributory. - Related Data Home Medications Medication Instructions Recorded Confirmed Dulaglutide [Trulicity] 3 mg SQ MO 12/15/22 01/05/24 Hydrocortisone [Cortef] 10 mg PO BID 12/15/22 01/05/24 Albuterol Sulfate [Ventolin HFA] 2 puff INHALATION RT-Q4H PRN 04/06/23 01/05/24 Cholecalciferol (Vitamin D3) 1,250 mcg PO QMONTHLY 04/06/23 01/05/24 [Vitamin D3 (1250 Mcg = 50,000 Iu)] Fludrocortisone [Florinef] 0.1 mg PO BID 04/06/23 01/05/24 Potassium Chloride ER [K-Dur 20] 20 meq PO BID 04/06/23 01/05/24 Triamcinolone Acetonide [Nasacort] 1 spr EA NOSTRIL HS 04/06/23 01/05/24 Bumetanide [BUMEX] 0.5 mg PO DAILY 01/05/24 01/05/24 Insulin Glargine [Lantus Vial] 10 unit SQ HS 01/05/24 01/05/24 Ondansetron Odt [Zofran Odt] 4 mg PO Q6H 01/05/24 01/05/24 metFORMIN HCL [Glucophage] 1,000 mg PO BID 01/05/24 01/05/24 Previous Rx's Medication Instructions Recorded Famotidine [Pepcid] 20 mg PO BID #30 tab 12/23/21 Cyclobenzaprine [Flexeril] 5 mg PO TID PRN #30 tab 12/19/22 Aspirin 81 mg PO DAILY #90 tab 04/08/23 Clopidogrel [Plavix] 75 mg PO DAILY #90 tab 04/08/23 Metoprolol Tartrate [Lopressor] 25 mg PO BID #180 tab 04/08/23 Nitroglycerin Sl Tabs [Nitrostat] 0.4 mg SUBLINGUAL Q5M PRN #100 tab 04/08/23 Atorvastatin [Lipitor] 80 mg PO HS #90 tab 04/11/23 Dapagliflozin Propanediol [Farxiga] 10 mg PO DAILY #30 tab 04/12/23 Allergies Allergy/AdvReac Type Severity Reaction Status Date / Time tree nut Allergy Anaphylaxis Verified 01/05/24 17:28 Review of Systems ROS Statement: Those systems with pertinent positive or pertinent negative responses have been documented in the HPI. ROS Other: All systems not noted in ROS Statement are negative. Past Medical History Past Medical History: Asthma, Diabetes Mellitus Additional Past Medical History / Comment(s): DM type 2, COVID 08/25/2020-09/25/20, addisons disease History of Any Multi-Drug Resistant Organisms: None Reported Past Surgical History: Appendectomy Additional Past Surgical History / Comment(s): appe removed 2007 Past Anesthesia/Blood Transfusion Reactions: No Reported Reaction Past Psychological History: No Psychological Hx Reported Smoking Status: Never smoker Past Alcohol Use History: None Reported Past Drug Use History: None Reported General Exam - General Exam Comments Initial Comments: PHYSICAL EXAM: General Impression: Alert and oriented x3, not in acute distress HEENT: Normocephalic atraumatic, extra-ocular movements intact, pupils equal and reactive to light bilaterally, mucous membranes moist. Cardiovascular: Heart regular rate and rhythm Chest: Able to complete full sentences, no retractions, no tachypnea Abdomen: abdomen soft, palpable tenderness to the epigastrium and supraumbilical area, non-distended, no organomegaly Musculoskeletal: Pulses present and equal in all extremities, no peripheral edema Motor: no focal deficits noted Neurological: CN II-XII grossly intact, no focal motor or sensory deficits noted Skin: Intact with no visualized rashes Psych: Normal affect and mood Limitations: no limitations Course Vital Signs 01/05/24 01/05/24 01/05/24 16:04 16:23 16:25 Temperature 98.1 F Pulse Rate 92 Pulse Rate [ 92 92 Manager Convention ] Respiratory 20 Rate Blood Pressure 105/62 Blood Pressure 120/76 [Sitting] Blood Pressure [Standing] Blood Pressure 166/99 [Supine] O2 Sat by Pulse 99 Oximetry 01/05/24 16:27 Temperature Pulse Rate Pulse Rate [ 93 Manager Convention ] Respiratory Rate Blood Pressure Blood Pressure [Sitting] Blood Pressure 97/63 [Standing] Blood Pressure [Supine] O2 Sat by Pulse Oximetry EKG Findings - EKG Comments: EKG Findings:: My EKG interpretation: Ventricular rate 92, sinus rhythm,. 162, cures 94, QTc 420. No ME prolongation, no QTC prolongation, no ST or T-wave changes noted. EKG compared to [default value] showing no changes. Overall, this EKG is unremarkable Medical Decision Making - Medical Decision Making Was pt. sent in by a medical professional or institution (JOSEPH Stringer, RADIOLOGY PHYSICIAN ASSISTANT, urgent care, hospital, or retirement...) When possible be specific @ -No Did you speak to anyone other than the patient for history (EMS, parent, family, police, friend...)? What history was obtained from this source @ -Some history obtained from patient's brother who is a ER doctor states that he is concerned about his steroid medications Did you review nursing and triage notes (agree or disagree)? Why? @ -I reviewed and agree with nursing and triage notes Were old charts reviewed (outside hosp., previous admission, EMS record, old EKG, old radiological studies, urgent care reports/EKG's, retirement records)? Report findings @ -No old charts were reviewed Differential Diagnosis (chest pain, altered mental status, abdominal pain women, abdominal pain men, vaginal bleeding, musculoskeletal, weakness, fever, dyspnea, syncope, headache, dizziness, GI bleed, back pain, seizure, CVA, palpatations, mental health)? @ -Gastritis, acute appendicitis, small bowel obstruction EKG interpreted by me (3pts min.). @ -See above X-rays interpreted by me (1pt min.). @ -None done CT interpreted by me (1pt min.). @ -CT of the abdomen pelvis shows no acute processes U/S interpreted by me (1pt. min.). @ -None done What testing was considered but not performed or refused? (CT, X-rays, U/S, labs)? Why? @ -None What meds were considered but not given or refused? Why? @ -None Was smoking cessation discussed for >3mins.? @ -No Were there social determinants of health that impacted care today? How? (Homelessness, low income, unemployed, alcoholism, drug addiction, transportation, low edu. Level, literacy, decrease access to med. care, half-way, rehab)? @ -No Was there de-escalation of care discussed even if they declined (Discuss DNR or withdrawal of care, Hospice)? DNR status @ -No What co-morbidities impacted this encounter? (DM, HTN, Smoking, COPD, CAD, Cancer, CVA, ARF, Chemo, Hep., AIDS, mental health diagnosis, sleep apnea, morbid obesity)? @ -adrenal insufficiency Was patient admitted / discharged? Hospital course, mention meds given and route, prescriptions, significant lab abnormalities, going to OR and other pertinent info. @ -59-year-old male with past medical history of adrenal insufficiency presents to the ER for nausea vomiting abdominal pain. Vital signs upon arrival are within acceptable limits. Patient well-appearing at the bedside he does have some palpatory tenderness to the epigastrium with palpation. Laboratory evaluation obtained. Labs are within acceptable limits. Patient given [address] of the ab pelvis shows no acute processes. Patient reevaluated bedside at 7:10 PM after being monitored in the emergency department for approximately 3 hours. Patient well-appearing. Workup was negative. Patient discharged. Told to continue taking his hydrocortisone. Patient also given outpatient referral to GI. Did you discuss the management of the patient with other professionals (pro fessionals i.e. , PA, RADIOLOGY PHYSICIAN ASSISTANT, lab, RT, psych nurse, pediatric social worker, labor arbitrator, teacher, small business banking officer, shoe caser)? Give summary @ -No Was critical care preformed (if so, how long)? @ -No Undiagnosed new problem with uncertain prognosis? @ -No Drug Therapy requiring intensive monitoring for toxicity (Heparin, Nitro, Insulin, Cardizem)? @ -No Were any procedures done? @ -No Diagnosis/symptom? Acute, or Chronic, or Acute on Chronic? Uncomplicated (without systemic symptoms) or Complicated (systemic symptoms)? @ -Abdominal pain, NOS Side effects of treatment? @ -No Exacerbation, Progression, or Severe Exacerbation? @ -No Poses a threat to life or bodily function? How? (Chest pain, USA, MS, pneumonia, PE, COPD, DKA, ARF, appy, cholecystitis, CVA, Diverticulitis, Homicidal, Suicidal, threat to staff... and all critical care pts) @ -No - Lab Data Result diagrams: 01/05/24 16:34 01/05/24 16:34 Lab Results 01/05/24 01/05/24 01/05/24 Range/Units 16:34 16:34 16:34 WBC 6.9 (3.8-10.6) k/uL RBC 4.08 L (4.30-5.90) m/uL Hgb 12.5 L (13.0-17.5) gm/dL Hct 36.5 L (39.0-53.0) % MCV 89.5 (80.0-100.0) fL MCH 30.8 (25.0-35.0) pg MCHC 34.4 (31.0-37.0) g/dL RDW 13.5 (11.5-15.5) % Plt Count 266 (150-450) k/uL MPV 7.5 Neutrophils % 63 % Lymphocytes % 22 % Monocytes % 7 % Eosinophils % 5 % Basophils % 0 % Neutrophils # 4.3 (1.3-7.7) k/uL Lymphocytes # 1.5 (1.0-4.8) k/uL Monocytes # 0.5 (0-1.0) k/uL Eosinophils # 0.4 (0-0.7) k/uL Basophils # 0.0 (0-0.2) k/uL PT 10.9 (10.0-12.5) sec INR 1.0 (<1.2) APTT 25.0 (22.0-30.0) sec Sodium 136 L (137-145) mmol/L Potassium 4.5 (3.5-5.1) mmol/L Chloride 103 (98-107) mmol/L Carbon Dioxide 26 (22-30) mmol/L Anion Gap 7 mmol/L BUN 12 (9-20) mg/dL Creatinine 0.64 L (0.66-1.25) mg/dL Est GFR (CKD-EPI)AfAm >90 (>60 ml/min/1.73 sqM) Est GFR (CKD-EPI)NonAf >90 (>60 ml/min/1.73 sqM) Glucose 93 (74-99) mg/dL Plasma Lactic Acid Jose E (0.7-2.0) mmol/L Calcium 9.3 (8.4-10.2) mg/dL Magnesium 1.8 (1.6-2.3) mg/dL Total Bilirubin 0.8 (0.2-1.3) mg/dL AST 29 (17-59) U/L ALT 25 (4-49) U/L Alkaline Phosphatase 61 (38-126) U/L Total Protein 6.5 (6.3-8.2) g/dL Albumin 4.3 (3.5-5.0) g/dL Lipase 116 (23-300) U/L // Range/Units 16:34 WBC (3.8-10.6) k/uL RBC (4.30-5.90) m/uL Hgb (13.0-17.5) gm/dL Hct (39.0-53.0) % MCV (80.0-100.0) fL MCH (25.0-35.0) pg MCHC (31.0-37.0) g/dL RDW (11.5-15.5) % Plt Count (150-450) k/uL MPV Neutrophils % % Lymphocytes % % Monocytes % % Eosinophils % % Basophils % % Neutrophils # (1.3-7.7) k/uL Lymphocytes # (1.0-4.8) k/uL Monocytes # (0-1.0) k/uL Eosinophils # (0-0.7) k/uL Basophils # (0-0.2) k/uL PT (10.0-12.5) sec INR (<1.2) APTT (22.0-30.0) sec Sodium (137-145) mmol/L Potassium (3.5-5.1) mmol/L Chloride (98-107) mmol/L Carbon Dioxide (22-30) mmol/L Anion Gap mmol/L BUN (9-20) mg/dL Creatinine (0.66-1.25) mg/dL Est GFR (CKD-EPI)AfAm (>60 ml/min/1.73 sqM) Est GFR (CKD-EPI)NonAf (>60 ml/min/1.73 sqM) Glucose (74-99) mg/dL Plasma Lactic Acid Jose E 1.0 (0.7-2.0) mmol/L Calcium (8.4-10.2) mg/dL Magnesium (1.6-2.3) mg/dL Total Bilirubin (0.2-1.3) mg/dL AST (17-59) U/L ALT (4-49) U/L Alkaline Phosphatase (38-126) U/L Total Protein (6.3-8.2) g/dL Albumin (3.5-5.0) g/dL Lipase (23-300) U/L Disposition Clinical Impression: Abdominal pain Disposition: HOME SELF-CARE Condition: Good Instructions (If sedation given, give patient instructions): Abdominal Pain (ED) Is patient prescribed a controlled substance at d/c from ED?: No Referrals: Markell Bond MD [Primary Care Provider] - 1-2 days Merlyn Prince MD [STAFF PHYSICIAN] - 1-2 days Time of Disposition: 19:12
[2024-01-05] MEDS: SODIUM CHLORIDE 0.9% 1,000 ML IV STA (17:24)
[2024-01-05] MEDS: HYDROCORTISONE SUCCINATE 100 MG/2 ML VIAL IV STA (17:25)
[2024-01-05] MEDS: ONDANSETRON 4 MG/2 ML VIAL IVP STA (17:25)
[2024-01-05 17:31] LABS: Basophils % (A) 0 %; Eosinophils # (A) 0.4 k/uL (0-0.7); Eosinophils % (A) 5 %; HCT 36.5 % (39.0-53.0); HGB 12.5 gm/dL (13.0-17.5); Lymphocytes # (A) 1.5 k/uL (1.0-4.8); Lymphocytes % (A) 22 %; MCH 30.8 pg (25.0-35.0); MCHC 34.4 g/dL (31.0-37.0); MCV 89.5 fL (80.0-100.0); Mean Platelet Volume 7.5; Monocytes # (A) 0.5 k/uL (0-1.0); Monocytes % (A) 7 %; Neutrophils # (A) 4.3 k/uL (1.3-7.7); Neutrophils % (A) 63 %; Platelet Count 266 k/uL (150-450); RBC 4.08 m/uL (4.30-5.90); RDW 13.5 % (11.5-15.5); WBC 6.9 k/uL (3.8-10.6)
[2024-01-05 17:39] LABS: Prothrombin Time 10.9 sec (10.0-12.5)
[2024-01-05 17:41] LABS: ALT 25 U/L (4-49); AST 29 U/L (17-59); African American GFR (CKD) >90 (>60 ml/min/1.73 sqM); Albumin 4.3 g/dL (3.5-5.0); Alkaline Phosphatase 61 U/L (38-126); Anion Gap 7 mmol/L; Blood Urea Nitrogen 12 mg/dL (9-20); Calcium 9.3 mg/dL (8.4-10.2); Carbon Dioxide 26 mmol/L (22-30); Chloride 103 mmol/L (98-107); Glucose 93 mg/dL (74-99); Lipase 116 U/L (23-300); Magnesium 1.8 mg/dL (1.6-2.3); Non-African American GFR(CKD) >90 (>60 ml/min/1.73 sqM); Potassium 4.5 mmol/L (3.5-5.1); Sodium 136 mmol/L (137-145); Total Bilirubin 0.8 mg/dL (0.2-1.3); Total Protein 6.5 g/dL (6.3-8.2)
--- NOTE | 2024-01-05 18:47 | CT ---
EXAMINATION TYPE: CT abdomen pelvis w con DATE OF EXAM: 01/05/2024 COMPARISON: 08/18/2023 INDICATION: abdominal pain DLP: 772.7 mGycm, Automated exposure control for dose reduction was used. CONTRAST: 100 mL of Isovue 300. Study performed without Oral Contrast TECHNIQUE: Axial images were obtained from above the diaphragm to the pubic rami in the axial plane a t 5 mm thick sections. Reconstructed images are reviewed on the computer in the coronal plane. FINDINGS: Limited CT sections are obtained the lung bases. There is a calcification within the posterior media l left lung base. Lung bases are otherwise clear. CT ABDOMEN: Liver: Normal Spleen: Normal Pancreas: Normal Adrenal glands: The adrenal glands are normal. Gallbladder: Normal Kidneys: No masses are evident. No hydronephrosis is present. No cysts are present. Delayed images were obtained through the kidneys, which remain unremarkable. Aorta: Normal Inferior vena cava: Normal. CT PELVIS: Loops of bowel within the abdomen and pelvis are normal. This study was without oral contrast lockhart iting bowel evaluation. Appendix: Not identified. No dilated tubular structure or inflammatory changes evident. Urinary bladder: Distended. No suspicious abnormality within the urinary bladder Genitourinary structures: Prostate is prominent Osseous structures: No suspicious lytic or sclerotic lesions. IMPRESSION: 1. No suspicious acute changes to account for patient's symptoms
[2024-01-05] MEDS: NAPROXEN 250 MG TAB PO STA (19:34)
[2024-01-05] MEDS: PANTOPRAZOLE 40 MG/10 ML VIAL IVP STA (19:35)
[2024-01-05 20:09] VITALS: BP 112/74; PULSE 76; RESP 16
== END 2024-01-05 19:45 | disposition home or self-care (01) ==
LOC: EC 16:01
DX: R10.13 Epigastric pain (principal); Z91.010 Allergy to peanuts
CPT/HCPCS: 36415; 93005; 80053; 83605; 83690; 83735; 85025; 85610; 85730; 74177; 99284; 96375 ×2; 96361 ×3; 96374; J1720; J2405; Q9967; J2470

== ENCOUNTER → 2024-08-27 | Outpatient (CLI) | payer MEDICARE ==
[~2024-08-27] MED LIST: DOBUTamine DRIP for NUC MED 500 MG in DEXTROSE/WATER 1 250ML.BAG IV PRN
--- NOTE | 2024-08-27 12:11 | CA ---
Dobutamine Stress Echocardiogram Report Pino Rae Age: 59 Gender: M : 1965 Exam Date: 08/27/2024 09:52 Exam Location: [facility] Ordering Physician: Markell Bond MD Referring Physician: Varun IRENE Nailer Machine: Peter Saldana Technologist: Ht (in): 68 Wt (lb): 152 Procedure CPT: Indication: R07.9 CHEST PAIN R06.02 SOB I25.10 CAD ICD-9 Codes: Rhythm: Patient History: Cardiac Medications: LIPITOR, METFORMIM, STEROIDS Medications in past 24 hours: Contrast: N/A Total Dose (mL): NA Stress Results Protocol: Dobutamine Peak Dose (???g/kg/min): 30 Duration (min:sec): Atropine:(mg) None Target HR: 138 Double Product: [id number] Resting HR: 87 Resting BP: 134 / 75 Peak HR: 141 Peak BP: 189 / 84 Max Predicted HR: 162 87 % Max Predicted HR Stress Summary: BP Response: Reason for Termination: Target HR Cardiac Symptoms: NO SYMPTOMS ECG Analysis Resting EKG: Stress EKG: Arrhythmia: Echo Analysis Base Echo Analysis: Low Echo Anaylsis: Peak Echo Analysis: Recovery Echo: MEASUREMENTS (Male/Female) Normal Values CONCLUSIONS Patient underwent dobutamine stress echo with infusion of dobutamine into Stage 3 for a total of 9 minutes and 12 seconds. Patient's maximum heart rate was 141 which represented 87% age- predicted maximum heart rate. Stress EKG portion: At baseline patient's EKG showed normal sinus rhythm, normal axis, minimal 0.[address] depressions in the inferior leads. At peak dobutamine infusion, EKG showed no significant change from baseline. Stress echo portion: 2-D echocardiogram was performed in the parasternal long, personal short, apical 2 and apical four-chamber views at rest, low-dose, peak infusion and in recovery. At baseline, echocardiogram showed left ventricular ejection fraction 55% without wall motion abnormalities. With peak infusion, echocardiogram shows improvement in left ventricular ejection fraction, increase contractility, decrease in left ventricular end systolic dimension without wall motion abnormalities consistent with a normal response to dobutamine. Conclusions: 1. Nonspecific stress EKG portion secondary baseline EKG and are as 2. Normal stress echo response to dobutamine infusion without any evidence of inducible ischemia. Dr. Klever Love DO (Electronically Signed) Final Date: 27 August 2024 12:11
== END | disposition home or self-care (01) ==
LOC: RADNMMAIN 09:22
PROVIDERS: ATTEND Family Medicine
DX: I25.10 Atherosclerotic heart disease of native coronary artery without angina pectoris (principal); R94.31 Abnormal electrocardiogram [ECG] [EKG]; R06.02 Shortness of breath
CPT/HCPCS: 93351

== ENCOUNTER 2024-09-28 16:58 | Emergency (ER) | payer MEDICARE ==
[2024-09-28 17:07] VITALS: TEMP 98.7
--- NOTE | 2024-09-28 17:44 | ED ---
ENT HPI - General Chief complaint: ENT Stated complaint: Dental issue Time Seen by Provider: 09/28/24 17:10 Source: patient, RN notes reviewed Mode of arrival: ambulatory Limitations: no limitations - History of Present Illness Initial comments: This is a 59-year male presenting to the emergency department with dental pain. Patient states that he had dental procedure today with multiple teeth extracted and was sent home with dentures. He reports that after he was sent home from his procedure he attempted to roller picker medications however there was no medication sent to his pharmacy for pain or antibiotics. He attempted to contact the oral surgeon however the office close this afternoon at 1300. Patient states that he is having mild to moderate pain. States that bleeding is well-controlled. Denies blood thinner use. Appointment with oral surgeon is in 1 week. - Related Data Home Medications Medication Instructions Recorded Confirmed Dulaglutide [Trulicity] 3 mg SQ MO 12/15/22 01/05/24 Hydrocortisone [Cortef] 10 mg PO BID 12/15/22 01/05/24 Albuterol Sulfate [Ventolin HFA] 2 puff INHALATION RT-Q4H PRN 04/06/23 01/05/24 Cholecalciferol (Vitamin D3) 1,250 mcg PO QMONTHLY 04/06/23 01/05/24 [Vitamin D3 (1250 Mcg = 50,000 Iu)] Fludrocortisone [Florinef] 0.1 mg PO BID 04/06/23 01/05/24 Potassium Chloride ER [K-Dur 20] 20 meq PO BID 04/06/23 01/05/24 Triamcinolone Acetonide [Nasacort] 1 spr EA NOSTRIL HS 04/06/23 01/05/24 Bumetanide [BUMEX] 0.5 mg PO DAILY 01/05/24 01/05/24 Insulin Glargine (Lantus) [Lantus 10 unit SQ HS 01/05/24 01/05/24 Vial] Ondansetron Odt [Zofran Odt] 4 mg PO Q6H 01/05/24 01/05/24 metFORMIN HCL [Glucophage] 1,000 mg PO BID 01/05/24 01/05/24 Previous Rx's Medication Instructions Recorded Famotidine [Pepcid] 20 mg PO BID #30 tab 12/23/21 Cyclobenzaprine [Flexeril] 5 mg PO TID PRN #30 tab 12/19/22 Aspirin 81 mg PO DAILY #90 tab 04/08/23 Clopidogrel [Plavix] 75 mg PO DAILY #90 tab 04/08/23 Metoprolol Tartrate [Lopressor] 25 mg PO BID #180 tab 04/08/23 Nitroglycerin Sl Tabs [Nitrostat] 0.4 mg SUBLINGUAL Q5M PRN #100 tab 04/08/23 Atorvastatin [Lipitor] 80 mg PO HS #90 tab 04/11/23 Dapagliflozin Propanediol [Farxiga] 10 mg PO DAILY #30 tab 04/12/23 Acetaminophen-Codeine 300-30mg 1 tab PO Q4H PRN #18 tablet 09/28/24 [Tylenol #3] Amoxicillin 875 mg PO Q12HR #20 tablet 09/28/24 Allergies Allergy/AdvReac Type Severity Reaction Status Date / Time tree nut Allergy Anaphylaxis Verified 01/05/24 17:28 Review of Systems ROS Statement: Those systems with pertinent positive or pertinent negative responses have been documented in the HPI. ROS Other: All systems not noted in ROS Statement are negative. Past Medical History Past Medical History: Asthma, Diabetes Mellitus Additional Past Medical History / Comment(s): DM type 2, COVID 08/25/2020-09/25/20, addisons disease History of Any Multi-Drug Resistant Organisms: None Reported Past Surgical History: Appendectomy Additional Past Surgical History / Comment(s): appe removed 2007 Past Anesthesia/Blood Transfusion Reactions: No Reported Reaction Past Psychological History: No Psychological Hx Reported Smoking Status: Never smoker Past Alcohol Use History: None Reported Past Drug Use History: None Reported General Exam - General Exam Comments Initial Comments: Visual Physical Exam Vital signs reviewed General: Well-appearing, nontoxic, no acute distress. Head: Normocephalic, atraumatic Eyes: PERRLA, EOMI ENT: Airway patent Chest: Nonlabored breathing Skin: No visual rash, normal skin tone Neuro: Alert and oriented 3 Musculoskeletal: No gross abnormalities Limitations: no limitations General appearance: alert, in no apparent distress Expanded Teeth exam: Present: other (complete tooth extraction, bleeding controlled). Absent: normal inspection Neck exam: Present: normal inspection. Absent: tenderness, meningismus, lymphadenopathy Respiratory exam: Present: normal lung sounds bilaterally. Absent: respiratory distress, wheezes, rales, rhonchi, stridor Cardiovascular Exam: Present: regular rate, normal rhythm, normal heart sounds. Absent: systolic murmur, diastolic murmur, rubs, gallop, clicks GI/Abdominal exam: Present: soft, normal bowel sounds. Absent: distended, tenderness, guarding, rebound, rigid Extremities exam: Present: normal inspection, full ROM, normal capillary refill. Absent: tenderness, pedal edema, joint swelling, calf tenderness Back exam: Present: normal inspection Course Vital Signs 09/28/24 09/28/24 17:04 19:09 Temperature 98.7 F 98.7 F Pulse Rate 97 100 Respiratory 17 18 Rate Blood Pressure 145/83 191/94 O2 Sat by Pulse 99 99 Oximetry Medical Decision Making - Medical Decision Making Was pt. sent in by a medical professional or institution (, PA, CYCLE LIAISON, urgent care, hospital, or longterm...) When possible be specific @ -No Did you speak to anyone other than the patient for history (EMS, parent, family, police, friend...)? What history was obtained from this source @ -No Did you review nursing and triage notes (agree or disagree)? Why? @ -I reviewed and agree with nursing and triage notes Were old charts reviewed (outside hosp., previous admission, EMS record, old EKG, old radiological studies, urgent care reports/EKG's, longterm records)? Report findings @ -No old charts were reviewed Differential Diagnosis (chest pain, altered mental status, abdominal pain women, abdominal pain men, vaginal bleeding, weakness, fever, dyspnea, syncope, headache, dizziness, GI bleed, back pain, seizure, CVA, palpatations, mental health, musculoskeletal)? @ -Dental pain, dental abscess, dental fracture, pulpitis, this list not all inclusive EKG interpreted by me (3pts min.). @ -None X-rays interpreted by me (1pt min.). @ -None done CT interpreted by me (1pt min.). @ -None done U/S interpreted by me (1pt. min.). @ -None done What testing was considered but not performed or refused? (CT, X-rays, U/S, labs)? Why? @ -None What meds were considered but not given or refused? Why? @ -None Did you discuss the management of the patient with other professionals (professionals i.e. DrDaria, PA, CYCLE LIAISON, lab, RT, psych nurse, social and political studies professor, game farm supervisor, teacher, inshore undersea warfare officer, case planner)? Give summary @ -No Was smoking cessation discussed for >3mins.? @ -No Was critical care preformed (if so, how long)? @ -No Were there social determinants of health that impacted care today? How? (Homelessness, low income, unemployed, alcoholism, drug addiction, transportation, low edu. Level, literacy, decrease access to med. care, long term, rehab)? @ -No Was there de-escalation of care discussed even if they declined (Discuss DNR or withdrawal of care, Hospice)? DNR status @ -No What co-morbidities impacted this encounter? (DM, HTN, Smoking, COPD, CAD, Cancer, CVA, ARF, Chemo, Hep., AIDS, mental health diagnosis, sleep apnea, morbid obesity)? @ -None Was patient admitted / discharged? Hospital course, mention meds given and route, prescriptions, significant lab abnormalities, going to OR and other pertinent info. @ -Discharge. 59-year-old male presenting after multiple tooth extraction. Ove rall patient is well-appearing. Bleeding is well-controlled. Vitals are stable. He is provided with dose of pain medication and outpatient physician for antibiotics pain medication. Recommend the patient contact oral surgeon on Tuesday. Return parameters discussed. Case discussed with Dr. Tellez Undiagnosed new problem with uncertain prognosis? @ -No Drug Therapy requiring intensive monitoring for toxicity (Heparin, Nitro, Insulin, Cardizem)? @ -No Were any procedures done? @ -No Diagnosis/symptom? @ -Dental pain, recent dental extraction Acute, or Chronic, or Acute on Chronic? @ -Acute Uncomplicated (without systemic symptoms) or Complicated (systemic symptoms)? @ -Uncomplicated Side effects of treatment? @ -No Exacerbation, Progression, or Severe Exacerbation? @ -No Poses a threat to life or bodily function? How? (Chest pain, [place], [place], pneumonia, PE, COPD, DKA, ARF, appy, cholecystitis, CVA, Diverticulitis, Homicidal, Suicidal, threat to staff... and all critical care pts) @ -No Disposition Clinical Impression: History of recent dental procedure Disposition: HOME SELF-CARE Condition: Good Instructions (If sedation given, give patient instructions): Toothache (ED) Additional Instructions: Please return to the Emergency Department if symptoms worsen or any other concerns. Prescriptions: Amoxicillin 875 mg PO Q12HR #20 tablet Acetaminophen-Codeine 300-30mg [Tylenol #3] 1 tab PO Q4H PRN #18 tablet PRN Reason: pain Is patient prescribed a controlled substance at d/c from ED?: No Referrals: Markell Bond MD [Primary Care Provider] - 1-2 days Time of Disposition: 18:35
[2024-09-28] MEDS: HYDROcodone/APAP 5-325MG 1 EACH TAB PO STA (18:38)
[2024-09-28 19:11] VITALS: BP 191/94; PULSE 100; RESP 18
== END 2024-09-28 19:14 | disposition home or self-care (01) ==
LOC: EC 16:58
DX: K08.89 Other specified disorders of teeth and supporting structures (principal); Z84.89 Family history of other specified conditions; Z91.018 Allergy to other foods
CPT/HCPCS: 99282

== ENCOUNTER → 2024-11-30 | Outpatient (CLI) | payer MEDICARE ==
--- NOTE | 2024-11-30 16:36 | US ---
EXAMINATION TYPE: US arterial LE single level DATE OF EXAM: 11/30/2024 2:14 PM COMPARISONS: None. CLINICAL INDICATION: Male, 59 years old with history of E08.621 DIABETES MELLITUS DUE TO UNDERLYING C OND W; wound right foot. TECHNIQUE: Systolic pressures were taken of the upper and lower extremity arteries with ankle-brachia l indices and toe brachial indices calculated bilaterally. History of: Smoker: No Hypertension: No Diabetic: Yes Hyperlipidemia: No TIA/CVA: No Previous Vascular Surgery: Yes CAD: No AL: Yes Vascular Ulcers: Yes Claudication: No Gangrene: No FINDINGS: Doppler Waveforms: Biphasic posterior tibial artery is monophasic dorsalis pedis and digital arteries. Brachial Artery systolic pressure: Right:169 Left: 169 Posterior Tibial artery systolic pressure: Right: NOC Left: 180 Dorsalis Pedis artery systolic pressure: Right: NOC Left: 187 Toe artery systolic pressure: Right: 70 Left: 87 Ankle-Brachial Indices: Right: NOC Left: 1.11 Toe Brachial Indices: Right: 0.41 Left: 0.51 (Normal > 0.6; Mild 0.35 - 0.59, Moderate 0.12 - 0.34, Severe <0.12) IMPRESSION: Mild narrowing of the digital arteries [facility], , 11/30/2024 4:34 PM
== END | disposition home or self-care (01) ==
LOC: RADUSWWP 13:32
PROVIDERS: ATTEND Thoracic Surgery (Cardiothoracic Vascular Surgery)
DX: I77.1 Stricture of artery (principal); E08.621 Diabetes mellitus due to underlying condition with foot ulcer; L97.512 Non-pressure chronic ulcer of other part of right foot with fat layer exposed
CPT/HCPCS: 93922